=== PATIENT | female | born 1945 | race Caucasian/White ===

== ENCOUNTER 2016-04-23 19:36 | Inpatient (IN) | payer MEDICARE ==
[2016-04-23] MEDS ORDERED: ASPIRIN 81 MG CHEW PO STA (20:07)
[2016-04-23] MEDS ORDERED: NITROGLYCERIN SL TABS 0.4 MG TAB SUBLINGUAL STA (20:07)
[2016-04-23 20:13] LABS: Basophils # (A) 0.2 k/uL (0-0.2); Basophils % (A) 2 %; CH 29.5; CHCM 33.6; Eosinophils # (A) 0.1 k/uL (0-0.7); Eosinophils % (A) 2 %; HDW 2.87; HGB 12.6 gm/dL (11.4-16.0); Luc # (Auto) 0.26; Luc % (Auto) 3; Lymphocytes # (A) 1.2 k/uL (1.0-4.8); Lymphocytes % (A) 16 %; MCH 29.2 pg (25.0-35.0); MCHC 33.2 g/dL (31.0-37.0); Mean Platelet Volume 7.9; Monocytes # (A) 0.7 k/uL (0-1.0); Monocytes % (A) 9 %; Neutrophils # (A) 5.3 k/uL (1.3-7.7); Neutrophils % (A) 68 %; RBC 4.32 m/uL (3.80-5.40); RDW 14.6 % (11.5-15.5); WBC 7.8 k/uL (3.8-10.6); WBC (Perox) 8.47
[2016-04-23 20:21] LABS: INR 1.1 (<1.1); Partial Thromboplastin Time 22.4 sec (22.0-30.0); Prothrombin Time 11.2 sec (9.0-12.0)
[2016-04-23 20:22] LABS: ALT 22 U/L (9-52); AST 28 U/L (14-36); Alkaline Phosphatase 73 U/L (38-126); Amylase 65 U/L (30-110); Anion Gap 12 mmol/L; Blood Urea Nitrogen 23 mg/dL (7-17); Calcium 9.3 mg/dL (8.4-10.2); Carbon Dioxide 23 mmol/L (22-30); Chloride 103 mmol/L (98-107); Glucose 85 mg/dL (74-99); Magnesium 1.8 mg/dL (1.6-2.3); Non-African American GFR(MDRD) 50 (>60 ml/min/1.73 sqM); Potassium 4.8 mmol/L (3.5-5.1); Sodium 138 mmol/L (137-145); Total Bilirubin 0.8 mg/dL (0.2-1.3); Total Protein 7.1 g/dL (6.3-8.2)
--- NOTE | 2016-04-23 20:31 | XR ---
EXAMINATION TYPE: XR chest 1V portable DATE OF EXAM: 04/23/2016 8:24 PM COMPARISON: 02/14/2015 INDICATION: Chest pain TECHNIQUE: Single frontal view of the chest is obtained. FINDINGS: The heart size is enlarged. The pulmonary vasculature is normal. Retrocardiac infiltrate silhouetting the left diaphragm is present. Sternotomy wires are present from previous CABG. IMPRESSION: 1. Retrocardiac infiltrate.
[2016-04-23 20:37] LABS: Creatine Kinase 182 U/L (30-135)
[2016-04-23 20:49] LABS: Creatine Kinase MB 1.7 ng/mL (0.0-2.4); Troponin I <0.012 ng/mL (0.000-0.034)
[2016-04-23] MEDS ORDERED: AZITHROMYCIN 500 MG TAB PO STA (21:41)
[2016-04-23] MEDS ORDERED: SODIUM CHLORIDE 0.9% 1,000 ML IV STA (22:04)
[2016-04-23] MEDS ORDERED: PNEUMONIA PROTOCOL UTILIZED 1 EACH MISC PO PRN (22:38)
[2016-04-23] MEDS ORDERED: NITROGLYCERIN SL TABS 0.4 MG TAB SUBLINGUAL PRN (22:42)
[2016-04-23] MEDS: SODIUM CHLORIDE 0.9% 1,000 ML IV SCH (22:45)
--- NOTE | 2016-04-23 22:45 | ED ---
Chest Pain HPI - General Chief Complaint: Chest Pain Stated Complaint: chest pain Time Seen by Provider: 04/23/16 19:44 Source: patient, family Mode of arrival: ambulatory Limitations: no limitations - History of Present Illness Initial Comments: This patient is 71-year-old woman who presents with the complaint of left-sided chest pain that has been going on since the afternoon. The patient states she was in her usual state of health until about a week ago when she states she came down with what she is referring to as the flu. She states that she had a number of days of cough, fever. She states that then this was followed by "a cold," including cough and congestion. Over the course of the afternoon she has been having pain to the left of her sternum and also in her back. She states she is also been feeling lightheaded like she was going to pass out. She does continue to have the occasional cough. The patient is denying anginal symptoms, no diaphoresis, dyspnea, syncope, nausea or vomiting. MD Complaint: chest pain -: hour(s) Onset: during rest Pain Location: left chest Pain Radiation: back Severity: moderate Quality: aching Consistency: constant Improves With: nothing Worsens With: other (Coughing) Context: recent illness Other Symptoms: cough, other (Lightheadedness) Treatments Prior to Arrival: none - Related Data Home Medications Medication Instructions Recorded Confirmed Aspirin EC [Ecotrin Low Dose] 81 mg PO BID 10/15/14 04/23/16 Atorvastatin [Lipitor] 40 mg PO HS 10/15/14 04/23/16 Cyanocobalamin [Vitamin B-12] 1,000 mcg PO DAILY 10/15/14 04/23/16 Escitalopram [Lexapro] 30 mg PO DAILY 10/15/14 04/23/16 Ferrous Sulfate [Feosol] 325 mg PO DAILY 10/15/14 04/23/16 Furosemide [Lasix] 20 mg PO DAILY 10/15/14 04/23/16 Levothyroxine Sodium [Synthroid] 50 mcg PO DAILY 10/15/14 04/23/16 Metoprolol Tartrate [Lopressor] 12.5 mg PO BID 10/15/14 04/23/16 Nitroglycerin Sl Tabs [Nitrostat] 0.4 mg SUBLINGUAL Q5M PRN 10/15/14 04/23/16 amLODIPine [Norvasc] 5 mg PO DAILY 10/15/14 04/23/16 metFORMIN HCL [Glucophage] 500 mg PO DAILY 10/15/14 04/23/16 Cholecalciferol [Vitamin D3] 5,000 unit PO DAILY 10/16/14 04/23/16 Ipratropium-Albuterol Nebulize 3 ml INHALATION RT-Q6H 10/16/14 04/23/16 [Duoneb 0.5 mg-3 mg/3 ml Soln] Albuterol Inhaler [Ventolin Hfa 1 - 2 puff INHALATION RT-Q6H PRN 04/23/16 Inhaler] Fluticasone/Vilanterol [Breo 1 puff INHALATION RT-DAILY 04/23/16 04/23/16 Ellipta 100-25 Mcg Inhaler] HYDROcodone/APAP 7.5-325MG [[place] 1 tab PO Q6H PRN 04/23/16 04/23/16 7.5-325] Isosorbide Mononitrate ER [Imdur] 90 mg PO DAILY 04/23/16 04/23/16 Losartan [Cozaar] 50 mg PO DAILY 04/23/16 04/23/16 Methocarbamol [Robaxin] 500 - 1,000 mg PO QID 04/23/16 04/23/16 Montelukast [Singulair] 10 mg PO HS 04/23/16 04/23/16 Omeprazole 20 mg PO DAILY 04/23/16 04/23/16 Potassium 99 mg PO DAILY 04/23/16 04/23/16 QUEtiapine FUMARATE [SEROquel] 12.5 mg PO BID@1200,1700 04/23/16 04/23/16 QUEtiapine [SEROquel] 25 mg PO HS 04/23/16 04/23/16 Previous Rx's Medication Instructions Recorded diphenhydrAMINE [Benadryl] 50 mg PO QID PRN #20 capsule 08/31/15 Allergies Allergy/AdvReac Type Severity Reaction Status Date / Time latex Allergy Rash/Hives Verified 04/23/16 20:18 venom-honey bee Allergy Swelling Verified 04/23/16 20:18 [bee venom (honey bee)] zolpidem tartrate Allergy Altered Verified 04/23/16 20:18 [From Ambien] Mental Status Review of Systems ROS Statement: Those systems with pertinent positive or pertinent negative responses have been documented in the HPI. ROS Other: All systems not noted in ROS Statement are negative. Constitutional: Reports: chills, weakness. Denies: fever Respiratory: Reports: cough (Generalized). Denies: dyspnea, wheezes, hemoptysis Cardiovascular: Reports: chest pain. Denies: palpitations, orthopnea, edema, syncope Gastrointestinal: Denies: abdominal pain, nausea, vomiting Genitourinary: Denies: dysuria, hematuria Musculoskeletal: Reports: as per HPI, back pain Skin: Denies: rash Neurological: Denies: headache, weakness, numbness EKG Findings - EKG Comments: EKG Findings:: There is T inversion in V2 versus the comparison EKG. - EKG Results: EKG: interpreted by PETEY, sinus rhythm, normal axis, normal QRS EKG shows: bradycardia (Rate 55 bpm) Past Medical History Past Medical History: Coronary Artery Disease (CAD), COPD, CVA/TIA, Diabetes Mellitus, GERD/Reflux, Hyperlipidemia, Hypertension, Myocardial Infarction ([place]) , Osteoarthritis (OA), Thyroid Disorder Additional Past Medical History / Comment(s): VERTIGO Last Myocardial Infarction Date:: 2004 History of Any Multi-Drug Resistant Organisms: MRSA Date of last positivie culture/infection: 2005 MDRO Source:: Back Past Surgical History: Coronary Bypass/CABG, Heart Catheterization With Stent, Hysterectomy, Joint Replacement, Orthopedic Surgery, Tonsillectomy Additional Past Surgical History / Comment(s): Bruce total knee replacement; total shoulder replacement; rotator cuff repair, bilateral cataract surgery. Date of Last Stent Placement:: 2004 Past Psychological History: Depression Smoking Status: Never smoker Past Alcohol Use History: Rare Past Drug Use History: None Reported - Past Family History Mother Family Medical History: Chest Pain / Angina, Coronary Artery Disease (CAD), CVA/ TIA, Hypertension, Musculoskeletal Disorder (Mother has history of CAD as well as Paget disease.) Father Family Medical History: Coronary Artery Disease (CAD) (Father at age of 66 from coronary artery disease and he had his first myocardial infarction at 37.) Additional Family Medical History / Comment(s): cabg Brother(s) Family Medical History: Coronary Artery Disease (CAD) (One brother with CAD in the obstructive sleep apnea) Sister(s) Family Medical History: Coronary Artery Disease (CAD) (Patient has 2 sisters one of them was diagnosed with CAD status post CABG 5 and a CVA.) Daughter(s) Family Medical History: No Reported History (Patient has one biological daughter , and 2 step daughter and one stepson.) General Exam Limitations: no limitations General appearance: alert, in no apparent distress Head exam: Present: atraumatic, normocephalic, normal inspection Eye exam: Present: normal appearance. Absent: scleral icterus, conjunctival injection ENT exam: Present: mucous membranes dry Respiratory exam: Present: rales (Bilateral bases). Absent: respiratory distress, wheezes, rhonchi, stridor, chest wall tenderness, accessory muscle use , decreased breath sounds Cardiovascular Exam: Present: normal rhythm, bradycardia, normal heart sounds. Absent: systolic murmur, diastolic murmur, rubs, gallop GI/Abdominal exam: Present: soft. Absent: distended, tenderness, guarding, rebound, mass Extremities exam: Present: normal inspection, normal capillary refill. Absent: pedal edema, calf tenderness Back exam: Present: normal inspection. Absent: CVA tenderness (R), CVA tenderness (L) Neurological exam: Present: alert Skin exam: Present: warm, dry, intact, normal color. Absent: rash Course Vital Signs 04/23/16 04/23/16 04/23/16 19:39 20:03 21:48 Temperature 98.1 F Pulse Rate 61 56 L 57 L Respiratory 20 16 16 Rate Blood Pressure 98/51 96/55 101/60 O2 Sat by Pulse 95 99 99 Oximetry Disposition Clinical Impression: Pneumonia, Chest pain Disposition: ADMITTED IP TO THIS HOSP Condition: Fair Referrals: Junaid Truong MD [Primary Care Provider] - 1-2 days
[2016-04-24] MEDS: SODIUM CHLORIDE 0.9% 1,000 ML IV SCH ×3 (00:15→20:04)
[2016-04-24] MEDS: LEVOTHYROXINE 50 MCG TAB PO SCH (05:59)
[2016-04-24 06:28] LABS: Glucose,Whole Blood 95 mg/dL (75-99)
--- NOTE | 2016-04-24 08:57 | XR ---
EXAMINATION TYPE: XR chest 2V DATE OF EXAM: 04/24/2016 7:48 AM COMPARISON: 04/23/2016 INDICATION: Pneumonia TECHNIQUE: Single frontal view of the chest is obtained. FINDINGS: The heart size is enlarged. The pulmonary vasculature is normal. There is left lower lobe infiltrate. This has improved residual remains. Continued follow-up is recom mended. Right shoulder prosthesis is evident. Sternotomy wires are present are CABG. IMPRESSION: 1. Improving left lower lobe infiltrate
[2016-04-24] MEDS: METOPROLOL TARTRATE 12.5 MG TAB PO SCH ×2 (08:59→20:41)
[2016-04-24] MEDS: ISOSORBIDE MONONITRATE ER 60 MG TAB.ER.24H PO SCH (08:59)
[2016-04-24] MEDS: metFORMIN 500 MG TAB PO SCH (08:59)
[2016-04-24] MEDS: ALBUTEROL NEBULIZED 2.5 MG/3 ML INHALATION SCH ×2 (08:59→12:08)
[2016-04-24] MEDS: LOSARTAN 50 MG TAB PO SCH (09:00)
[2016-04-24] MEDS: PANTOPRAZOLE 40 MG TABLET PO SCH (09:00)
[2016-04-24] MEDS: amLODIPine 5 MG TAB PO SCH (09:00)
[2016-04-24] MEDS ORDERED: ASPIRIN 81 MG CHEW PO SCH (09:00)
[2016-04-24] MEDS: ESCITALOPRAM 20 MG TAB PO SCH (09:01)
[2016-04-24] MEDS: FERROUS SULFATE 325 MG TAB PO SCH (09:40)
[2016-04-24 09:55] LABS: Hemoglobin A1C 5.8 % (4.2-6.1)
--- NOTE | 2016-04-24 11:33 | P.CRDCN ---
History of Present Illness Consult date: 04/24/16 Requesting physician: Guilherme Stiles Consult reason: chest pain Chief complaint: Chest pain History of present illness: This is a 71-year-old female who follows regularly with Dr. Saleem in the office. She has a known history of coronary artery disease with prior bypass surgery, subsequent to that patient also had angioplasty and stenting performed. Most recent cardiac catheterization was performed in 2012 maximal medical therapy advised at that time. Patient also has history of hypertension , diabetes, hyperlipidemia, and family history of premature coronary artery disease. According to the patient, she's been dealing with cough, fever, and congestion for approximately one week duration. Yesterday the patient states that she developed a left-sided chest pressure and heaviness while she was at work. She had some mild associated shortness of breath and diaphoresis. EKG shows sinus bradycardia with anterior T-wave inversion. Morning EKG shows a normal sinus rhythm with anterior ST-T wave changes . The patient was noted to have mild anterior ST-T wave changes in the past. Chest x-ray revealed lower lobe infiltrate, repeat chest x-ray performed this morning revealed improvement in left lower lobe infiltrate. Laboratory data, WBC 7.8, hemoglobin 12.6, platelet count 159, d-dimer negative. Potassium 4.8, BUN 23, creatinine 1.0. Magnesium level I.8. Troponins negative 2. Influenza A and B were negative. At the time of my examination this morning patient complains of mild left-sided chest pressure which she rates at 2-3 on a pain scale. Past Medical History Past Medical History: Coronary Artery Disease (CAD), COPD, CVA/TIA, Diabetes Mellitus, GERD/Reflux, Hyperlipidemia, Hypertension, Myocardial Infarction ([place]) , Osteoarthritis (OA), Thyroid Disorder Additional Past Medical History / Comment(s): VERTIGO Last Myocardial Infarction Date:: 2004 History of Any Multi-Drug Resistant Organisms: MRSA Date of last positivie culture/infection: 2005 MDRO Source:: Back Past Surgical History: Coronary Bypass/CABG, Heart Catheterization With Stent, Hysterectomy, Joint Replacement, Orthopedic Surgery, Tonsillectomy Additional Past Surgical History / Comment(s): Bruce total knee replacement; total shoulder replacement; rotator cuff repair, bilateral cataract surgery. Date of Last Stent Placement:: 2004 Past Psychological History: Depression Smoking Status: Never smoker Past Alcohol Use History: Rare Past Drug Use History: None Reported - Past Family History Mother Family Medical History: Chest Pain / Angina, Coronary Artery Disease (CAD), CVA/ TIA, Hypertension, Musculoskeletal Disorder Father Family Medical History: Coronary Artery Disease (CAD) Additional Family Medical History / Comment(s): cabg Brother(s) Family Medical History: Coronary Artery Disease (CAD) Sister(s) Family Medical History: Coronary Artery Disease (CAD) Daughter(s) Family Medical History: No Reported History Medications and Allergies Home Medications Medication Instructions Recorded Confirmed Type Aspirin EC [Ecotrin Low Dose] 81 mg PO BID 10/15/14 04/23/16 History Atorvastatin [Lipitor] 40 mg PO HS 10/15/14 04/23/16 History Cyanocobalamin [Vitamin B-12] 1,000 mcg PO DAILY 10/15/14 04/23/16 History Escitalopram [Lexapro] 30 mg PO DAILY 10/15/14 04/23/16 History Ferrous Sulfate [Feosol] 325 mg PO DAILY 10/15/14 04/23/16 History Furosemide [Lasix] 20 mg PO DAILY 10/15/14 04/23/16 History Levothyroxine Sodium [Synthroid] 50 mcg PO DAILY 10/15/14 04/23/16 History Metoprolol Tartrate [Lopressor] 12.5 mg PO BID 10/15/14 04/23/16 History Nitroglycerin Sl Tabs [Nitrostat] 0.4 mg SUBLINGUAL Q5M PRN 10/15/14 04/23/16 History amLODIPine [Norvasc] 5 mg PO DAILY 10/15/14 04/23/16 History metFORMIN HCL [Glucophage] 500 mg PO DAILY 10/15/14 04/23/16 History Cholecalciferol [Vitamin D3] 5,000 unit PO DAILY 10/16/14 04/23/16 History Ipratropium-Albuterol Nebulize 3 ml INHALATION RT-Q6H 10/16/14 04/23/16 History [Duoneb 0.5 mg-3 mg/3 ml Soln] Albuterol Inhaler [Ventolin Hfa 1 - 2 puff INHALATION RT-Q6H PRN 04/23/16 History Inhaler] Fluticasone/Vilanterol [Breo 1 puff INHALATION RT-DAILY 04/23/16 04/23/16 History Ellipta 100-25 Mcg Inhaler] HYDROcodone/APAP 7.5-325MG [[place] 1 tab PO Q6H PRN 04/23/16 04/23/16 History 7.5-325] Isosorbide Mononitrate ER [Imdur] 90 mg PO DAILY 04/23/16 04/23/16 History Losartan [Cozaar] 50 mg PO DAILY 04/23/16 04/23/16 History Methocarbamol [Robaxin] 500 - 1,000 mg PO QID 04/23/16 04/23/16 History Montelukast [Singulair] 10 mg PO HS 04/23/16 04/23/16 History Omeprazole 20 mg PO DAILY 04/23/16 04/23/16 History Potassium 99 mg PO DAILY 04/23/16 04/23/16 History QUEtiapine FUMARATE [SEROquel] 12.5 mg PO BID@1200,1700 04/23/16 04/23/16 History QUEtiapine [SEROquel] 25 mg PO HS 04/23/16 04/23/16 History Allergies Allergy/AdvReac Type Severity Reaction Status Date / Time latex Allergy Rash/Hives Verified 04/23/16 20:18 venom-honey bee Allergy Swelling Verified 04/23/16 20:18 [bee venom (honey bee)] zolpidem tartrate Allergy Altered Verified 04/23/16 20:18 [From Ambien] Mental Status Physical Exam Vitals: Vital Signs Temp Pulse Pulse Resp BP BP Pulse Ox 04/24/16 09:09 88 04/24/16 09:00 84 04/24/16 08:00 96.3 F L 55 L 16 93/48 97 04/24/16 04:00 96.9 F L 52 L 16 108/54 97 04/24/16 00:00 96.6 F L 71 18 113/57 97 04/23/16 23:04 60 16 102/61 98 Intake and Output 04/23/16 04/24/16 04/24/16 22:59 06:59 14:59 Intake Total 810 180 Balance 810 180 Intake: IV 810 IV Flush 10 Sodium Chloride 0.9% 1, 800 000 ml @ 100 mls/hr IV . Q10H [facility] Rx#:[id number] Oral 180 Other: Voiding Method Toilet # Voids 1 Weight 81.1 kg PHYSICAL EXAMINATION: HEENT: Head is atraumatic, normocephalic. Pupils equal, round. Neck is supple. There is no elevated jugular venous pressure. HEART EXAMINATION: Heart S1 and S2 systolic ejection murmur is heard. CHEST EXAMINATION: No crackles bilaterally. ABDOMEN: Soft, obese, nontender. Bowel sounds are heard. No organomegaly noted. EXTREMITIES: 2+ peripheral pulses with no evidence of peripheral edema and no calf tenderness noted. NEUROLOGIC patient is awake, alert and oriented -3. . Results 04/25/16 05:38 04/25/16 05:38 Cardiac Enzymes 04/24/16 Range/Units 09:14 Troponin I <0.012 (0.000-0.034) ng/mL Current Medications Generic Name Dose Route Start Last Admin Trade Name Freq PRN Reason Stop Dose Admin Hydrocodone Bitart/Acetaminophen 1 each 04/23/16 22:42 [place] 7.5-325 PO Q6H PRN Pain Albuterol Sulfate 2.5 mg 04/24/16 08:00 04/24/16 08:59 Ventolin Nebulized INHALATION 2.5 mg RT-QID NIRAJ Administration Amlodipine Besylate 5 mg 04/24/16 09:00 04/24/16 09:00 Norvasc PO 5 mg DAILY NIRAJ Administration Aspirin 81 mg 04/24/16 09:00 04/24/16 09:00 Aspirin PO 81 mg BID NIRAJ Administration Azithromycin 500 mg 04/24/16 21:00 Zithromax PO Q24H NIRAJ Cyanocobalamin 1,000 mcg 04/24/16 12:00 Vitamin B-12 PO DAILY@1200 NIRAJ Diphenhydramine HCl 50 mg 04/23/16 22:42 Benadryl PO QID PRN Itching Escitalopram Oxalate 30 mg 04/24/16 09:00 04/24/16 09:01 Lexapro PO 30 mg DAILY NIRAJ Administration Ferrous Sulfate 325 mg 04/24/16 09:00 04/24/16 09:40 Feosol PO 325 mg DAILY NIRAJ Administration Sodium Chloride 1,000 mls @ 100 mls/hr 04/23/16 22:45 04/23/16 22:45 Saline 0.9% IV 100 mls/hr .Q10H NIRAJ Administration Ceftriaxone Sodium 1,000 mg/ 50 mls @ 100 mls/hr 04/24/16 09:00 04/24/16 09: 39 Sodium Chloride IVPB 04/27/16 09:01 100 mls/hr Q24HR NIRAJ Administration Isosorbide Mononitrate 90 mg 04/24/16 09:00 04/24/16 08:59 Imdur PO 90 mg DAILY NIRAJ Administration Levothyroxine Sodium 50 mcg 04/24/16 06:30 04/24/16 05:59 Synthroid PO 50 mcg DAILY@0630 NIRAJ Administration Losartan Potassium 50 mg 04/24/16 09:00 04/24/16 09:00 Cozaar PO 50 mg DAILY NIRAJ Administration Metformin HCl 500 mg 04/24/16 09:00 04/24/16 08:59 Glucophage PO 500 mg DAILY NIRAJ Administration Metoprolol Tartrate 12.5 mg 04/24/16 09:00 04/24/16 08:59 Lopressor PO 12.5 mg BID NIRAJ Administration Miscellaneous Information 1 each 04/23/16 22:38 Pneumonia Protocol Utilized PO ONCE PRN Per Protocol Montelukast Sodium 10 mg 04/24/16 21:00 Singulair PO HS NIRAJ Nitroglycerin 0.4 mg 04/23/16 22:42 Nitrostat SUBLINGUAL Q5M PRN Chest Pain Pantoprazole Sodium 40 mg 04/24/16 09:00 04/24/16 09:00 Protonix PO 40 mg DAILY NIRAJ Administration Quetiapine Fumarate 12.5 mg 04/24/16 12:00 Seroquel PO BID@1200,1700 NIRAJ Quetiapine Fumarate 25 mg 04/24/16 21:00 Seroquel PO HS NIRAJ Intake and Output 04/23/16 04/24/16 04/24/16 22:59 06:59 14:59 Intake Total 810 180 Balance 810 180 Intake: IV 810 IV Flush 10 Sodium Chloride 0.9% 1, 800 000 ml @ 100 mls/hr IV . Q10H NIRAJ Rx#:[id number] Oral 180 Other: Voiding Method Toilet # Voids 1 Weight 81.1 kg EKG Interpretations (text) EKG shows normal sinus rhythm with anterior T-wave inversion Assessment and Plan Plan: Assessment and plan #1 in terms of cough, congestion, and shortness of breath, suggestion of a lower lobe pneumonia on chest x-ray. Improving on this morning's x-ray. Currently on antibiotics. #2 left-sided chest pressure and heaviness, suggestive of a possible unstable angina. Troponins negative 3. EKG shows normal sinus rhythm with anterior T- wave inversion. #3 known history of coronary artery disease with prior bypass surgery and PCI #4 hypertension #5 hyperlipidemia #6 diabetes #7 hypothyroidism #8 hx of cva/TIA Plan We will request an echocardiogram with Doppler study be performed. Decrease aspirin 81 mg daily. Continue losartan, metoprolol tartrate, increase Imdur Continue antibiotics for pneumonia. Once the lung status has improved, consider stress testing as an outpatient. Further recommendations to follow. DNP note has been reviewed, I agree with a documented findings and plan of care. Patient was seen and examined.
[2016-04-24] MEDS ORDERED: MECLIZINE 12.5 MG TAB PO PRN (11:49)
--- NOTE | 2016-04-24 11:56 | P.HPIM ---
History of Present Illness H&P Date: 04/24/16 Chief Complaint: Chest pain This 71-year-old female patient presented to [facility] with a chief complaint of chest pain area and patient states that she began to feel heaviness in her chest while at work on her lunch break sitting down around 3: 30 PM on the day that she presented to the emergency department. 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 She states that she took nitroglycerin for this pain that was originally a 7 out of 10 which she describes as a pressure and tightness. She states that after 2 nitroglycerin and went to a 3 out of 10. Subsequently did decrease to a 2-3 out of 10. She went home from work and was lying down. Her asked if she still was not feeling well and as she was not feeling well and still had chest tightness she presented to the emergency department. Her initial cardiac enzymes are negative. I do not see an emergency room EKG on the patient for evaluation but one was done today after evaluating the patient which revealed some T wave inversion which is being evaluated by cardiology. Her repeat cardiac enzymes are negative. Patient states she still is having some 2 out of 10 chest pressure at times. However she was lying sleeping when I entered the room but was easily arousable and is awake alert and appropriate. She is not sure whether the chest tightness is improved when she receives nebulizer treatments. Cannot pinpoint exacerbating or relieving factors. In the emergency room she was diagnosed with a left lower lobe pneumonia and has been admitted to the hospital on antibiotic therapy. The chest x-ray from this morning is read as slightly improved compared to yesterday. Patient states that she has had a recent viral illness with GI symptoms nausea vomiting diarrhea which resolved 7 days ago. She states then 3 days prior to admission she began to develop a sensation of fever but when she took her temperature at home it was okay. She has had some shivering she indicates but not true shaking chills. She also complains of some dysuria which she indicates is at times frequent for her took some [id number]-jenzjce medication for that which seemed to improve those symptoms area and this would've been about 3 days prior to admission. Patient does not initially complain of vertigo but upon examination indicates that the cranial nerve testing is making her vertiginous. She indicates she has a history of benign positional vertigo but it is been quite sometime since she has had symptoms. She states as long as she looks in one direction she is okay and does not seem to have the vertigo but yesterday the bedroom actually felt as if it was spinning. No true spinning sensation of the bed today but she states she is still a little vertiginous or she moves her head a certain way when trying to walk. She is requiring assistance to the bathroom. Review of Systems General: Patient complains of fever, some chills not true rigors by description Recent nausea and vomiting with GI illness which resolved 7 days ago. No further nausea or emesis HEENT: No visual changes. No eye pain. No nasal symptoms. No dysphagia.No odynophagia. No ENT pain. Cardiac: Positive chest pressure. Please see history of present illness for details. No palpitations. Prior history of coronary artery disease. Pulmonary: No dyspnea but does have chest tightness. Patient states she has a cough but it is nonproductive. She states she is usually never able to produce sputum. GI: No abdominal pain. No diarrhea for 7 days. No constipation. No melena. No hematochezia. See general. : Positive dysuria and urgency improved with some [id number] medication..No hematuria. No renal lithiasis history. Musculoskeletal: Patient did have chronic sciatic pain but had the nerve root ablated by description with physiatry with Dr. Arnold. She thus does have some numbness over the left lateral thigh chronically. Orthopedic: Denies fracture history. Integumentary: Denies rash. Denies pruritis. Neurologic: Prior history of stroke which she does not recall what residual deficits she was left with. She did indicate she did have some arm weakness at that time. History of benign positional vertigo treated with Antivert in the past. She states she has been quite some times and she has had symptoms like that but does have them again today she does not mention until week due to cranial nerve testing and the eye movement makes her somewhat nauseous although she is able to perform it. See musculoskeletal regarding leg numbness. Denies tingling. No seizure activity. Prior lacunar infarcts on MRI she indicates when she had a neurologic workup as well. Endocrine: Positive diabetes she indicates that her glucoses been somewhat labile lately being in the 200s at times which is quite unusual for her. Dates she did have some in the 80s as well which is also unusual for her. Heme/Onc: Denies anemia. Denies cancer. Denies adenopathy. Allergic/Immunologic: ALLERGIES include latex, honey bee venom, and Ambien. Past Medical History Past Medical History: Coronary Artery Disease (CAD), COPD, CVA/TIA, Diabetes Mellitus, GERD/Reflux, Hyperlipidemia, Hypertension, Myocardial Infarction ([place]) , Osteoarthritis (OA), Thyroid Disorder (Hypothyroidism) Additional Past Medical History / Comment(s): VERTIGO Last Myocardial Infarction Date:: 2004 History of Any Multi-Drug Resistant Organisms: MRSA Date of last positivie culture/infection: 2005 MDRO Source:: Back Past Surgical History: Coronary Bypass/CABG, Heart Catheterization With Stent, Hysterectomy, Joint Replacement, Orthopedic Surgery, Tonsillectomy Additional Past Surgical History / Comment(s): Bruce total knee replacement; total shoulder replacement; rotator cuff repair, bilateral cataract surgery. Date of Last Stent Placement:: 2004 Past Psychological History: Depression Smoking Status: Never smoker Past Alcohol Use History: Rare Past Drug Use History: None Reported - Past Family History Mother Family Medical History: Chest Pain / Angina, Coronary Artery Disease (CAD), CVA/ TIA, Hypertension, Musculoskeletal Disorder Father Family Medical History: Coronary Artery Disease (CAD) Additional Family Medical History / Comment(s): cabg Brother(s) Family Medical History: Coronary Artery Disease (CAD) Sister(s) Family Medical History: Coronary Artery Disease (CAD) Daughter(s) Family Medical History: No Reported History Medications and Allergies Home Medications Medication Instructions Recorded Confirmed Type Aspirin EC [Ecotrin Low Dose] 81 mg PO BID 10/15/14 04/23/16 History Atorvastatin [Lipitor] 40 mg PO HS 10/15/14 04/23/16 History Cyanocobalamin [Vitamin B-12] 1,000 mcg PO DAILY 10/15/14 04/23/16 History Escitalopram [Lexapro] 30 mg PO DAILY 10/15/14 04/23/16 History Ferrous Sulfate [Feosol] 325 mg PO DAILY 10/15/14 04/23/16 History Furosemide [Lasix] 20 mg PO DAILY 10/15/14 04/23/16 History Levothyroxine Sodium [Synthroid] 50 mcg PO DAILY 10/15/14 04/23/16 History Metoprolol Tartrate [Lopressor] 12.5 mg PO BID 10/15/14 04/23/16 History Nitroglycerin Sl Tabs [Nitrostat] 0.4 mg SUBLINGUAL Q5M PRN 10/15/14 04/23/16 History amLODIPine [Norvasc] 5 mg PO DAILY 10/15/14 04/23/16 History metFORMIN HCL [Glucophage] 500 mg PO DAILY 10/15/14 04/23/16 History Cholecalciferol [Vitamin D3] 5,000 unit PO DAILY 10/16/14 04/23/16 History Ipratropium-Albuterol Nebulize 3 ml INHALATION RT-Q6H 10/16/14 04/23/16 History [Duoneb 0.5 mg-3 mg/3 ml Soln] Albuterol Inhaler [Ventolin Hfa 1 - 2 puff INHALATION RT-Q6H PRN 04/23/16 History Inhaler] Fluticasone/Vilanterol [Breo 1 puff INHALATION RT-DAILY 04/23/16 04/23/16 History Ellipta 100-25 Mcg Inhaler] HYDROcodone/APAP 7.5-325MG [[place] 1 tab PO Q6H PRN 04/23/16 04/23/16 History 7.5-325] Isosorbide Mononitrate ER [Imdur] 90 mg PO DAILY 04/23/16 04/23/16 History Losartan [Cozaar] 50 mg PO DAILY 04/23/16 04/23/16 History Methocarbamol [Robaxin] 500 - 1,000 mg PO QID 04/23/16 04/23/16 History Montelukast [Singulair] 10 mg PO HS 04/23/16 04/23/16 History Omeprazole 20 mg PO DAILY 04/23/16 04/23/16 History Potassium 99 mg PO DAILY 04/23/16 04/23/16 History QUEtiapine FUMARATE [SEROquel] 12.5 mg PO BID@1200,1700 04/23/16 04/23/16 History QUEtiapine [SEROquel] 25 mg PO HS 04/23/16 04/23/16 History Allergies Allergy/AdvReac Type Severity Reaction Status Date / Time latex Allergy Rash/Hives Verified 04/23/16 20:18 venom-honey bee Allergy Swelling Verified 04/23/16 20:18 [bee venom (honey bee)] zolpidem tartrate Allergy Altered Verified 04/23/16 20:18 [From Ambien] Mental Status Physical Exam Osteopathic Statement: *. No significant issues noted on an osteopathic structural exam other than those noted in the History and Physical/Consult. Vitals: Vital Signs Temp Pulse Pulse Resp BP BP Pulse Ox 04/24/16 09:09 88 04/24/16 09:00 84 04/24/16 08:00 96.3 F L 55 L 16 93/48 97 04/24/16 04:00 96.9 F L 52 L 16 108/54 97 04/24/16 00:00 96.6 F L 71 18 113/57 97 04/23/16 23:04 60 16 102/61 98 Intake and Output 04/23/16 04/24/16 04/24/16 22:59 06:59 14:59 Intake Total 810 180 Balance 810 180 Intake: IV 810 IV Flush 10 Sodium Chloride 0.9% 1, 800 000 ml @ 100 mls/hr IV . Q10H [facility] Rx#:[id number] Oral 180 Other: Voiding Method Toilet # Voids 1 Weight 81.1 kg General: Patient sleeping but easily arousable upon upon entry to the room. she is then awake alert and oriented x 3. No acute distress. HEENT: Sclerae are clear. Pupils equal, round and reactive to light bilaterally. No cervical adenopathy. No pharyngeal erythema or exudate. Mucous membranes moist. No thyromegaly. Lymphatic: No anterior cervical adenopathy. Chest: Heart regular in rhythm. Bradycardic. positive S1 and S2. No S3. No S4. Positive systolic murmur over the precordium most prominently at the pulmonic listening post but present at the aortic listening post as well. 3 out of 6. Lungs: Scattered crackles in the bilateral bases and bilateral mid lung stuart. No wheezes . Respirations even and nonlabored. Abdomen/GI: Bowel sounds present in all 4 quadrants. Bowel sounds normoactive. No abdominal tenderness. No mass. No hepatomegaly or splenomegaly. No bruits. Musculoskeletal/ Extremities: No tenderness on muscular exam. No ecchymosis. No peripheral edema. extremities warm Vascular: Radial pulses equal. 2/4. Dorsalis pedis pulses equal 2 out of 4. Skin: No rash. No ecchymosis. Neurologic: Awake, alert and oriented times 3. Patient does have some left neglect of the left upper extremity and doing muscle strength testing. When this is pointed out to her she is able to improve her bilateral muscle strength but the left upper extremity is still slightly weaker than the right. Fire Investigator 5 out of 5 on the right 5 minus out of 5 on the left biceps and triceps 5 out of 5 on the right 5 minus out of 5 on the left quadriceps hamstrings and EHL 5 out of 5 on the right 5 minus out of 5 on the left. Extraocular movements are intact. Hearing and vision intact. sensation to light touch to the face arms upper chest legs abdomen equal bilaterally. Speech is clear. There is no facial droop. All muscles of the face intact bilaterally. There is no tongue deviation. Patient does complain of vertiginous sensation when doing extraocular movements. There is no nystagmus. Psychiatric: History of depression. Patient is not expressing any suicidal ideation today. Results CBC & Chem 7: 04/23/16 20:00 04/23/16 20:00 Comments: EKG reviewed with some lateral T-wave inversion. Sinus bradycardia. Chest x-ray: report reviewed, image reviewed Thrombosis Risk Factor Assmnt - DVT/VTE Prophylaxis DVT/VTE Prophylaxis: Mechanical Prophylaxis ordered - Choose All That Apply Any of the Below Risk Factors Present?: Yes Each Factor Represents 1 point: Obesity (BMI >25), Serious lung disease incl. pneumonia (< 1month) Each Risk Factor Represents 2 Points: Age 61-74 years Thrombosis Risk Factor Assessment Total Risk Factor Score: 4 Thrombosis Risk Factor Assessment Level: High Risk Assessment and Plan Plan: Assessment: 1. LLL pneumonia 2. Vertigo secondary to acute state with history of benign positional vertigo in the past versus central. Left weakness and degree of neglect on strength testing, patient relates old stroke with workup in the past with some arm weakness, she believes on the left. 3. Chest pressure improved with Nitroglycerin ? anginal equivalent, no evidence of infarct on enzymes. Some T wave inversion which has been present prior, being evluated by cardiology. History of coronary artery disease with myocardial infarction in 2004. 4. UTI symptoms this week with history of frequent dysuria in the past - eval for UTI 5. Hypothyroidism 6. Depression history 7. Prior lacunar infarcts by description 8. Hyperlipidemia history 9. Diabetes mellitus , patient indicates glucose labile with recent illness 10..Recent viral GI syndrome by description resolved 7 days before admission. Plan: 1. Continue Rocephin. 2. Reconciliation of home medications. 3. Case discussed with cardiology was evaluating the patient. Repeat troponins are negative. Patient still with some mild chest tightness at a 2 out of 10. She is not sure if this is improved with nebulizer treatments. Therefore whether this is secondary to recurrent pulmonary infection versus cardiac is to be determined. Doubt any acute infarction at this time but cannot rule out some anginal component to pain from yesterday which was relieved with nitroglycerin. 4. Follow-up chest x-ray results are reviewed and are improving. 5. Continue nebulizer treatments. 6. Check urine and urine culture. 7. Await blood cultures. 8. Await sputum cultures - paitent unable to produce sputum at this time. 9. DVT prophylaxis with SCDs until computed tomography scan back. 10. Attempt to locate records regarding prior residual areas of weakness after prior stroke to see if consistent as patient unsure what side residual deficit on prior. 11. As prior history not complete to know with certainty what prior deficits were and vertigo new-onset, will check CT of the brain to ensure no acute stroke. If it is negative, can consider adding pharmacologic to the currently ordered mechanical DVT prophylaxis. Patient desires to be a FULL CODE as reviewed with her.
[2016-04-24 11:57] LABS: Glucose,Whole Blood 110 mg/dL (75-99)
--- NOTE | 2016-04-24 12:27 | CT ---
EXAMINATION TYPE: CT brain wo con DATE OF EXAM: 04/24/2016 12:12 PM COMPARISON: NONE HISTORY: dizziness CT DLP: 987.3 mGycm Automated exposure control for dose reduction was used. FINDINGS: There are generalized changes of sulcal prominence and ventriculomegaly, compatible with atrophic teofilo nge. This is more prominent in the frontal lobes bilaterally. There is diffuse periventricular white matter lucency, compatible with chronic ischemic change. There is no acute focal lesion, mass effect or midline shift identified. I do not see evidence of intracranial blood. There is mucoperiosteal thickening involving the ethmoid sinuses. IMPRESSION: 1. NO ACUTE INTRACRANIAL ABNORMALITY. 2. ATROPHIC CHANGE. WORSE IN THE FRONTAL REGIONS. THIS CAN BE SEEN IN PICK'S DISEASE. PLEASE CORRELAT E CLINICALLY. 3. CHRONIC WHITE MATTER ISCHEMIC CHANGE. 4. CHRONIC MUCOPERIOSTEAL THICKENING INVOLVING THE ETHMOID SINUSES BILATERALLY.
[2016-04-24] MEDS: INSULIN LISPRO (humaLOG) 300 UNIT/3 ML VIAL SQ SCH ×3 (12:40→20:41)
[2016-04-24] MEDS: CYANOCOBALAMIN 500 MCG TAB PO SCH (12:41)
[2016-04-24] MEDS: QUEtiapine 25 MG TAB PO SCH ×3 (12:42→20:41)
[2016-04-24] MEDS: MECLIZINE 12.5 MG TAB PO SCH ×2 (12:47→20:41)
[2016-04-24] MEDS ORDERED: 0.9% NACL WITH KCL 20 MEQ/L 1,000 ML IV SCH (13:30)
[2016-04-24 15:12] LABS: Anion Gap 7 mmol/L; Blood Urea Nitrogen 15 mg/dL (7-17); Carbon Dioxide 25 mmol/L (22-30); Chloride 107 mmol/L (98-107); Non-African American GFR(MDRD) >60 (>60 ml/min/1.73 sqM); Potassium 4.6 mmol/L (3.5-5.1); Sodium 139 mmol/L (137-145)
[2016-04-24] MEDS ORDERED: IPRATROPIUM 0.5 MG/2.5 ML NEBU INHALATION SCH (16:00)
[2016-04-24] MEDS: IPRATROPIUM-ALBUTEROL 3 ML NEB INHALATION SCH ×2 (16:19→19:28)
[2016-04-24 16:36] LABS: Glucose,Whole Blood 101 mg/dL (75-99)
[2016-04-24] MEDS: BUDESONIDE 0.5 MG/2 ML NEBU INHALATION SCH (19:28)
[2016-04-24] MEDS: HYDROcodone/APAP 7.5-325MG 1 EACH TAB PO PRN (20:04)
[2016-04-24 20:20] LABS: Appearance,Urine Clear (Clear); Bilirubin,Urine Negative (Negative); Glucose,Urine (UA) Negative (Negative); Ketones,Urine Negative (Negative); Leukocyte Esterase,Urine Negative (Negative); Nitrite,Urine Negative (Negative); Protein,Urine Negative (Negative); Specific Gravity,Urine 1.002 (1.001-1.035); UA Billing (MACRO vs. MICRO) CHEM; Urobilinogen,Urine <2.0 mg/dL (<2.0)
[2016-04-24] MEDS: ATORVASTATIN 80 MG TAB PO SCH (20:40)
[2016-04-24] MEDS: AZITHROMYCIN 500 MG TAB PO SCH (20:41)
[2016-04-24] MEDS: MONTELUKAST 10 MG TAB PO SCH (20:41)
[2016-04-24] MEDS: HEPARIN SODIUM,PORCINE 5,000 UNIT/ML 1 ML VIAL SQ SCH (20:44)
[2016-04-24 20:48] LABS: Glucose,Whole Blood 95 mg/dL (75-99)
[2016-04-25] MEDS: SODIUM CHLORIDE 0.9% 1,000 ML IV SCH (06:00)
[2016-04-25] MEDS: LEVOTHYROXINE 50 MCG TAB PO SCH (06:00)
[2016-04-25 06:37] LABS: Basophils % (A) 1 %; CH 29.3; CHCM 32.5; Eosinophils # (A) 0.2 k/uL (0-0.7); Eosinophils % (A) 4 %; HCT 35.8 % (34.0-46.0); HDW 2.79; HGB 11.5 gm/dL (11.4-16.0); Luc # (Auto) 0.14; Luc % (Auto) 3; Lymphocytes # (A) 1.2 k/uL (1.0-4.8); Lymphocytes % (A) 28 %; MCHC 32.1 g/dL (31.0-37.0); MCV 90.4 fL (80.0-100.0); Mean Platelet Volume 6.9; Monocytes # (A) 0.5 k/uL (0-1.0); Monocytes % (A) 11 %; Neutrophils # (A) 2.2 k/uL (1.3-7.7); Neutrophils % (A) 53 %; RBC 3.96 m/uL (3.80-5.40); RDW 14.5 % (11.5-15.5); WBC 4.1 k/uL (3.8-10.6); WBC (Perox) 4.23
[2016-04-25] MEDS: INSULIN LISPRO (humaLOG) 300 UNIT/3 ML VIAL SQ SCH ×4 (06:41→21:36)
[2016-04-25 06:47] LABS: Anion Gap 9 mmol/L; Blood Urea Nitrogen 12 mg/dL (7-17); Carbon Dioxide 24 mmol/L (22-30); Chloride 109 mmol/L (98-107); Glucose 83 mg/dL (74-99); Non-African American GFR(MDRD) >60 (>60 ml/min/1.73 sqM); Potassium 4.5 mmol/L (3.5-5.1); Sodium 142 mmol/L (137-145)
[2016-04-25 07:05] LABS: Glucose,Whole Blood 92 mg/dL (75-99)
[2016-04-25] MEDS: IPRATROPIUM-ALBUTEROL 3 ML NEB INHALATION SCH ×4 (08:45→19:59)
[2016-04-25] MEDS: BUDESONIDE 0.5 MG/2 ML NEBU INHALATION SCH ×2 (08:45→19:59)
[2016-04-25] MEDS: PANTOPRAZOLE 40 MG TABLET PO SCH (09:59)
[2016-04-25] MEDS: METOPROLOL TARTRATE 12.5 MG TAB PO SCH ×2 (09:59→21:36)
[2016-04-25] MEDS: HEPARIN SODIUM,PORCINE 5,000 UNIT/ML 1 ML VIAL SQ SCH ×2 (09:59→21:36)
[2016-04-25] MEDS: ISOSORBIDE MONONITRATE ER 60 MG TAB.ER.24H PO SCH (09:59)
[2016-04-25] MEDS: FUROSEMIDE 20 MG TAB PO SCH (10:01)
[2016-04-25] MEDS: MECLIZINE 12.5 MG TAB PO SCH ×2 (10:01→21:36)
[2016-04-25] MEDS: amLODIPine 5 MG TAB PO SCH (10:01)
[2016-04-25] MEDS: metFORMIN 500 MG TAB PO SCH (10:01)
[2016-04-25] MEDS: FERROUS SULFATE 325 MG TAB PO SCH (10:01)
[2016-04-25] MEDS: ASPIRIN 81 MG CHEW PO SCH (10:02)
[2016-04-25] MEDS: ESCITALOPRAM 20 MG TAB PO SCH (10:02)
[2016-04-25] MEDS: LOSARTAN 50 MG TAB PO SCH (10:02)
[2016-04-25] MEDS: POTASSIUM CHLORIDE ER 20 MEQ TAB.ER PO SCH (10:08)
--- NOTE | 2016-04-25 10:46 | ECHOF ---
Referral Reason:chest pain MEASUREMENTS -------- HEIGHT: 162.6 cm WEIGHT: 80.7 kg BP: 136/70 RVIDd: 3.6 cm (< 3.3) IVSd: 1.0 cm (0.6 - 1.1) LVIDd: 4.6 cm (3.9 - 5.3) LVPWd: 1.1 cm (0.6 - 1.1) IVSs: 1.5 cm LVIDs: 3.0 cm LVPWs: 1.6 cm LA Diam: 4.5 cm (2.7 - 3.8) LAESV Index (A-L): 33.70 ml/m Ao Diam: 2.9 cm (2.0 - 3.7) AV Cusp: 2.0 cm (1.5 - 2.6) MV EXCURSION: 12.148 mm (> 18.000) MV EF SLOPE: 86 mm/s (70 - 150) EPSS: 0.8 cm MV E Des: 0.99 m/s MV DecT: 201 ms MV A Des: 1.07 m/s MV E/A Ratio: 0.93 AV maxP.40 mmHg AV maxP.40 mmHg AV meanP.30 mmHg RAP: 5.00 mmHg RVSP: 31.56 mmHg FINDINGS -------- Sinus rhythm. This was a technically good study. The left ventricular size is normal. Left ventricular wall thickness is normal. Overall left ventricular systolic function is normal with, an EF between 60 - 65 %. The right ventricle is mildly enlarged. LA is midly dilated 29-33ml/m2. The right atrium is normal in size. Aortic valve is trileaflet and is mildly thickened. The mitral valve leaflets are mildly thickened. Mild mitral annular calcification present. Mild tricuspid regurgitation present. Right ventricular systolic pressure is normal at < 35 mmHg. Trace/mild (physiologic) pulmonic regurgitation. The aortic root size is normal. Normal inferior vena cava with normal inspiratory collapse consistent with estimated right atrial pressure of 5 mmHg. There is no pericardial effusion. CONCLUSIONS -------- 1. Sinus rhythm. 2. The mitral valve leaflets are mildly thickened. 3. Mild mitral annular calcification present. 4. Mild tricuspid regurgitation present. 5. Right ventricular systolic pressure is normal at < 35 mmHg. 6. Trace/mild (physiologic) pulmonic regurgitation. 7. The aortic root size is normal. 8. Normal inferior vena cava with normal inspiratory collapse consistent with estimated right atrial pressure of 5 mmHg. 9. There is no pericardial effusion. 10. This was a technically good study. 11. The left ventricular size is normal. 12. Left ventricular wall thickness is normal. 13. Overall left ventricular systolic function is normal with, an EF between 60 - 65 %. 14. The right ventricle is mildly enlarged. 15. LA is midly dilated 29-33ml/m2. 16. The right atrium is normal in size. 17. Aortic valve is trileaflet and is mildly thickened. [employer]PER[employer]OR [employer]: Caitlin Okeefe RDCS
[2016-04-25 11:40] LABS: Glucose,Whole Blood 98 mg/dL (75-99)
[2016-04-25] MEDS: methylPREDNISolone SOD SUCCI 40 MG/ML 1 ML VIAL IV SCH ×3 (12:21→23:11)
--- NOTE | 2016-04-25 13:14 | XR ---
EXAMINATION TYPE: XR chest 2V DATE OF EXAM: 04/25/2016 1:05 PM COMPARISON: Chest x-ray from yesterday. HISTORY: Pneumonia progress study TECHNIQUE: Frontal and lateral views of the chest are obtained. FINDINGS: Sternal wires and mediastinal clips are redemonstrated. There is stable cardiomegaly. There is persistent left basilar opacity. There is patchy right basilar atelectasis. No pleural effusion o r pneumothorax is seen bilaterally. Osseous structures are demineralized. Postsurgical change right h umeral head level is redemonstrated. IMPRESSION: Cardiomegaly with left basilar infiltrate and/or atelectasis redemonstrated and stable. N o new suspicious infiltrate is seen.
--- NOTE | 2016-04-25 13:27 | P.PN ---
Subjective This 71-year-old female patient presented to [facility] with a chief complaint of chest pain area and patient states that she began to feel heaviness in her chest while at work on her lunch break sitting down around 3: 30 PM on the day that she presented to the emergency department. 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 She states that she took nitroglycerin for this pain that was originally a 7 out of 10 which she describes as a pressure and tightness. She states that after 2 nitroglycerin and went to a 3 out of 10. Subsequently did decrease to a 2-3 out of 10. She went home from work and was lying down. Her asked if she still was not feeling well and as she was not feeling well and still had chest tightness she presented to the emergency department. Her initial cardiac enzymes are negative. I do not see an emergency room EKG on the patient for evaluation but one was done today after evaluating the patient which revealed some T wave inversion which is being evaluated by cardiology. Her repeat cardiac enzymes are negative. Patient states she still is having some 2 out of 10 chest pressure at times. However she was lying sleeping when I entered the room but was easily arousable and is awake alert and appropriate. She is not sure whether the chest tightness is improved when she receives nebulizer treatments. Cannot pinpoint exacerbating or relieving factors. In the emergency room she was diagnosed with a left lower lobe pneumonia and has been admitted to the hospital on antibiotic therapy. The chest x-ray from this morning is read as slightly improved compared to yesterday. Patient states that she has had a recent viral illness with GI symptoms nausea vomiting diarrhea which resolved 7 days ago. She states then 3 days prior to admission she began to develop a sensation of fever but when she took her temperature at home it was okay. She has had some shivering she indicates but not true shaking chills. She also complains of some dysuria which she indicates is at times frequent for her took some epef-snv-covdwiu medication for that which seemed to improve those symptoms area and this would've been about 3 days prior to admission. Patient does not initially complain of vertigo but upon examination indicates that the cranial nerve testing is making her vertiginous. She indicates she has a history of benign positional vertigo but it is been quite sometime since she has had symptoms. She states as long as she looks in one direction she is okay and does not seem to have the vertigo but yesterday the bedroom actually felt as if it was spinning. No true spinning sensation of the bed today but she states she is still a little vertiginous or she moves her head a certain way when trying to walk. She is requiring assistance to the bathroom. 04/25: Patient has been seen by cardiology. Echocardiogram is pending. Aspirin was decreased 81 mg daily. Patient was continued on losartan, metoprolol. Imdur was increased. She is continued on azithromycin and Rocephin for pneumonia. She states her chest pain is better but she continues to have shortness of breath and feels like it's hard to get a breath. She denies any cough or bringing up phlegm. Consult with Dr. Potts added as well as Solu- Medrol 40 mg IV every 8 hours. IV fluids changed to saline lock. Objective - Vital Signs Vital signs: Vital Signs Temp 97 F L 04/25/16 03:52 Pulse 56 L 04/25/16 03:52 Resp 18 04/25/16 03:52 BP 136/70 04/25/16 03:52 Pulse Ox 98 04/25/16 03:52 Intake & Output 04/24/16 04/25/16 04/25/16 18:59 06:59 18:59 Intake Total 1400 1600 Output Total 2400 Balance 1400 -800 Weight 81.1 kg Intake: IV 1000 1600 Sodium Chloride 0.9% 1, 1000 1600 000 ml @ 100 mls/hr IV . Q10H [facility] Rx#:[id number] Oral 400 Output: Urine 2400 Other: Voiding Method Toilet Bedside Commode - Exam Gen: This is a 71-year-old female. She is resting in bed appears to be in no acute distress. HEENT: Head is atraumatic, normocephalic. Pupils equal, round. Sclerae is anicteric. Mucous membranes moist. NECK: Supple. No JVD. No lymphadenopathy. No thyromegaly. LUNGS: Scattered crackles bilateral bases. HEART: Regular rate and rhythm. Systolic murmur. ABDOMEN: Soft. Bowel sounds are present. No masses. No tenderness. EXTREMITIES: No pedal edema. No calf tenderness. Dorsalis pedis +2 bilaterally. NEUROLOGICAL: Patient is awake, alert and oriented x3. Cranial nerves 2 through 12 are grossly intact. - Labs CBC & Chem 7: 04/25/16 05:38 04/25/16 05:38 Labs: Abnormal Lab Results - Last 24 Hours (Table) 04/24/16 04/24/16 04/25/16 Range/Units 11:55 16:33 05:38 Plt Count (150-450) k/uL Chloride 109 H (98-107) mmol/L POC Glucose (mg/dL) 110 H 101 H (75-99) mg/dL 04/25/16 Range/Units 05:38 Plt Count 138 L (150-450) k/uL Chloride (98-107) mmol/L POC Glucose (mg/dL) (75-99) mg/dL Microbiology - Last 24 Hours (Table) 04/24/16 00:30 Blood Culture - Preliminary Blood No Growth after 24 hours 04/24/16 19:55 Urine Culture - Preliminary Urine,Clean Catch Assessment and Plan Plan: 1. Acute respiratory distress secondary to LLL pneumonia and acute bronchospasm. Continue DuoNeb treatments 4 times daily, Pulmicort 0.5 mg twice daily, Solu-Medrol 40 mg IV every 8 hours, Singulair 10 mg at bedtime. Consult added for Dr. Potts. Repeat chest x-ray ordered. 2. Vertigo secondary to acute state with history of benign positional vertigo in the past versus central. Left weakness and degree of neglect on strength testing, patient relates old stroke with workup in the past with some arm weakness, she believes on the left. 3. Chest pressure improved with Nitroglycerin. Cardiology is on consult. Echocardiogram as above. Repeat troponins negative. Patient is normally on Lipitor, aspirin 81 mg daily, Imdur 90 mg daily, Cozaar, Lopressor. 4. UTI symptoms this week with history of frequent dysuria in the past - urinalysis negative. 5. Hypothyroidism. Continue levothyroxine. 6. Depression, recurrent. Continue Lexapro. 7. Prior lacunar infarcts by description, stable. 8. Hyperlipidemia history. Continue Lipitor. 9. Diabetes mellitus 2. Continue metformin, Humalog scale. 10.Recent viral GI syndrome by description resolved 7 days before admission. 11. Hypertension. Continue Imdur 90 mg daily, Cozaar, Lopressor. 12. DVT prophylaxis with SCDs. 13. CODE STATUS: Full code Discharge plan: Home with home care or subacute rehab at [facility]. PT and place. Impression and plan of care have been directed as dictated by the signing physician. Lindsey Cobb nurse practitioner acting as scribe for signing physician. Time with Patient: Greater than 30
--- NOTE | 2016-04-25 14:41 | P.PN ---
Subjective Principal diagnosis: Pneumonia This is a 71-year-old female who follows regularly with Dr. Saleem in the office. She has a known history of coronary artery disease with prior bypass surgery, subsequent to that patient also had angioplasty and stenting performed. Most recent cardiac catheterization was performed in 2012 maximal medical therapy advised at that time. Patient also has history of hypertension , diabetes, hyperlipidemia, and family history of premature coronary artery disease. According to the patient, she's been dealing with cough, fever, and congestion for approximately one week duration. Patient was also experiencing some chest pain, atypical in nature. Echocardiogram with Doppler study was performed which revealed an ejection fraction of 60-65%. Patient continues to have cough, denies any further chest pain. Once the patient's lung status has improved, as an outpatient we will recommend a stress test. Objective - Vital Signs Vital signs: Vital Signs Temp 97.8 F 04/25/16 12:00 Pulse 72 04/25/16 12:50 Resp 18 04/25/16 12:00 BP 114/66 04/25/16 12:00 Pulse Ox 100 04/25/16 12:00 Intake & Output 04/24/16 04/25/16 04/25/16 18:59 06:59 18:59 Intake Total 1400 1600 120 Output Total 2400 200 Balance 1400 -800 -80 Weight 81.1 kg Intake: IV 1000 1600 Sodium Chloride 0.9% 1, 1000 1600 000 ml @ 100 mls/hr IV . Q10H [facility] Rx#:[id number] Oral 400 120 Output: Urine 2400 200 Other: Voiding Method Toilet Bedside Commode Bedside Commode # Voids 1 - Exam PHYSICAL EXAMINATION: HEENT: Head is atraumatic, normocephalic. Pupils equal, round. Neck is supple. There is no elevated jugular venous pressure. HEART EXAMINATION: Heart S1 and S2 systolic ejection murmur is heard. CHEST EXAMINATION: Lungs reveal scattered coarse rhonchi with fine wheezes throughout. ABDOMEN: Soft, nontender. Bowel sounds are heard. No organomegaly noted. EXTREMITIES: 2+ peripheral pulses with no evidence of peripheral edema and no calf tenderness noted. NEUROLOGIC patient is awake, alert and oriented -3. . - Labs CBC & Chem 7: 04/25/16 05:38 04/25/16 05:38 Labs: Abnormal Lab Results - Last 24 Hours (Table) 0304/25/16 04/25/16 Range/Units 16:33 05:38 05:38 Plt Count 138 L (150-450) k/uL Chloride 109 H (98-107) mmol/L POC Glucose (mg/dL) 101 H (75-99) mg/dL Microbiology - Last 24 Hours (Table) 04/24/16 00:30 Blood Culture - Preliminary Blood No Growth after 24 hours 04/24/16 19:55 Urine Culture - Preliminary Urine,Clean Catch Assessment and Plan Plan: Assessment and plan #1 in terms of cough, congestion, and shortness of breath, suggestion of a lower lobe pneumonia on chest x-ray. Currently on antibiotics. #2 left-sided chest pressure and heaviness, atypical. Troponins negative 3. EKG shows normal sinus rhythm with anterior T-wave inversion. #3 known history of coronary artery disease with prior bypass surgery and PCI #4 hypertension #5 hyperlipidemia #6 diabetes #7 hypothyroidism #8 hx of cva/TIA Plan Cardiac gram with Doppler study revealed normal left ventricular systolic function. Once the patient's lung status improves, as an outpatient, stress testing will be performed. We will make her a follow-up appointment to see Dr. Saleem in the office post discharge. At this point we'll follow her on an as- needed basis only, please don't hesitate to call with any questions. DNP note has been reviewed, I agree with a documented findings and plan of care. Patient was seen and examined.
[2016-04-25] MEDS ORDERED: RX INFO: IV CONTRAST WAS GIVEN 1 EACH MISC MISCELLANE PRN ×2 (15:34→20:45)
[2016-04-25] MEDS: QUEtiapine 25 MG TAB PO SCH ×3 (16:19→21:36)
[2016-04-25] MEDS: CYANOCOBALAMIN 500 MCG TAB PO SCH (16:19)
[2016-04-25 16:58] LABS: Glucose,Whole Blood 129 mg/dL (75-99)
[2016-04-25 21:24] LABS: Glucose,Whole Blood 174 mg/dL (75-99)
[2016-04-25] MEDS: ATORVASTATIN 80 MG TAB PO SCH (21:35)
[2016-04-25] MEDS: HYDROcodone/APAP 7.5-325MG 1 EACH TAB PO PRN (21:35)
[2016-04-25] MEDS: AZITHROMYCIN 500 MG TAB PO SCH (21:35)
[2016-04-25] MEDS: MELATONIN 5 MG TABLET PO SCH (21:36)
[2016-04-25] MEDS: MONTELUKAST 10 MG TAB PO SCH (21:37)
--- NOTE | 2016-04-25 21:40 | CT ---
EXAMINATION TYPE: CT angio chest DATE OF EXAM: 04/25/2016 9:30 PM COMPARISON: NONE HISTORY: Pt states of Sob. LLL pneumonia. CT DLP: 431.5 mGycm Automated exposure control for dose reduction was used. CONTRAST: CTA scan of the thorax is performed with IV Contrast, patient injected with 80 mL of Omnipaque 350, p ulmonary embolism protocol. There are 3-D post processed images.. FINDINGS: There is mild atelectasis in the lingula left upper lobe. Heart is enlarged. There is no evidence of a pulmonary mass. There is no pleural effusion. There is a small hiatal hernia. There is no pericardi al effusion. I see no filling defects in the pulmonary arteries. There is no evidence of aortic aneur ysm or dissection.. Bony thorax appears intact. IMPRESSION: NO EVIDENCE OF PULMONARY EMBOLISM. MILD ATELECTASIS IN THE LINGULA LEFT UPPER LOBE. HEALED GRANULOMAT OUS DISEASE WITH CALCIFIED RIGHT BRONCHIAL LYMPH NODES.
--- NOTE | 2016-04-25 21:44 | CONS ---
DATE OF CONSULTATION: 04/25/2016 HISTORY OF PRESENT ILLNESS: Patient is a 71-year-old female who is known to Dr. Potts from the office. Patient states that on Monday she started to experience chest pain and lightheadedness when she was at work at [employer]. She did take 2 nitroglycerin and called her , who came and picked her up and brought her to the emergency room. Patient also states that about a week earlier she was experiencing flu-like symptoms with cough, fever and congestion. Patient was evaluated in the ER and admitted with chest pain and suspected left lower lobe pneumonia. Past medical history is positive for: 1. Coronary artery disease. 2. Asthma. 3. COPD. 4. Obstructive sleep apnea. Patient is on CPAP. 5. CVA/TIA. 6. Diabetes mellitus controlled. 7. GERD. 8. Hyperlipidemia. 9. Hypertension. 10. MO. 11. Osteoarthritis. 12. Thyroid disorder. 13. Vertigo. Past surgical history is positive for: 1. Coronary artery bypass graft. 2. Cardiac catheterization with stent. 3. Hysterectomy. 4. Multiple joint replacements, including bilateral knees, right knee done twice, and right shoulder replacement. 5. Rotator cuff repair. 6. Bilateral cataract surgery. ALLERGIES include: 1. LATEX. 2. BEES. 3. AMBIEN. Medications patient is on at home include: 1. Glucophage 500 mg daily. 2. Benadryl 50 mg p.o. q.i.d. p.r.n. 3. Norvasc 5 mg p.o. daily. 4. Seroquel 12.5 mg p.o. b.i.d. and 25 mg p.o. at bedtime. 5. Potassium 99 mg p.o. daily. 6. Omeprazole 20 mg p.o. daily. 7. Nitroglycerin tablets 0.4 q.5 minutes p.r.n. chest pain. 8. Singulair 10 mg p.o. at bedtime. 9. Lopressor 12.5 mg p.o. b.i.d. 10. Robaxin 500 to 1000 mg p.o. q.i.d. 11. Cozaar 50 mg p.o. daily. 12. Synthroid 50 mcg p.o. daily. 13. Imdur 90 mg p.o. daily. 14. DuoNeb q.6 hours. 15. [place] 7.5 q.6 hours p.r.n. 16. Lasix 20 mg daily. 17. Breo 1 puff daily. 18. Feosol 325 mg daily. 19. Lexapro 30 mg daily. 20. Vitamin B12 1000 mcg daily. 21. Vitamin D3 5000 units p.o. daily. 22. Lipitor 40 mg p.o. at bedtime. 23. Ecotrin 81 mg p.o. b.i.d. 24. Ventolin HFA 1 to 2 puffs q.6 hours p.r.n. SOCIAL HISTORY: Patient has no history of smoking; however, was exposed to secondhand smoke for several years. 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 Patient drinks alcohol rarely. Denies any illicit drug use. Does have pets at home; 3 dogs; no birds or cats. FAMILY HISTORY: Father at the age of 37 from an [place]. Mother of a cerebral bleed; did have Alzheimer's at the age of 83. REVIEW OF SYSTEMS: GENERAL: Positive for fever, chills and weakness. HEENT: Positive for lightheadedness. No acute visual changes. Patient does have difficulty hearing and is in the process of getting hearing aids. Patient does complain of rhinitis and seasonal allergies. Patient also complains of a scratchy throat and she has started to experience problems swallowing at times. RESPIRATORY: Positive for chronic shortness of breath, which has been worsening. Nonproductive cough. CARDIOVASCULAR: Positive for chest pain. Patient does have a history of a murmur and intermittent palpitations. GI: Negative for any abdominal pain, nausea, vomiting, diarrhea or constipation. : Positive for dysuria, which has resolved. Denies any hematuria. ENDOCRINE: Positive for diabetes mellitus and thyroid disease. MUSCULOSKELETAL: Positive for osteoarthritis. NEUROLOGIC: Positive for history of CVA and TIA. No history of seizures. PSYCHIATRIC: Positive for depression. PHYSICAL EXAMINATION: VITAL SIGNS: Temperature 97.8, heart rate 72, respiratory rate 18, blood pressure 114/66. Oxygen saturation is 100% on room air. HEENT: Head is normocephalic, atraumatic. Pupils equal, round, react to light. Ears and nose: No discharge is noted. MOUTH: Moist mucous membranes. No pharyngeal erythema; small oropharynx with Mallampati III. NECK: Supple. Trachea is midline. LUNGS: Decreased to the left lower lobe posteriorly. Otherwise fairly good air entry. No rales or wheezes. HEART: S1 and S2 are heard with a murmur. Not tachycardic. ABDOMEN: Soft. Bowel sounds are heard. EXTREMITIES: With no edema. NEUROLOGIC: Patient is awake, alert, oriented. LABS: White count 4.1, hemoglobin 11.5, hematocrit 35.8 with 138,000 platelets. Sodium is 142, potassium 4.5, chloride 109. CO2 is 24. Anion gap is 9. BUN 12, creatinine 0.60. Glucose is 83. Calcium is 9.0. Chest x-ray shows cardiomegaly with left basilar infiltrate and/or atelectasis re-demonstrated and stable. No new suspicious infiltrate is seen. IMPRESSION: 1. Suspected left lower lobe pneumonia. 2. Chest pain. Cardiology is on consult. 3. Obstructive sleep apnea. Patient has CPAP and will have it brought in from home. 4. History of asthma. 5. Coronary artery disease. 6. Diabetes mellitus controlled. 7. Hypothyroid disease. PLAN: Agree with current medications, which have been reviewed, with bronchodilators and aerosolized steroids, IV antibiotics, GI and DVT prophylaxis, IV Solu-Medrol, leukotriene inhibitors. Will check a CTA of the chest for further evaluation of that left lower lobe pneumonia or atelectasis. Will add incentive spirometry. Continue pulmonary hygiene. Maintain oxygen saturation equal to or greater than 88%. Will follow patient closely with you, making further changes as necessary. Thank you for the consultation.
[2016-04-26 06:13] LABS: Glucose,Whole Blood 182 mg/dL (75-99)
[2016-04-26] MEDS: INSULIN LISPRO (humaLOG) 300 UNIT/3 ML VIAL SQ SCH ×4 (06:44→21:09)
[2016-04-26] MEDS: LEVOTHYROXINE 50 MCG TAB PO SCH (06:44)
[2016-04-26] MEDS: METOPROLOL TARTRATE 12.5 MG TAB PO SCH ×2 (08:21→20:10)
[2016-04-26] MEDS: MECLIZINE 12.5 MG TAB PO SCH ×2 (08:22→20:09)
[2016-04-26] MEDS: amLODIPine 5 MG TAB PO SCH (08:22)
[2016-04-26] MEDS: ISOSORBIDE MONONITRATE ER 60 MG TAB.ER.24H PO SCH (08:22)
[2016-04-26] MEDS: metFORMIN 500 MG TAB PO SCH (08:22)
[2016-04-26] MEDS: FUROSEMIDE 20 MG TAB PO SCH (08:23)
[2016-04-26] MEDS: ESCITALOPRAM 20 MG TAB PO SCH (08:23)
[2016-04-26] MEDS: methylPREDNISolone SOD SUCCI 40 MG/ML 1 ML VIAL IV SCH ×2 (08:23→16:23)
[2016-04-26] MEDS: ASPIRIN 81 MG CHEW PO SCH (08:23)
[2016-04-26] MEDS: POTASSIUM CHLORIDE ER 20 MEQ TAB.ER PO SCH (08:24)
[2016-04-26] MEDS: FERROUS SULFATE 325 MG TAB PO SCH (08:24)
[2016-04-26] MEDS: HEPARIN SODIUM,PORCINE 5,000 UNIT/ML 1 ML VIAL SQ SCH ×2 (08:24→20:10)
[2016-04-26] MEDS: PANTOPRAZOLE 40 MG TABLET PO SCH (08:25)
[2016-04-26] MEDS: LOSARTAN 50 MG TAB PO SCH (08:25)
[2016-04-26] MEDS: IPRATROPIUM-ALBUTEROL 3 ML NEB INHALATION SCH ×4 (08:32→19:40)
[2016-04-26] MEDS: BUDESONIDE 0.5 MG/2 ML NEBU INHALATION SCH ×3 (08:32→19:40)
[2016-04-26 11:38] LABS: Glucose,Whole Blood 137 mg/dL (75-99)
[2016-04-26] MEDS: QUEtiapine 25 MG TAB PO SCH ×3 (12:57→20:10)
[2016-04-26] MEDS: CYANOCOBALAMIN 500 MCG TAB PO SCH (12:59)
--- NOTE | 2016-04-26 14:14 | P.PN ---
Subjective This 71-year-old female patient presented to [facility] with a chief complaint of chest pain area and patient states that she began to feel heaviness in her chest while at work on her lunch break sitting down around 3: 30 PM on the day that she presented to the emergency department. 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 She states that she took nitroglycerin for this pain that was originally a 7 out of 10 which she describes as a pressure and tightness. She states that after 2 nitroglycerin and went to a 3 out of 10. Subsequently did decrease to a 2-3 out of 10. She went home from work and was lying down. Her asked if she still was not feeling well and as she was not feeling well and still had chest tightness she presented to the emergency department. Her initial cardiac enzymes are negative. I do not see an emergency room EKG on the patient for evaluation but one was done today after evaluating the patient which revealed some T wave inversion which is being evaluated by cardiology. Her repeat cardiac enzymes are negative. Patient states she still is having some 2 out of 10 chest pressure at times. However she was lying sleeping when I entered the room but was easily arousable and is awake alert and appropriate. She is not sure whether the chest tightness is improved when she receives nebulizer treatments. Cannot pinpoint exacerbating or relieving factors. In the emergency room she was diagnosed with a left lower lobe pneumonia and has been admitted to the hospital on antibiotic therapy. The chest x-ray from this morning is read as slightly improved compared to yesterday. Patient states that she has had a recent viral illness with GI symptoms nausea vomiting diarrhea which resolved 7 days ago. She states then 3 days prior to admission she began to develop a sensation of fever but when she took her temperature at home it was okay. She has had some shivering she indicates but not true shaking chills. She also complains of some dysuria which she indicates is at times frequent for her took some iqma-qku-ynccfac medication for that which seemed to improve those symptoms area and this would've been about 3 days prior to admission. Patient does not initially complain of vertigo but upon examination indicates that the cranial nerve testing is making her vertiginous. She indicates she has a history of benign positional vertigo but it is been quite sometime since she has had symptoms. She states as long as she looks in one direction she is okay and does not seem to have the vertigo but yesterday the bedroom actually felt as if it was spinning. No true spinning sensation of the bed today but she states she is still a little vertiginous or she moves her head a certain way when trying to walk. She is requiring assistance to the bathroom. 04/25: Patient has been seen by cardiology. Echocardiogram is pending. Aspirin was decreased 81 mg daily. Patient was continued on losartan, metoprolol. Imdur was increased. She is continued on azithromycin and Rocephin for pneumonia. She states her chest pain is better but she continues to have shortness of breath and feels like it's hard to get a breath. She denies any cough or bringing up phlegm. Consult with Dr. Potts added as well as Solu- Medrol 40 mg IV every 8 hours. IV fluids changed to saline lock. 04/26: Patient has been seen by pulmonary medicine. CT of the chest shows no evidence of pulmonary embolism. Mild atelectasis in the lingula left upper lobe. Healed granulomatous disease with calcified right bronchial lymph nodes. Cardiology has recommended outpatient stress testing and follow up with Dr. Saleem. They are now following on an as-needed basis. Echocardiogram reveals mild tricuspid regurgitation, EF 60-65%. Blood culture showing no growth at 48 hours. Physical therapy has recommended subacute rehab. Patient will be transferred to the [facility] floor today. Anticipate possible discharge by tomorrow. Objective - Vital Signs Vital signs: Vital Signs Temp 97.1 F L 04/26/16 08:00 Pulse 68 04/26/16 08:46 Resp 18 04/26/16 04:00 BP 114/50 04/26/16 08:00 Pulse Ox 91 L 04/26/16 08:00 Intake & Output 04/25/16 04/26/16 04/26/16 18:59 06:59 18:59 Intake Total 240 300 Output Total 2100 1025 Balance -1860 -725 Weight 81.1 kg 79.8 kg Intake: Oral 240 300 Output: Urine 2100 1025 Other: Voiding Method Bedside Commode # Voids 1 1 # Bowel Movements 1 - Exam Gen: This is a 71-year-old female. She is resting in bed appears to be in no acute distress. HEENT: Head is atraumatic, normocephalic. Pupils equal, round. Sclerae is anicteric. Mucous membranes moist. NECK: Supple. No JVD. No lymphadenopathy. No thyromegaly. LUNGS: Scattered crackles bilateral bases. HEART: Regular rate and rhythm. Systolic murmur. ABDOMEN: Soft. Bowel sounds are present. No masses. No tenderness. EXTREMITIES: No pedal edema. No calf tenderness. Dorsalis pedis +2 bilaterally. NEUROLOGICAL: Patient is awake, alert and oriented x3. Cranial nerves 2 through 12 are grossly intact. - Labs CBC & Chem 7: 04/25/16 05:38 04/25/16 05:38 Labs: Abnormal Lab Results - Last 24 Hours (Table) 04/25/16 04/25/16 04/26/16 Range/Units 16:48 21:23 06:11 POC Glucose (mg/dL) 129 H 174 H 182 H (75-99) mg/dL Microbiology - Last 24 Hours (Table) 04/24/16 00:30 Blood Culture - Preliminary Blood No Growth after 48 hours 04/24/16 19:55 Urine Culture - Final Urine,Clean Catch Assessment and Plan Plan: 1. Acute respiratory distress secondary to LLL pneumonia and acute bronchospasm. Continue DuoNeb treatments 4 times daily, Pulmicort 0.5 mg twice daily, Solu-Medrol 40 mg IV every 8 hours to prednisone in the morning, Singulair 10 mg at bedtime. Consult added for Dr. Potts. Repeat chest x-ray ordered. 2. Vertigo secondary to acute state with history of benign positional vertigo in the past versus central. Left weakness and degree of neglect on strength testing, patient relates old stroke with workup in the past with some arm weakness, she believes on the left. 3. Chest pressure improved with Nitroglycerin. Cardiology is following on an as needed basis. Patient to follow-up with Dr. Saleem as an outpatient for stress test. Echocardiogram as above. Repeat troponins negative. Patient is normally on Lipitor, aspirin 81 mg daily, Imdur 90 mg daily, Cozaar, Lopressor. 4. UTI symptoms this week with history of frequent dysuria in the past - urinalysis negative. 5. Hypothyroidism. Continue levothyroxine. 6. Depression, recurrent. Continue Lexapro. 7. Prior lacunar infarcts by description, stable. 8. Hyperlipidemia history. Continue Lipitor. 9. Diabetes mellitus 2. Continue metformin, Humalog scale. 10.Recent viral GI syndrome by description resolved 7 days before admission. 11. Hypertension. Continue Imdur 90 mg daily, Emi Gross. 12. DVT prophylaxis with SCDs. 13. CODE STATUS: Full code Discharge plan: Home with home care or subacute rehab at [facility]. PT following. Impression and plan of care have been directed as dictated by the signing physician. Lindsey Cobb nurse practitioner acting as scribe for signing physician. Time with Patient: Greater than 30
[2016-04-26] MEDS: HYDROcodone/APAP 7.5-325MG 1 EACH TAB PO PRN ×2 (14:28→21:08)
[2016-04-26 17:06] LABS: Glucose,Whole Blood 137 mg/dL (75-99)
[2016-04-26] MEDS: METHOCARBAMOL 500 MG TAB PO PRN ×2 (17:58→23:06)
[2016-04-26] MEDS: MONTELUKAST 10 MG TAB PO SCH (20:09)
[2016-04-26] MEDS: AZITHROMYCIN 500 MG TAB PO SCH (20:09)
[2016-04-26] MEDS: MELATONIN 5 MG TABLET PO SCH (20:10)
[2016-04-26] MEDS: ATORVASTATIN 80 MG TAB PO SCH (20:10)
[2016-04-26 20:39] LABS: Glucose,Whole Blood 177 mg/dL (75-99)
--- NOTE | 2016-04-26 22:34 | PN ---
DATE OF SERVICE: 04/26/2016. She continues to have shortness of breath and cough. On physical examination, her blood pressure is 122/57, respiratory rate 18, pulse rate of 62, O2 sat on room air is 95%. HEENT is unremarkable. Chest reveals wheeze on forced expiration. Cardiovascular system reveals an S1 and S2. ABDOMEN: Soft. There is no edema. IMPRESSION: 1. Left lower zone pneumonia. 2. Obstructive sleep apnea. 3. Asthma with exacerbation. 4. Diabetes mellitus. Continue bronchodilators, aerosolized steroids, IV steroids and antibiotics in the form of Rocephin. Increase her activity level. Depending on how she does, we shall make further changes to her care.
[2016-04-27] MEDS: LEVOTHYROXINE 50 MCG TAB PO SCH (06:27)
[2016-04-27] MEDS: HYDROcodone/APAP 7.5-325MG 1 EACH TAB PO PRN ×2 (06:27→22:01)
[2016-04-27 07:23] LABS: Glucose,Whole Blood 108 mg/dL (75-99)
[2016-04-27] MEDS: BUDESONIDE 0.5 MG/2 ML NEBU INHALATION SCH ×2 (07:32→19:54)
[2016-04-27] MEDS: IPRATROPIUM-ALBUTEROL 3 ML NEB INHALATION SCH ×4 (07:32→19:54)
[2016-04-27 08:53] LABS: CH 29.3; CHCM 32.9; HCT 38.9 % (34.0-46.0); HDW 2.72; HGB 12.4 gm/dL (11.4-16.0); MCH 28.4 pg (25.0-35.0); MCHC 31.8 g/dL (31.0-37.0); MCV 89.2 fL (80.0-100.0); Mean Platelet Volume 6.7; RBC 4.36 m/uL (3.80-5.40); RDW 14.5 % (11.5-15.5); WBC 12.6 k/uL (3.8-10.6)
[2016-04-27] MEDS: ISOSORBIDE MONONITRATE ER 60 MG TAB.ER.24H PO SCH (08:55)
[2016-04-27] MEDS: MECLIZINE 12.5 MG TAB PO SCH ×2 (08:55→20:11)
[2016-04-27] MEDS: predniSONE 20 MG TAB PO SCH (08:55)
[2016-04-27] MEDS: ASPIRIN 81 MG CHEW PO SCH (08:55)
[2016-04-27] MEDS: ESCITALOPRAM 20 MG TAB PO SCH (08:55)
[2016-04-27] MEDS: FERROUS SULFATE 325 MG TAB PO SCH (08:56)
[2016-04-27] MEDS: POTASSIUM CHLORIDE ER 20 MEQ TAB.ER PO SCH (08:56)
[2016-04-27] MEDS: PANTOPRAZOLE 40 MG TABLET PO SCH (08:56)
[2016-04-27] MEDS: LOSARTAN 50 MG TAB PO SCH (08:56)
[2016-04-27] MEDS: amLODIPine 5 MG TAB PO SCH (08:56)
[2016-04-27] MEDS: FUROSEMIDE 20 MG TAB PO SCH (08:56)
[2016-04-27] MEDS: METOPROLOL TARTRATE 12.5 MG TAB PO SCH ×2 (08:56→23:30)
[2016-04-27] MEDS: INSULIN LISPRO (humaLOG) 300 UNIT/3 ML VIAL SQ SCH ×4 (08:57→21:38)
[2016-04-27] MEDS: metFORMIN 500 MG TAB PO SCH (08:57)
[2016-04-27] MEDS: HEPARIN SODIUM,PORCINE 5,000 UNIT/ML 1 ML VIAL SQ SCH ×3 (08:57→23:34)
[2016-04-27] MEDS: diphenhydrAMINE 50 MG CAP PO PRN (08:59)
[2016-04-27 09:03] LABS: Anion Gap 15 mmol/L; Blood Urea Nitrogen 19 mg/dL (7-17); Calcium 9.5 mg/dL (8.4-10.2); Carbon Dioxide 23 mmol/L (22-30); Chloride 101 mmol/L (98-107); Glucose 151 mg/dL (74-99); Non-African American GFR(MDRD) >60 (>60 ml/min/1.73 sqM); Potassium 4.1 mmol/L (3.5-5.1); Sodium 139 mmol/L (137-145)
--- NOTE | 2016-04-27 09:39 | P.DS ---
Providers Date of admission: 04/23/16 22:45 Expected date of discharge: 04/27/16 Attending physician: Guilherme Stiles Consults: 04/25/16 10:59 Consult Physician Routine Consulting Provider: Rosalba Potts Consult Reason/Comments: pn, copd Do you want consulting provider notified?: Yes 04/25/16 13:21 Consult Physician Routine Consulting Provider: Omar Tim Consult Reason/Comments: chest pain, consult already done Do you want consulting provider notified?: Yes Primary care physician: Junaid Rosado Miriam Hospital Course: This 71-year-old female patient presented to [facility] with a chief complaint of chest pain area and patient states that she began to feel heaviness in her chest while at work on her lunch break sitting down around 3: 30 PM on the day that she presented to the emergency department. 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 She states that she took nitroglycerin for this pain that was originally a 7 out of 10 which she describes as a pressure and tightness. She states that after 2 nitroglycerin and went to a 3 out of 10. Subsequently did decrease to a 2-3 out of 10. She went home from work and was lying down. Her asked if she still was not feeling well and as she was not feeling well and still had chest tightness she presented to the emergency department. Her initial cardiac enzymes are negative. I do not see an emergency room EKG on the patient for evaluation but one was done today after evaluating the patient which revealed some T wave inversion which is being evaluated by cardiology. Her repeat cardiac enzymes are negative. Patient states she still is having some 2 out of 10 chest pressure at times. However she was lying sleeping when I entered the room but was easily arousable and is awake alert and appropriate. She is not sure whether the chest tightness is improved when she receives nebulizer treatments. Cannot pinpoint exacerbating or relieving factors. In the emergency room she was diagnosed with a left lower lobe pneumonia and has been admitted to the hospital on antibiotic therapy. The chest x-ray from this morning is read as slightly improved compared to yesterday. Patient states that she has had a recent viral illness with GI symptoms nausea vomiting diarrhea which resolved 7 days ago. She states then 3 days prior to admission she began to develop a sensation of fever but when she took her temperature at home it was okay. She has had some shivering she indicates but not true shaking chills. She also complains of some dysuria which she indicates is at times frequent for her took some [id number] medication for that which seemed to improve those symptoms area and this would've been about 3 days prior to admission. Patient does not initially complain of vertigo but upon examination indicates that the cranial nerve testing is making her vertiginous. She indicates she has a history of benign positional vertigo but it is been quite sometime since she has had symptoms. She states as long as she looks in one direction she is okay and does not seem to have the vertigo but yesterday the bedroom actually felt as if it was spinning. No true spinning sensation of the bed today but she states she is still a little vertiginous or she moves her head a certain way when trying to walk. She is requiring assistance to the bathroom. 04/25: Patient has been seen by cardiology. Echocardiogram is pending. Aspirin was decreased 81 mg daily. Patient was continued on losartan, metoprolol. Imdur was increased. She is continued on azithromycin and Rocephin for pneumonia. She states her chest pain is better but she continues to have shortness of breath and feels like it's hard to get a breath. She denies any cough or bringing up phlegm. Consult with Dr. Potts added as well as Solu- Medrol 40 mg IV every 8 hours. IV fluids changed to saline lock. 04/26: Patient has been seen by pulmonary medicine. CT of the chest shows no evidence of pulmonary embolism. Mild atelectasis in the lingula left upper lobe. Healed granulomatous disease with calcified right bronchial lymph nodes. Cardiology has recommended outpatient stress testing and follow up with Dr. Saleem. They are now following on an as-needed basis. Echocardiogram reveals mild tricuspid regurgitation, EF 60-65%. Blood culture showing no growth at 48 hours. Physical therapy has recommended subacute rehab. Patient will be transferred to the [facility] floor today. Anticipate possible discharge by tomorrow. 04/27: Social work is following for discharge plans to [facility]. She will be discharged today to [facility] in stable condition. Patient provided with off-work slip for 3 weeks. Discharge diagnoses: 1. Acute respiratory distress secondary to LLL pneumonia and acute bronchospasm. 2. Vertigo secondary to acute state with history of benign positional vertigo 3. Chest pressure possible unstable angina 4. UTI ruled out 5. Hypothyroidism 6. Depression, recurrent 7. Prior lacunar infarcts by description, stable. 8. Hyperlipidemia history 9. Diabetes mellitus 2 10.Recent viral GI syndrome by description resolved 7 days before admission. 11. Hypertension Discharge plan: [facility] Impression and plan of care have been directed as dictated by the signing physician. Lindsey Cobb nurse practitioner acting as scribe for signing physician. Patient Condition at Discharge: Good Plan - Discharge Summary New Discharge Prescriptions: Azithromycin [Zithromax] 500 mg PO Q24H #5 tab HYDROcodone/APAP 7.5-325MG [Blaine 7.5-325] 1 tab PO Q6H PRN #100 tab PRN Reason: Pain predniSONE 0 mg PO DIRECTED #40 tab Discharge Medication List Aspirin EC [Ecotrin Low Dose] 81 mg PO BID 10/15/14 [History] Cyanocobalamin [Vitamin B-12] 1,000 mcg PO DAILY 10/15/14 [History] Escitalopram [Lexapro] 30 mg PO DAILY 10/15/14 [History] Ferrous Sulfate [Feosol] 325 mg PO DAILY 10/15/14 [History] Furosemide [Lasix] 20 mg PO DAILY 10/15/14 [History] Levothyroxine Sodium [Synthroid] 50 mcg PO DAILY 10/15/14 [History] Metoprolol Tartrate [Lopressor] 12.5 mg PO BID 10/15/14 [History] Nitroglycerin Sl Tabs [Nitrostat] 0.4 mg SUBLINGUAL Q5M PRN 10/15/14 [History] amLODIPine [Norvasc] 5 mg PO DAILY 10/15/14 [History] metFORMIN HCL [Glucophage] 500 mg PO DAILY 10/15/14 [History] Cholecalciferol [Vitamin D3] 5,000 unit PO DAILY 10/16/14 [History] Ipratropium-Albuterol Nebulize [Duoneb 0.5 mg-3 mg/3 ml Soln] 3 ml INHALATION RT -Q6H 10/16/14 [History] diphenhydrAMINE [Benadryl] 50 mg PO QID PRN #20 capsule 08/31/15 [Rx] Albuterol Inhaler [Ventolin Hfa Inhaler] 1 - 2 puff INHALATION RT-Q6H PRN [History] Fluticasone/Vilanterol [Breo Ellipta 100-25 Mcg Inhaler] 1 puff INHALATION RT- DAILY 04/23/16 [History] Isosorbide Mononitrate ER [Imdur] 90 mg PO DAILY 04/23/16 [History] Losartan [Cozaar] 50 mg PO DAILY 04/23/16 [History] Methocarbamol [Robaxin] 500 - 1,000 mg PO QID 04/23/16 [History] Montelukast [Singulair] 10 mg PO HS 04/23/16 [History] Omeprazole 20 mg PO DAILY 04/23/16 [History] QUEtiapine FUMARATE [SEROquel] 12.5 mg PO BID@1200,1700 04/23/16 [History] QUEtiapine [SEROquel] 25 mg PO HS 04/23/16 [History] Atorvastatin [Lipitor] 80 mg PO HS tab 04/27/16 [Rx] Azithromycin [Zithromax] 500 mg PO Q24H #5 tab 04/27/16 [Rx] HYDROcodone/APAP 7.5-325MG [Blaine 7.5-325] 1 tab PO Q6H PRN #100 tab 04/27/16 [ Rx] Ipratropium-Albuterol Nebulize [Duoneb 0.5 mg-3 mg/3 ml Soln] 3 ml INHALATION RT -QID ampul.neb 04/27/16 [Rx] Meclizine [Antivert] 12.5 mg PO BID tab 04/27/16 [Rx] Melatonin 10 mg PO HS tablet 04/27/16 [Rx] Potassium Chloride ER [K-Dur 20] 10 meq PO DAILY tab.er.prt 04/27/16 [Rx] predniSONE 0 mg PO DIRECTED #40 tab 04/27/16 [Rx] Follow up Appointment(s)/Referral(s): Alison Saleem MD [STAFF PHYSICIAN] - 2 Weeks Junaid Truong MD [Primary Care Provider] - 1 Week Ambulatory/Diagnostic Orders: Basic Metabolic Panel [LAB.AMB] Location: Determined By Patient Complete Blood Count w/diff [LAB.AMB] Location: Determined By Patient Discharge Disposition: TRANSFER TO SNF/F
[2016-04-27] MEDS: METHOCARBAMOL 500 MG TAB PO PRN ×2 (10:53→22:02)
[2016-04-27] MEDS: QUEtiapine 25 MG TAB PO SCH ×3 (10:54→20:11)
[2016-04-27] MEDS: CYANOCOBALAMIN 500 MCG TAB PO SCH (10:54)
[2016-04-27] MEDS ORDERED: guaiFENesin-Coden 100-10MG/5ML 10 ML CUP PO PRN (11:22)
--- NOTE | 2016-04-27 11:23 | P.PN ---
Subjective Principal diagnosis: Community-acquired pneumonia Patient seen and examined. Patient is complaining of continued cough. She states she coughs so hard that she sometimes passes out. She also has been complaining of falling at home. She states she is planning to go to [facility] upon discharge because of these underlying issues. She denies fevers, chills. Objective - Vital Signs Vital signs: Vital Signs Temp 97.3 F L 04/27/16 07:00 Pulse 72 04/27/16 07:46 Resp 20 04/27/16 07:00 BP 131/70 04/27/16 07:00 Pulse Ox 92 L 04/27/16 07:00 Intake & Output 04/26/16 04/27/16 04/27/16 18:59 06:59 18:59 Intake Total 340 10 360 Output Total 400 Balance -60 10 360 Intake: IV 10 IV Flush 10 Intake, IV Titration 100 Amount cefTRIAXone 1,000 mg In 100 Sodium Chloride 0.9% 50 ml @ 100 mls/hr IVPB Q24HR [facility] Rx#:[id number] Oral 240 360 Output: Urine 400 Other: Voiding Method Bedside Commode # Voids 1 1 # Bowel Movements 0 1 - Exam Gen.: Patient is alert and oriented 3, no acute distress Cardiovascular: Regular rate and rhythm, S1/S2 Lungs: Diminished breath sounds bilaterally otherwise clear Abdomen: Soft nontender nondistended positive bowel sounds Extremities: No edema - Labs CBC & Chem 7: 04/27/16 08:19 04/27/16 08:19 Labs: Abnormal Lab Results - Last 24 Hours (Table) 04/26/16 04/26/16 04/26/16 Range/Units 11:30 16:57 20:36 WBC (3.8-10.6) k/uL BUN (7-17) mg/dL Glucose (74-99) mg/dL POC Glucose (mg/dL) 137 H 137 H 177 H (75-99) mg/dL 04/27/16 04/27/16 04/27/16 Range/Units 07:03 08:19 08:19 WBC 12.6 H (3.8-10.6) k/uL BUN 19 H (7-17) mg/dL Glucose 151 H (74-99) mg/dL POC Glucose (mg/dL) 108 H (75-99) mg/dL Microbiology - Last 24 Hours (Table) 04/24/16 00:30 Blood Culture - Preliminary Blood No Growth after 72 hours Assessment and Plan Plan: Left lower lobe community-acquired pneumonia Prior granulomatous disease Calcified right bronchial lymph nodes Bronchospasm Obstructive sleep apnea Acute exacerbation of asthma, severe persistent Diabetes mellitus type 2 Obesity Hypothyroidism Dyslipidemia Depression Hypertension O2 to maintain saturation greater than equal to 88% Bronchodilators and Pulmicort Singulair Continue antibiotics: Azithromycin and Rocephin Steroid taper Incentive spirometry and pulmonary hygiene CPAP nightly Antitussives: add Robitussin AC Increase activity GI and DVT prophylaxis: hep, Protonix Planning for discharge to [facility] [place] to [place] from pulmonary standpoint
[2016-04-27 12:43] LABS: Glucose,Whole Blood 123 mg/dL (75-99)
[2016-04-27 17:15] LABS: Glucose,Whole Blood 137 mg/dL (75-99)
[2016-04-27] MEDS: MONTELUKAST 10 MG TAB PO SCH (20:11)
[2016-04-27] MEDS: MELATONIN 5 MG TABLET PO SCH (20:11)
[2016-04-27] MEDS: ATORVASTATIN 80 MG TAB PO SCH (20:11)
[2016-04-27] MEDS: AZITHROMYCIN 500 MG TAB PO SCH (20:11)
[2016-04-27 21:22] LABS: Glucose,Whole Blood 160 mg/dL (75-99)
[2016-04-28] MEDS: HYDROcodone/APAP 7.5-325MG 1 EACH TAB PO PRN ×2 (04:38→10:52)
[2016-04-28] MEDS: METHOCARBAMOL 500 MG TAB PO PRN (05:21)
[2016-04-28] MEDS: LEVOTHYROXINE 50 MCG TAB PO SCH (05:29)
[2016-04-28] MEDS: diphenhydrAMINE 50 MG CAP PO PRN (05:29)
[2016-04-28 07:22] LABS: Glucose,Whole Blood 85 mg/dL (75-99)
[2016-04-28 07:30] VITALS: BP 128/68; RESP 20; TEMP 97.1
[2016-04-28] MEDS: amLODIPine 5 MG TAB PO SCH (08:31)
[2016-04-28] MEDS: LOSARTAN 50 MG TAB PO SCH (08:31)
[2016-04-28] MEDS: METOPROLOL TARTRATE 12.5 MG TAB PO SCH (08:31)
[2016-04-28] MEDS: MECLIZINE 12.5 MG TAB PO SCH (08:31)
[2016-04-28] MEDS: FUROSEMIDE 20 MG TAB PO SCH (08:31)
[2016-04-28] MEDS: predniSONE 20 MG TAB PO SCH (08:32)
[2016-04-28] MEDS: FERROUS SULFATE 325 MG TAB PO SCH (08:32)
[2016-04-28] MEDS: metFORMIN 500 MG TAB PO SCH (08:32)
[2016-04-28] MEDS: ASPIRIN 81 MG CHEW PO SCH (08:32)
[2016-04-28] MEDS: PANTOPRAZOLE 40 MG TABLET PO SCH (08:32)
[2016-04-28] MEDS: POTASSIUM CHLORIDE ER 20 MEQ TAB.ER PO SCH (08:32)
[2016-04-28] MEDS: ESCITALOPRAM 20 MG TAB PO SCH (08:33)
[2016-04-28] MEDS: HEPARIN SODIUM,PORCINE 5,000 UNIT/ML 1 ML VIAL SQ SCH ×2 (08:33→15:23)
[2016-04-28] MEDS: ISOSORBIDE MONONITRATE ER 60 MG TAB.ER.24H PO SCH (08:33)
[2016-04-28] MEDS: INSULIN LISPRO (humaLOG) 300 UNIT/3 ML VIAL SQ SCH ×2 (08:34→12:15)
[2016-04-28] MEDS: IPRATROPIUM-ALBUTEROL 3 ML NEB INHALATION SCH ×3 (09:28→15:17)
[2016-04-28] MEDS: BUDESONIDE 0.5 MG/2 ML NEBU INHALATION SCH (09:28)
--- NOTE | 2016-04-28 09:52 | P.PN ---
Subjective This 71-year-old female patient presented to [facility] with a chief complaint of chest pain area and patient states that she began to feel heaviness in her chest while at work on her lunch break sitting down around 3: 30 PM on the day that she presented to the emergency department. 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 She states that she took nitroglycerin for this pain that was originally a 7 out of 10 which she describes as a pressure and tightness. She states that after 2 nitroglycerin and went to a 3 out of 10. Subsequently did decrease to a 2-3 out of 10. She went home from work and was lying down. Her asked if she still was not feeling well and as she was not feeling well and still had chest tightness she presented to the emergency department. Her initial cardiac enzymes are negative. I do not see an emergency room EKG on the patient for evaluation but one was done today after evaluating the patient which revealed some T wave inversion which is being evaluated by cardiology. Her repeat cardiac enzymes are negative. Patient states she still is having some 2 out of 10 chest pressure at times. However she was lying sleeping when I entered the room but was easily arousable and is awake alert and appropriate. She is not sure whether the chest tightness is improved when she receives nebulizer treatments. Cannot pinpoint exacerbating or relieving factors. In the emergency room she was diagnosed with a left lower lobe pneumonia and has been admitted to the hospital on antibiotic therapy. The chest x-ray from this morning is read as slightly improved compared to yesterday. Patient states that she has had a recent viral illness with GI symptoms nausea vomiting diarrhea which resolved 7 days ago. She states then 3 days prior to admission she began to develop a sensation of fever but when she took her temperature at home it was okay. She has had some shivering she indicates but not true shaking chills. She also complains of some dysuria which she indicates is at times frequent for her took some [id number] medication for that which seemed to improve those symptoms area and this would've been about 3 days prior to admission. Patient does not initially complain of vertigo but upon examination indicates that the cranial nerve testing is making her vertiginous. She indicates she has a history of benign positional vertigo but it is been quite sometime since she has had symptoms. She states as long as she looks in one direction she is okay and does not seem to have the vertigo but yesterday the bedroom actually felt as if it was spinning. No true spinning sensation of the bed today but she states she is still a little vertiginous or she moves her head a certain way when trying to walk. She is requiring assistance to the bathroom. 04/25: Patient has been seen by cardiology. Echocardiogram is pending. Aspirin was decreased 81 mg daily. Patient was continued on losartan, metoprolol. Imdur was increased. She is continued on azithromycin and Rocephin for pneumonia. She states her chest pain is better but she continues to have shortness of breath and feels like it's hard to get a breath. She denies any cough or bringing up phlegm. Consult with Dr. Potts added as well as Solu- Medrol 40 mg IV every 8 hours. IV fluids changed to saline lock. 04/26: Patient has been seen by pulmonary medicine. CT of the chest shows no evidence of pulmonary embolism. Mild atelectasis in the lingula left upper lobe. Healed granulomatous disease with calcified right bronchial lymph nodes. Cardiology has recommended outpatient stress testing and follow up with Dr. Saleem. They are now following on an as-needed basis. Echocardiogram reveals mild tricuspid regurgitation, EF 60-65%. Blood culture showing no growth at 48 hours. Physical therapy has recommended subacute rehab. Patient will be transferred to the [facility] floor today. Anticipate possible discharge by tomorrow. 04/27: Social work is following for discharge plans to [facility]. Patient's insurance denied rehab authorization. Reviewed to occur. Awaiting to hear back from insurance company. Patient does not feel safe and fear of falling at home. Objective - Vital Signs Vital signs: Vital Signs Temp 97.1 F L 04/28/16 07:00 Pulse 60 04/28/16 09:42 Resp 20 04/28/16 08:00 BP 128/68 04/28/16 07:00 Pulse Ox 92 L 04/28/16 07:00 Intake & Output 04/27/16 04/28/16 04/28/16 18:59 06:59 18:59 Intake Total 600 550 240 Balance 600 550 240 Intake: Intake, IV Titration 550 Amount cefTRIAXone 1,000 mg In 550 Sodium Chloride 0.9% 50 ml @ 100 mls/hr IVPB Q24HR [facility] Rx#:[id number] Oral 600 240 Other: Voiding Method Bedside Commode # Voids 3 1 1 # Bowel Movements 0 - Exam Gen: This is a 71-year-old female. She is resting in bed appears to be in no acute distress. HEENT: Head is atraumatic, normocephalic. Pupils equal, round. Sclerae is anicteric. Mucous membranes moist. NECK: Supple. No JVD. No lymphadenopathy. No thyromegaly. LUNGS: Scattered crackles bilateral bases. HEART: Regular rate and rhythm. Systolic murmur. ABDOMEN: Soft. Bowel sounds are present. No masses. No tenderness. EXTREMITIES: No pedal edema. No calf tenderness. Dorsalis pedis +2 bilaterally. NEUROLOGICAL: Patient is awake, alert and oriented x3. Cranial nerves 2 through 12 are grossly intact. - Labs CBC & Chem 7: 04/27/16 08:19 04/27/16 08:19 Labs: Abnormal Lab Results - Last 24 Hours (Table) 04/27/16 04/27/16 04/27/16 Range/Units 12:35 17:08 21:03 POC Glucose (mg/dL) 123 H 137 H 160 H (75-99) mg/dL Microbiology - Last 24 Hours (Table) 04/24/16 00:30 Blood Culture - Preliminary Blood No Growth after 96 hours Assessment and Plan Plan: 1. Acute respiratory distress secondary to LLL pneumonia and acute bronchospasm. Continue DuoNeb treatments 4 times daily, Pulmicort 0.5 mg twice daily, Solu-Medrol 40 mg IV every 8 hours to prednisone in the morning, Singulair 10 mg at bedtime. Consult added for Dr. Potts. Repeat chest x-ray ordered. 2. Vertigo secondary to acute state with history of benign positional vertigo in the past versus central. Left weakness and degree of neglect on strength testing, patient relates old stroke with workup in the past with some arm weakness, she believes on the left. 3. Chest pressure improved with Nitroglycerin. Cardiology is following on an as needed basis. Patient to follow-up with Dr. Saleem as an outpatient for stress test. Echocardiogram as above. Repeat troponins negative. Patient is normally on Lipitor, aspirin 81 mg daily, Imdur 90 mg daily, Cozaar, Lopressor. 4. UTI symptoms this week with history of frequent dysuria in the past - urinalysis negative. 5. Hypothyroidism. Continue levothyroxine. 6. Depression, recurrent. Continue Lexapro. 7. Prior lacunar infarcts by description, stable. 8. Hyperlipidemia history. Continue Lipitor. 9. Diabetes mellitus 2. Continue metformin, Humalog scale. 10.Recent viral GI syndrome by description resolved 7 days before admission. 11. Hypertension. Continue Imdur 90 mg daily, Emi Gross. 12. DVT prophylaxis with SCDs. 13. CODE STATUS: Full code Discharge plan: Home with home care or subacute rehab at [facility]. PT following. Impression and plan of care have been directed as dictated by the signing physician. Lindsey Cobb nurse practitioner acting as scribe for signing physician. Time with Patient: Greater than 30
[2016-04-28] MEDS: QUEtiapine 25 MG TAB PO SCH (10:52)
[2016-04-28] MEDS: CYANOCOBALAMIN 500 MCG TAB PO SCH (10:52)
--- NOTE | 2016-04-28 12:02 | P.PN ---
Subjective Principal diagnosis: Acute exacerbation of Asthma Patient seen and examined. Patient states her breathing is better however she still having occasional dizzy spells. She was denied her insurance to go to rehabilitation. Other options are being reviewed probably the primary team and case management. Objective - Vital Signs Vital signs: Vital Signs Temp 97.1 F L 04/28/16 07:00 Pulse 60 04/28/16 09:42 Resp 20 04/28/16 08:00 BP 128/68 04/28/16 07:00 Pulse Ox 92 L 04/28/16 07:00 Intake & Output 04/27/16 04/28/16 04/28/16 18:59 06:59 18:59 Intake Total 600 550 240 Balance 600 550 240 Intake: Intake, IV Titration 550 Amount cefTRIAXone 1,000 mg In 550 Sodium Chloride 0.9% 50 ml @ 100 mls/hr IVPB Q24HR [facility] Rx#:[id number] Oral 600 240 Other: Voiding Method Bedside Commode # Voids 3 1 1 # Bowel Movements 0 - Exam Gen.: Patient is alert and oriented 3, no acute distress Cardiovascular: Regular rate and rhythm, S1/S2 Lungs: Diminished breath sounds bilaterally otherwise clear Abdomen: Soft nontender nondistended positive bowel sounds Extremities: No edema - Labs CBC & Chem 7: 04/27/16 08:19 04/27/16 08:19 Labs: Abnormal Lab Results - Last 24 Hours (Table) 04/27/16 04/27/16 04/27/16 Range/Units 12:35 17:08 21:03 POC Glucose (mg/dL) 123 H 137 H 160 H (75-99) mg/dL Microbiology - Last 24 Hours (Table) 04/24/16 00:30 Blood Culture - Preliminary Blood No Growth after 96 hours Assessment and Plan Plan: Left lower lobe community-acquired pneumonia Prior granulomatous disease Calcified right bronchial lymph nodes Bronchospasm Obstructive sleep apnea Acute exacerbation of asthma, severe persistent Diabetes mellitus type 2 Obesity Hypothyroidism Dyslipidemia Depression Hypertension O2 to maintain saturation greater than equal to 88% Bronchodilators and Pulmicort Singulair Continue antibiotics: Azithromycin and Rocephin Steroid taper Incentive spirometry and pulmonary hygiene CPAP nightly Antitussives: add Robitussin AC Increase activity GI and DVT prophylaxis: hep, Protonix Discharge planning [place] to [place] from pulmonary standpoint
[2016-04-28 12:10] LABS: Glucose,Whole Blood 97 mg/dL (75-99)
[2016-04-28 15:27] VITALS: PULSE 70
== END 2016-04-28 16:31 | disposition home health service (06) | DRG 194 ==
LOC: EC 19:36 → 6SEL 22:45 → 4MS4W 04-26 15:50
PROVIDERS: ADMIT Internal Medicine Geriatric Medicine; ATTEND Internal Medicine Geriatric Medicine
DX: J18.9 Pneumonia, unspecified organism (principal); J45.51 Severe persistent asthma with (acute) exacerbation; I10 Essential (primary) hypertension; J98.11 Atelectasis; I07.1 Rheumatic tricuspid insufficiency; K21.9 Gastro-esophageal reflux disease without esophagitis; E03.9 Hypothyroidism, unspecified; E11.9 Type 2 diabetes mellitus without complications; E78.5 Hyperlipidemia, unspecified; F32.9 Major depressive disorder, single episode, unspecified; G47.33 Obstructive sleep apnea (adult) (pediatric); I25.118 Atherosclerotic heart disease of native coronary artery with other forms of angina pectoris; I25.2 Old myocardial infarction; M19.90 Unspecified osteoarthritis, unspecified site; Z79.899 Other long term (current) drug therapy; Z82.49 Family history of ischemic heart disease and other diseases of the circulatory system; Z86.73 Personal history of transient ischemic attack (TIA), and cerebral infarction without residual deficits; Z95.1 Presence of aortocoronary bypass graft; Z95.5 Presence of coronary angioplasty implant and graft; Z91.81 History of falling; Z79.82 Long term (current) use of aspirin; Z79.84 Long term (current) use of oral hypoglycemic drugs; Z91.030 Bee allergy status; Z91.040 Latex allergy status; H81.10 Benign paroxysmal vertigo, unspecified ear
CPT/HCPCS: 36415; 70450; 71010; 71020; 71275; 80048; 80051; 80053; 81003; 82150; 82550; 82553; 82565; 83036; 83605; 83690; 83735; 84484; 84520; 85025; 85027; 85379; 85610; 85730; 87040; 87086; 87502; 93005; 93306; 94640; 94760; 96361; 96374; 99285

== ENCOUNTER 2016-05-11 11:23 | Inpatient (IN) | payer MEDICARE ==
--- NOTE | 2016-05-11 11:48 | ED ---
General Adult HPI - General Stated complaint: Bradycardia Time Seen by Provider: 05/11/16 11:40 - History of Present Illness Initial comments: This is a 71-year-old female presents to the emergency department because she's having near syncopal episodes. Patient was told by her visiting nurse that her heart radiated down to 38 last night and so that she she comes emergency Department. Patient states she is having episodes where she feels like she is given a pass also she sits down and she doesn't quite pass out but she thinks she could if she continued standing. Patient denies any associated pain. Patient denies chest pain or difficulty breathing or shortness of breath. Patient denies headache patient denies numbness weakness. Patient denies abdominal pain patient denies nausea vomiting or diarrhea. Patient denies any significant change in any of her medications. Patient states that the symptoms of near-syncope happen when she is standing only - Related Data Home Medications Medication Instructions Recorded Confirmed Aspirin EC [Ecotrin Low Dose] 81 mg PO BID 10/15/14 05/11/16 Cyanocobalamin [Vitamin B-12] 1,000 mcg PO DAILY 10/15/14 05/11/16 Escitalopram [Lexapro] 30 mg PO DAILY 10/15/14 05/11/16 Ferrous Sulfate [Feosol] 325 mg PO DAILY 10/15/14 05/11/16 Furosemide [Lasix] 20 mg PO DAILY 10/15/14 05/11/16 Levothyroxine Sodium [Synthroid] 50 mcg PO DAILY 10/15/14 05/11/16 Metoprolol Tartrate [Lopressor] 12.5 mg PO BID 10/15/14 05/11/16 Nitroglycerin Sl Tabs [Nitrostat] 0.4 mg SUBLINGUAL Q5M PRN 10/15/14 05/11/16 amLODIPine [Norvasc] 5 mg PO DAILY 10/15/14 05/11/16 metFORMIN HCL [Glucophage] 500 mg PO DAILY 10/15/14 05/11/16 Cholecalciferol [Vitamin D3] 5,000 unit PO DAILY 10/16/14 05/11/16 Albuterol Inhaler [Ventolin Hfa 1 - 2 puff INHALATION RT-Q6H PRN 04/23/16 Inhaler] Fluticasone/Vilanterol [Breo 1 puff INHALATION RT-DAILY 04/23/16 05/11/16 Ellipta 100-25 Mcg Inhaler] Isosorbide Mononitrate ER [Imdur] 90 mg PO DAILY 04/23/16 05/11/16 Losartan [Cozaar] 50 mg PO DAILY 04/23/16 05/11/16 Methocarbamol [Robaxin] 1,000 mg PO QID 04/23/16 05/11/16 Montelukast [Singulair] 10 mg PO HS 04/23/16 05/11/16 Omeprazole 20 mg PO DAILY 04/23/16 05/11/16 QUEtiapine FUMARATE [SEROquel] 12.5 mg PO BID@1200,1700 04/23/16 05/11/16 QUEtiapine [SEROquel] 25 mg PO HS 04/23/16 05/11/16 Budesonide [Pulmicort] 0.5 mg INHALATION RT-BID 05/11/16 05/11/16 predniSONE See Taper PO DAILY 05/11/16 05/11/16 Previous Rx's Medication Instructions Recorded diphenhydrAMINE [Benadryl] 50 mg PO QID PRN #20 capsule 08/31/15 Atorvastatin [Lipitor] 80 mg PO HS tab 04/27/16 HYDROcodone/APAP 7.5-325MG [Beaman 1 tab PO Q6H PRN #100 tab 04/27/16 7.5-325] Ipratropium-Albuterol Nebulize 3 ml INHALATION RT-QID ampul.neb 04/27/16 [Duoneb 0.5 mg-3 mg/3 ml Soln] Melatonin 10 mg PO HS tablet 04/27/16 Potassium Chloride ER [K-Dur 20] 10 meq PO DAILY tab.er.prt 04/27/16 Meclizine [Antivert] 12.5 mg PO Q8HR #90 tablet 04/28/16 Allergies Allergy/AdvReac Type Severity Reaction Status Date / Time latex Allergy Rash/Hives Verified 04/23/16 20:18 venom-honey bee Allergy Swelling Verified 04/23/16 20:18 [bee venom (honey bee)] zolpidem tartrate Allergy Altered Verified 04/23/16 20:18 [From Ambien] Mental Status Review of Systems ROS Statement: Those systems with pertinent positive or pertinent negative responses have been documented in the HPI. ROS Other: All systems not noted in ROS Statement are negative. Past Medical History Past Medical History: Coronary Artery Disease (CAD), COPD, CVA/TIA, Diabetes Mellitus, GERD/Reflux, Hyperlipidemia, Hypertension, Myocardial Infarction ([place]) , Osteoarthritis (OA), Thyroid Disorder Additional Past Medical History / Comment(s): VERTIGO Last Myocardial Infarction Date:: 2004 History of Any Multi-Drug Resistant Organisms: MRSA Date of last positivie culture/infection: 2005 MDRO Source:: Back Past Surgical History: Coronary Bypass/CABG, Heart Catheterization With Stent, Hysterectomy, Joint Replacement, Orthopedic Surgery, Tonsillectomy Additional Past Surgical History / Comment(s): Bruce total knee replacement; total shoulder replacement; rotator cuff repair, bilateral cataract surgery. Date of Last Stent Placement:: 2004 Past Psychological History: Depression Smoking Status: Never smoker Past Alcohol Use History: Rare Past Drug Use History: None Reported - Past Family History Mother Family Medical History: Chest Pain / Angina, Coronary Artery Disease (CAD), CVA/ TIA, Hypertension, Musculoskeletal Disorder Father Family Medical History: Coronary Artery Disease (CAD) Additional Family Medical History / Comment(s): cabg Brother(s) Family Medical History: Coronary Artery Disease (CAD) Sister(s) Family Medical History: Coronary Artery Disease (CAD) Daughter(s) Family Medical History: No Reported History General Exam - General Exam Comments Initial Comments: GENERAL: Patient is well-developed and well-nourished. Patient is nontoxic and well- hydrated and is in no acute distress. ENT: Neck is soft and supple. No significant lymphadenopathy is noted. Oropharynx is clear. Moist mucous membranes. Neck has full range of motion without eliciting any pain. EYES: The sclera were anicteric and conjunctiva were pink and moist. Extraocular movements were intact and pupils were equal round and reactive to light. Eyelids were unremarkable. PULMONARY: Unlabored respirations. Good breath sounds bilaterally. No audible rales rhonchi or wheezing was noted. CARDIOVASCULAR: There is a regular rate and rhythm without any murmurs gallops or rubs. ABDOMEN: Soft and nontender with normal bowel sounds. No palpable organomegaly was noted. There is no palpable pulsatile mass. SKIN: Skin is clear with no lesions or rashes and otherwise unremarkable. NEUROLOGIC: Patient is alert and oriented x3. Cranial nerves II through XII are grossly intact. Motor and sensory are also intact. Normal speech, volume and content. Symmetrical smile. MUSCULOSKELETAL: Normal extremities with adequate strength and full range of motion. No lower extremity swelling or edema. No calf tenderness. LYMPHATICS: No significant lymphadenopathy is noted PSYCHIATRIC: Normal psychiatric evaluation. Normal interpersonal interactions appears functionally intact in deals appropriately with others. No signs of depression. No signs of anxiety. Course Vital Signs 05/11/16 05/11/16 05/11/16 11:36 12:02 12:32 Temperature 98.0 F Pulse Rate 53 L 48 L Respiratory 16 Rate Blood Pressure 101/57 93/55 Blood Pressure 91/55 [Right Arm Sitting] Blood Pressure 81/52 [Right Arm Standing] Blood Pressure 93/52 [Right Arm Supine] O2 Sat by Pulse 99 97 Oximetry Medical Decision Making - Medical Decision Making EKG shows sinus bradycardia 50 bpm SD interval is 156 QRS is 84 Q-T intervals 448 QTC is 408. Patient's EKG shows no ST segment elevation or depression or T wave abnormalities are noted Chest x-ray shows no acute abnormality. Patient's heart rate was steady in the low 50s and occasionally dipped down of the 40s and upper 30s. I spoke with Dr. Rosario and she agreed to admit the patient admitted the patient I wrote admitting orders. I am holding patient blockers - Lab Data Result diagrams: 05/11/16 11:57 05/11/16 11:57 Lab Results 05/11/16 05/11/16 05/11/16 Range/Units 11:57 11:57 11:57 WBC 10.2 (3.8-10.6) k/uL RBC 4.43 (3.80-5.40) m/uL Hgb 13.1 (11.4-16.0) gm/dL Hct 39.6 (34.0-46.0) % MCV 89.3 (80.0-100.0) fL MCH 29.5 (25.0-35.0) pg MCHC 33.1 (31.0-37.0) g/dL RDW 15.4 (11.5-15.5) % Plt Count 172 (150-450) k/uL Neutrophils % 87 % Lymphocytes % 7 % Monocytes % 5 % Eosinophils % 0 % Basophils % 0 % Neutrophils # 8.8 H (1.3-7.7) k/uL Lymphocytes # 0.7 L (1.0-4.8) k/uL Monocytes # 0.5 (0-1.0) k/uL Eosinophils # 0.0 (0-0.7) k/uL Basophils # 0.0 (0-0.2) k/uL PT (9.0-12.0) sec INR (<1.1) APTT (22.0-30.0) sec Sodium 138 (137-145) mmol/L Potassium 4.6 (3.5-5.1) mmol/L Chloride 103 (98-107) mmol/L Carbon Dioxide 26 (22-30) mmol/L Anion Gap 9 mmol/L BUN 23 H (7-17) mg/dL Creatinine 0.76 (0.52-1.04) mg/dL Est GFR (MDRD) Af Amer >60 (>60 ml/min/1.73 sqM) Est GFR (MDRD) Non-Af >60 (>60 ml/min/1.73 sqM) Glucose 92 (74-99) mg/dL Calcium 9.2 (8.4-10.2) mg/dL Magnesium 2.0 (1.6-2.3) mg/dL Total Bilirubin 0.7 (0.2-1.3) mg/dL AST 16 (14-36) U/L ALT 41 (9-52) U/L Alkaline Phosphatase 58 (38-126) U/L Total Creatine Kinase 42 (30-135) U/L CK-MB (CK-2) 0.6 (0.0-2.4) ng/mL CK-MB (CK-2) Rel Index 1.4 Troponin I <0.012 (0.000-0.034) ng/mL Total Protein 6.5 (6.3-8.2) g/dL Albumin 4.0 (3.5-5.0) g/dL 05/11/16 Range/Units 11:57 WBC (3.8-10.6) k/uL RBC (3.80-5.40) m/uL Hgb (11.4-16.0) gm/dL Hct (34.0-46.0) % MCV (80.0-100.0) fL MCH (25.0-35.0) pg MCHC (31.0-37.0) g/dL RDW (11.5-15.5) % Plt Count (150-450) k/uL Neutrophils % % Lymphocytes % % Monocytes % % Eosinophils % % Basophils % % Neutrophils # (1.3-7.7) k/uL Lymphocytes # (1.0-4.8) k/uL Monocytes # (0-1.0) k/uL Eosinophils # (0-0.7) k/uL Basophils # (0-0.2) k/uL PT 10.5 (9.0-12.0) sec INR 1.0 (<1.1) APTT 20.1 L (22.0-30.0) sec Sodium (137-145) mmol/L Potassium (3.5-5.1) mmol/L Chloride (98-107) mmol/L Carbon Dioxide (22-30) mmol/L Anion Gap mmol/L BUN (7-17) mg/dL Creatinine (0.52-1.04) mg/dL Est GFR (MDRD) Af Amer (>60 ml/min/1.73 sqM) Est GFR (MDRD) Non-Af (>60 ml/min/1.73 sqM) Glucose (74-99) mg/dL Calcium (8.4-10.2) mg/dL Magnesium (1.6-2.3) mg/dL Total Bilirubin (0.2-1.3) mg/dL AST (14-36) U/L ALT (9-52) U/L Alkaline Phosphatase (38-126) U/L Total Creatine Kinase (30-135) U/L CK-MB (CK-2) (0.0-2.4) ng/mL CK-MB (CK-2) Rel Index Troponin I (0.000-0.034) ng/mL Total Protein (6.3-8.2) g/dL Albumin (3.5-5.0) g/dL Disposition Clinical Impression: Near syncope, Bradycardia Disposition: ADMITTED IP TO THIS [facility] Time of Disposition: 13:08
[2016-05-11 12:07] LABS: Basophils % (A) 0 %; CH 29.9; CHCM 33.5; Eosinophils % (A) 0 %; HCT 39.6 % (34.0-46.0); HDW 2.59; HGB 13.1 gm/dL (11.4-16.0); Luc # (Auto) 0.11; Luc % (Auto) 1; Lymphocytes # (A) 0.7 k/uL (1.0-4.8); Lymphocytes % (A) 7 %; MCH 29.5 pg (25.0-35.0); MCHC 33.1 g/dL (31.0-37.0); MCV 89.3 fL (80.0-100.0); Mean Platelet Volume 7.3; Monocytes # (A) 0.5 k/uL (0-1.0); Monocytes % (A) 5 %; Neutrophils # (A) 8.8 k/uL (1.3-7.7); Neutrophils % (A) 87 %; RBC 4.43 m/uL (3.80-5.40); RDW 15.4 % (11.5-15.5); WBC 10.2 k/uL (3.8-10.6); WBC (Perox) 10.55
[2016-05-11 12:17] LABS: Prothrombin Time 10.5 sec (9.0-12.0)
[2016-05-11 12:25] LABS: AST 16 U/L (14-36); Alkaline Phosphatase 58 U/L (38-126); Blood Urea Nitrogen 23 mg/dL (7-17); Carbon Dioxide 26 mmol/L (22-30); Glucose 92 mg/dL (74-99); Non-African American GFR(MDRD) >60 (>60 ml/min/1.73 sqM); Total Bilirubin 0.7 mg/dL (0.2-1.3); Total Protein 6.5 g/dL (6.3-8.2)
--- NOTE | 2016-05-11 12:26 | XR ---
EXAMINATION TYPE: XR chest 2V DATE OF EXAM: 05/11/2016 12:18 PM HISTORY: Chest Pain. REFERENCE: Previous study dated 04/25/2016. FINDINGS: There has been a midline sternotomy. There has been a right shoulder hemiarthroplasty. The heart is mildly enlarged. There is some scarring or atelectasis at the left lung base. Lungs are otherwise clear. Pleural spaces are clear. IMPRESSION: 1. CARDIOMEGALY. 2. SCARRING VERSUS ATELECTASIS, LEFT LUNG BASE.
[2016-05-11 12:30] LABS: Creatine Kinase 42 U/L (30-135)
[2016-05-11 12:34] LABS: Partial Thromboplastin Time 20.1 sec (22.0-30.0)
[2016-05-11 12:42] LABS: Creatine Kinase MB 0.6 ng/mL (0.0-2.4); Troponin I <0.012 ng/mL (0.000-0.034)
[2016-05-11 12:44] LABS: ALT 41 U/L (9-52); Anion Gap 9 mmol/L; Calcium 9.2 mg/dL (8.4-10.2); Chloride 103 mmol/L (98-107); Potassium 4.6 mmol/L (3.5-5.1); Sodium 138 mmol/L (137-145)
[2016-05-11] MEDS ORDERED: LORazepam 2 MG/ML SYRINGE IV STA (12:53)
[2016-05-11] MEDS ORDERED: NITROGLYCERIN SL TABS 0.4 MG TAB SUBLINGUAL PRN ×2 (13:09→15:10)
[2016-05-11] MEDS ORDERED: HYDROcodone/APAP 7.5-325MG 1 EACH TAB PO PRN (15:10)
[2016-05-11] MEDS ORDERED: METHOCARBAMOL 500 MG TAB PO PRN (15:48)
--- NOTE | 2016-05-11 15:49 | P.HPIM ---
History of Present Illness H&P Date: 05/11/16 Chief Complaint: Near syncope, mrecurrent, reports of bradycardia This is a pleasant 71-year-old female patient of Dr. Truong and Dr. Saleem. She has underlying history of CAD, hypertension, hyperlipidemia, lumbar disc disease , COPD, diabetes mellitus, previous MA hypothyroidism admitted to emergency room secondary to recurrent syncopal events and recurrent vertigo. Patient was recently admitted in our facility 04/24/2016 secondary to pneumonia and chest pressure. Patient was noted to be bradycardic T-wave inversion which has been present before, was seen by cardiology associates and was recommended to have an outpatient stress test. Echocardiogram was performed 60-65% ejection fraction, Imdur was increased to 60 mg. Troponins during the last admission was negative 3, pH she was seen in emergency room this time and I to the above symptoms, her visiting nurse noted that her heart rate went down to 38 last night, she is also having some lightheadedness and dizziness especially when she sits up and stands up, patient denies any falls known syncope no palpitations. There is no recent change in her medications except the one mentioned from her last admission. Beta anthony is on hold which is metoprolol 12.5 mg twice a day, she also was noted to have multiple medications that could cause lightheadedness dizziness including Robaxin 1000 mg 4 times a day, and Benadryl 50 mg 4 times a day Seroquel. Review of Systems Constitutional: Reports as per HPI, Denies anorexia, Denies chills, Denies chronic headaches, Denies chronic pain, Denies daytime sleepiness, Denies fatigue, Denies fever, Denies lethargy, Denies malaise, Denies night sweats, Denies poor appetite, Denies sweats, Denies weakness, Denies weight gain, Denies weight loss Ears, nose, mouth and throat: Reports as per HPI, Denies ant. neck pain, Denies bleeding gums, Denies dental pain, Denies dysphagia, Denies epistaxis, Denies headache, Denies hoarseness, Denies mouth pain, Denies nasal congestion, Denies nasal discharge, Denies neck fullness/pressure, Denies neck lump, Denies nose pain, Denies odynophagia, Denies post-nasal drip, Denies sinus pain, Denies sinus pressure, Denies swelling in mouth, Denies swelling in throat, Denies sore throat, Denies vertigo, Denies voice changes Cardiovascular: Reports dyspnea on exertion, Reports lightheadedness, Denies as per HPI, Denies chest pain, Denies claudication, Denies decreased exercise tolerance, Denies edema, Denies high blood pressure, Denies irregular heart beat , Denies leg edema, Denies orthopnea, Denies palpitations, Denies paroxysmal nocturnal dyspnea, Denies phlebitis, Denies rapid heart beat, Denies shortness of breath, Denies syncope Respiratory: Reports as per HPI, Denies congestion, Denies cough, Denies cough with sputum, Denies dyspnea, Denies excessive sputum, Denies hemoptysis, Denies home oxygen, Denies pain, Denies pain on inspiration, Denies pleurisy, Denies respiratory infections, Denies sleep apnea, Denies snoring, Denies wheezing Gastrointestinal: Reports as per HPI, Denies abdominal pain, Denies belching, Denies bloating, Denies BRBPR, Denies change in bowel habits, Denies coffee ground emesis, Denies constipation, Denies diarrhea, Denies dyspepsia, Denies early satiety, Denies excessive gas, Denies heartburn, Denies hematemesis, Denies hematochezia, Denies indigestion, Denies jaundice, Denies lactose intolerance, Denies loss of appetite, Denies melena, Denies nausea, Denies vomiting Genitourinary: Reports as per HPI, Denies abnormal vaginal bleeding, Denies decreased libido, Denies difficulty conceiving, Denies difficulty voiding, Denies dysmenorrhea, Denies dyspareunia, Denies dysuria, Denies flank pain, Denies genital sores, Denies hematuria, Denies hot flashes, Denies incomplete emptying, Denies kidney stones, Denies menorrhagia, Denies mixed incontinence, Denies nocturia, Denies pelvic pain, Denies post void dribbling, Denies , Denies prolapse symptoms, Denies stress incontinence, Denies urge incontinence , Denies urgency, Denies urinary frequency, Denies vaginal discharge, Denies vaginal dryness, Denies vaginal itching, Denies vaginal odor Menstruation: Reports as per HPI, Denies amenorrhea, Denies amenorrhea on BC, Denies currently menstrual, Denies cycle < 21 days, Denies cycle > 35 days, Denies cycle variable, Denies menses 1-7 days, Denies menses 8 or > days, Denies menses variable, Denies period heavy, Denies period light, Denies period normal, Denies period spotting, Denies post hysterectomy, Denies postmenopausal , Denies premenarcheal Musculoskeletal: Reports as per HPI, Denies arm numbness/tingling, Denies atrophy, Denies fractures, Denies frequent falls, Denies gait dysfunction, Denies hot joints, Denies leg numbness/tingling, Denies limitation of motion, Denies loss of height, Denies low back pain, Denies morning stiffness, Denies muscle cramps, Denies muscle weakness, Denies myalgias, Denies neck pain, Denies neck stiffness, Denies prior amputations, Denies redness of joints, Denies shooting arm pain, Denies shooting leg pain Integumentary: Reports as per HPI, Denies acne, Denies boils, Denies brittle nails, Denies change in hair/nails, Denies color changes, Denies darkening of skin, Denies depigmentation, Denies dryness, Denies foot/leg ulcers, Denies growths, Denies hirsutism, Denies lesions, Denies onychomycosis, Denies pruritus , Denies rash, Denies sores, Denies striae, Denies unusual bruising, Denies wounds Neurological: Reports as per HPI, Denies aphasia, Denies ataxia, Denies balance difficulties, Denies burning pain, Denies change in mentation, Denies change in smell/taste, Denies change in speech, Denies confusion, Denies convulsions, Denies double vision, Denies gait dysfunction, Denies head injury, Denies headaches, Denies hearing difficulties, Denies lack of coordination, Denies loss of vision, Denies memory loss, Denies migraines, Denies motor disturbance, Denies numbness, Denies paralysis, Denies paresthesias, Denies seizures, Denies sensory deficit, Denies spasticity, Denies syncope, Denies tic, Denies tingling , Denies transient paralysis, Denies tremors, Denies vertigo, Denies weakness, Denies visual changes Psychiatric: Reports as per HPI, Denies anhedonia, Denies anxiety, Denies anxiety attacks, Denies change in appetite, Denies change in libido, Denies change in sleep habits, Denies confusion, Denies depression, Denies difficulty concentrating, Denies disorientation, Denies hallucinations, Denies hopelessness , Denies hypersomnia, Denies insomnia, Denies irritability, Denies memory loss, Denies mood swings, Denies paranoia, Denies sadness/tearfulness, Denies sleep disturbances, Denies suicidal ideation Endocrine: Reports as per HPI, Denies cold intolerance, Denies deepening of the voice, Denies excessive sweating, Denies excessive thirst, Denies fatigue, Denies flushing, Denies heat intolerance, Denies high blood sugars, Denies increase in ring/shoe/hat size, Denies low blood sugars, Denies nocturia, Denies palpitations, Denies polydipsia, Denies polyphagia, Denies polyuria, Denies proptosis, Denies recent glucocorticoid use, Denies thyroid mass, Denies weight change Hematologic/Lymphatic: Reports as per HPI, Denies easy bleeding, Denies easy bruising, Denies lymphadenopathy, Denies lymphedema, Denies thrombophilia Allergic/Immunologic: Reports as per HPI, Denies allergic rhinitis, Denies anaphylaxis, Denies angioedema, Denies gluten intolerance, Denies persistent infections, Denies seasonal allergies, Denies urticaria, Denies wheezing Past Medical History Past Medical History: Asthma, Coronary Artery Disease (CAD), Chest Pain / Angina , Heart Failure, COPD, CVA/TIA, Diabetes Mellitus, GERD/Reflux, Hyperlipidemia, Hypertension, Myocardial Infarction (MA), Osteoarthritis (OA), Pneumonia, Renal Disease, Sleep Apnea/CPAP/BIPAP, Syncope, Thyroid Disorder Additional Past Medical History / Comment(s): Pt recently admitted 04/23/16 with left lower lobe peumonia/bronchospasm/ unstable angina. Other hX: NIDDM type II, CVA, VERTIGO, syncope, bilateral tinnitis, anemia, murmur, hypothyroid , UTIs, nephrolithiasis, CHAVEZ with CPap, migraines, head injury as a teen, back pain. Last Myocardial Infarction Date:: 2004 History of Any Multi-Drug Resistant Organisms: MRSA Date of last positivie culture/infection: 2005 MDRO Source:: Back Past Surgical History: Bladder Surgery, Coronary Bypass/CABG, Heart Catheterization, Heart Catheterization With Stent, Hysterectomy, Joint Replacement, Orthopedic Surgery, Tonsillectomy Additional Past Surgical History / Comment(s): 1997 3 vessel CABG in [facility], 2004 PCI with 2 stents, 2010 and 2012 cardiac caths, jessi total knee replacements with right side done twice; R total shoulder replacement; L rotator cuff repair, bilateral cataract surgery, bladder suspension, R foot bone fusion, colonoscopy/polypectomy, bilateral hands trigger fingers/thumbs released, benign lymph node bx. Past Anesthesia/Blood Transfusion Reactions: No Reported Reaction Additional Past Anesthesia/Blood Transfusion Reaction / Comment(s): Pt received blood in the 1959's without reaction. Date of Last Stent Placement:: 2004 Past Psychological History: Depression Additional Psychological History / Comment(s): Pt lives with her spouse. She has [facility] twice a week. Smoking Status: Never smoker Past Alcohol Use History: Rare Past Drug Use History: None Reported - Past Family History Mother Family Medical History: Chest Pain / Angina, Coronary Artery Disease (CAD), CVA/ TIA, Hypertension, Musculoskeletal Disorder Father Family Medical History: Coronary Artery Disease (CAD) Additional Family Medical History / Comment(s): cabg Brother(s) Family Medical History: Coronary Artery Disease (CAD) Sister(s) Family Medical History: Coronary Artery Disease (CAD) Daughter(s) Family Medical History: No Reported History Medications and Allergies Home Medications Medication Instructions Recorded Confirmed Type Aspirin EC [Ecotrin Low Dose] 81 mg PO BID 10/15/14 05/11/16 History Cyanocobalamin [Vitamin B-12] 1,000 mcg PO DAILY 10/15/14 05/11/16 History Escitalopram [Lexapro] 30 mg PO DAILY 10/15/14 05/11/16 History Ferrous Sulfate [Feosol] 325 mg PO DAILY 10/15/14 05/11/16 History Furosemide [Lasix] 20 mg PO DAILY 10/15/14 05/11/16 History Levothyroxine Sodium [Synthroid] 50 mcg PO DAILY 10/15/14 05/11/16 History Metoprolol Tartrate [Lopressor] 12.5 mg PO BID 10/15/14 05/11/16 History Nitroglycerin Sl Tabs [Nitrostat] 0.4 mg SUBLINGUAL Q5M PRN 10/15/14 05/11/16 History amLODIPine [Norvasc] 5 mg PO DAILY 10/15/14 05/11/16 History metFORMIN HCL [Glucophage] 500 mg PO DAILY 10/15/14 05/11/16 History Cholecalciferol [Vitamin D3] 5,000 unit PO DAILY 10/16/14 05/11/16 History Albuterol Inhaler [Ventolin Hfa 1 - 2 puff INHALATION RT-Q6H PRN 04/23/16 History Inhaler] Fluticasone/Vilanterol [Breo 1 puff INHALATION RT-DAILY 04/23/16 05/11/16 History Ellipta 100-25 Mcg Inhaler] Isosorbide Mononitrate ER [Imdur] 90 mg PO DAILY 04/23/16 05/11/16 History Losartan [Cozaar] 50 mg PO DAILY 04/23/16 05/11/16 History Methocarbamol [Robaxin] 1,000 mg PO QID 04/23/16 05/11/16 History Montelukast [Singulair] 10 mg PO HS 04/23/16 05/11/16 History Omeprazole 20 mg PO DAILY 04/23/16 05/11/16 History QUEtiapine FUMARATE [SEROquel] 12.5 mg PO BID@1200,1700 04/23/16 05/11/16 History QUEtiapine [SEROquel] 25 mg PO HS 04/23/16 05/11/16 History Budesonide [Pulmicort] 0.5 mg INHALATION RT-BID 05/11/16 05/11/16 History predniSONE See Taper PO DAILY 05/11/16 05/11/16 History Allergies Allergy/AdvReac Type Severity Reaction Status Date / Time latex Allergy Rash/Hives Verified 04/23/16 20:18 venom-honey bee Allergy Swelling Verified 04/23/16 20:18 [bee venom (honey bee)] zolpidem tartrate Allergy Altered Verified 04/23/16 20:18 [From Ambien] Mental Status Physical Exam Vitals: Vital Signs Pulse Resp BP Pulse Ox 05/11/16 13:44 48 L 16 107/58 96 - Constitutional General appearance: average body habitus, cooperative, no acute distress - EENT Eyes: no abnormal pupil, anicteric sclerae, no disc margins sharp, no edentulous , EOMI, PERRLA, no fundus normal, no photophobia, dentition normal, no poor dentition, no ptosis, no scleral icterus, normal appearance ENT: no hard of hearing, hearing grossly normal, NA/AT, normal oropharynx, no other, no pharyngeal erythema, no thrush, no tonsillar exudates, no tonsillar swelling - Neck Neck: no lymphadenopathy, normal ROM, no other, no rigidity, no stridor, no thyromegaly Thyroid: bilateral: normal size, negative: enlarged, firm, nodule - Respiratory Respiratory: bilateral: CTA, negative: diminished, dullness, rales, rhonchi, wheezing - Cardiovascular Rhythm: regular Heart sounds: normal: S1, S2 Abnormal Heart Sounds: no systolic murmur, no diastolic murmur, no rub, no S3 Gallop, no S4 Gallop, no click, no other - Gastrointestinal General gastrointestinal: normal bowel sounds, soft - Integumentary Integumentary: normal, normal turgor - Neurologic Neurologic: CNII-XII intact - Musculoskeletal Musculoskeletal: gait normal, strength equal bilaterally - Psychiatric Psychiatric: A&O x's 3, appropriate affect, intact judgment & insight Results CBC & Chem 7: 05/11/16 11:57 05/11/16 11:57 Labs: Laboratory Results WBC 10.2 k/uL (3.8-10.6) 05/11/16 11:57 RBC 4.43 m/uL (3.80-5.40) 05/11/16 11:57 Hgb 13.1 gm/dL (11.4-16.0) 05/11/16 11:57 Hct 39.6 % (34.0-46.0) 05/11/16 11:57 MCV 89.3 fL (80.0-100.0) 05/11/16 11:57 MCH 29.5 pg (25.0-35.0) 05/11/16 11:57 MCHC 33.1 g/dL (31.0-37.0) 05/11/16 11:57 RDW 15.4 % (11.5-15.5) 05/11/16 11:57 Plt Count 172 k/uL (150-450) 05/11/16 11:57 Neutrophils % 87 % 05/11/16 11:57 Lymphocytes % 7 % 05/11/16 11:57 Monocytes % 5 % 05/11/16 11:57 Eosinophils % 0 % 05/11/16 11:57 Basophils % 0 % 05/11/16 11:57 Neutrophils # 8.8 k/uL (1.3-7.7) H 05/11/16 11:57 Lymphocytes # 0.7 k/uL (1.0-4.8) L 05/11/16 11:57 Monocytes # 0.5 k/uL (0-1.0) 05/11/16 11:57 Eosinophils # 0.0 k/uL (0-0.7) 05/11/16 11:57 Basophils # 0.0 k/uL (0-0.2) 05/11/16 11:57 PT 10.5 sec (9.0-12.0) 05/11/16 11:57 INR 1.0 (<1.1) 05/11/16 11:57 APTT 20.1 sec (22.0-30.0) L 05/11/16 11:57 Sodium 138 mmol/L (137-145) 05/11/16 11:57 Potassium 4.6 mmol/L (3.5-5.1) 05/11/16 11:57 Chloride 103 mmol/L (98-107) 05/11/16 11:57 Carbon Dioxide 26 mmol/L (22-30) 05/11/16 11:57 Anion Gap 9 mmol/L 05/11/16 11:57 BUN 23 mg/dL (7-17) H 05/11/16 11:57 Creatinine 0.76 mg/dL (0.52-1.04) 05/11/16 11:57 Est GFR (MDRD) Af Amer >60 (>60 ml/min/1.73 sqM) 05/11/16 11:57 Est GFR (MDRD) Non-Af >60 (>60 ml/min/1.73 sqM) 05/11/16 11:57 Glucose 92 mg/dL (74-99) 05/11/16 11:57 Calcium 9.2 mg/dL (8.4-10.2) 05/11/16 11:57 Magnesium 2.0 mg/dL (1.6-2.3) 05/11/16 11:57 Total Bilirubin 0.7 mg/dL (0.2-1.3) 05/11/16 11:57 AST 16 U/L (14-36) 05/11/16 11:57 ALT 41 U/L (9-52) 05/11/16 11:57 Alkaline Phosphatase 58 U/L (38-126) 05/11/16 11:57 Total Creatine Kinase 42 U/L (30-135) 05/11/16 11:57 CK-MB (CK-2) 0.6 ng/mL (0.0-2.4) 05/11/16 11:57 CK-MB (CK-2) Rel Index 1.4 05/11/16 11:57 Troponin I <0.012 ng/mL (0.000-0.034) 05/11/16 11:57 Total Protein 6.5 g/dL (6.3-8.2) 05/11/16 11:57 Albumin 4.0 g/dL (3.5-5.0) 05/11/16 11:57 TSH 0.428 mIU/L (0.465-4.680) L 05/11/16 11:57 Free T4 0.58 ng/dL (0.78-2.19) L 05/11/16 11:57 Thrombosis Risk Factor Assmnt - DVT/VTE Prophylaxis DVT/VTE Prophylaxis: Mechanical Prophylaxis ordered - Choose All That Apply Each Risk Factor Represents 2 Points: Age 61-74 years Thrombosis Risk Factor Assessment Total Risk Factor Score: 2 Thrombosis Risk Factor Assessment Level: Low Risk Assessment and Plan Plan: Assessment: 1. Near syncope with bradycardia, hold metoprolol, consult cardiology check for orthostatics, limited sedating medications including Benadryl and Robaxin this will be titrated down to include Benadryl 50 mg at bedtime instead of 4 times a day, Robaxin 500 mg 3 times a day instead of 1 g 4 times a day. She recently had completed an echocardiogram was performed in early April 2016 that shows ejection fraction of 55-60% tired function test was requested cortisol level is requested 2. History of coronary artery disease with myocardial infarction in 2004. With recent angina symptoms patient still needs to complete the outpatient stress test that was requested, patient would continue on Imdur 90 mg daily amlodipine 5 mg daily aspirin, losartan 50 mg daily, orthostatics will be obtained 4. COPD without any exacerbation on DuoNeb and Pulmicort, 5. Hypothyroidism on levothyroxine, compliance to its use is recommended as her free T4 is low .58 TSH is suppressed at 0.428 no changes were made 6. Depression history on Seroquel 25 mg at bedtime and 12.5 mg twice a day, 7. Prior lacunar infarcts by description 8. Hyperlipidemia on Lipitor 80 9. Diabetes mellitus , on metformin 500 mg daily, monitor for Accu-Cheks pressure with her symptoms of lightheadedness, last hemoglobin A1c 5.8 2016 10 lumbar disc disease on Robaxin 1000 mg 4 times a day which will be tapered down to 500 mg 3 times a day the,\ 11. Polypharmacy patient has numerous medications that could cause lightheadedness dizziness hypotension. This was discussed with her and we would try to limit exposures to Benadryl 50 mg 4 times a day and Robaxin 1000 mg 4 times a day, these doses are excessive and just does not justify its use 12. High doses of vitamin D noted, vitamin D3 levels were obtained to evaluate for toxicity levels.
[2016-05-11] MEDS ORDERED: ACETAMINOPHEN TAB 325 MG TAB PO STA (16:01)
[2016-05-11] MEDS ORDERED: amLODIPine 5 MG TAB PO STA (16:13)
[2016-05-11] MEDS: IPRATROPIUM-ALBUTEROL 3 ML NEB INHALATION SCH ×2 (16:41→22:12)
[2016-05-11 17:39] LABS: Creatine Kinase 41 U/L (30-135)
[2016-05-11 17:51] LABS: Creatine Kinase MB 0.5 ng/mL (0.0-2.4); Troponin I <0.012 ng/mL (0.000-0.034)
[2016-05-11 17:56] VITALS: BMI 29.7
--- NOTE | 2016-05-11 18:18 | CONS ---
DATE OF CONSULTATION: CHIEF COMPLAINT: Bradycardia. Florence is a 71-year-old lady with a history of coronary artery disease, status post CABG, hypertension, dyslipidemia, COPD, diabetes and hypothyroidism who was recently in the hospital with pneumonia and chest pain; was discharged home, and at home has had episodes of dizziness, and on remote monitoring by the home health care agencies was found to be bradycardic, due to which they advised her to come to the emergency room, which is where I am evaluating the patient. She does not have angina. She did not have any syncope and she does not have focal neurological deficits. While her heart rate is low, she is in sinus rhythm. She was supposed to have an outpatient stress test, which was not done. A recent echocardiogram on her showed an ejection fraction of 60% to 65%. Patient's blood pressures are somewhat on the low side, and her dizziness is probably related to it. Patient is on metoprolol 12.5 b.i.d., which is responsible for the bradycardia. I am stopping it. She is on Cozaar 50 mg daily and Norvasc 5 mg daily. I am going to stop the Norvasc and decrease the dose of Cozaar and we will see how her symptoms evolve. I do not believe we are dealing with high-grade AV block or need for pacemaker. She is not having any angina. She does not need a stress test on this admission. Stress test, however, may be done in the outpatient setting after discharge. If her heart rate improves, blood pressure comes up, and the dizziness improves, she may be able to be discharged home. Past medical history is significant for: 1. Coronary artery disease. 2. Hypertension. 3. Diabetes. 4. Dyslipidemia. 5. Sleep apnea. 6. Bypass surgery. ALLERGIES: CHARTED. Surgical history is also significant for: 1. Hysterectomy. 2. Joint replacement. 3. Tonsillectomy. 4. Bladder surgery. FAMILY HISTORY: Negative for premature coronary artery disease. SOCIAL HISTORY: Negative for current smoking, ETOH abuse or drug abuse. REVIEW OF SYSTEMS: HEENT: Unremarkable. CARDIAC: As described above. RESPIRATORY: Negative. GI: Negative. GENITOURINARY: Negative. ALLERGY/IMMUNOLOGY: Negative. SKIN: Negative. MUSCULOSKELETAL: Significant for arthritis. PSYCHOSOCIAL: Negative. ENDOCRINE: Negative. HEMATOLOGIC: Negative. DERMATOLOGIC: Negative. CONSTITUTIONAL: Negative. ONCOLOGICAL: Negative. Rest of the system review is not relevant. On exam, comfortable at rest. Heart rate is 48 beats per minute. Blood pressure is 110/55. Respiratory rate is 18. Chest exam reveals good air entry bilaterally. Heart exam reveals first and second heart sounds; systolic murmur at the left lower sternal border. Abdomen is soft. Examination of extremities did not reveal any edema. Peripheral pulses are felt. An echocardiogram recently showed normal LV function. EKG shows sinus bradycardia. Rhythm strip shows that she is in sinus rhythm. ASSESSMENT: 1. Sinus bradycardia, probably secondary to beta blockers. 2. Dizziness secondary to hypotension. 3. Coronary artery disease, status post coronary artery bypass grafting. 4. History of hypertension. PLAN: Hold the beta blockers. I reviewed cardiac testing from recent admission. I am going to stop the Norvasc, decrease the dose of Cozaar. Will see how her symptoms evolve and decide on further course of action. Patient had CTA of the lung just 2 weeks ago, and it was negative for pulmonary embolism.
[2016-05-11] MEDS: QUEtiapine 25 MG TAB PO SCH ×2 (18:26→20:18)
[2016-05-11] MEDS: MECLIZINE 12.5 MG TAB PO SCH ×2 (18:27→23:35)
[2016-05-11] MEDS ORDERED: BUDESONIDE 0.5 MG/2 ML NEBU INHALATION SCH (20:00)
[2016-05-11] MEDS: ASPIRIN 81 MG CHEW PO SCH (20:17)
[2016-05-11] MEDS: ATORVASTATIN 80 MG TAB PO SCH (20:18)
[2016-05-11] MEDS: MONTELUKAST 10 MG TAB PO SCH (20:18)
[2016-05-11] MEDS: diphenhydrAMINE 50 MG CAP PO SCH (20:18)
[2016-05-11] MEDS: MELATONIN 5 MG TABLET PO SCH (20:18)
[2016-05-11 21:52] LABS: Glucose,Whole Blood 100 mg/dL (75-99)
[2016-05-11] MEDS: SYMBICORT 80-4.5 MCG INHALER INHALATION SCH (22:12)
[2016-05-12 00:18] LABS: Creatine Kinase 33 U/L (30-135)
[2016-05-12 00:31] LABS: Creatine Kinase MB 0.4 ng/mL (0.0-2.4); Troponin I <0.012 ng/mL (0.000-0.034)
[2016-05-12 06:02] LABS: Glucose,Whole Blood 91 mg/dL (75-99)
[2016-05-12] MEDS: LEVOTHYROXINE 50 MCG TAB PO SCH (06:37)
[2016-05-12] MEDS: PANTOPRAZOLE 40 MG TABLET PO SCH (06:37)
[2016-05-12 06:46] LABS: Cholesterol 152 mg/dL (<200); HDL Cholesterol 62 mg/dL (40-60); Triglycerides 128 mg/dL (<150)
[2016-05-12] MEDS: MECLIZINE 12.5 MG TAB PO SCH ×3 (06:57→22:17)
[2016-05-12] MEDS: amLODIPine 5 MG TAB PO SCH (08:14)
[2016-05-12] MEDS: metFORMIN 500 MG TAB PO SCH (08:14)
[2016-05-12] MEDS: ASPIRIN 81 MG CHEW PO SCH ×2 (08:14→20:29)
[2016-05-12] MEDS: ESCITALOPRAM 10 MG TAB PO SCH (08:14)
[2016-05-12] MEDS: LOSARTAN 25 MG TAB PO SCH (08:16)
[2016-05-12] MEDS: SYMBICORT 80-4.5 MCG INHALER INHALATION SCH ×2 (08:18→19:56)
[2016-05-12] MEDS: IPRATROPIUM-ALBUTEROL 3 ML NEB INHALATION SCH ×4 (08:18→19:56)
[2016-05-12] MEDS ORDERED: ASPIRIN 325 MG TAB PO SCH (09:00)
[2016-05-12] MEDS ORDERED: predniSONE 10 MG TAB PO SCH (09:00)
[2016-05-12] MEDS ORDERED: LOSARTAN 50 MG TAB PO SCH (09:00)
[2016-05-12] MEDS: CYANOCOBALAMIN 500 MCG TAB PO SCH (11:22)
[2016-05-12] MEDS: FERROUS SULFATE 325 MG TAB PO SCH (11:22)
[2016-05-12] MEDS: CHOLECALCIFEROL 1,000 UNIT TAB PO SCH (11:23)
[2016-05-12] MEDS: QUEtiapine 25 MG TAB PO SCH ×3 (11:23→20:28)
[2016-05-12 11:43] LABS: Glucose,Whole Blood 161 mg/dL (75-99)
--- NOTE | 2016-05-12 13:25 | P.PN ---
Subjective This is a pleasant 71-year-old female patient of Dr. Truong and Dr. Saleem. She has underlying history of CAD, hypertension, hyperlipidemia, lumbar disc disease , COPD, diabetes mellitus, previous DC hypothyroidism admitted to emergency room secondary to recurrent syncopal events and recurrent vertigo. Patient was recently admitted in our facility 04/24/2016 secondary to pneumonia and chest pressure. Patient was noted to be bradycardic T-wave inversion which has been present before, was seen by cardiology associates and was recommended to have an outpatient stress test. Echocardiogram was performed 60-65% ejection fraction, Imdur was increased to 60 mg. Troponins during the last admission was negative 3, pH she was seen in emergency room this time and I to the above symptoms, her visiting nurse noted that her heart rate went down to 38 last night, she is also having some lightheadedness and dizziness especially when she sits up and stands up, patient denies any falls known syncope no palpitations. There is no recent change in her medications except the one mentioned from her last admission. Beta anthony is on hold which is metoprolol 12.5 mg twice a day, she also was noted to have multiple medications that could cause lightheadedness dizziness including Robaxin 1000 mg 4 times a day, and Benadryl 50 mg 4 times a day Seroquel. 05/12: Patient has been seen by cardiology. Beta blockers are on hold and Norvasc was stopped. Dose of Cozaar was decreased. Troponins have been negative on 3 draws. Triglycerides 128, cholesterol 152, LDL 64 and HDL 62. Cortisol level 2and patient will be started on oral hydrocortisone. TSH 0.428 and free T4 0.58. heart rate is running in the 50s. anticipate discharge in the next 24-48 hours. Objective - Vital Signs Vital signs: Vital Signs Temp 97.1 F L 05/12/16 08:00 Pulse 60 05/12/16 08:30 Resp 16 05/12/16 08:00 BP 104/55 05/12/16 08:00 Pulse Ox 99 05/12/16 08:00 Intake & Output 05/11/16 05/12/16 05/12/16 18:59 06:59 18:59 Intake Total 1000 980 236 Balance 1000 980 236 Weight 78.471 kg 78.5 kg Intake: IV 20 0.9% NS FLUSH 20 Oral 1000 960 236 Other: # Voids 1 - Exam General appearance: average body habitus, cooperative, no acute distress - EENT Eyes: no abnormal pupil, anicteric sclerae, no disc margins sharp, no edentulous , EOMI, PERRLA, no fundus normal, no photophobia, dentition normal, no poor dentition, no ptosis, no scleral icterus, normal appearance ENT: no hard of hearing, hearing grossly normal, NA/AT, normal oropharynx, no other, no pharyngeal erythema, no thrush, no tonsillar exudates, no tonsillar swelling - Neck Neck: no lymphadenopathy, normal ROM, no other, no rigidity, no stridor, no thyromegaly Thyroid: bilateral: normal size, negative: enlarged, firm, nodule - Respiratory Respiratory: bilateral: CTA, negative: diminished, dullness, rales, rhonchi, wheezing - Cardiovascular Rhythm: regular Heart sounds: normal: S1, S2 Abnormal Heart Sounds: no systolic murmur, no diastolic murmur, no rub, no S3 Gallop, no S4 Gallop, no click, no other - Gastrointestinal General gastrointestinal: normal bowel sounds, soft - Integumentary Integumentary: normal, normal turgor - Neurologic Neurologic: CNII-XII intact - Musculoskeletal Musculoskeletal: gait normal, strength equal bilaterally - Psychiatric Psychiatric: A&O x's 3, appropriate affect, intact judgment & insight - Labs CBC & Chem 7: 05/11/16 11:57 05/11/16 11:57 Labs: Abnormal Lab Results - Last 24 Hours (Table) 05/11/16 05/12/16 Range/Units 21:16 05:59 POC Glucose (mg/dL) 100 H (75-99) mg/dL HDL Cholesterol 62 H (40-60) mg/dL Assessment and Plan Plan: 1. Near syncope with bradycardia, hold metoprolol, consult cardiology check for orthostatics, limited sedating medications including Benadryl and Robaxin this will be titrated down to include Benadryl 50 mg at bedtime instead of 4 times a day, Robaxin 500 mg 3 times a day instead of 1 g 4 times a day. She recently had completed an echocardiogram was performed in early April 2016 that shows ejection fraction of 55-60% tired function test was requested cortisol level as above. Norvasc discontinued. Cozaar dose decreased. Consult with cardiology appreciated. 2. History of coronary artery disease with myocardial infarction in 2004. With recent angina symptoms patient still needs to complete the outpatient stress test that was requested, patient would continue on Imdur 90 mg daily amlodipine 5 mg daily aspirin, losartan 50 mg daily, orthostatics will be obtained 4. COPD without any exacerbation on DuoNeb and Pulmicort, 5. Hypothyroidism on levothyroxine, compliance to its use is recommended as her free T4 is low .58 TSH is suppressed at 0.428 no changes were made 6. Depression history on Seroquel 25 mg at bedtime and 12.5 mg twice a day, 7. Prior lacunar infarcts by description 8. Hyperlipidemia on Lipitor 80 9. Diabetes mellitus type 2, on metformin 500 mg daily, monitor for Accu-Cheks pressure with her symptoms of lightheadedness, last hemoglobin A1c 5.8 2016 10 lumbar disc disease on Robaxin 1000 mg 4 times a day which will be tapered down to 500 mg 3 times a day the,\ 11. Polypharmacy patient has numerous medications that could cause lightheadedness dizziness hypotension. This was discussed with her and we would try to limit exposures to Benadryl 50 mg 4 times a day and Robaxin 1000 mg 4 times a day, these doses are excessive and just does not justify its use 12. High doses of vitamin D noted, vitamin D3 levels were obtained to evaluate for toxicity levels. Discharge plan: Return home Impression and plan of care have been directed as dictated by the signing physician. Lindsey Cobb nurse practitioner acting as scribe for signing physician. Time with Patient: Greater than 30
[2016-05-12 16:43] LABS: Glucose,Whole Blood 123 mg/dL (75-99)
[2016-05-12] MEDS: diphenhydrAMINE 50 MG CAP PO SCH (20:28)
[2016-05-12] MEDS: ATORVASTATIN 80 MG TAB PO SCH (20:28)
[2016-05-12] MEDS: MONTELUKAST 10 MG TAB PO SCH (20:28)
[2016-05-12] MEDS: MELATONIN 5 MG TABLET PO SCH (20:28)
[2016-05-12] MEDS: ALPRAZolam 0.25 MG TAB PO PRN (20:31)
[2016-05-12 20:53] LABS: Glucose,Whole Blood 97 mg/dL (75-99)
[2016-05-12] MEDS ORDERED: HYDROCORTISONE 10 MG TAB PO SCH (21:00)
[2016-05-13 06:02] LABS: Glucose,Whole Blood 100 mg/dL (75-99)
[2016-05-13] MEDS: LEVOTHYROXINE 50 MCG TAB PO SCH (06:40)
[2016-05-13] MEDS: PANTOPRAZOLE 40 MG TABLET PO SCH (06:41)
[2016-05-13] MEDS: amLODIPine 5 MG TAB PO SCH (08:36)
[2016-05-13] MEDS: FERROUS SULFATE 325 MG TAB PO SCH (08:36)
[2016-05-13] MEDS: CHOLECALCIFEROL 1,000 UNIT TAB PO SCH (08:36)
[2016-05-13] MEDS: ASPIRIN 81 MG CHEW PO SCH (08:37)
[2016-05-13] MEDS: ESCITALOPRAM 10 MG TAB PO SCH (08:37)
[2016-05-13] MEDS: metFORMIN 500 MG TAB PO SCH (08:37)
[2016-05-13] MEDS: LOSARTAN 25 MG TAB PO SCH (08:37)
[2016-05-13] MEDS: CYANOCOBALAMIN 500 MCG TAB PO SCH (08:37)
[2016-05-13] MEDS: MECLIZINE 12.5 MG TAB PO SCH (08:38)
[2016-05-13] MEDS: SYMBICORT 80-4.5 MCG INHALER INHALATION SCH (08:53)
[2016-05-13] MEDS: IPRATROPIUM-ALBUTEROL 3 ML NEB INHALATION SCH (08:53)
[2016-05-13 08:57] VITALS: BP 125/67; PULSE 54; RESP 17; TEMP 97.1
[2016-05-13] MEDS ORDERED: HYDROCORTISONE 20 MG TAB PO SCH (09:00)
--- NOTE | 2016-05-13 10:30 | P.PN ---
Subjective Principal diagnosis: Bradycardia This is a 71-year-old female who follows regularly with Dr. Saleem in the office. She has a known history of coronary artery disease with prior bypass surgery, subsequent to that patient also had angioplasty and stenting performed. Most recent cardiac catheterization was performed in 2012 maximal medical therapy advised at that time. Patient also has history of hypertension , diabetes, hyperlipidemia, family history of premature coronary artery disease. was recently in the hospital with pneumonia, was discharged home , had an episode of dizziness, on remote monitoring was found to be bradycardic and for this reason she was instructed to come to the emergency room for further evaluation. Patient was supposed to have an outpatient stress test which was not yet performed. Recent echocardiogram with Doppler study revealed an ejection fraction of 60-65%. Patient was on metoprolol tartrate 12-1/2 mg one tablet by mouth twice a day which was discontinued on arrival here. She was also mildly hypotensive and her Norvasc was discontinued. The pressure this morning 126/60, heart rate in the 60s is overall patient feels much better , denies any further dizziness. Objective - Vital Signs Vital signs: Vital Signs Temp 97.1 F L 05/13/16 08:00 Pulse 54 L 05/13/16 08:00 Resp 17 05/13/16 08:00 BP 125/67 05/13/16 08:00 Pulse Ox 100 05/13/16 08:00 Intake & Output 05/12/16 05/13/16 05/13/16 18:59 06:59 18:59 Intake Total 958 10 236 Output Total 2 Balance 956 10 236 Weight 80.5 kg Intake: IV 10 0.9% NS FLUSH 10 Oral 958 236 Output: Urine/Stool Mix 2 Other: Voiding Method Toilet # Voids 1 1 - Exam PHYSICAL EXAMINATION: HEENT: Head is atraumatic, normocephalic. Pupils equal, round. Neck is supple. There is no elevated jugular venous pressure. HEART EXAMINATION: Heart S1 and S2 systolic ejection murmur is heard. CHEST EXAMINATION: fine crackles bilaterally. ABDOMEN: Soft, obese, nontender. Bowel sounds are heard. No organomegaly noted. EXTREMITIES: 2+ peripheral pulses with no evidence of peripheral edema and no calf tenderness noted. NEUROLOGIC patient is awake, alert and oriented -3. - Labs CBC & Chem 7: 05/11/16 11:57 05/11/16 11:57 Labs: Abnormal Lab Results - Last 24 Hours (Table) 05/12/16 05/12/16 05/13/16 Range/Units 11:41 16:41 06:00 POC Glucose (mg/dL) 161 H 123 H 100 H (75-99) mg/dL Assessment and Plan (1) Dizziness Status: Acute (2) HTN (hypertension) Status: Acute (3) CAD (coronary artery disease) Status: Acute (4) Hx of CABG Status: Acute (5) Hyperlipemia Status: Acute (6) Diabetes Status: Acute (7) Hypothyroid Status: Acute (8) Hx of TIA (transient ischemic attack) and stroke Status: Acute (9) Bradycardia Status: Acute Plan: Cardiology's perspective, patient may be able to be discharged home today. She already has a follow-up appointment with Dr. Saleem in the office in early May. She has been instructed to keep this. We will continue to hold the patient's beta anthony as well as Norvasc. DNP note has been reviewed, I agree with a documented findings and plan of care. Patient was seen and examined.
[2016-05-13] MEDS: ALPRAZolam 0.25 MG TAB PO PRN (10:43)
--- NOTE | 2016-05-13 11:00 | P.DS ---
Providers Date of admission: 05/11/16 13:09 Expected date of discharge: 05/13/16 Attending physician: Shannan Rosario Primary care physician: Junaid Truong [facility] Hospital Course: This is a pleasant 71-year-old female patient of Dr. Truong and Dr. Saleem. She has underlying history of CAD, hypertension, hyperlipidemia, lumbar disc disease , COPD, diabetes mellitus, previous [place] hypothyroidism admitted to emergency room secondary to recurrent syncopal events and recurrent vertigo. Patient was recently admitted in our facility 04/24/2016 secondary to pneumonia and chest pressure. Patient was noted to be bradycardic T-wave inversion which has been present before, was seen by cardiology associates and was recommended to have an outpatient stress test. Echocardiogram was performed 60-65% ejection fraction, Imdur was increased to 60 mg. Troponins during the last admission was negative 3, pH she was seen in emergency room this time and I to the above symptoms, her visiting nurse noted that her heart rate went down to 38 last night, she is also having some lightheadedness and dizziness especially when she sits up and stands up, patient denies any falls known syncope no palpitations. There is no recent change in her medications except the one mentioned from her last admission. Beta anthony is on hold which is metoprolol 12.5 mg twice a day, she also was noted to have multiple medications that could cause lightheadedness dizziness including Robaxin 1000 mg 4 times a day, and Benadryl 50 mg 4 times a day Seroquel. 05/12: Patient has been seen by cardiology. Beta blockers are on hold and Norvasc was stopped. Dose of Cozaar was decreased. Troponins have been negative on 3 draws. Triglycerides 128, cholesterol 152, LDL 64 and HDL 62. Cortisol level 2and patient will be started on oral hydrocortisone. TSH 0.428 and free T4 0.58. heart rate is running in the 50s. anticipate discharge in the next 24-48 hours. 05/13: Heart rate 54-67, blood pressure 125/67. Pulse ox 100% on room air. Patient has been cleared for discharge by cardiology. Discharge diagnoses: 1. Near syncope with bradycardia 2. History of coronary artery disease with myocardial infarction in 2004. 4. COPD without any exacerbation 5. Hypothyroidism 6. Depression recurrent 7. Prior lacunar infarcts by description 8. Hyperlipidemia 9. Diabetes mellitus type 2 10 lumbar disc disease 11. Polypharmacy patient has numerous medications that could cause lightheadedness dizziness hypotension. This was discussed with her and we would try to limit exposures to Benadryl 50 mg 4 times a day and Robaxin 1000 mg 4 times a day 12. High doses of vitamin D noted Discharge plan: Return home Impression and plan of care have been directed as dictated by the signing physician. Lindsey Cobb nurse practitioner acting as scribe for signing physician. cc: Dr. Junaid Truong Patient Condition at Discharge: Good Plan - Discharge Summary New Discharge Prescriptions: Hydrocortisone [Cortef] 10 mg PO HS #30 tab Hydrocortisone [Cortef] 20 mg PO DAILY #30 tab Discharge Medication List Aspirin EC [Ecotrin Low Dose] 81 mg PO BID 10/15/14 [History] Cyanocobalamin [Vitamin B-12] 1,000 mcg PO DAILY 10/15/14 [History] Escitalopram [Lexapro] 30 mg PO DAILY 10/15/14 [History] Ferrous Sulfate [Feosol] 325 mg PO DAILY 10/15/14 [History] Furosemide [Lasix] 20 mg PO DAILY 10/15/14 [History] Levothyroxine Sodium [Synthroid] 50 mcg PO DAILY 10/15/14 [History] Nitroglycerin Sl Tabs [Nitrostat] 0.4 mg SUBLINGUAL Q5M PRN 10/15/14 [History] metFORMIN HCL [Glucophage] 500 mg PO DAILY 10/15/14 [History] Cholecalciferol [Vitamin D3] 5,000 unit PO DAILY 10/16/14 [History] Albuterol Inhaler [Ventolin Hfa Inhaler] 1 - 2 puff INHALATION RT-Q6H PRN [History] Fluticasone/Vilanterol [Breo Ellipta 100-25 Mcg Inhaler] 1 puff INHALATION RT- DAILY 04/23/16 [History] Isosorbide Mononitrate ER [Imdur] 90 mg PO DAILY 04/23/16 [History] Montelukast [Singulair] 10 mg PO HS 04/23/16 [History] Omeprazole 20 mg PO DAILY 04/23/16 [History] QUEtiapine FUMARATE [SEROquel] 12.5 mg PO BID@1200,1700 04/23/16 [History] QUEtiapine [SEROquel] 25 mg PO HS 04/23/16 [History] Atorvastatin [Lipitor] 80 mg PO HS tab 04/27/16 [Rx] HYDROcodone/APAP 7.5-325MG [Jasper 7.5-325] 1 tab PO Q6H PRN #100 tab 04/27/16 [ Rx] Ipratropium-Albuterol Nebulize [Duoneb 0.5 mg-3 mg/3 ml Soln] 3 ml INHALATION RT -QID ampul.neb 04/27/16 [Rx] Melatonin 10 mg PO HS tablet 04/27/16 [Rx] Potassium Chloride ER [K-Dur 20] 10 meq PO DAILY tab.er.prt 04/27/16 [Rx] Meclizine [Antivert] 12.5 mg PO Q8HR #90 tablet 04/28/16 [Rx] Budesonide [Pulmicort] 0.5 mg INHALATION RT-BID 05/11/16 [History] Hydrocortisone [Cortef] 10 mg PO HS #30 tab 05/13/16 [Rx] Hydrocortisone [Cortef] 20 mg PO DAILY #30 tab 05/13/16 [Rx] Losartan [Cozaar] 25 mg PO DAILY #0 05/13/16 [Rx] diphenhydrAMINE [Benadryl] 50 mg PO HS cap 05/13/16 [Rx] Follow up Appointment(s)/Referral(s): [facility] [Provider Group] - 04/25/17 1:15 [address] [facility], [NON-STAFF] - Junaid Truong MD [Primary Care Provider] - 1 Week Discharge Disposition: HOME WITH HOME HEALTH SERVICES
== END 2016-05-13 11:42 | disposition home health service (06) | DRG 309 ==
LOC: EC 11:23 → 6SEL 13:09
PROVIDERS: ADMIT Family Medicine; ATTEND Family Medicine
DX: R00.1 Bradycardia, unspecified (principal); F33.9 Major depressive disorder, recurrent, unspecified; I11.0 Hypertensive heart disease with heart failure; I95.9 Hypotension, unspecified; J44.9 Chronic obstructive pulmonary disease, unspecified; I50.9 Heart failure, unspecified; I25.10 Atherosclerotic heart disease of native coronary artery without angina pectoris; J45.909 Unspecified asthma, uncomplicated; T44.7X5A Adverse effect of beta-adrenoreceptor antagonists, initial encounter; T46.5X5A Adverse effect of other antihypertensive drugs, initial encounter; T46.1X5A Adverse effect of calcium-channel blockers, initial encounter; T45.0X5A Adverse effect of antiallergic and antiemetic drugs, initial encounter; E11.9 Type 2 diabetes mellitus without complications; T42.8X5A Adverse effect of antiparkinsonism drugs and other central muscle-tone depressants, initial encounter; K21.9 Gastro-esophageal reflux disease without esophagitis; M51.36 Other intervertebral disc degeneration, lumbar region; E03.9 Hypothyroidism, unspecified; E78.5 Hyperlipidemia, unspecified; I25.2 Old myocardial infarction; N28.9 Disorder of kidney and ureter, unspecified; M19.90 Unspecified osteoarthritis, unspecified site; G47.33 Obstructive sleep apnea (adult) (pediatric); Z87.828 Personal history of other (healed) physical injury and trauma; Z88.8 Allergy status to other drugs, medicaments and biological substances; Z86.010 Personal history of colon polyps; Z87.01 Personal history of pneumonia (recurrent); Z87.440 Personal history of urinary (tract) infections; Z82.49 Family history of ischemic heart disease and other diseases of the circulatory system; Z95.1 Presence of aortocoronary bypass graft; Z95.5 Presence of coronary angioplasty implant and graft; Z96.653 Presence of artificial knee joint, bilateral; Z96.611 Presence of right artificial shoulder joint; Z79.899 Other long term (current) drug therapy; Z79.84 Long term (current) use of oral hypoglycemic drugs; Z86.73 Personal history of transient ischemic attack (TIA), and cerebral infarction without residual deficits; Z87.442 Personal history of urinary calculi; Z87.448 Personal history of other diseases of urinary system; Z91.030 Bee allergy status; Z91.040 Latex allergy status; Z79.82 Long term (current) use of aspirin; Z79.51 Long term (current) use of inhaled steroids; Z82.3 Family history of stroke; Z90.710 Acquired absence of both cervix and uterus; Z98.42 Cataract extraction status, left eye; Z98.41 Cataract extraction status, right eye; Z86.14 Personal history of Methicillin resistant Staphylococcus aureus infection; Z98.1 Arthrodesis status
CPT/HCPCS: 36415; 71020; 80053; 80061; 82306; 82533; 82550; 82553; 83735; 84439; 84443; 84484; 85025; 85610; 85730; 93005; 94640; 96374; 99285

== ENCOUNTER → 2016-05-18 | Outpatient (CLI) | payer MEDICARE | LOC: RADECHMAIN 12:30 | PROVIDERS: ATTEND Family Medicine | DX: R00.1 Bradycardia, unspecified (principal); R00.0 Tachycardia, unspecified | CPT/HCPCS: 93225; 93226 ==

== ENCOUNTER 2016-05-21 01:43 | Emergency (ER) | payer MEDICARE ==
[2016-05-21 02:25] LABS: Basophils % (A) 1 %; CH 30.1; CHCM 33.8; Eosinophils # (A) 0.2 k/uL (0-0.7); Eosinophils % (A) 3 %; HCT 38.5 % (34.0-46.0); HGB 12.4 gm/dL (11.4-16.0); Luc # (Auto) 0.16; Luc % (Auto) 3; Lymphocytes # (A) 1.3 k/uL (1.0-4.8); Lymphocytes % (A) 22 %; MCH 28.7 pg (25.0-35.0); MCHC 32.1 g/dL (31.0-37.0); MCV 89.3 fL (80.0-100.0); Mean Platelet Volume 7.3; Monocytes # (A) 0.5 k/uL (0-1.0); Monocytes % (A) 8 %; Neutrophils # (A) 3.6 k/uL (1.3-7.7); Neutrophils % (A) 63 %; RBC 4.31 m/uL (3.80-5.40); RDW 15.5 % (11.5-15.5); WBC 5.7 k/uL (3.8-10.6); WBC (Perox) 6.27
[2016-05-21 02:31] LABS: ALT 34 U/L (9-52); AST 17 U/L (14-36); Alkaline Phosphatase 67 U/L (38-126); Anion Gap 9 mmol/L; Blood Urea Nitrogen 29 mg/dL (7-17); Calcium 8.8 mg/dL (8.4-10.2); Carbon Dioxide 26 mmol/L (22-30); Chloride 107 mmol/L (98-107); Glucose 105 mg/dL (74-99); Magnesium 2.1 mg/dL (1.6-2.3); Non-African American GFR(MDRD) >60 (>60 ml/min/1.73 sqM); Potassium 4.1 mmol/L (3.5-5.1); Sodium 142 mmol/L (137-145); Total Bilirubin 0.4 mg/dL (0.2-1.3)
[2016-05-21 02:42] LABS: Creatine Kinase 59 U/L (30-135)
--- NOTE | 2016-05-21 02:50 | XR ---
EXAM: XR Chest, 1 View. CLINICAL HISTORY: Reason: chest pain TECHNIQUE: Frontal view of the chest. COMPARISON: Chest radiograph on 05/11/2016 FINDINGS: Lungs/pleura: Mildly low lung volumes with slightly increased opacity at the left lung base which may represent atelectasis and/or scarring. Slightly increased right basilar atelectasis as well. Difficult to exclude pleural effusion on the left. No pneumothorax. Stable mild elevation of the right hemidiaphragm Heart/mediastinum: Median sternotomy changes with postsurgical changes of CABG. Stable cardiomegaly. Soft tissues: Unremarkable. Bones: Right shoulder hemiarthroplasty. No acute fracture. Upper abdomen: Unremarkable. IMPRESSION: Mildly low volumes with slightly increased atelectasis/scarring versus consolidation at the left base. Slightly increased right basilar atelectasis.
[2016-05-21 02:54] LABS: Creatine Kinase MB 0.4 ng/mL (0.0-2.4); Troponin I <0.012 ng/mL (0.000-0.034)
[2016-05-21 03:04] LABS: Partial Thromboplastin Time 20.4 sec (22.0-30.0)
[2016-05-21 06:06] VITALS: BP 135/63; PULSE 54; RESP 18; TEMP 98
--- NOTE | 2016-05-21 06:33 | ED ---
Chest Pain HPI - General Chief Complaint: Chest Pain Stated Complaint: chest pain Time Seen by Provider: 05/21/16 02:01 Source: EMS Mode of arrival: EMS Limitations: no limitations - History of Present Illness MD Complaint: chest pain Onset/Timin -: hour(s) Onset: during rest Pain Location: substernal Pain Radiation: none Severity: moderate Quality: heaviness Consistency: constant Improves With: nitroglycerin Worsens With: nothing Treatments Prior to Arrival: aspirin, nitroglycerin, oxygen - Related Data Home Medications Medication Instructions Recorded Confirmed Aspirin EC [Ecotrin Low Dose] 81 mg PO BID 10/15/14 05/29/16 Cyanocobalamin [Vitamin B-12] 1,000 mcg PO DAILY 10/15/14 05/29/16 Escitalopram [Lexapro] 30 mg PO DAILY 10/15/14 05/29/16 Ferrous Sulfate [Feosol] 325 mg PO DAILY 10/15/14 05/29/16 Furosemide [Lasix] 20 mg PO DAILY 10/15/14 05/29/16 Levothyroxine Sodium [Synthroid] 50 mcg PO DAILY 10/15/14 05/29/16 Nitroglycerin Sl Tabs [Nitrostat] 0.4 mg SUBLINGUAL Q5M PRN 10/15/14 05/29/16 metFORMIN HCL [Glucophage] 500 mg PO DAILY 10/15/14 05/29/16 Cholecalciferol [Vitamin D3] 5,000 unit PO DAILY 10/16/14 05/29/16 Albuterol Inhaler [Ventolin Hfa 1 - 2 puff INHALATION RT-Q6H PRN 04/23/16 Inhaler] Fluticasone/Vilanterol [Breo 1 puff INHALATION RT-DAILY 04/23/16 05/29/16 Ellipta 100-25 Mcg Inhaler] Isosorbide Mononitrate ER [Imdur] 90 mg PO DAILY 04/23/16 05/29/16 Montelukast [Singulair] 10 mg PO HS 04/23/16 05/29/16 Omeprazole 20 mg PO DAILY 04/23/16 05/29/16 QUEtiapine FUMARATE [SEROquel] 12.5 mg PO BID@1200,1700 04/23/16 05/29/16 QUEtiapine [SEROquel] 25 mg PO HS 04/23/16 05/29/16 Budesonide [Pulmicort] 0.5 mg INHALATION RT-BID 05/11/16 05/29/16 Previous Rx's Medication Instructions Recorded Atorvastatin [Lipitor] 80 mg PO HS tab 04/27/16 HYDROcodone/APAP 7.5-325MG [Byram 1 tab PO Q6H PRN #100 tab 04/27/16 7.5-325] Ipratropium-Albuterol Nebulize 3 ml INHALATION RT-QID ampul.neb 04/27/16 [Duoneb 0.5 mg-3 mg/3 ml Soln] Melatonin 10 mg PO HS tablet 04/27/16 Potassium Chloride ER [K-Dur 20] 10 meq PO DAILY tab.er.prt 04/27/16 Meclizine [Antivert] 12.5 mg PO Q8HR #90 tablet 04/28/16 Hydrocortisone [Cortef] 10 mg PO HS #30 tab 05/13/16 Hydrocortisone [Cortef] 20 mg PO DAILY #30 tab 05/13/16 Losartan [Cozaar] 25 mg PO DAILY #0 05/13/16 diphenhydrAMINE [Benadryl] 50 mg PO HS cap 05/13/16 LORazepam [Ativan] 0.5 mg PO BID PRN #14 tab 05/29/16 Allergies Allergy/AdvReac Type Severity Reaction Status Date / Time latex Allergy Rash/Hives Verified 05/21/16 01:51 venom-honey bee Allergy Swelling Verified 05/21/16 01:51 [bee venom (honey bee)] zolpidem tartrate Allergy Altered Verified 05/21/16 01:51 [From Ambien] Mental Status Review of Systems ROS Statement: Those systems with pertinent positive or pertinent negative responses have been documented in the HPI. ROS Other: All systems not noted in ROS Statement are negative. Constitutional: Denies: fever, chills Respiratory: Denies: cough, dyspnea, wheezes Cardiovascular: Reports: chest pain. Denies: palpitations, orthopnea, syncope Gastrointestinal: Denies: abdominal pain, nausea, vomiting Genitourinary: Denies: dysuria, hematuria Musculoskeletal: Denies: back pain Skin: Denies: rash Neurological: Denies: headache, weakness, numbness EKG Findings - EKG Results: EKG: interpreted by KAJAL ANGELO, sinus rhythm (Rate 60 bpm), normal axis, normal QRS, normal ST/T - UT, Pacemaker, Normal: Normal tracing: normal tracing Past Medical History Past Medical History: Asthma, Coronary Artery Disease (CAD), Chest Pain / Angina , Heart Failure, COPD, CVA/TIA, Diabetes Mellitus, GERD/Reflux, Hyperlipidemia, Hypertension, Myocardial Infarction (UT), Osteoarthritis (OA), Pneumonia, Renal Disease, Sleep Apnea/CPAP/BIPAP, Syncope, Thyroid Disorder Additional Past Medical History / Comment(s): Pt recently admitted 04/23/16 with left lower lobe peumonia/bronchospasm/ unstable angina. Other hX: NIDDM type II, CVA, VERTIGO, syncope, bilateral tinnitis, anemia, murmur, hypothyroid , UTIs, nephrolithiasis, CHAVEZ with CPap, migraines, head injury as a teen, back pain. Last Myocardial Infarction Date:: 2004 History of Any Multi-Drug Resistant Organisms: MRSA Date of last positivie culture/infection: 2005 MDRO Source:: Back Past Surgical History: Bladder Surgery, Coronary Bypass/CABG, Heart Catheterization, Heart Catheterization With Stent, Hysterectomy, Joint Replacement, Orthopedic Surgery, Tonsillectomy Additional Past Surgical History / Comment(s): 1997 3 vessel CABG in [facility], 2004 PCI with 2 stents, 2010 and 2012 cardiac caths, jessi total knee replacements with right side done twice; R total shoulder replacement; L rotator cuff repair, bilateral cataract surgery, bladder suspension, R foot bone fusion, colonoscopy/polypectomy, bilateral hands trigger fingers/thumbs released, benign lymph node bx. Past Anesthesia/Blood Transfusion Reactions: No Reported Reaction Additional Past Anesthesia/Blood Transfusion Reaction / Comment(s): Pt received blood in the s without reaction. Date of Last Stent Placement:: 2004 Past Psychological History: Depression Additional Psychological History / Comment(s): Pt lives with her spouse. She has [facility] twice a week. Smoking Status: Never smoker Past Alcohol Use History: Rare Past Drug Use History: None Reported - Past Family History Mother Family Medical History: Chest Pain / Angina, Coronary Artery Disease (CAD), CVA/ TIA, Hypertension, Musculoskeletal Disorder Father Family Medical History: Coronary Artery Disease (CAD) Additional Family Medical History / Comment(s): cabg Brother(s) Family Medical History: Coronary Artery Disease (CAD) Sister(s) Family Medical History: Coronary Artery Disease (CAD) Daughter(s) Family Medical History: No Reported History General Exam Limitations: no limitations General appearance: alert, in no apparent distress Head exam: Present: atraumatic, normocephalic Eye exam: Present: normal appearance. Absent: scleral icterus, conjunctival injection ENT exam: Present: normal oropharynx Neck exam: Present: normal inspection, full ROM Respiratory exam: Present: normal lung sounds bilaterally. Absent: respiratory distress, wheezes, rales, rhonchi, stridor Cardiovascular Exam: Present: regular rate, normal rhythm, normal heart sounds. Absent: systolic murmur, diastolic murmur, rubs, gallop GI/Abdominal exam: Present: soft. Absent: distended, tenderness, guarding, rebound, rigid, pulsatile mass Extremities exam: Present: normal inspection, normal capillary refill. Absent: pedal edema, calf tenderness Back exam: Present: normal inspection. Absent: CVA tenderness (R), CVA tenderness (L) Skin exam: Present: warm, dry, intact, normal color. Absent: rash Course Vital Signs 05/21/16 05/21/16 05/21/16 01:51 01:59 02:15 Temperature 97.5 F L Pulse Rate 61 63 Pulse Rate [ 60 Toucher Up ] Respiratory 20 18 Rate Blood Pressure 134/77 132/61 O2 Sat by Pulse 97 97 Oximetry 05/21/16 05/21/16 05/21/16 02:59 03:00 05:00 Temperature Pulse Rate 56 L 55 L 64 Pulse Rate [ Toucher Up ] Respiratory 20 18 20 Rate Blood Pressure 133/60 132/64 134/63 O2 Sat by Pulse 98 97 97 Oximetry 05/21/16 06:00 Temperature 98 F Pulse Rate 54 L Pulse Rate [ Toucher Up ] Respiratory 18 Rate Blood Pressure 135/63 O2 Sat by Pulse 97 Oximetry Chest Pain [facility] - MDM This patient is a 71-year-old woman who presents with chest pain consistent with angina. Her pain is relieved with nitroglycerin. After her initial workup was completed I reviewed the results with her and expressed wish to have her admitted for serial cardiac enzymes and monitoring, the patient is feeling better and at this point not wanting to be admitted. She did agree to have second set of cardiac enzymes however and will follow up with the operations asst and discussed appropriate return parameters and appropriate follow-up. Disposition Clinical Impression: Angina pectoris Disposition: HOME SELF-CARE Condition: Good Instructions: Angina (ED) Additional Instructions: As we discussed, follow-up with the operations asst's for scheduling of stress test or heart catheterization. If her symptoms return, return to the emergency department. Referrals: Junaid Truong MD [Primary Care Provider] - 1-2 days
== END 2016-05-21 06:42 | disposition home or self-care (01) ==
LOC: EC 01:43
DX: I25.119 Atherosclerotic heart disease of native coronary artery with unspecified angina pectoris (principal); J45.909 Unspecified asthma, uncomplicated; E11.9 Type 2 diabetes mellitus without complications; I11.0 Hypertensive heart disease with heart failure; I50.9 Heart failure, unspecified; J44.9 Chronic obstructive pulmonary disease, unspecified; K21.9 Gastro-esophageal reflux disease without esophagitis; I25.2 Old myocardial infarction; F32.9 Major depressive disorder, single episode, unspecified; E03.9 Hypothyroidism, unspecified; M19.90 Unspecified osteoarthritis, unspecified site; N28.9 Disorder of kidney and ureter, unspecified; D64.9 Anemia, unspecified; Z86.73 Personal history of transient ischemic attack (TIA), and cerebral infarction without residual deficits; Z86.14 Personal history of Methicillin resistant Staphylococcus aureus infection; Z95.1 Presence of aortocoronary bypass graft; Z95.5 Presence of coronary angioplasty implant and graft; Z82.49 Family history of ischemic heart disease and other diseases of the circulatory system; Z79.51 Long term (current) use of inhaled steroids; Z79.82 Long term (current) use of aspirin; Z79.84 Long term (current) use of oral hypoglycemic drugs; Z79.899 Other long term (current) drug therapy; Z88.8 Allergy status to other drugs, medicaments and biological substances; Z91.030 Bee allergy status; Z91.040 Latex allergy status
CPT/HCPCS: 36415; 71010; 80053; 82550; 82553; 83735; 84484; 85025; 85610; 85730; 93005; 99285

== ENCOUNTER 2016-05-29 01:19 | Emergency (ER) | payer MEDICARE ==
[2016-05-29] MEDS ORDERED: HYDROcodone/APAP 5-325MG 1 EACH TAB PO STA (02:35)
[2016-05-29] MEDS ORDERED: IPRATROPIUM-ALBUTEROL 3 ML NEB INHALATION STA (02:39)
--- NOTE | 2016-05-29 02:45 | XR ---
Exam: XR CXR 2 VIEWS History: Cough. Comparison: CT chest dated 04/25/16. Radiographs of the chest dated 05/11/16. Technique: 2 views. Findings: Scarring/atelectasis in the left lower lobe. Finding seen to a lesser extent in the right lower lobe. No definite focal consolidation or significant effusion. Postoperative changes similar to before. Heart is normal in size. Minimal prominence of interstitial lung markings/vessels. Impression: Question minimal prominence of interstitial lung markings. Could be due to minimal congestion. No consolidation.
[2016-05-29 04:00] LABS: Basophils # (A) 0.1 k/uL (0-0.2); Basophils % (A) 1 %; CH 30.1; CHCM 33.5; Eosinophils # (A) 0.1 k/uL (0-0.7); Eosinophils % (A) 2 %; HCT 36.7 % (34.0-46.0); HDW 2.86; HGB 12.2 gm/dL (11.4-16.0); Luc # (Auto) 0.15; Luc % (Auto) 3; Lymphocytes # (A) 1.4 k/uL (1.0-4.8); Lymphocytes % (A) 23 %; MCH 29.9 pg (25.0-35.0); MCHC 33.3 g/dL (31.0-37.0); Monocytes # (A) 0.4 k/uL (0-1.0); Monocytes % (A) 7 %; Neutrophils # (A) 3.8 k/uL (1.3-7.7); Neutrophils % (A) 64 %; RBC 4.07 m/uL (3.80-5.40); RDW 15.4 % (11.5-15.5); WBC 5.9 k/uL (3.8-10.6); WBC (Perox) 6.22
[2016-05-29 04:09] LABS: Anion Gap 12 mmol/L; Blood Urea Nitrogen 10 mg/dL (7-17); Calcium 9.1 mg/dL (8.4-10.2); Carbon Dioxide 22 mmol/L (22-30); Chloride 106 mmol/L (98-107); Glucose 142 mg/dL (74-99); Non-African American GFR(MDRD) >60 (>60 ml/min/1.73 sqM); Potassium 3.6 mmol/L (3.5-5.1); Sodium 140 mmol/L (137-145)
[2016-05-29] MEDS ORDERED: IBUPROFEN 400 MG TAB PO STA (04:59)
[2016-05-29] MEDS ORDERED: LORazepam 2 MG/ML SYRINGE IV STA (05:10)
[2016-05-29 05:20] VITALS: PULSE 74; RESP 18
--- NOTE | 2016-05-29 05:31 | ED ---
URI HPI - General Chief Complaint: Upper Respiratory Infection Stated Complaint: SOB Time Seen by Provider: 05/29/16 02:17 Source: patient Mode of arrival: ambulatory Limitations: no limitations - History of Present Illness Initial Comments: This patient is a 71-year-old woman who presents to be evaluated for recurrence of nonproductive cough. Patient states that she has been seen a number of times for this over the past 3 weeks to month. Patient had been admitted for suspected pneumonia. She then had started course of steroids but this was stopped given concerns of possible adrenal suppression. She was then given course of antibiotics. Patient states that she is not having fever or chills. She is having a nonproductive cough and feels like there is something she needs to cough up but is unable. Patient is denying dyspnea. She does state that at times she coughs so hard she feels like she may pass out. Patient denies chest pain, leg pain or swelling, change in urination or bowel movements, fever or chills. MD Complaint: cough, nasal congestion -: week(s) Consistency: constant Improves With: nothing - Related Data Home Medications Medication Instructions Recorded Confirmed Aspirin EC [Ecotrin Low Dose] 81 mg PO BID 10/15/14 05/29/16 Cyanocobalamin [Vitamin B-12] 1,000 mcg PO DAILY 10/15/14 05/29/16 Escitalopram [Lexapro] 30 mg PO DAILY 10/15/14 05/29/16 Ferrous Sulfate [Feosol] 325 mg PO DAILY 10/15/14 05/29/16 Furosemide [Lasix] 20 mg PO DAILY 10/15/14 05/29/16 Levothyroxine Sodium [Synthroid] 50 mcg PO DAILY 10/15/14 05/29/16 Nitroglycerin Sl Tabs [Nitrostat] 0.4 mg SUBLINGUAL Q5M PRN 10/15/14 05/29/16 metFORMIN HCL [Glucophage] 500 mg PO DAILY 10/15/14 05/29/16 Cholecalciferol [Vitamin D3] 5,000 unit PO DAILY 10/16/14 05/29/16 Albuterol Inhaler [Ventolin Hfa 1 - 2 puff INHALATION RT-Q6H PRN 04/23/16 Inhaler] Fluticasone/Vilanterol [Breo 1 puff INHALATION RT-DAILY 04/23/16 05/29/16 Ellipta 100-25 Mcg Inhaler] Isosorbide Mononitrate ER [Imdur] 90 mg PO DAILY 04/23/16 05/29/16 Montelukast [Singulair] 10 mg PO HS 04/23/16 05/29/16 Omeprazole 20 mg PO DAILY 04/23/16 05/29/16 QUEtiapine FUMARATE [SEROquel] 12.5 mg PO BID@1200,1700 04/23/16 05/29/16 QUEtiapine [SEROquel] 25 mg PO HS 04/23/16 05/29/16 Budesonide [Pulmicort] 0.5 mg INHALATION RT-BID 05/11/16 05/29/16 Previous Rx's Medication Instructions Recorded Atorvastatin [Lipitor] 80 mg PO HS tab 04/27/16 HYDROcodone/APAP 7.5-325MG [[place] 1 tab PO Q6H PRN #100 tab 04/27/16 7.5-325] Ipratropium-Albuterol Nebulize 3 ml INHALATION RT-QID ampul.neb 04/27/16 [Duoneb 0.5 mg-3 mg/3 ml Soln] Melatonin 10 mg PO HS tablet 04/27/16 Potassium Chloride ER [K-Dur 20] 10 meq PO DAILY tab.er.prt 04/27/16 Meclizine [Antivert] 12.5 mg PO Q8HR #90 tablet 04/28/16 Hydrocortisone [Cortef] 10 mg PO HS #30 tab 05/13/16 Hydrocortisone [Cortef] 20 mg PO DAILY #30 tab 05/13/16 Losartan [Cozaar] 25 mg PO DAILY #0 05/13/16 diphenhydrAMINE [Benadryl] 50 mg PO HS cap 05/13/16 LORazepam [Ativan] 0.5 mg PO BID PRN #14 tab 05/29/16 Allergies Allergy/AdvReac Type Severity Reaction Status Date / Time latex Allergy Rash/Hives Verified 05/21/16 01:51 venom-honey bee Allergy Swelling Verified 05/21/16 01:51 [bee venom (honey bee)] zolpidem tartrate Allergy Altered Verified 05/21/16 01:51 [From Ambien] Mental Status Review of Systems ROS Statement: Those systems with pertinent positive or pertinent negative responses have been documented in the HPI. ROS Other: All systems not noted in ROS Statement are negative. Constitutional: Denies: fever, chills ENT: Reports: congestion Respiratory: Reports: cough. Denies: dyspnea, wheezes, hemoptysis Cardiovascular: Denies: chest pain, palpitations, edema, syncope Gastrointestinal: Denies: abdominal pain, vomiting Genitourinary: Denies: dysuria, hematuria Musculoskeletal: Denies: back pain Skin: Denies: rash Neurological: Denies: headache, weakness, numbness Past Medical History Past Medical History: Asthma, Coronary Artery Disease (CAD), Chest Pain / Angina , Heart Failure, COPD, CVA/TIA, Diabetes Mellitus, GERD/Reflux, Hyperlipidemia, Hypertension, Myocardial Infarction ([place]), Osteoarthritis (OA), Pneumonia, Renal Disease, Sleep Apnea/CPAP/BIPAP, Syncope, Thyroid Disorder Additional Past Medical History / Comment(s): Pt recently admitted 04/23/16 with left lower lobe peumonia/bronchospasm/ unstable angina. Other hX: NIDDM type II, CVA, VERTIGO, syncope, bilateral tinnitis, anemia, murmur, hypothyroid , UTIs, nephrolithiasis, CHAVEZ with CPap, migraines, head injury as a teen, back pain. Last Myocardial Infarction Date:: 2004 History of Any Multi-Drug Resistant Organisms: MRSA Date of last positivie culture/infection: 2005 MDRO Source:: Back Past Surgical History: Bladder Surgery, Coronary Bypass/CABG, Heart Catheterization, Heart Catheterization With Stent, Hysterectomy, Joint Replacement, Orthopedic Surgery, Tonsillectomy Additional Past Surgical History / Comment(s): 1997 3 vessel CABG in [facility], 2004 PCI with 2 stents, 2010 and 2012 cardiac caths, jessi total knee replacements with right side done twice; R total shoulder replacement; L rotator cuff repair, bilateral cataract surgery, bladder suspension, R foot bone fusion, colonoscopy/polypectomy, bilateral hands trigger fingers/thumbs released, benign lymph node bx. Past Anesthesia/Blood Transfusion Reactions: No Reported Reaction Additional Past Anesthesia/Blood Transfusion Reaction / Comment(s): Pt received blood in the 1959's without reaction. Date of Last Stent Placement:: 2004 Past Psychological History: Depression Additional Psychological History / Comment(s): Pt lives with her spouse. She has [facility] twice a week. Smoking Status: Never smoker Past Alcohol Use History: Rare Past Drug Use History: None Reported - Past Family History Mother Family Medical History: Chest Pain / Angina, Coronary Artery Disease (CAD), CVA/ TIA, Hypertension, Musculoskeletal Disorder Father Family Medical History: Coronary Artery Disease (CAD) Additional Family Medical History / Comment(s): cabg Brother(s) Family Medical History: Coronary Artery Disease (CAD) Sister(s) Family Medical History: Coronary Artery Disease (CAD) Daughter(s) Family Medical History: No Reported History General Exam Limitations: no limitations General appearance: alert, in no apparent distress Head exam: Present: atraumatic, normocephalic Eye exam: Present: normal appearance. Absent: scleral icterus, conjunctival injection ENT exam: Present: normal oropharynx Respiratory exam: Present: normal lung sounds bilaterally, wheezes (There is a mild expiratory wheeze), other (The patient does have episodic nonproductive cough). Absent: respiratory distress, rales, rhonchi, stridor, chest wall tenderness, accessory muscle use, decreased breath sounds, prolonged expiratory Cardiovascular Exam: Present: regular rate, normal rhythm, normal heart sounds. Absent: systolic murmur, diastolic murmur GI/Abdominal exam: Present: soft. Absent: tenderness Extremities exam: Present: normal inspection, normal capillary refill. Absent: pedal edema, calf tenderness Back exam: Absent: CVA tenderness (R), CVA tenderness (L) Neurological exam: Present: alert Skin exam: Present: warm, dry, intact, normal color. Absent: rash Course Vital Signs 05/29/16 05/29/16 05/29/16 01:21 01:34 02:57 Temperature 98.4 F Pulse Rate 78 75 Respiratory 22 24 Rate Blood Pressure 119/68 O2 Sat by Pulse 95 Oximetry 05/29/16 05/29/16 05/29/16 03:06 05:20 05:58 Temperature 98.1 F Pulse Rate 76 74 74 Respiratory 18 18 Rate Blood Pressure 109/55 110/55 O2 Sat by Pulse 96 95 Oximetry Medical Decision Making - Medical Decision Making Patient is a 71-year-old woman with a recurrence of nonproductive cough. We discussed possible etiologies, including exacerbation of underlying COPD, viral syndrome, medication effect, as well as as other etiologies. The patient does feel well unless she discusses her who is also patient in the department at this moment. Then she does manifest severe anxiety, crying and hyperventilating. This does seem to exacerbate the cough. The patient was given a small dose of Ativan and did have relief of her symptoms. Discussed steroid treatment for possible COPD exacerbation with patient is declining, given concerns about the adrenal suppression. At this point she is feeling much better and did request discharge. We discussed return parameters and appropriate follow-up. - Lab Data Result diagrams: 05/29/16 03:45 05/29/16 03:45 Lab Results 05/29/16 05/29/16 05/29/16 Range/Units 03:45 03:45 03:45 WBC 5.9 (3.8-10.6) k/uL RBC 4.07 (3.80-5.40) m/uL Hgb 12.2 (11.4-16.0) gm/dL Hct 36.7 (34.0-46.0) % MCV 90.0 (80.0-100.0) fL MCH 29.9 (25.0-35.0) pg MCHC 33.3 (31.0-37.0) g/dL RDW 15.4 (11.5-15.5) % Plt Count 159 (150-450) k/uL Neutrophils % 64 % Lymphocytes % 23 % Monocytes % 7 % Eosinophils % 2 % Basophils % 1 % Neutrophils # 3.8 (1.3-7.7) k/uL Lymphocytes # 1.4 (1.0-4.8) k/uL Monocytes # 0.4 (0-1.0) k/uL Eosinophils # 0.1 (0-0.7) k/uL Basophils # 0.1 (0-0.2) k/uL D-Dimer 0.34 (<0.60) mg/L FEU Sodium (137-145) mmol/L Potassium (3.5-5.1) mmol/L Chloride (98-107) mmol/L Carbon Dioxide (22-30) mmol/L Anion Gap mmol/L BUN (7-17) mg/dL Creatinine (0.52-1.04) mg/dL Est GFR (MDRD) Af Amer (>60 ml/min/1.73 sqM) Est GFR (MDRD) Non-Af (>60 ml/min/1.73 sqM) Glucose (74-99) mg/dL Calcium (8.4-10.2) mg/dL Troponin I (0.000-0.034) ng/mL NT-Pro-B Natriuret Pep 185 pg/mL 05/29/16 05/29/16 Range/Units 03:45 03:45 WBC (3.8-10.6) k/uL RBC (3.80-5.40) m/uL Hgb (11.4-16.0) gm/dL Hct (34.0-46.0) % MCV (80.0-100.0) fL MCH (25.0-35.0) pg MCHC (31.0-37.0) g/dL RDW (11.5-15.5) % Plt Count (150-450) k/uL Neutrophils % % Lymphocytes % % Monocytes % % Eosinophils % % Basophils % % Neutrophils # (1.3-7.7) k/uL Lymphocytes # (1.0-4.8) k/uL Monocytes # (0-1.0) k/uL Eosinophils # (0-0.7) k/uL Basophils # (0-0.2) k/uL D-Dimer (<0.60) mg/L FEU Sodium 140 (137-145) mmol/L Potassium 3.6 (3.5-5.1) mmol/L Chloride 106 (98-107) mmol/L Carbon Dioxide 22 (22-30) mmol/L Anion Gap 12 mmol/L BUN 10 (7-17) mg/dL Creatinine 0.70 (0.52-1.04) mg/dL Est GFR (MDRD) Af Amer >60 (>60 ml/min/1.73 sqM) Est GFR (MDRD) Non-Af >60 (>60 ml/min/1.73 sqM) Glucose 142 H (74-99) mg/dL Calcium 9.1 (8.4-10.2) mg/dL Troponin I <0.012 (0.000-0.034) ng/mL NT-Pro-B Natriuret Pep pg/mL Disposition Clinical Impression: Cough Disposition: HOME SELF-CARE Condition: Fair Instructions: Chronic Cough (ED) Additional Instructions: Please discuss with your physician whether they believe that the angiotensin receptor anthony may be responsible for the cough. Prescriptions: LORazepam [Ativan] 0.5 mg PO BID PRN #14 tab PRN Reason: Anxiety Referrals: Junaid Truong MD [Primary Care Provider] - 1-2 days Robert Barron MD [STAFF PHYSICIAN] - 1-2 days Miranda Alonzo MD [STAFF PHYSICIAN] - 1-2 days
[2016-05-29 05:59] VITALS: BP 110/55; TEMP 98.1
== END 2016-05-29 06:03 | disposition home or self-care (01) ==
LOC: EC 01:19
DX: R05 Cough (principal); F41.9 Anxiety disorder, unspecified; R06.02 Shortness of breath; R09.81 Nasal congestion; J45.909 Unspecified asthma, uncomplicated; I25.10 Atherosclerotic heart disease of native coronary artery without angina pectoris; I50.9 Heart failure, unspecified; J44.9 Chronic obstructive pulmonary disease, unspecified; E11.9 Type 2 diabetes mellitus without complications; E78.5 Hyperlipidemia, unspecified; I10 Essential (primary) hypertension; I25.2 Old myocardial infarction; M19.90 Unspecified osteoarthritis, unspecified site; E03.9 Hypothyroidism, unspecified; Z79.82 Long term (current) use of aspirin; Z79.899 Other long term (current) drug therapy; Z79.51 Long term (current) use of inhaled steroids; Z91.040 Latex allergy status; Z91.030 Bee allergy status; Z88.8 Allergy status to other drugs, medicaments and biological substances; Z87.01 Personal history of pneumonia (recurrent); Z87.440 Personal history of urinary (tract) infections
CPT/HCPCS: 36415; 94640; 93005; 85379; 83880; 80048; 84484; 85025; 71020; 99284; 96374; J2060

== ENCOUNTER 2018-01-25 19:16 | Emergency (ER) | payer MEDICARE ==
[2018-01-25 19:34] VITALS: RESP 18
--- NOTE | 2018-01-25 20:21 | ED ---
General Adult HPI - General Chief complaint: Fall Stated complaint: Fall Source: family Mode of arrival: wheelchair Limitations: no limitations - History of Present Illness Initial comments: Dictation was produced using behaview dictation software. please excuse any grammatical, word or spelling errors. Chief Complaint: 72-year-old female multiple comorbid is presents with facial pain, head pain and right shoulder pain after falling out of bed. History of Present Illness: He is having a dream. She then rolled off her bed. She struck the front of her face. She complains today that she has pain of her right temporal area, face and right scapular area. Patient did not seek medical attention immediately however noticed some bruising around her nose brought her to come to the emergency department today. Patient denies any other symptoms. The ROS documented in this emergency department record has been reviewed and confirmed by me. Those systems with pertinent positive or negative responses have been documented in the HPI. All other systems are other negative and/or noncontributory. - Related Data Home Medications Medication Instructions Recorded Confirmed Aspirin EC [Ecotrin Low Dose] 81 mg PO BID 10/15/14 01/25/18 Cyanocobalamin [Vitamin B-12] 1,000 mcg PO DAILY 10/15/14 01/25/18 Escitalopram [Lexapro] 30 mg PO DAILY 10/15/14 01/25/18 Ferrous Sulfate [Feosol] 325 mg PO DAILY 10/15/14 01/25/18 Furosemide [Lasix] 20 mg PO DAILY 10/15/14 01/25/18 Levothyroxine Sodium [Synthroid] 50 mcg PO DAILY 10/15/14 01/25/18 Nitroglycerin Sl Tabs [Nitrostat] 0.4 mg SUBLINGUAL Q5M PRN 10/15/14 01/25/18 metFORMIN HCL [Glucophage] 500 mg PO DAILY 10/15/14 01/25/18 Isosorbide Mononitrate ER [Imdur] 90 mg PO DAILY 04/23/16 01/25/18 Omeprazole 20 mg PO DAILY 04/23/16 01/25/18 QUEtiapine FUMARATE [SEROquel] 25 mg PO HS 04/23/16 01/25/18 Gabapentin [Neurontin] 300 mg PO TID 01/02/18 01/25/18 Potassium Chloride [K-Tab ER] 10 meq PO DAILY 01/02/18 01/25/18 diphenhydrAMINE [Benadryl] 25 mg PO DAILY PRN 01/02/18 01/25/18 Calcium Carbonate/Vitamin D3 1 cap PO BID 01/25/18 01/25/18 [Calcium 600-Vit D3 500 Softgel] Magnesium 200 mg PO BID 01/25/18 01/25/18 Previous Rx's Medication Instructions Recorded Atorvastatin [Lipitor] 80 mg PO HS tab 04/27/16 Meclizine [Antivert] 25 mg PO TID #20 tab 01/25/18 Allergies Allergy/AdvReac Type Severity Reaction Status Date / Time latex Allergy Rash/Hives Verified 01/25/18 20:20 venom-honey bee Allergy Swelling Verified 01/25/18 20:20 [bee venom (honey bee)] zolpidem tartrate Allergy Altered Verified 01/25/18 20:20 [From Ambien] Mental Status Review of Systems ROS Statement: Those systems with pertinent positive or pertinent negative responses have been documented in the HPI. ROS Other: All systems not noted in ROS Statement are negative. Past Medical History Past Medical History: Asthma, Coronary Artery Disease (CAD), Chest Pain / Angina , Heart Failure, COPD, CVA/TIA, Diabetes Mellitus, GERD/Reflux, Hyperlipidemia, Hypertension, Myocardial Infarction ([place]), Osteoarthritis (OA), Pneumonia, Sleep Apnea/CPAP/BIPAP, Syncope, Thyroid Disorder Additional Past Medical History / Comment(s): Pt recently admitted 04/23/16 with left lower lobe peumonia/bronchospasm/ unstable angina. Other hX: NIDDM type II, CVA, VERTIGO, syncope, bilateral tinnitis, anemia, murmur, hypothyroid , UTIs, nephrolithiasis, CHAVEZ with CPap, migraines, head injury as a teen, back pain. 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 Source:: ESBL URINE MRSA BACK Past Surgical History: Bladder Surgery, Coronary Bypass/CABG, Heart Catheterization, Heart Catheterization With Stent, Hysterectomy, Joint Replacement, Orthopedic Surgery, Tonsillectomy Additional Past Surgical History / Comment(s): 1997 3 vessel CABG in [facility], 2004 PCI with 2 stents, 2010 and 2012 cardiac caths, jessi total knee replacements with right side done twice; R total shoulder replacement; L rotator cuff repair, bilateral cataract surgery, bladder suspension, R foot bone fusion, colonoscopy/polypectomy, bilateral hands trigger fingers/thumbs released, benign lymph node bx L4,L5 S1 spinal surgery 04/2017 Past Anesthesia/Blood Transfusion Reactions: No Reported Reaction Additional Past Anesthesia/Blood Transfusion Reaction / Comment(s): Pt received blood in the s without reaction. Date of Last Stent Placement:: 2004 Past Psychological History: Depression Smoking Status: Never smoker Past Alcohol Use History: Rare Past Drug Use History: None Reported - Past Family History Mother Family Medical History: Chest Pain / Angina, Coronary Artery Disease (CAD), CVA/ TIA, Hypertension, Musculoskeletal Disorder Father Family Medical History: Coronary Artery Disease (CAD) Additional Family Medical History / Comment(s): cabg Brother(s) Family Medical History: Coronary Artery Disease (CAD) Sister(s) Family Medical History: Coronary Artery Disease (CAD) Additional Family Medical History / Comment(s): pulmonary hypertension Daughter(s) Family Medical History: No Reported History General Exam - General Exam Comments Initial Comments: PHYSICAL EXAM: General Impression: Alert and oriented x3, not in acute distress HEENT: The area. Palpation over the right parietal area, ecchymosis around the medial periorbital regions, tenderness palpation over the nasal bridge, extra- ocular movements intact, pupils equal and reactive to light bilaterally, mucous membranes moist. Cardiovascular: Heart regular rate and rhythm, S1&S2 audible, no murmurs, rubs or gallops Chest: Lungs clear to auscultation bilaterally, no rhonchi, no wheeze, no rales Abdomen: Bowel sounds present, abdomen soft, non-tender, non-distended, no organomegaly Musculoskeletal: Pulses present and equal in all extremities, no peripheral edema, tenderness over the right scapula Motor: Power 5/5 bilaterally, no focal deficits noted Neurological: CN II-XII grossly intact, no focal motor or sensory deficits noted Skin: Intact with no visualized rashes Psych: Normal affect and mood Limitations: no limitations Course Vital Signs 01/25/18 19:31 Temperature 98.1 F Pulse Rate 60 Respiratory 18 Rate Blood Pressure 119/71 O2 Sat by Pulse 97 Oximetry Medical Decision Making - Medical Decision Making ED course: 72-year-old female presents with pain after fall. Vital signs upon arrival are within acceptable limits and physical examination is benign. Patient has no other complaints. CT of the face, head section obtained showing no acute processes. Chest x-ray and scapular x-ray shows no acute processes. Patient reevaluated with improvement of symptoms. Patient and with her with accommodation. She request Antivert medication for dizziness. Patient given 1 dose of Antivert and given prescription for Antivert to take. Disposition Clinical Impression: Facial contusion Disposition: HOME SELF-CARE Condition: Good Instructions: Fall Prevention for Older Adults (ED) Prescriptions: Meclizine [Antivert] 25 mg PO TID #20 tab Is patient prescribed a controlled substance at d/c from ED?: No Referrals: Junaid Truong MD [Primary Care Provider] - 1-2 days Time of Disposition: 21:54
--- NOTE | 2018-01-25 21:11 | XR ---
EXAMINATION: XR chest 2V DATE AND TIME: 01/25/2018 8:45 PM CLINICAL INDICATION: PHH; Pain TECHNIQUE: Departmental protocol COMPARISON: 01/02/2018 FINDINGS: Again, the previously seen 4 cm above consolidative opacity on the lateral radiograph poste riorly is redemonstrated. This presumably represents basilar bronchopneumonia. The pleural spaces are negative. The cardiac silhouette is enlarged, unchanged. CABG changes redemonstrated. The skeletal structures and soft tissues are negative for acute findings. IMPRESSION: NO INTERVAL CHANGE. Recommendation: Would advise six-week follow-up PA and lateral chest radiograph to prove resolution of the findings.
--- NOTE | 2018-01-25 21:12 | XR ---
PROCEDURE: XR scapula RT - 2V DATE AND TIME: 01/25/2018 8:45 PM CLINICAL INDICATION: PHH; Pain TECHNIQUE: Department protocol COMPARISON: None FINDINGS: There is no fracture or malalignment. Proximal right humeral prosthesis is intact. The soft tissues are unremarkable. IMPRESSION: NO ACUTE PROCESS.
--- NOTE | 2018-01-25 21:16 | CT ---
EXAMINATION: CT brain wo con DATE AND TIME: 01/25/2018 8:46 PM CLINICAL INDICATION: PHH; Pain TECHNIQUE: Standard departmental protocol. COMPARISON: 01/02/2018 FINDINGS: The calvarium is intact. There is no intracranial hemorrhage. There is no intracranial mass or mass effect. No definite new intra-axial or extra-axial attenuation defect. The paranasal sinuses, middle ear cavities, and mastoid sinus air cells are clear. The orbits are unremarkable. IMPRESSION: NO ACUTE PROCESS.
--- NOTE | 2018-01-25 21:32 | CT ---
EXAMINATION TYPE: CT facial bones wo con DATE OF EXAM: 01/25/2018 COMPARISON: None HISTORY: Pt fell Iqra from bed and landed face first on dresser, hitting top of nose. CT DLP: 1341.6 combined mGycm Automated exposure control for dose reduction was used. TECHNIQUE: CT scan of the sinuses is performed without contrast, axial images are obtained, coronal r eformatted images are also reviewed. FINDINGS: The facial skeleton is negative for fracture or malalignment. Specifically, the nasal bones, anterior nasal spine, and nasal nasal septum are intact. The orbits are intact. Paranasal sinuses and mastoid sinus air cells and middle ear cavities are clear. No incidental findings. IMPRESSION: No acute process.
[2018-01-25] MEDS ORDERED: MECLIZINE 12.5 MG TAB PO STA (21:54)
[2018-01-25 22:05] VITALS: BP 122/77; PULSE 87; TEMP 98
== END 2018-01-25 22:05 | disposition home or self-care (01) ==
LOC: EC 19:16
DX: S00.83XA Contusion of other part of head, initial encounter (principal); M25.511 Pain in right shoulder; I25.119 Atherosclerotic heart disease of native coronary artery with unspecified angina pectoris; I11.0 Hypertensive heart disease with heart failure; I50.9 Heart failure, unspecified; E11.9 Type 2 diabetes mellitus without complications; E78.5 Hyperlipidemia, unspecified; I25.2 Old myocardial infarction; M19.90 Unspecified osteoarthritis, unspecified site; G47.33 Obstructive sleep apnea (adult) (pediatric); Z99.89 Dependence on other enabling machines and devices; J44.9 Chronic obstructive pulmonary disease, unspecified; E03.9 Hypothyroidism, unspecified; Z86.73 Personal history of transient ischemic attack (TIA), and cerebral infarction without residual deficits; F32.9 Major depressive disorder, single episode, unspecified; Z86.14 Personal history of Methicillin resistant Staphylococcus aureus infection; Z79.82 Long term (current) use of aspirin; Z79.84 Long term (current) use of oral hypoglycemic drugs; Z79.899 Other long term (current) drug therapy; Z91.040 Latex allergy status; Z91.030 Bee allergy status; Z88.8 Allergy status to other drugs, medicaments and biological substances; Z95.1 Presence of aortocoronary bypass graft; Z95.5 Presence of coronary angioplasty implant and graft; Z96.653 Presence of artificial knee joint, bilateral; Z96.611 Presence of right artificial shoulder joint; W06.XXXA Fall from bed, initial encounter; Y92.009 Unspecified place in unspecified non-institutional (private) residence as the place of occurrence of the external cause
CPT/HCPCS: 70450; 70486; 71046; 99284

== ENCOUNTER 2018-02-19 22:31 | Emergency (ER) | payer MEDICARE ==
[2018-02-19 22:42] VITALS: PULSE 72
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
[2018-02-20] MEDS ORDERED: fentaNYL (PF) 50 MCG/ML 2 ML AMP IV STA
[2018-02-20] MEDS ORDERED: ACETAMINOPHEN IV (For NPO) 1,000 MG in SALINE 1 100ML.BAG IVPB STA (00:03)
[2018-02-20 01:21] VITALS: BP 130/85; RESP 17; TEMP 98.7
== END 2018-02-20 01:21 | disposition home or self-care (01) ==
LOC: EC 22:31
DX: S00.83XA Contusion of other part of head, initial encounter (principal); S30.1XXA Contusion of abdominal wall, initial encounter; M54.5 Low back pain; M54.2 Cervicalgia; I25.10 Atherosclerotic heart disease of native coronary artery without angina pectoris; I11.0 Hypertensive heart disease with heart failure; I50.9 Heart failure, unspecified; E11.9 Type 2 diabetes mellitus without complications; K21.9 Gastro-esophageal reflux disease without esophagitis; I25.2 Old myocardial infarction; D64.9 Anemia, unspecified; E03.9 Hypothyroidism, unspecified; G47.33 Obstructive sleep apnea (adult) (pediatric); Z99.89 Dependence on other enabling machines and devices; Z86.73 Personal history of transient ischemic attack (TIA), and cerebral infarction without residual deficits; Z86.14 Personal history of Methicillin resistant Staphylococcus aureus infection; Z95.1 Presence of aortocoronary bypass graft; Z95.818 Presence of other cardiac implants and grafts; Z95.5 Presence of coronary angioplasty implant and graft; Z96.653 Presence of artificial knee joint, bilateral; F32.9 Major depressive disorder, single episode, unspecified; Z79.82 Long term (current) use of aspirin; Z79.84 Long term (current) use of oral hypoglycemic drugs; Z79.899 Other long term (current) drug therapy; Z91.040 Latex allergy status; Z91.030 Bee allergy status; Z88.8 Allergy status to other drugs, medicaments and biological substances; Y04.0XXA Assault by unarmed brawl or fight, initial encounter; Y92.009 Unspecified place in unspecified non-institutional (private) residence as the place of occurrence of the external cause
CPT/HCPCS: 99284; 96365; 72125; 70486; 70450; 74176; J0131

== ENCOUNTER 2019-04-12 14:24 | Emergency (ER) | payer MEDICARE ==
[2019-04-12] MEDS ORDERED: IPRATROPIUM-ALBUTEROL 3 ML NEB INHALATION STA (15:04)
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
--- NOTE | 2019-04-12 15:19 | XR ---
EXAMINATION TYPE: XR chest 2V DATE OF EXAM: 04/12/2019 COMPARISON: 02/04/2019 HISTORY: Shortness of breath TECHNIQUE: Frontal and lateral views of the chest are obtained. FINDINGS: Scattered senescent parenchymal changes noted. Hyperinflation compatible with COPD. Increased density left lower lobe may reflect atelectasis or infiltrate. Correlate clinically. Heart size is stable. Mediastinal structures are stable and grossly unremarkable. No evidence for hilar prominence. Degenerative changes dorsal spine. IMPRESSION: 1. Increased density left lower lobe may reflect atelectasis or infiltrate. Correlate clinically.
[2019-04-12 16:15] VITALS: BP 109/65; PULSE 63; RESP 18; TEMP 98.8
== END 2019-04-12 16:15 | disposition home or self-care (01) ==
LOC: EC 14:24
DX: F41.0 Panic disorder [episodic paroxysmal anxiety] (principal); I11.0 Hypertensive heart disease with heart failure; I50.9 Heart failure, unspecified; F32.9 Major depressive disorder, single episode, unspecified; I25.119 Atherosclerotic heart disease of native coronary artery with unspecified angina pectoris; Z79.82 Long term (current) use of aspirin; M19.90 Unspecified osteoarthritis, unspecified site; G47.30 Sleep apnea, unspecified; E11.9 Type 2 diabetes mellitus without complications; J44.9 Chronic obstructive pulmonary disease, unspecified; I25.2 Old myocardial infarction; R06.2 Wheezing; Z88.8 Allergy status to other drugs, medicaments and biological substances; Z91.030 Bee allergy status; Z91.040 Latex allergy status; Z79.84 Long term (current) use of oral hypoglycemic drugs; Z79.51 Long term (current) use of inhaled steroids; Z79.890 Hormone replacement therapy; Z79.899 Other long term (current) drug therapy; Z86.14 Personal history of Methicillin resistant Staphylococcus aureus infection; Z82.49 Family history of ischemic heart disease and other diseases of the circulatory system; Z86.73 Personal history of transient ischemic attack (TIA), and cerebral infarction without residual deficits; Z87.01 Personal history of pneumonia (recurrent); Z96.653 Presence of artificial knee joint, bilateral; Z96.611 Presence of right artificial shoulder joint; Z95.1 Presence of aortocoronary bypass graft; Z99.89 Dependence on other enabling machines and devices
CPT/HCPCS: 71046; 94640; 99284

== ENCOUNTER → 2020-07-01 | Outpatient (CLI) | payer MEDICARE ==
--- NOTE | 2020-07-01 13:54 | XR ---
EXAMINATION TYPE: XR foot complete LT DATE OF EXAM: 07/01/2020 COMPARISON: 10/22/2014 left toes HISTORY: Left foot pain third toe pain TECHNIQUE: 3 view left foot FINDINGS: Large plantar calcaneal heel spur is present. Some degenerative joint changes are in the ta rsal metatarsal junction. There appears to be fracture of an ossification lateral to the cuboid. Antonino elate with location of the patient's pain. No additional areas suspicious for fracture is evident. Th ere are advanced first metatarsophalangeal joint space degenerative change with loss of the joint spa ce. There may be subluxation or dislocation of the middle phalanx on the proximal phalanx of the four th digit. There is a fracture of the distal phalanx third digit. Soft tissue swelling is present. IMPRESSION: 1. Fracture distal phalanx diaphysis third digit. 2. Possible dislocation of the middle phalanx on the proximal phalanx fourth digit. 3. Advanced degenerative joint changes first metatarsophalangeal joint space. 4. Fracture of the cuboid spur could be considered. Correlate for pain at the lateral proximal foot. 5. Plantar calcaneal heel spur.
== END | disposition home or self-care (01) ==
LOC: RADXRMAIN 13:19
PROVIDERS: ATTEND Podiatrist Foot & Ankle Surgery
DX: S92.532A Displaced fracture of distal phalanx of left lesser toe(s), initial encounter for closed fracture (principal); M77.32 Calcaneal spur, left foot; M19.072 Primary osteoarthritis, left ankle and foot

== ENCOUNTER → 2021-08-11 | Outpatient (CLI) | payer MEDICARE ==
[2021-08-11 18:30] LABS: T4, Free (Free Thyroxine) 0.88 ng/dL (0.800-1.800)
== END | disposition home or self-care (01) ==
LOC: LABWHC1 14:39
PROVIDERS: ATTEND Internal Medicine Interventional Cardiology
DX: E03.9 Hypothyroidism, unspecified (principal)
CPT/HCPCS: 36415; 84439; 84443

== ENCOUNTER 2022-07-08 19:05 | Emergency (ER) | payer BC, MEDICARE ==
[2022-07-08 19:12] VITALS: TEMP 98.1
--- NOTE | 2022-07-08 20:15 | ED ---
General Adult HPI - General Source: patient Mode of arrival: wheelchair Limitations: no limitations <Yesica Mehta - Last Filed: 07/08/22 20:15> <Venus Ruiz - Last Filed: 07/09/22 03:31> - General Chief complaint: Chest Pain Stated complaint: Chest Pain/Back Pain/SOB Time Seen by Provider: 07/08/22 20:10 - History of Present Illness Initial comments: 77-year-old female presents to the emergency department with chief complaint of chest pain. Patient states that she has had 3 MIs in the past and has had CABG. She states that the pain is sternal stabbing pain that radiates to her back which is similar to her prior heart attacks. She states that it started yesterday while she was working and under a lot of stress and has been coming and going since then. She states that she took Midorine at that time which typically takes care of her anginal pain but only helped mildly this time. ( Yesica Mehta) - Related Data Home Medications Medication Instructions Recorded Confirmed Aspirin EC [Ecotrin Low Dose] 81 mg PO BID 10/15/14 02/19/18 Cyanocobalamin [Vitamin B-12] 1,000 mcg PO DAILY 10/15/14 02/19/18 Ferrous Sulfate [Feosol] 325 mg PO DAILY 10/15/14 02/19/18 Furosemide [Lasix] 20 mg PO DAILY 10/15/14 02/19/18 Levothyroxine Sodium [Synthroid] 50 mcg PO DAILY 10/15/14 02/19/18 Nitroglycerin Sl Tabs [Nitrostat] 0.4 mg SUBLINGUAL Q5M PRN 10/15/14 02/19/18 metFORMIN HCL [Glucophage] 500 mg PO DAILY 10/15/14 02/19/18 Isosorbide Mononitrate ER [Imdur] 90 mg PO DAILY 04/23/16 02/19/18 Omeprazole 20 mg PO DAILY 04/23/16 02/19/18 QUEtiapine FUMARATE [SEROquel] 25 mg PO HS 04/23/16 02/19/18 Gabapentin [Neurontin] 300 mg PO TID 01/02/18 02/19/18 Potassium Chloride [K-Tab ER] 10 meq PO DAILY 01/02/18 02/19/18 diphenhydrAMINE [Benadryl] 25 mg PO DAILY PRN 01/02/18 02/19/18 Calcium Carbonate/Vitamin D3 1 cap PO BID 01/25/18 02/19/18 [Calcium 600-Vit D3 500 Softgel] Magnesium 200 mg PO BID 01/25/18 02/19/18 Escitalopram [Lexapro] 40 mg PO DAILY 02/19/18 02/19/18 Previous Rx's Medication Instructions Recorded Atorvastatin [Lipitor] 80 mg PO HS tab 04/27/16 Meclizine [Antivert] 25 mg PO TID #20 tab 01/25/18 Ibuprofen 800 mg PO Q6HR PRN #20 tablet 02/20/18 Allergies Allergy/AdvReac Type Severity Reaction Status Date / Time latex Allergy Rash/Hives Verified 07/08/22 19:11 venom-honey bee Allergy Swelling Verified 07/08/22 19:11 [bee venom (honey bee)] zolpidem tartrate Allergy Altered Verified 07/08/22 19:11 [From Ambien] Mental Status Review of Systems ROS Other: All systems not noted in ROS Statement are negative. <Yesica Mehta - Last Filed: 07/08/22 20:15> ROS Other: All systems not noted in ROS Statement are negative. <Venus Ruiz - Last Filed: 07/09/22 03:31> ROS Statement: Those systems with pertinent positive or pertinent negative responses have been documented in the HPI. Past Medical History Past Medical History: Asthma, Coronary Artery Disease (CAD), Chest Pain / Angina, Heart Failure, COPD, CVA/TIA, Diabetes Mellitus, GERD/Reflux, Hyperlipidemia, Hypertension, Myocardial Infarction (AK), Osteoarthritis (OA), Pneumonia, Sleep Apnea/CPAP/BIPAP, Syncope, Thyroid Disorder Additional Past Medical History / Comment(s): Pt recently admitted 04/23/16 with left lower lobe peumonia/bronchospasm/ unstable angina. Other hX: NIDDM type II, CVA, VERTIGO, syncope, bilateral tinnitis, anemia, murmur, hypothyroid, UTIs, nephrolithiasis, CHAVEZ with CPap, migraines, head injury as a teen, back pain. 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 Source:: ESBL URINE MRSA BACK Past Surgical History: Bladder Surgery, Coronary Bypass/CABG, Heart Catheterization, Heart Catheterization With Stent, Hysterectomy, Joint Replacement, Orthopedic Surgery, Tonsillectomy Additional Past Surgical History / Comment(s): 1997 3 vessel CABG in [facility], 2004 PCI with 2 stents, 2010 and 2012 cardiac caths, jessi total knee replacements with right side done twice; R total shoulder replacement; L rotator cuff repair, bilateral cataract surgery, bladder suspension, R foot bone fusion, colonoscopy/polypectomy, bilateral hands trigger fingers/thumbs released, benign lymph node bx L4,L5 S1 spinal surgery 04/2017 Past Anesthesia/Blood Transfusion Reactions: No Reported Reaction Additional Past Anesthesia/Blood Transfusion Reaction / Comment(s): Pt received blood in the s without reaction. Date of Last Stent Placement:: 2004 Past Psychological History: Depression Smoking Status: Never smoker Past Alcohol Use History: Rare Past Drug Use History: None Reported - Past Family History Mother Family Medical History: Chest Pain / Angina, Coronary Artery Disease (CAD), CVA/TIA, Hypertension, Musculoskeletal Disorder Father Family Medical History: Coronary Artery Disease (CAD) Additional Family Medical History / Comment(s): cabg Brother(s) Family Medical History: Coronary Artery Disease (CAD) Sister(s) Family Medical History: Coronary Artery Disease (CAD) Additional Family Medical History / Comment(s): pulmonary hypertension Daughter(s) Family Medical History: No Reported History <Yesica Mehta - Last Filed: 07/08/22 20:15> General Exam Limitations: no limitations <Yesica Mehta - Last Filed: 07/08/22 20:15> <Venus Ruiz - Last Filed: 07/09/22 03:31> - General Exam Comments Initial Comments: Visual Physical Exam Vital signs reviewed General: Well-appearing, nontoxic, no acute distress. Head: Normocephalic, atraumatic Eyes: PERRLA, EOMI ENT: Airway patent Chest: Nonlabored breathing Skin: No visual rash, normal skin tone Neuro: Alert and oriented 3 Musculoskeletal: No gross abnormalities (Yesica Mehta) General: Alert, in no acute distress Head: atraumatic normocephalic. Eyes PERRL, EOMI intact, mucous membranes moist Respiratory: Lungs clear to auscultation bilaterally Cardiovascular: bradycardia Abdominal: Soft without guarding or rebound Extremities: Normal inspection with full range of motion and normal capillary refill Neuroogic: alert and oriented 3, CN II-XII intact, able to ambulate with steady gait Skin: warm dry and intact with normal color (Venus Ruiz) Course <Venus Ruiz - Last Filed: 07/09/22 03:31> Vital Signs 07/08/22 07/08/22 07/09/22 19:08 22:14 00:22 Temperature 98.1 F Pulse Rate 57 L 52 L 48 L Respiratory 20 16 18 Rate Blood Pressure 118/48 137/82 149/89 O2 Sat by Pulse 97 97 96 Oximetry - Reevaluation(s) Reevaluation #1: 07/08/22 20:52 Patient had initial physical and history obtained. (Venus Ruiz) EKG Findings - EKG Comments: EKG Findings:: I interpreted the following: EKG performed at 19:16. Rate is 55 bpm and sinus bradycardia. IA interval 171, QRS duration 96, QT/QTc 438/426 <Venus Ruiz - Last Filed: 07/09/22 03:31> Medical Decision Making - Lab Data Result diagrams: 07/08/22 21:00 07/08/22 23:26 <Venus Ruiz - Last Filed: 07/09/22 03:31> - Medical Decision Making Was pt. sent in by a medical professional or institution (, PA, WELFARE MANAGER, urgent care, hospital, or correction...) When possible be specific @ -[No] Did you speak to anyone other than the patient for history (EMS, parent, family, police, friend...)? What history was obtained from this source @ -[No] Did you review nursing and triage notes (agree or disagree)? Why? @ -[I reviewed and agree with nursing and triage notes] Were old charts reviewed (outside hosp., previous admission, EMS record, old EKG, old radiological studies, urgent care reports/EKG's, correction records)? Report findings @ -[No old charts were reviewed] Differential Diagnosis (chest pain, altered mental status, abdominal pain women, abdominal pain men, vaginal bleeding, weakness, fever, dyspnea, syncope, heada nasim, dizziness, GI bleed, back pain, seizure, CVA, palpatations, mental health, musculoskeletal)? @ -[not applicable] EKG interpreted by me (3pts min.). @ -[As above] X-rays interpreted by me (1pt min.). @ -[None done] CT interpreted by me (1pt min.). @ -[None done] U/S interpreted by me (1pt. min.). @ -[None done] What testing was considered but not performed or refused? (CT, X-rays, U/S, labs)? Why? @ -[None] What meds were considered but not given or refused? Why? @ -[None] Did you discuss the management of the patient with other professionals (professionals i.e. , PA, WELFARE MANAGER, lab, RT, psych nurse, director social welfare, abalone processor, te acher, chief informatics officer, outpatient case manager)? Give summary @ -[No] Was smoking cessation discussed for >3mins.? @ -[No] Was critical care preformed (if so, how long)? @ -[No] Were there social determinants of health that impacted care today? How? (Homelessness, low income, unemployed, alcoholism, drug addiction, transportation, low edu. Level, literacy, decrease access to med. care, skilled nursing, re hab)? @ -[No] Was there de-escalation of care discussed even if they declined (Discuss DNR or withdrawal of care, Hospice)? DNR status @ -[No] What co-morbidities impacted this encounter? (DM, HTN, Smoking, COPD, CAD, Cancer, CVA, ARF, Chemo, Hep., AIDS, mental health diagnosis, sleep apnea, morbid obesity)? @ -[None] Was patient admitted / discharged? Hospital course, mention meds given and route, prescriptions, significant lab abnormalities, going to OR and other pertinent info. @ -Discharged. This is a 77-year-old female who presents the emergency department with chest pain. Patient had a thorough history and physical exam performed while in the ED. Physical exam is essentially unremarkable heart rate regular rate and rhythm, lungs clear to auscultation bilaterally abdomen is soft and nontender. Patient had lab work and imaging performed which were essentially unremarkable including 2 negative troponins. Patient did not experience the chest pain while in the ED.. I discussed the results in detail with the patient who verbalized understanding and all questions were addressed. She was given 1L IV fluids with symptomatic relief on the ED. Return precautions were discussed at length. Strongly recommended to follow up with primary care physician in 1-2 days. Patient discharged in stable condition. Case discussed with Dr. Boyle [facility] who agrees with plan of care Undiagnosed new problem with uncertain prognosis? @ -[No] Drug Therapy requiring intensive monitoring for toxicity (Heparin, Nitro, Insulin, Cardizem)? @ -[No] Were any procedures done? @ -[No] Diagnosis/symptom? @ -Chest Pain Acute, or Chronic, or Acute on Chronic? @ -Acute Uncomplicated (without systemic symptoms) or Complicated (systemic symptoms)? @ -Uncomplicated Side effects of treatment? @ -[No] Exacerbation, Progression, or Severe Exacerbation? @ -[No] Poses a threat to life or bodily function? How? (Chest pain, [place], AK, pneumonia, PE, COPD, DKA, ARF, appy, cholecystitis, CVA, Diverticulitis, Homicidal, Suicidal, threat to staff... and all critical care pts) @ -Low likelihood (Venus Ruiz) - Lab Data Lab Results 07/08/22 07/08/22 07/08/22 Range/Units 21:00 21:00 21:00 WBC 5.7 (3.8-10.6) k/uL RBC 3.76 L (3.80-5.40) m/uL Hgb 11.4 (11.4-16.0) gm/dL Hct 33.5 L (34.0-46.0) % MCV 88.9 (80.0-100.0) fL MCH 30.4 (25.0-35.0) pg MCHC 34.2 (31.0-37.0) g/dL RDW 13.6 (11.5-15.5) % Plt Count 193 (150-450) k/uL MPV 7.1 Neutrophils % 65 % Lymphocytes % 22 % Monocytes % 8 % Eosinophils % 3 % Basophils % 1 % Neutrophils # 3.7 (1.3-7.7) k/uL Lymphocytes # 1.3 (1.0-4.8) k/uL Monocytes # 0.5 (0-1.0) k/uL Eosinophils # 0.2 (0-0.7) k/uL Basophils # 0.0 (0-0.2) k/uL PT 10.5 (9.0-12.0) sec INR 1.0 (<1.2) APTT 22.9 (22.0-30.0) sec Sodium 140 (137-145) mmol/L Potassium 3.2 L (3.5-5.1) mmol/L Chloride 106 (98-107) mmol/L Carbon Dioxide 26 (22-30) mmol/L Anion Gap 8 mmol/L BUN 17 (7-17) mg/dL Creatinine 0.69 (0.52-1.04) mg/dL Est GFR (CKD-EPI)AfAm >90 (>60 ml/min/1.73 sqM) Est GFR (CKD-EPI)NonAf 86 (>60 ml/min/1.73 sqM) Glucose 114 H (74-99) mg/dL Calcium 8.8 (8.4-10.2) mg/dL Magnesium 2.0 (1.6-2.3) mg/dL Total Bilirubin 0.3 (0.2-1.3) mg/dL AST 25 (14-36) U/L ALT 22 (4-34) U/L Alkaline Phosphatase 80 (38-126) U/L Troponin I (0.000-0.034) ng/mL Total Protein 6.4 (6.3-8.2) g/dL Albumin 3.9 (3.5-5.0) g/dL 07/08/22 07/08/22 07/08/22 Range/Units 21:00 23:26 23:26 WBC (3.8-10.6) k/uL RBC (3.80-5.40) m/uL Hgb (11.4-16.0) gm/dL Hct (34.0-46.0) % MCV (80.0-100.0) fL MCH (25.0-35.0) pg MCHC (31.0-37.0) g/dL RDW (11.5-15.5) % Plt Count (150-450) k/uL MPV Neutrophils % % Lymphocytes % % Monocytes % % Eosinophils % % Basophils % % Neutrophils # (1.3-7.7) k/uL Lymphocytes # (1.0-4.8) k/uL Monocytes # (0-1.0) k/uL Eosinophils # (0-0.7) k/uL Basophils # (0-0.2) k/uL PT (9.0-12.0) sec INR (<1.2) APTT (22.0-30.0) sec Sodium (137-145) mmol/L Potassium 3.3 L (3.5-5.1) mmol/L Chloride (98-107) mmol/L Carbon Dioxide (22-30) mmol/L Anion Gap mmol/L BUN (7-17) mg/dL Creatinine (0.52-1.04) mg/dL Est GFR (CKD-EPI)AfAm (>60 ml/min/1.73 sqM) Est GFR (CKD-EPI)NonAf (>60 ml/min/1.73 sqM) Glucose (74-99) mg/dL Calcium (8.4-10.2) mg/dL Magnesium (1.6-2.3) mg/dL Total Bilirubin (0.2-1.3) mg/dL AST (14-36) U/L ALT (4-34) U/L Alkaline Phosphatase (38-126) U/L Troponin I <0.012 <0.012 (0.000-0.034) ng/mL Total Protein (6.3-8.2) g/dL Albumin (3.5-5.0) g/dL Disposition <Yesica Mehta - Last Filed: 07/08/22 20:15> Is patient prescribed a controlled substance at d/c from ED?: No Time of Disposition: 00:11 <Venus Ruiz - Last Filed: 07/09/22 03:31> Clinical Impression: Hx of CABG, Chest pain Disposition: HOME SELF-CARE Condition: Stable Instructions (If sedation given, give patient instructions): Chest Pain (ED) Additional Instructions: These return to the nearest emergency department symptoms worsen or persist Referrals: Junaid Truong MD [Primary Care Provider] - 1-2 days Brayan Santiago MD [STAFF PHYSICIAN] - 1-2 days
[2022-07-08] MEDS ORDERED: SODIUM CHLORIDE 0.9% 1,000 ML IV ONE (20:43)
--- NOTE | 2022-07-08 20:48 | XR ---
EXAMINATION TYPE: XR chest 2V DATE OF EXAM: 07/08/2022 8:36 PM COMPARISON: Chest radiographs from 04/12/2019. TECHNIQUE: XR chest 2V Frontal and lateral views of the chest. CLINICAL INDICATION:Female, 77 years old with history of Chest Pain; FINDINGS: Lungs/Pleura: There is flattening of the diaphragm with increased lucency of the lungs. No evidence o f pneumothorax, pleural effusion or focal consolidation. Pulmonary vascularity: Unremarkable. Heart/mediastinum: Cardiomediastinal silhouette is enlarged and stable. A loop recorder projects over the left thorax over the heart. Musculoskeletal: No acute osseous pathology. Midline sternotomy wires are noted. Right shoulder arthr oplasty changes. IMPRESSION: 1. Cardiomegaly without evidence for acute heart failure. 2. COPD changes.
[2022-07-08 21:19] LABS: Basophils % (A) 1 %; Eosinophils # (A) 0.2 k/uL (0-0.7); Eosinophils % (A) 3 %; HCT 33.5 % (34.0-46.0); HGB 11.4 gm/dL (11.4-16.0); Lymphocytes # (A) 1.3 k/uL (1.0-4.8); Lymphocytes % (A) 22 %; MCH 30.4 pg (25.0-35.0); MCHC 34.2 g/dL (31.0-37.0); MCV 88.9 fL (80.0-100.0); Mean Platelet Volume 7.1; Monocytes # (A) 0.5 k/uL (0-1.0); Monocytes % (A) 8 %; Neutrophils # (A) 3.7 k/uL (1.3-7.7); Neutrophils % (A) 65 %; Platelet Count 193 k/uL (150-450); RBC 3.76 m/uL (3.80-5.40); RDW 13.6 % (11.5-15.5); WBC 5.7 k/uL (3.8-10.6)
[2022-07-08 21:27] LABS: Partial Thromboplastin Time 22.9 sec (22.0-30.0); Prothrombin Time 10.5 sec (9.0-12.0)
[2022-07-08 21:33] LABS: ALT 22 U/L (4-34); AST 25 U/L (14-36); African American GFR (CKD) >90 (>60 ml/min/1.73 sqM); Albumin 3.9 g/dL (3.5-5.0); Alkaline Phosphatase 80 U/L (38-126); Anion Gap 8 mmol/L; Blood Urea Nitrogen 17 mg/dL (7-17); Calcium 8.8 mg/dL (8.4-10.2); Carbon Dioxide 26 mmol/L (22-30); Chloride 106 mmol/L (98-107); Glucose 114 mg/dL (74-99); Non-African American GFR(CKD) 86 (>60 ml/min/1.73 sqM); Potassium 3.2 mmol/L (3.5-5.1); Sodium 140 mmol/L (137-145); Total Bilirubin 0.3 mg/dL (0.2-1.3); Total Protein 6.4 g/dL (6.3-8.2)
[2022-07-08] MEDS ORDERED: POTASSIUM CHLORIDE ER 20 MEQ TAB.ER PO STA (21:59)
[2022-07-09 00:24] VITALS: BP 149/89; PULSE 48; RESP 18
== END 2022-07-09 00:30 | disposition home or self-care (01) ==
LOC: EC 19:05
DX: R07.89 Other chest pain (principal); Z95.1 Presence of aortocoronary bypass graft; I11.0 Hypertensive heart disease with heart failure; I25.2 Old myocardial infarction; I50.9 Heart failure, unspecified; J44.9 Chronic obstructive pulmonary disease, unspecified; K21.9 Gastro-esophageal reflux disease without esophagitis; M19.90 Unspecified osteoarthritis, unspecified site; F32.A Depression, unspecified; G47.33 Obstructive sleep apnea (adult) (pediatric); E78.5 Hyperlipidemia, unspecified; E11.9 Type 2 diabetes mellitus without complications; E03.9 Hypothyroidism, unspecified; Z79.82 Long term (current) use of aspirin; Z79.84 Long term (current) use of oral hypoglycemic drugs; Z79.890 Hormone replacement therapy; Z79.899 Other long term (current) drug therapy; Z88.8 Allergy status to other drugs, medicaments and biological substances; Z91.030 Bee allergy status; Z91.040 Latex allergy status
CPT/HCPCS: 36415; 71046; 80053; 83735; 84132; 84484; 85025; 85610; 85730; 93005; 96360; 99285

== ENCOUNTER 2023-01-02 10:50 | Inpatient (IN) | payer MEDICARE ==
[2023-01-02] MEDS ORDERED: ASPIRIN 81 MG PO STA (11:19)
[2023-01-02] MEDS ORDERED: NITROGLYCERIN OINT 1 INCH/GM PACKET TOPICAL STA (11:19)
--- NOTE | 2023-01-02 11:24 | ED ---
General Adult HPI - General Chief complaint: Chest Pain Stated complaint: tightness and painful chest sob Time Seen by Provider: 01/02/23 11:00 Source: patient, RN notes reviewed, old records reviewed Mode of arrival: ambulatory Limitations: no limitations - History of Present Illness Initial comments: This is a 77-year-old female presents emergency department with past medical history significant for bypass surgery stent placement diabetes hypertension high cholesterol. Patient comes in today with a 2 hour history of chest pain that radiates across the front of her chest and made her short of breath and diaphoretic. Patient denies any radiation other than across her chest. Patient denies any nausea. Patient has abdominal pain. Patient has a headache patient denies numbness weakness. Patient denies any recent fever chills or cough. Patient states this pain is typical of her pain with her cardiac disease - Related Data Home Medications Medication Instructions Recorded Confirmed Aspirin EC [Ecotrin Low Dose] 81 mg PO DAILY 10/15/14 11/14/22 Cyanocobalamin [Vitamin B-12] 1,000 mcg PO DAILY 10/15/14 11/14/22 Furosemide [Lasix] 20 mg PO BID 10/15/14 11/14/22 Levothyroxine Sodium [Synthroid] 50 mcg PO DAILY 10/15/14 11/14/22 Nitroglycerin Sl Tabs [Nitrostat] 0.4 mg SUBLINGUAL Q5M PRN 10/15/14 11/14/22 metFORMIN HCL [Glucophage] 500 mg PO DAILY 10/15/14 11/14/22 Omeprazole 20 mg PO BID 04/23/16 11/14/22 QUEtiapine FUMARATE [SEROquel] 50 mg PO HS 04/23/16 11/14/22 Gabapentin [Neurontin] 300 mg PO TID 01/02/18 11/14/22 Calcium Carbonate/Vitamin D3 2 cap PO DAILY 01/25/18 11/14/22 [Calcium 600-Vit D3 12.5 Mcg (500 Iu)] Apixaban [Eliquis] 5 mg PO BID 11/14/22 11/14/22 Ascorbic Acid [Vitamin C] 1,000 mg PO DAILY 11/14/22 11/14/22 Atorvastatin [Lipitor] 40 mg PO HS 11/14/22 11/14/22 Cholecalciferol [Vitamin D3 (25 25 mcg PO DAILY 11/14/22 11/14/22 Mcg = 1000 Iu)] Citalopram Hydrobromide [CeleXA] 40 mg PO DAILY 11/14/22 11/14/22 Fluticasone Nasal [place] [Flonase 1 spray EA NOSTRIL DAILY PRN 11/14/22 11/14/22 Nasal [place]] Ipratropium-Albuterol Nebulize 3 ml INHALATION RT-QID PRN 11/14/22 11/14/22 [Duoneb 0.5 mg-3 mg/3 ml Soln] Isosorbide Mononitrate [Ismo] 20 mg PO DAILY 11/14/22 11/14/22 Magnesium Oxide [Mag-Ox] 400 mg PO DAILY 11/14/22 11/14/22 Meclizine [Antivert] 12.5 mg PO TID PRN 11/14/22 11/14/22 Melatonin 20 mg PO HS 11/14/22 11/14/22 Potassium Chloride ER [K-Dur 20] 20 meq PO DAILY 11/14/22 11/14/22 QUEtiapine [SEROquel] 25 mg PO DAILY 11/14/22 11/14/22 Sucralfate [Carafate] 1 gm PO BID 11/14/22 11/14/22 Previous Rx's Medication Instructions Recorded Acetaminophen Tab [Tylenol] 325 mg PO Q6H #30 tab 11/15/22 Midodrine [ProAmatine] 5 mg PO BID #30 tablet 11/15/22 Allergies Allergy/AdvReac Type Severity Reaction Status Date / Time latex Allergy Rash/Hives Verified 01/02/23 10:56 venom-honey bee Allergy Swelling Verified 01/02/23 10:56 [bee venom (honey bee)] zolpidem tartrate Allergy Altered Verified 01/02/23 10:56 [From Ambien] Mental Status Review of Systems ROS Statement: Those systems with pertinent positive or pertinent negative responses have been documented in the HPI. ROS Other: All systems not noted in ROS Statement are negative. Past Medical History Past Medical History: Asthma, Coronary Artery Disease (CAD), Chest Pain / Angina, Heart Failure, COPD, CVA/TIA, Diabetes Mellitus, GERD/Reflux, Hyperlipidemia, Hypertension, Myocardial Infarction (AK), Osteoarthritis (OA), Pneumonia, Sleep Apnea/CPAP/BIPAP, Syncope, Thyroid Disorder Additional Past Medical History / Comment(s): Pt recently admitted 04/23/16 with left lower lobe peumonia/bronchospasm/ unstable angina. Other hX: NIDDM type II, CVA, VERTIGO, syncope, bilateral tinnitis, anemia, murmur, hypothyroid, UTIs, nephrolithiasis, CHAVEZ with CPap, migraines, head injury as a teen, back pain. 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 Source:: ESBL URINE MRSA BACK Past Surgical History: Bladder Surgery, Coronary Bypass/CABG, Heart Catheteri zation, Heart Catheterization With Stent, Hysterectomy, Joint Replacement, Orthopedic Surgery, Tonsillectomy Additional Past Surgical History / Comment(s): 1997 3 vessel CABG in [facility], 2004 PCI with 2 stents, 2010 and 2012 cardiac caths, jessi total knee replacements with right side done twice; R total shoulder replacement; L rotator cuff repair, bilateral cataract surgery, bladder suspension, R foot bone fusion, colonoscopy/polypectomy, bilateral hands trigger fingers/thumbs released, benign lymph node bx L4,L5 S1 spinal surgery 04/2017 Past Anesthesia/Blood Transfusion Reactions: No Reported Reaction Additional Past Anesthesia/Blood Transfusion Reaction / Comment(s): Pt received blood in the s without reaction. Date of Last Stent Placement:: 2004 Past Psychological History: Depression Smoking Status: Never smoker Past Alcohol Use History: Rare Past Drug Use History: None Reported - Past Family History Mother Family Medical History: Chest Pain / Angina, Coronary Artery Disease (CAD), CVA/TIA, Hypertension, Musculoskeletal Disorder Father Family Medical History: Coronary Artery Disease (CAD) Additional Family Medical History / Comment(s): cabg Brother(s) Family Medical History: Coronary Artery Disease (CAD) Sister(s) Family Medical History: Coronary Artery Disease (CAD) Additional Family Medical History / Comment(s): pulmonary hypertension Daughter(s) Family Medical History: No Reported History General Exam - General Exam Comments Initial Comments: GENERAL: Patient is well-developed and well-nourished. Patient is nontoxic and well- hydrated and is in mild distress. ENT: Neck is soft and supple. No significant lymphadenopathy is noted. Oropharynx is clear. Moist mucous membranes. Neck has full range of motion without eliciting any pain. EYES: The sclera were anicteric and conjunctiva were pink and moist. Extraocular movements were intact and pupils were equal round and reactive to light. Eyelids were unremarkable. PULMONARY: Unlabored respirations. Good breath sounds bilaterally. No audible rales rhonchi or wheezing was noted. CARDIOVASCULAR: There is a regular rate and rhythm without any murmurs gallops or rubs. ABDOMEN: Soft and nontender with normal bowel sounds. SKIN: Skin is clear with no lesions or rashes and otherwise unremarkable. NEUROLOGIC: Patient is alert and oriented x3. Cranial nerves II through XII are grossly i ntact. Motor and sensory are also intact. Normal speech, volume and content. Symmetrical smile. MUSCULOSKELETAL: Normal extremities with adequate strength and full range of motion. LYMPHATICS: No significant lymphadenopathy is noted PSYCHIATRIC: Normal psychiatric evaluation. Limitations: no limitations Course Vital Signs 01/02/23 01/02/23 01/02/23 10:53 11:07 11:30 Temperature 97.9 F Pulse Rate 60 56 L Pulse Rate [ 50 L Repair Miller ] Respiratory 20 18 Rate Blood Pressure 136/70 140/73 O2 Sat by Pulse 99 100 Oximetry 01/02/23 01/02/23 01/02/23 12:00 12:10 12:20 Temperature Pulse Rate 50 L 50 L 48 L Pulse Rate [ Repair Miller ] Respiratory 18 17 15 Rate Blood Pressure 140/73 O2 Sat by Pulse 95 95 95 Oximetry 01/02/23 13:06 Temperature Pulse Rate 53 L Pulse Rate [ Repair Miller ] Respiratory 18 Rate Blood Pressure 126/75 O2 Sat by Pulse 95 Oximetry Medical Decision Making - Medical Decision Making EKG is interpreted by myself. EKG shows a sinus bradycardia 51 bpm ME interval 270 QRS is 88 QT interval is 451 QTC is 426. Patient's EKG shows no ST segment elevation or depression. Was pt. sent in by a medical professional or institution (, PA, AIR LIAISON AND SPECIAL STAFF, urgent care, hospital, or penitentiary...) When possible be specific @ -No Did you speak to anyone other than the patient for history (EMS, parent, family, police, friend...)? What history was obtained from this source @ -No Did you review nursing and triage notes (agree or disagree)? Why? @ -I reviewed and agree with nursing and triage notes Were old charts reviewed (outside hosp., previous admission, EMS record, old EKG, old radiological studies, urgent care reports/EKG's, penitentiary records)? Report findings @ -Reviewed prior charts and prior lab work Differential Diagnosis (chest pain, altered mental status, abdominal pain women, abdominal pain men, vaginal bleeding, weakness, fever, dyspnea, syncope, headache, dizziness, GI bleed, back pain, seizure, CVA, palpatations, mental health, musculoskeletal)? @ -Differential Chest Pain: Stable Angina, Unstable Angina, STEMI, NSTEMI Aortic Dissection, Pneumothorax, Musculoskeletal, Esophageal Spasm GERD, Cholecystitis, Pancreatitis, Zoster, this is not meant to be an all-inclusive list. EKG interpreted by me (3pts min.). @ -As above X-rays interpreted by me (1pt min.). @ -Chest x-ray shows no acute abnormality CT interpreted by me (1pt min.). @ -None done U/S interpreted by me (1pt. min.). @ -None done What testing was considered but not performed or refused? (CT, X-rays, U/S, labs)? Why? @ -None What meds were considered but not given or refused? Why? @ -None Did you discuss the management of the patient with other professionals (professionals i.e. , PA, AIR LIAISON AND SPECIAL STAFF, lab, RT, psych nurse, social welfare administrator, middle stitcher, teacher, first officer and flight instructor, director case management)? Give summary @ -I spoke with Dr. morales he agreed to admit the patient I admitted the patient Was smoking cessation discussed for >3mins.? @ -No Was critical care preformed (if so, how long)? @ -No Were there social determinants of health that impacted care today? How? (Homelessness, low income, unemployed, alcoholism, drug addiction, transportation, low edu. Level, literacy, decrease access to med. care, custodial, rehab)? @ -No Was there de-escalation of care discussed even if they declined (Discuss DNR or withdrawal of care, Hospice)? DNR status @ -No What co-morbidities impacted this encounter? (DM, HTN, Smoking, COPD, CAD, Cancer, CVA, ARF, Chemo, Hep., AIDS, mental health diagnosis, sleep apnea, morbid obesity)? @ -None Was patient admitted / discharged? Hospital course, mention meds given and route, prescriptions, significant lab abnormalities, going to OR and other pertinent info. @ -Patient received aspirin and Nitropaste. Patient had no abnormalities on EKG and lab work was normal. Spoke with Dr. morales he agreed to admit the patient admitted the patient wrote admitting orders I consulted cardiology Undiagnosed new problem with uncertain prognosis? @ -No Drug Therapy requiring intensive monitoring for toxicity (Heparin, Nitro, Insulin, Cardizem)? @ -No Were any procedures done? @ -No Diagnosis/symptom? @ -Chest pain Acute, or Chronic, or Acute on Chronic? @ -Acute Uncomplicated (without systemic symptoms) or Complicated (systemic symptoms)? @ -Complicated Side effects of treatment? @ -No Exacerbation, Progression, or Severe Exacerbation? @ -No Poses a threat to life or bodily function? How? (Chest pain, [place], AK, pneumonia, PE, COPD, DKA, ARF, appy, cholecystitis, CVA, Diverticulitis, Homicidal, Suicidal, threat to staff... and all critical care pts) @ -Yes this could lead to an AK and end organ dysfunction or - Lab Data Result diagrams: 01/02/23 11:25 01/02/23 11:25 Lab Results 01/02/23 01/02/23 01/02/23 Range/Units 11:25 11:25 11:25 WBC 5.3 (3.8-10.6) k/uL RBC 3.78 L (3.80-5.40) m/uL Hgb 11.6 (11.4-16.0) gm/dL Hct 33.9 L (34.0-46.0) % MCV 89.9 (80.0-100.0) fL MCH 30.7 (25.0-35.0) pg MCHC 34.2 (31.0-37.0) g/dL RDW 13.5 (11.5-15.5) % Plt Count 194 (150-450) k/uL MPV 7.4 Neutrophils % 63 % Lymphocytes % 26 % Monocytes % 7 % Eosinophils % 1 % Basophils % 0 % Neutrophils # 3.3 (1.3-7.7) k/uL Lymphocytes # 1.4 (1.0-4.8) k/uL Monocytes # 0.4 (0-1.0) k/uL Eosinophils # 0.1 (0-0.7) k/uL Basophils # 0.0 (0-0.2) k/uL PT 11.3 (10.0-12.5) sec INR 1.0 (<1.2) APTT 25.8 (22.0-30.0) sec Sodium 138 (137-145) mmol/L Potassium 3.7 (3.5-5.1) mmol/L Chloride 106 (98-107) mmol/L Carbon Dioxide 19 L (22-30) mmol/L Anion Gap 13 mmol/L BUN 11 (7-17) mg/dL Creatinine 0.54 (0.52-1.04) mg/dL Est GFR (CKD-EPI)AfAm >90 (>60 ml/min/1.73 sqM) Est GFR (CKD-EPI)NonAf >90 (>60 ml/min/1.73 sqM) Glucose 99 (74-99) mg/dL Calcium 9.0 (8.4-10.2) mg/dL Magnesium 1.4 L (1.6-2.3) mg/dL Total Bilirubin 0.6 (0.2-1.3) mg/dL AST 28 (14-36) U/L ALT 19 (4-34) U/L Alkaline Phosphatase 69 (38-126) U/L Troponin I (0.000-0.034) ng/mL Total Protein 6.7 (6.3-8.2) g/dL Albumin 4.2 (3.5-5.0) g/dL 01/02/23 Range/Units 11:25 WBC (3.8-10.6) k/uL RBC (3.80-5.40) m/uL Hgb (11.4-16.0) gm/dL Hct (34.0-46.0) % MCV (80.0-100.0) fL MCH (25.0-35.0) pg MCHC (31.0-37.0) g/dL RDW (11.5-15.5) % Plt Count (150-450) k/uL MPV Neutrophils % % Lymphocytes % % Monocytes % % Eosinophils % % Basophils % % Neutrophils # (1.3-7.7) k/uL Lymphocytes # (1.0-4.8) k/uL Monocytes # (0-1.0) k/uL Eosinophils # (0-0.7) k/uL Basophils # (0-0.2) k/uL PT (10.0-12.5) sec INR (<1.2) APTT (22.0-30.0) sec Sodium (137-145) mmol/L Potassium (3.5-5.1) mmol/L Chloride (98-107) mmol/L Carbon Dioxide (22-30) mmol/L Anion Gap mmol/L BUN (7-17) mg/dL Creatinine (0.52-1.04) mg/dL Est GFR (CKD-EPI)AfAm (>60 ml/min/1.73 sqM) Est GFR (CKD-EPI)NonAf (>60 ml/min/1.73 sqM) Glucose (74-99) mg/dL Calcium (8.4-10.2) mg/dL Magnesium (1.6-2.3) mg/dL Total Bilirubin (0.2-1.3) mg/dL AST (14-36) U/L ALT (4-34) U/L Alkaline Phosphatase (38-126) U/L Troponin I <0.012 (0.000-0.034) ng/mL Total Protein (6.3-8.2) g/dL Albumin (3.5-5.0) g/dL Disposition Clinical Impression: Chest pain Disposition: ADMITTED IP TO THIS [facility] Referrals: Junaid Truong [Primary Care Provider] - 1-2 days Time of Disposition: 12:37
[2023-01-02 11:33] LABS: Basophils % (A) 0 %; Eosinophils # (A) 0.1 k/uL (0-0.7); Eosinophils % (A) 1 %; HCT 33.9 % (34.0-46.0); HGB 11.6 gm/dL (11.4-16.0); Lymphocytes # (A) 1.4 k/uL (1.0-4.8); Lymphocytes % (A) 26 %; MCH 30.7 pg (25.0-35.0); MCHC 34.2 g/dL (31.0-37.0); MCV 89.9 fL (80.0-100.0); Mean Platelet Volume 7.4; Monocytes # (A) 0.4 k/uL (0-1.0); Monocytes % (A) 7 %; Neutrophils # (A) 3.3 k/uL (1.3-7.7); Neutrophils % (A) 63 %; Platelet Count 194 k/uL (150-450); RBC 3.78 m/uL (3.80-5.40); RDW 13.5 % (11.5-15.5); WBC 5.3 k/uL (3.8-10.6)
[2023-01-02 11:40] LABS: Partial Thromboplastin Time 25.8 sec (22.0-30.0); Prothrombin Time 11.3 sec (10.0-12.5)
[2023-01-02 11:41] LABS: ALT 19 U/L (4-34); AST 28 U/L (14-36); African American GFR (CKD) >90 (>60 ml/min/1.73 sqM); Albumin 4.2 g/dL (3.5-5.0); Alkaline Phosphatase 69 U/L (38-126); Anion Gap 13 mmol/L; Blood Urea Nitrogen 11 mg/dL (7-17); Carbon Dioxide 19 mmol/L (22-30); Chloride 106 mmol/L (98-107); Glucose 99 mg/dL (74-99); Magnesium 1.4 mg/dL (1.6-2.3); Non-African American GFR(CKD) >90 (>60 ml/min/1.73 sqM); Potassium 3.7 mmol/L (3.5-5.1); Sodium 138 mmol/L (137-145); Total Bilirubin 0.6 mg/dL (0.2-1.3); Total Protein 6.7 g/dL (6.3-8.2)
--- NOTE | 2023-01-02 12:11 | XR ---
EXAMINATION TYPE: XR chest 2V DATE OF EXAM: 01/02/2023 12:07 PM COMPARISON: Chest radiographs from 11/14/2022 TECHNIQUE: XR chest 2V Frontal and lateral views of the chest. CLINICAL INDICATION:Female, 77 years old with history of Chest Pain; FINDINGS: Lungs/Pleura: There is no evidence of pleural effusion, focal consolidation, or pneumothorax. Pulmonary vascularity: Unremarkable. Heart/mediastinum: Cardiomediastinal silhouette is enlarged and stable. Post CABG changes. Musculoskeletal: No acute osseous pathology. Midline sternotomy wires are noted and stable. Right sasha ulder prosthesis. Advanced left shoulder arthropathy. Other: Loop recorder within the anterior left chest wall. IMPRESSION: Chronic changes without evidence for acute process.
[2023-01-02] MEDS ORDERED: ACETAMINOPHEN TAB 500 MG TAB PO STA (13:03)
[2023-01-02] MEDS ORDERED: NITROGLYCERIN SL TABS 0.4 MG TAB SUBLINGUAL PRN ×2 (13:35→14:39)
[2023-01-02 16:37] LABS: Glucose,Whole Blood 97 mg/dL (70-110)
[2023-01-02] MEDS: FUROSEMIDE 20 MG TAB PO SCH (17:48)
[2023-01-02] MEDS: NITROGLYCERIN OINT 1 INCH/GM PACKET TOPICAL SCH ×2 (17:49→23:02)
[2023-01-02] MEDS ORDERED: FLUTICASONE 50MCG/SPRAY NASAL 16GM EA NOSTRIL PRN (18:02)
[2023-01-02] MEDS ORDERED: IPRATROPIUM-ALBUTEROL 3 ML NEB INHALATION PRN (18:02)
[2023-01-02] MEDS ORDERED: MELATONIN 5 MG TABLET PO PRN ×2 (18:02→18:08)
--- NOTE | 2023-01-02 18:07 | P.HPIM ---
History of Present Illness This is a pleasant 77 years old female with past medical history of Asthma, Coronary Artery Disease, Heart Failure, COPD, CVA/TIA, Diabetes Mellitus, GERD/Reflux, Hyperlipidemia, Hypertension, Osteoarthritis, Sleep Apnea/CPAP/BIPAP, Syncope, hypothyroidism Patient presents because of chest pain started this morning in the middle and central was threaded into the left arm in the morning but not anymore. The pain radiated about 8/10 on admission and currently 7/10 felt like sharp, diminutive precipitating factor was movement. Associated with little shortness of breath but not overt dyspnea. Patient is afraid to cough because it will hurt her and her pain is associated with very severe significant tenderness even to simple touch She denies dyspnea currently, no coughing, no change in urine or bowel habits. No fever. Patient is not a smoker, no illicit drugs, she drinks alcohol occasionally. 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 Patient hemodynamically stable Labs are unremarkable including CBC, BMP, liver enzymes and troponin EKG shows sinus bradycardia at 51 Chest x-ray showed chronic changes without acute process. Review of Systems Review of systems CONSTITUTIONAL: No fever, no malaise, no fatigue. HEENT: No recent visual problems or hearing problems. Denied any sore throat. CARDIOVASCULAR: No orthopnea, PND, no palpitations, no syncope. PULMONARY: No shortness of breath, no cough, no hemoptysis. GASTROINTESTINAL: No diarrhea, no nausea, no vomiting, no abdominal pain. Norm oactive bowel sounds. NEUROLOGICAL: No headaches, no weakness, no numbness. HEMATOLOGICAL: Denies any bleeding or petechiae. GENITOURINARY: Denies any burning micturition, frequency, or urgency. MUSCULOSKELETAL/RHEUMATOLOGICAL: Denies any joint pain, swelling, or any muscle pain. ENDOCRINE: Denies any polyuria or polydipsia. Past Medical History Past Medical History: Asthma, Coronary Artery Disease (CAD), Chest Pain / Angina, Heart Failure, COPD, CVA/TIA, Diabetes Mellitus, GERD/Reflux, Hyperlipidemia, Hypertension, Myocardial Infarction ([place]), Osteoarthritis (OA), Pneumonia, Sleep Apnea/CPAP/BIPAP, Syncope, Thyroid Disorder Additional Past Medical History / Comment(s): Pt recently admitted 04/23/16 with left lower lobe peumonia/bronchospasm/ unstable angina. Other hX: NIDDM type II, CVA, VERTIGO, syncope, bilateral tinnitis, anemia, murmur, hypothyroid, UTIs, nephrolithiasis, CHAVEZ with CPap, migraines, head injury as a teen, back pain. 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 Source:: ESBL URINE MRSA BACK Past Surgical History: Bladder Surgery, Coronary Bypass/CABG, Heart Catheterization, Heart Catheterization With Stent, Hysterectomy, Joint Re placement, Orthopedic Surgery, Tonsillectomy Additional Past Surgical History / Comment(s): 1997 3 vessel CABG in [facility], 2004 PCI with 2 stents, 2010 and 2012 cardiac caths, jessi total knee replacements with right side done twice; R total shoulder replacement; L rotator cuff repair, bilateral cataract surgery, bladder suspension, R foot bone fusion, colonoscopy/polypectomy, bilateral hands trigger fingers/thumbs released, benign lymph node bx L4,L5 S1 spinal surgery 04/2017 Past Anesthesia/Blood Transfusion Reactions: No Reported Reaction Additional Past Anesthesia/Blood Transfusion Reaction / Comment(s): Pt received blood in the 1959's without reaction. Date of Last Stent Placement:: 2004 Past Psychological History: Depression Smoking Status: Never smoker Past Alcohol Use History: Rare Past Drug Use History: None Reported - Past Family History Mother Family Medical History: Chest Pain / Angina, Coronary Artery Disease (CAD), CVA/TIA, Hypertension, Musculoskeletal Disorder Father Family Medical History: Coronary Artery Disease (CAD) Additional Family Medical History / Comment(s): cabg Brother(s) Family Medical History: Coronary Artery Disease (CAD) Sister(s) Family Medical History: Coronary Artery Disease (CAD) Additional Family Medical History / Comment(s): pulmonary hypertension Daughter(s) Family Medical History: No Reported History Medications and Allergies Home Medications Medication Instructions Recorded Confirmed Type Aspirin EC [Ecotrin Low Dose] 81 mg PO DAILY 10/15/14 01/02/23 History Cyanocobalamin [Vitamin B-12] 1,000 mcg PO DAILY 10/15/14 01/02/23 History Furosemide [Lasix] 20 mg PO BID 10/15/14 01/02/23 History Levothyroxine Sodium [Synthroid] 50 mcg PO DAILY 10/15/14 01/02/23 History Nitroglycerin Sl Tabs [Nitrostat] 0.4 mg SUBLINGUAL Q5M PRN 10/15/14 01/02/23 History metFORMIN HCL [Glucophage] 500 mg PO DAILY 10/15/14 01/02/23 History Omeprazole 20 mg PO BID 04/23/16 01/02/23 History QUEtiapine FUMARATE [SEROquel] 50 mg PO HS 04/23/16 01/02/23 History Gabapentin [Neurontin] 300 mg PO TID 01/02/18 01/02/23 History Calcium Carbonate/Vitamin D3 2 cap PO DAILY 01/25/18 01/02/23 History [Calcium 600-Vit D3 12.5 Mcg (500 Iu)] Apixaban [Eliquis] 5 mg PO BID 11/14/22 01/02/23 History Ascorbic Acid [Vitamin C] 1,000 mg PO DAILY 11/14/22 01/02/23 History Atorvastatin [Lipitor] 40 mg PO HS 11/14/22 01/02/23 History Cholecalciferol [Vitamin D3 (25 25 mcg PO DAILY 11/14/22 01/02/23 History Mcg = 1000 Iu)] Citalopram Hydrobromide [CeleXA] 40 mg PO DAILY 11/14/22 01/02/23 History Fluticasone Nasal [place] [Flonase 1 spray EA NOSTRIL DAILY PRN 11/14/22 01/02/23 History Nasal [place]] Ipratropium-Albuterol Nebulize 3 ml INHALATION RT-QID PRN 11/14/22 01/02/23 History [Duoneb 0.5 mg-3 mg/3 ml Soln] Magnesium Oxide [Mag-Ox] 400 mg PO DAILY 11/14/22 01/02/23 History Meclizine [Antivert] 12.5 mg PO TID PRN 11/14/22 01/02/23 History Melatonin 20 mg PO HS 11/14/22 01/02/23 History Potassium Chloride ER [K-Dur 20] 20 meq PO DAILY 11/14/22 01/02/23 History QUEtiapine [SEROquel] 25 mg PO DAILY 11/14/22 01/02/23 History Sucralfate [Carafate] 1 gm PO BID 11/14/22 01/02/23 History Acetaminophen Tab [Tylenol] 325 mg PO Q6H #30 tab 11/15/22 01/02/23 Rx Midodrine [ProAmatine] 5 mg PO TID 01/02/23 01/02/23 History Allergies Allergy/AdvReac Type Severity Reaction Status Date / Time latex Allergy Rash/Hives Verified 01/02/23 14:26 venom-honey bee Allergy Swelling Verified 01/02/23 14:26 [bee venom (honey bee)] zolpidem tartrate AdvReac Altered Verified 01/02/23 14:26 [From Ambien] Mental Status Physical Exam Vitals: Vital Signs Temp Pulse Pulse Resp BP Pulse Ox 01/02/23 13:06 53 L 18 126/75 95 01/02/23 12:20 48 L 15 95 01/02/23 12:10 50 L 17 95 01/02/23 12:00 50 L 18 140/73 95 01/02/23 11:30 56 L 18 140/73 100 01/02/23 11:07 50 L 01/02/23 10:53 97.9 F 60 20 136/70 99 Intake and Output 01/01/23 01/02/23 01/02/23 22:59 06:59 14:59 Other: Weight 64.864 kg GENERAL: The patient is alert and oriented x3, not in any acute distress. Well developed, well nourished. HEENT: Pupils are round and equally reacting to light. EOMI. No scleral icterus. No conjunctival pallor. Normocephalic, atraumatic. No pharyngeal erythema. No thyromegaly. -CARDIOVASCULAR: S1 and S2 present. No murmurs, rubs, or gallops. Significant central chest pain and tenderness with no rash or deformity (at the area of the chest pain) PULMONARY: Chest is clear to auscultation, no wheezing , no crackles. ABDOMEN: Soft, nontender, nondistended, normoactive bowel sounds. No palpable organomegaly. MUSCULOSKELETAL: No joint swelling or deformity. EXTREMITIES: No cyanosis, clubbing, or pedal edema. NEUROLOGICAL: Gross neurological examination did not reveal any focal deficits. SKIN: No rashes. no petechiae. Results CBC & Chem 7: 01/02/23 11:25 01/02/23 11:25 Labs: Abnormal Lab Results - Last 24 Hours (Table) 01/02/23 01/02/23 Range/Units 11:25 11:25 RBC 3.78 L (3.80-5.40) m/uL Hct 33.9 L (34.0-46.0) % Carbon Dioxide 19 L (22-30) mmol/L Magnesium 1.4 L (1.6-2.3) mg/dL Assessment and Plan Assessment: Chest pain, rule out cardiac causes, most likely musculoskeletal pain Sinus bradycardia History of syncope status post loop recorder 1 year that follow up with auto transmission technician as an outpatient Hyperlipidemia Chronic anemia Hypothyroidism Chronic heart failure History of coronary artery disease History of CVA/TIA on COPD, no acute exacerbation Sleep apnea Plan: Continue with aspirin home dose 81 mg Continue with Eliquis Cardiology consult Pain management Labs and medication were reviewed.. Continue same treatment. Continue with symptomatic treatment. Resume home medication. Monitor labs and vitals. DVT and GI prophylaxis. Further recommendations as per clinical course of the p atient DVT prophylaxis: Eliquis I prophylaxis: Pepcid
[2023-01-02] MEDS: ACETAMINOPHEN TAB 325 MG TAB PO SCH ×2 (18:25→23:01)
[2023-01-02 20:19] LABS: Glucose,Whole Blood 113 mg/dL (70-110)
[2023-01-02] MEDS: MIDODRINE 5 MG TAB PO SCH (20:23)
[2023-01-02] MEDS: APIXABAN 5 MG TAB PO SCH (20:26)
[2023-01-02] MEDS: QUEtiapine 50 MG TAB PO SCH (20:26)
[2023-01-02] MEDS: GABAPENTIN 300 MG CAP PO SCH (20:26)
[2023-01-02] MEDS: SUCRALFATE 1 GM TAB PO SCH (20:26)
[2023-01-02] MEDS: ATORVASTATIN 40 MG TAB PO SCH (20:26)
[2023-01-03] MEDS: LEVOTHYROXINE 50 MCG TAB PO SCH (05:18)
[2023-01-03] MEDS: ACETAMINOPHEN TAB 325 MG TAB PO SCH ×3 (05:19→18:29)
[2023-01-03] MEDS: NITROGLYCERIN OINT 1 INCH/GM PACKET TOPICAL SCH ×3 (05:19→18:29)
[2023-01-03] MEDS: MIDODRINE 5 MG TAB PO SCH ×3 (05:19→18:29)
[2023-01-03 06:13] LABS: Glucose,Whole Blood 93 mg/dL (70-110)
[2023-01-03] MEDS ORDERED: AMINOPHYLLINE 500 MG/20 ML VIAL IV PRN (07:48)
[2023-01-03] MEDS ORDERED: REGADENOSON 0.4 MG/5 ML SYRINGE IV PRN (07:48)
[2023-01-03] MEDS ORDERED: CAFFEINE CITRATE 60 MG/3 ML VIAL IV PRN (07:48)
[2023-01-03] MEDS ORDERED: ASPIRIN 325 MG TAB PO SCH (09:00)
--- NOTE | 2023-01-03 10:04 | P.CRDCN ---
History of Present Illness Consult date: 01/03/23 Consult reason: chest pain History of present illness: History of present illness: This is a 77-year-old female patient of Dr. Jae Santiago with past medical history of hypertension, paroxysmal atrial fibrillation, coronary artery disease with previous bypass in 1997 with MORENO to LAD and radial artery graft to the obtuse marginal, hyperlipidemia. We have been asked to evaluate the patient for chest pain. Patient had a recent hospitalization at the end of October which time she was seen for atypical chest pain was advised to follow-up with Dr. Jae Santiago in the office in one to 2 weeks. Patient was seen in the office on 11/24 and was to be scheduled for Lexiscan stress test. Patient presented to [facility] yesterday due to chest pain worsening. It is on the right side of the sternal border nonradiating. She states she also had dizziness and palpitations. No abdominal symptoms no nausea vomiting diarrhea. EKG sinus bradycardia no acute ST-T wave changes. Chest x-ray: No acute findings Troponin negative 3. WBC 5.3, hemoglobin 11.6. Electrolytes unremarkable. CO2 is 19, creatinine 0.54. Blood sugar 113. Liver function tests are normal. Magnesium 1.4. Home cardiac medications: Eliquis 5 mg twice daily, aspirin 81 mg daily, Lipitor 40 mg at bedtime, Lasix 20 mg twice daily, levothyroxine 50 g daily, Nitrostat as needed, potassium chloride 20 mEq daily. Cardiac catheterization 2012 EF was 55%, patent MORENO to LAD, patent radial to OM1. Echocardiogram 05/2021 revealed EF of 20%, no pulmonary hypertension. Review Of Systems: At the time of my evaluation: Constitutional: No fever, no chills. No weakness, fatigue or lethargy. EENT: No headache. No dizziness. Lungs: No shortness of breath, cough, no sputum production. No wheezing. Cardiovascular: + chest pain, no lower extremity edema. No palpitations. No paroxysmal nocturnal dyspnea. No orthopnea. No lightheadedness or dizziness. No syncopal episodes. Abdominal: No abdominal pain. No nausea, vomiting. No diarrhea. No constipation. No bloody or tarry stools. Genitourinary: No dysuria.. No urinary retention. Musculoskeletal: No myalgias. No muscle weakness, no frequent falls. No back pain. No neck pain. Integumentary: No wounds. No rash. No unusual bruising. Neurologic: No aphasia. No facial droop. No change in mentation. No head injury. No headache. Physical examination: Gen: This is a 77-year-old female. She is resting bed appears comfortable and in no acute distress. VS: reviewed 116/75, heart rate 84, afebrile, pulse ox 93% on room air HEENT: Head is atraumatic, normocephalic. Pupils equal, round. Sclerae is anicteric. NECK: Supple. No JVD. . LUNGS: Clear to auscultation. No wheezes or rhonchi. No intercostal retractions. HEART: Regular rate and rhythm. No murmur. ABDOMEN: Soft No tenderness. EXTREMITIES: No pedal edema. No calf tenderness. NEUROLOGICAL: Patient is awake, alert and oriented x3. Assessment: Atypical chest pain, acute coronary syndrome ruled out History of coronary artery disease with previous bypass Paroxysmal atrial fibrillation Hyperlipidemia Plan: Resume patient's home cardiac medications Lexiscan stress test today If this is unremarkable, patient will be discharged home. Thank you kindly for this consultation. Nurse practitioner note has been reviewed, I agree with documented findings and plan of care. Patient was seen and examined. Past Medical History Past Medical History: Asthma, Coronary Artery Disease (CAD), Chest Pain / Angina, Heart Failure, COPD, CVA/TIA, Diabetes Mellitus, GERD/Reflux, Hyperlipidemia, Hypertension, Myocardial Infarction ([place]), Osteoarthritis (OA), Pneumonia, Sleep Apnea/CPAP/BIPAP, Syncope, Thyroid Disorder Additional Past Medical History / Comment(s): Pt recently admitted 04/23/16 with left lower lobe peumonia/bronchospasm/ unstable angina. Other hX: NIDDM type II, CVA, VERTIGO, syncope, bilateral tinnitis, anemia, murmur, hypothyroid, UTIs, nephrolithiasis, CHAVEZ with CPap, migraines, head injury as a teen, back pain. 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 Source:: ESBL URINE MRSA BACK Past Surgical History: Bladder Surgery, Coronary Bypass/CABG, Heart Catheterization, Heart Catheterization With Stent, Hysterectomy, Joint Replacement, Orthopedic Surgery, Tonsillectomy Additional Past Surgical History / Comment(s): 1997 3 vessel CABG in [facility], 2004 PCI with 2 stents, 2010 and 2012 cardiac caths, jessi total knee replacements with right side done twice; R total shoulder replacement; L rotator cuff repair, bilateral cataract surgery, bladder suspension, R foot bone fusion, colonoscopy/polypectomy, bilateral hands trigger fingers/thumbs released, benign lymph node bx L4,L5 S1 spinal surgery 04/2017 Past Anesthesia/Blood Transfusion Reactions: No Reported Reaction Additional Past Anesthesia/Blood Transfusion Reaction / Comment(s): Pt received blood in the s without reaction. Date of Last Stent Placement:: 2004 Past Psychological History: Depression Smoking Status: Never smoker Past Alcohol Use History: Rare Past Drug Use History: None Reported - Past Family History Mother Family Medical History: Chest Pain / Angina, Coronary Artery Disease (CAD), CVA/TIA, Hypertension, Musculoskeletal Disorder Father Family Medical History: Coronary Artery Disease (CAD) Additional Family Medical History / Comment(s): cabg Brother(s) Family Medical History: Coronary Artery Disease (CAD) Sister(s) Family Medical History: Coronary Artery Disease (CAD) Additional Family Medical History / Comment(s): pulmonary hypertension Daughter(s) Family Medical History: No Reported History Medications and Allergies Home Medications Medication Instructions Recorded Confirmed Type Aspirin EC [Ecotrin Low Dose] 81 mg PO DAILY 10/15/14 01/02/23 History Cyanocobalamin [Vitamin B-12] 1,000 mcg PO DAILY 10/15/14 01/02/23 History Furosemide [Lasix] 20 mg PO BID 10/15/14 01/02/23 History Levothyroxine Sodium [Synthroid] 50 mcg PO DAILY 10/15/14 01/02/23 History Nitroglycerin Sl Tabs [Nitrostat] 0.4 mg SUBLINGUAL Q5M PRN 10/15/14 01/02/23 History metFORMIN HCL [Glucophage] 500 mg PO DAILY 10/15/14 01/02/23 History Omeprazole 20 mg PO BID 04/23/16 01/02/23 History QUEtiapine FUMARATE [SEROquel] 50 mg PO HS 04/23/16 01/02/23 History Gabapentin [Neurontin] 300 mg PO TID 01/02/18 01/02/23 History Calcium Carbonate/Vitamin D3 2 cap PO DAILY 01/25/18 01/02/23 History [Calcium 600-Vit D3 12.5 Mcg (500 Iu)] Apixaban [Eliquis] 5 mg PO BID 11/14/22 01/02/23 History Ascorbic Acid [Vitamin C] 1,000 mg PO DAILY 11/14/22 01/02/23 History Atorvastatin [Lipitor] 40 mg PO HS 11/14/22 01/02/23 History Cholecalciferol [Vitamin D3 (25 25 mcg PO DAILY 11/14/22 01/02/23 History Mcg = 1000 Iu)] Citalopram Hydrobromide [CeleXA] 40 mg PO DAILY 11/14/22 01/02/23 History Fluticasone Nasal [place] [Flonase 1 spray EA NOSTRIL DAILY PRN 11/14/22 01/02/23 History Nasal [place]] Ipratropium-Albuterol Nebulize 3 ml INHALATION RT-QID PRN 11/14/22 01/02/23 History [Duoneb 0.5 mg-3 mg/3 ml Soln] Magnesium Oxide [Mag-Ox] 400 mg PO DAILY 11/14/22 01/02/23 History Meclizine [Antivert] 12.5 mg PO TID PRN 11/14/22 01/02/23 History Melatonin 20 mg PO HS 11/14/22 01/02/23 History Potassium Chloride ER [K-Dur 20] 20 meq PO DAILY 11/14/22 01/02/23 History QUEtiapine [SEROquel] 25 mg PO DAILY 11/14/22 01/02/23 History Sucralfate [Carafate] 1 gm PO BID 11/14/22 01/02/23 History Acetaminophen Tab [Tylenol] 325 mg PO Q6H #30 tab 11/15/22 01/02/23 Rx Midodrine [ProAmatine] 5 mg PO TID 01/02/23 01/02/23 History Allergies Allergy/AdvReac Type Severity Reaction Status Date / Time latex Allergy Rash/Hives Verified 01/02/23 14:26 venom-honey bee Allergy Swelling Verified 01/02/23 14:26 [bee venom (honey bee)] zolpidem tartrate AdvReac Altered Verified 01/02/23 14:26 [From Ambien] Mental Status Physical Exam Vitals: Vital Signs Temp Pulse Pulse Pulse Resp BP BP 01/03/23 02:00 97.5 F L 56 L 16 130/60 01/02/23 20:07 74 01/02/23 20:00 98.2 F 62 18 154/69 01/02/23 19:53 75 01/02/23 16:20 97.5 F L 51 L 16 148/78 01/02/23 15:00 98.3 F 52 L 19 138/55 01/02/23 13:55 52 L 18 161/77 01/02/23 13:06 53 L 18 126/75 01/02/23 12:20 48 L 15 01/02/23 12:10 50 L 17 01/02/23 12:00 50 L 18 140/73 01/02/23 11:30 56 L 18 140/73 01/02/23 11:07 50 L 01/02/23 10:53 97.9 F 60 20 136/70 Pulse Ox 01/03/23 02:00 93 L 01/02/23 20:07 01/02/23 20:00 96 01/02/23 19:53 01/02/23 16:20 97 01/02/23 15:00 95 01/02/23 13:55 97 01/02/23 13:06 95 01/02/23 12:20 95 01/02/23 12:10 95 01/02/23 12:00 95 01/02/23 11:30 100 01/02/23 11:07 01/02/23 10:53 99 Intake and Output 01/02/23 01/03/23 01/03/23 22:59 06:59 14:59 Intake Total 118 Balance 118 Intake: Oral 118 Other: Voiding Method Toilet # Voids 1 1 Results 01/02/23 11:25 01/02/23 11:25 Cardiac Enzymes 01/02/23 01/02/23 01/02/23 Range/Units 11:25 11:25 14:48 AST 28 (14-36) U/L Troponin I <0.012 <0.012 (0.000-0.034) ng/mL 01/02/23 Range/Units 17:31 AST (14-36) U/L Troponin I <0.012 (0.000-0.034) ng/mL Coagulation 01/02/23 Range/Units 11:25 PT 11.3 (10.0-12.5) sec APTT 25.8 (22.0-30.0) sec CBC 01/02/23 Range/Units 11:25 WBC 5.3 (3.8-10.6) k/uL RBC 3.78 L (3.80-5.40) m/uL Hgb 11.6 (11.4-16.0) gm/dL Hct 33.9 L (34.0-46.0) % Plt Count 194 (150-450) k/uL Comprehensive Metabolic Panel 01/02/23 Range/Units 11:25 Sodium 138 (137-145) mmol/L Potassium 3.7 (3.5-5.1) mmol/L Chloride 106 (98-107) mmol/L Carbon Dioxide 19 L (22-30) mmol/L BUN 11 (7-17) mg/dL Creatinine 0.54 (0.52-1.04) mg/dL Glucose 99 (74-99) mg/dL Calcium 9.0 (8.4-10.2) mg/dL AST 28 (14-36) U/L ALT 19 (4-34) U/L Alkaline Phosphatase 69 (38-126) U/L Total Protein 6.7 (6.3-8.2) g/dL Albumin 4.2 (3.5-5.0) g/dL Current Medications Generic Name Dose Route Start Last Admin Trade Name Freq PRN Reason Stop Dose Admin Acetaminophen 325 mg 01/02/23 18:15 01/03/23 05:19 Acetaminophen Tab 325 Mg Tab PO Not Given Q6HR [facility] Hydrocodone Bitart/Acetaminophen 1 each 01/02/23 18:07 Hydrocodone/Apap 5-325mg 1 Each Tab PO Q6HR PRN Pain Albuterol/Ipratropium 3 ml 01/02/23 18:02 01/02/23 19:53 Ipratropium-Albuterol 3 Ml Neb INHALATION 3 ml RT-QID PRN Administration Shortness Of Breath Apixaban 5 mg 01/02/23 21:00 01/02/23 20:26 Apixaban 5 Mg Tab PO 5 mg BID [facility] Administration Protocol Aspirin 81 mg 01/03/23 09:00 Aspirin 81 Mg PO DAILY [facility] Atorvastatin Calcium 40 mg 01/02/23 21:00 01/02/23 20:26 Atorvastatin 40 Mg Tab PO 40 mg HS [facility] Administration Calcium Carbonate 2 each 01/03/23 09:00 Calcium Carb-Vit D 500 Mg-5 Mcg Tab PO DAILY [facility] Cholecalciferol 25 mcg 01/03/23 09:00 Cholecalciferol 25 Mcg (1000 Iu) Tablet PO DAILY [facility] Citalopram Hydrobromide 40 mg 01/03/23 09:00 Citalopram Hydrobromide 20 Mg Tab PO DAILY [facility] Fluticasone Propionate 1 spray 01/02/23 18:02 Fluticasone 50mcg/[place] Nasal 16gm EA NOSTRIL DAILY PRN Allergy Symptoms Furosemide 20 mg 01/02/23 16:00 01/02/23 17:48 Furosemide 20 Mg Tab PO 20 mg BID@0900,1600 [facility] Administration Gabapentin 300 mg 01/02/23 22:00 01/02/23 20:26 Gabapentin 300 Mg Cap PO 300 mg TID [facility] Administration Levothyroxine Sodium 50 mcg 01/03/23 06:30 01/03/23 05:18 Levothyroxine 50 Mcg Tab PO 50 mcg 0630 [facility] Administration Melatonin 10 mg 01/02/23 18:08 Melatonin 5 Mg Tablet PO HS PRN Insomnia Metformin HCl 500 mg 01/03/23 09:00 Metformin 500 Mg Tab PO DAILY [facility] Midodrine 5 mg 01/02/23 18:30 01/03/23 05:19 Midodrine 5 Mg Tab PO Not Given AC-TID [facility] Nitroglycerin 1 inch 01/02/23 18:00 01/03/23 05:19 Nitroglycerin Oint 1 Inch/Gm Packet TOPICAL Not Given Q6HR [facility] Nitroglycerin 0.4 mg 01/02/23 14:39 Nitroglycerin Sl Tabs 0.4 Mg Tab SUBLINGUAL Q5M PRN Chest Pain Potassium Chloride 20 meq 01/03/23 09:00 Potassium Chloride Er 20 Meq Tab.Er PO DAILY [facility] Quetiapine Fumarate 25 mg 01/03/23 09:00 Quetiapine 25 Mg Tab PO DAILY [facility] Quetiapine Fumarate 50 mg 01/02/23 21:00 01/02/23 20:26 Quetiapine 50 Mg Tab PO 50 mg HS [facility] Administration Sucralfate 1 gm 01/02/23 21:00 01/02/23 20:26 Sucralfate 1 Gm Tab PO 1 gm BID NIRAJ Administration Intake and Output 01/02/23 01/03/23 01/03/23 22:59 06:59 14:59 Intake Total 118 Balance 118 Intake: Oral 118 Other: Voiding Method Toilet # Voids 1 1 01/02/23 11:25 01/02/23 11:25
[2023-01-03 11:05] LABS: Chol/HDL Ratio 2.42 Ratio; LDL Cholesterol,Calculated 55.4 mg/dL (0.0-131.0); VLDL Calculation 14.44 mg/dL (5.00-40.00)
--- NOTE | 2023-01-03 11:58 | CA ---
Lexiscan Nuclear Stress Test Report Name: Florence Mason Exam Date: 01/03/2023 10:34 Exam Location: [place] Stress Ht (in): 64 Wt (lb): 142 BSA: 1.69 Ordering Phys: Lindsey Cobb Referring Phys: SHEET,, Technologist: PATRICE BERRY Age: 77 Gender: F : 1945 Procedure CPT: Indications: Reflex order-Stress test ICD-10 Codes: Patient History: CP, AYDIN, PALP, HTN, DM, CVA, FAMILY HX, ID, CATH, 3 PTCA, CABG (3 VESSELS), COPD, ASTHMA Medications: SEE CHART Meds past 24 hrs: Pretest Chest Pain: STRESS TEST Lexiscan Protocol Exercise Duration (min:sec): 02:[address] Depressions (mm): Angina Score: Gómez Score: Resting HR (bpm): 53 Peak HR (bpm): 119 Resting BP (mmHg): 140 / 86 Peak BP (mmHg): 150 / 85 MPHR: 145 Target HR: 123 % MPHR: 82 METS: 1.0 Total Dose: Peak Dose: Atropine: Double Product: 91879 BP Response: Stress Termination: END OF DOSAGE Stress Symptoms: CHEST PAIN AND PRESSURE, WENT AWAY BY END OF TEST Stress Summary: ECG ANALYSIS Resting ECG: Stress ECG: CONCLUSIONS Baseline EKG revealed a normal sinus rhythm with minor nonspecific ST abnormality incomplete right bundle branch block type picture. Nonspecific ST abnormality noted in precordial leads. With Lexiscan and mentation the heart rate changed from 53-103 bpm and blood pressure changed from 140/86-149/74. Patient complained of nondescript chest pressure. EKG remained inconclusive. By EKG criteria this is an inconclusive Lexiscan stress test because of resting EKG changes. The nuclear scan results which are more pertinent will be reported by the radiologist Dr. Kylee Alonzo MD (Electronically Signed) Final Date: 03 January 2023 11:57
[2023-01-03] MEDS: FUROSEMIDE 20 MG TAB PO SCH ×2 (12:04→16:14)
[2023-01-03] MEDS: CITALOPRAM HYDROBROMIDE 20 MG TAB PO SCH (12:04)
[2023-01-03] MEDS: ASPIRIN 81 MG PO SCH (12:04)
[2023-01-03] MEDS: CHOLECALCIFEROL 25 MCG (1000 IU) TABLET PO SCH (12:04)
[2023-01-03] MEDS: CALCIUM CARB-VIT D 500 MG-5 MCG TAB PO SCH (12:04)
[2023-01-03] MEDS: metFORMIN 500 MG TAB PO SCH (12:05)
[2023-01-03] MEDS: APIXABAN 5 MG TAB PO SCH (12:05)
[2023-01-03] MEDS: GABAPENTIN 300 MG CAP PO SCH ×3 (12:05→19:47)
[2023-01-03] MEDS: POTASSIUM CHLORIDE ER 20 MEQ TAB.ER PO SCH (12:06)
[2023-01-03] MEDS: QUEtiapine 25 MG TAB PO SCH (12:06)
[2023-01-03] MEDS: SUCRALFATE 1 GM TAB PO SCH ×2 (12:07→19:47)
[2023-01-03 12:19] LABS: Glucose,Whole Blood 103 mg/dL (70-110)
--- NOTE | 2023-01-03 13:01 | NM ---
EXAMINATION TYPE: NM stress lexiscan cardiolite DATE OF EXAM: 01/03/2023 COMPARISON: NONE CLINICAL INDICATION: Female, 77 years old with history of cp; TECHNIQUE: After the intravenous administration of 9.8 mCi Tc 99m Sestamibi - Cardiolite resting SPE CT images acquired 100 minutes post injection. The patient received 0.4mg Lexiscan, 24.4 mCi Tc 99m Sestamibi - Stress images obtained [address] injection FINDINGS: Review of stress and rest SPECT images demonstrates areas of reversible ischemia involving the peter lateral wall as well as the inferior wall. Fixed defect involving the cardiac apex extending into the lateral wall. Gated analysis shows normal wall motion with an estimated left ventricular ejection fr action of 56 %. IMPRESSION: Areas of reversible ischemia as noted.
[2023-01-03] MEDS ORDERED: ALPRAZolam 0.5 MG TAB PO PRN ×2 (15:20→15:22)
[2023-01-03] MEDS ORDERED: NITROGLYCERIN SL TABS 0.4 MG TAB SUBLINGUAL PRN ×2 (15:20→15:22)
[2023-01-03] MEDS ORDERED: ALPRAZolam 0.25 MG TAB PO PRN (15:22)
--- NOTE | 2023-01-03 15:43 | P.PN ---
Subjective This is a pleasant 77 years old female with past medical history of Asthma, Coronary Artery Disease, Heart Failure, COPD, CVA/TIA, Diabetes Mellitus, GERD/Reflux, Hyperlipidemia, Hypertension, Osteoarthritis, Sleep Apnea/CPAP/BIPAP, Syncope, hypothyroidism Patient presents because of chest pain started this morning in the middle and central was threaded into the left arm in the morning but not anymore. The pain radiated about 8/10 on admission and currently 7/10 felt like sharp, diminutive precipitating factor was movement. Associated with little shortness of breath but not overt dyspnea. Patient is afraid to cough because it will hurt her and her pain is associated with very severe significant tenderness even to simple touch She denies dyspnea currently, no coughing, no change in urine or bowel habits. No fever. Patient is not a smoker, no illicit drugs, she drinks alcohol occasionally. Patient also on the case with lpc team she has history of recurrent syncope and she carries a loop recorder 1 year now, she denies any recent syncope however she got dizzy sometimes. Patient hemodynamically stable Labs are unremarkable including CBC, BMP, liver enzymes and troponin EKG shows sinus bradycardia at 51 Chest x-ray showed chronic changes without acute process. 01/03/2023 Patient still has chest pain in the central left side but is milder than yesterday No other new complaints Patient had abnormal stress test today with area of reversible ischemia. The plan for her to go to cardiac cath on this after holding her Eliquis for tomorrow while placing her on heparin drip. Discussed with staff Review of systems CONSTITUTIONAL: No fever, no malaise, no fatigue. HEENT: No recent visual problems or hearing problems. Denied any sore throat. CARDIOVASCULAR: No orthopnea, PND, no palpitations, no syncope. PULMONARY: No shortness of breath, no cough, no hemoptysis. GASTROINTESTINAL: No diarrhea, no nausea, no vomiting, no abdominal pain. Normoactive bowel sounds. NEUROLOGICAL: No headaches, no weakness, no numbness. Active Medications Generic Name Dose Route Start Last Admin Trade Name Freq PRN Reason Stop Dose Admin Acetaminophen 325 mg 01/02/23 18:15 01/03/23 12:07 Acetaminophen Tab 325 Mg Tab PO Not Given Q6HR [facility] Hydrocodone Bitart/Acetaminophen 1 each 01/02/23 18:07 Hydrocodone/Apap 5-325mg 1 Each Tab PO Q6HR PRN Pain Albuterol/Ipratropium 3 ml 01/02/23 18:02 01/02/23 19:53 Ipratropium-Albuterol 3 Ml Neb INHALATION 3 ml RT-QID PRN Administration Shortness Of Breath Alprazolam 0.25 mg 01/03/23 15:20 Alprazolam 0.25 Mg Tab PO Q6HR PRN Mild Anxiety Alprazolam 0.5 mg 01/03/23 15:20 Alprazolam 0.5 Mg Tab PO Q6HR PRN Moderate Anxiety Aspirin 81 mg 01/03/23 09:00 01/03/23 12:04 Aspirin 81 Mg PO 81 mg DAILY NIRAJ Administration Aspirin 325 mg 01/04/23 05:00 Aspirin 325 Mg Tab PO 01/04/23 05:01 ONCE ONE Atorvastatin Calcium 40 mg 01/02/23 21:00 01/02/23 20:26 Atorvastatin 40 Mg Tab PO 40 mg HS NIRAJ Administration Atorvastatin Calcium 80 mg 01/04/23 05:00 Atorvastatin 80 Mg Tab PO 01/04/23 05:01 ONCE ONE Calcium Carbonate 2 each 01/03/23 09:00 01/03/23 12:04 Calcium Carb-Vit D 500 Mg-5 Mcg Tab PO 2 each DAILY NIRAJ Administration Cholecalciferol 25 mcg 01/03/23 09:00 01/03/23 12:04 Cholecalciferol 25 Mcg (1000 Iu) Tablet PO 25 mcg DAILY [facility]AJ Administration Citalopram Hydrobromide 40 mg 01/03/23 09:00 01/03/23 12:04 Citalopram Hydrobromide 20 Mg Tab PO 40 mg DAILY [facility] Administration Fluticasone Propionate 1 spray 01/02/23 18:02 Fluticasone 50mcg/[place] Nasal 16gm EA NOSTRIL DAILY PRN Allergy Symptoms Furosemide 20 mg 01/02/23 16:00 01/03/23 12:04 Furosemide 20 Mg Tab PO 20 mg BID@0900,1600 NIRAJ Administration Gabapentin 300 mg 01/02/23 22:00 01/03/23 12:05 Gabapentin 300 Mg Cap PO 300 mg TID NIRAJ Administration Heparin Sodium (Porcine) 10, 1,001 mls @ 999 mls/hr 01/04/23 07:00 000 unit/ Sodium Chloride IRRIGATION 01/04/23 23:00 ONCE PRN INTRA-OP Heparin Sodium (Porcine) 2,500 250.5 mls @ 250 mls/hr 01/04/23 07:00 unit/ Sodium Chloride IRRIGATION 01/04/23 23:00 ONCE PRN INTRA-OP Sodium Chloride 1,000 ml/ IV 1,000 mls @ 64.864 mls/hr 01/03/23 15:30 Solution IV .[id number] NIRAJ 1 ML/KG/HR Levothyroxine Sodium 50 mcg 01/03/23 06:30 01/03/23 05:18 Levothyroxine 50 Mcg Tab PO 50 mcg 0630 NIRAJ Administration Melatonin 10 mg 01/02/23 18:08 Melatonin 5 Mg Tablet PO HS PRN Insomnia Metformin HCl 500 mg 01/03/23 09:00 01/03/23 12:05 Metformin 500 Mg Tab PO 500 mg DAILY [facility] Administration Midodrine 5 mg 01/02/23 18:30 01/03/23 12:05 Midodrine 5 Mg Tab PO 5 mg AC-TID NIRAJ Administration Nitroglycerin 1 inch 01/02/23 18:00 01/03/23 12:07 Nitroglycerin Oint 1 Inch/Gm Packet TOPICAL Not Given Q6HR [facility] Nitroglycerin 0.4 mg 01/02/23 14:39 Nitroglycerin Sl Tabs 0.4 Mg Tab SUBLINGUAL Q5M PRN Chest Pain Nitroglycerin 0.4 mg 01/03/23 15:20 Nitroglycerin Sl Tabs 0.4 Mg Tab SUBLINGUAL Q5M PRN Chest Pain Potassium Chloride 20 meq 01/03/23 09:00 01/03/23 12:06 Potassium Chloride Er 20 Meq Tab.Er PO 20 meq DAILY NIRAJ Administration Quetiapine Fumarate 25 mg 01/03/23 09:00 01/03/23 12:06 Quetiapine 25 Mg Tab PO 25 mg DAILY NIRAJ Administration Quetiapine Fumarate 50 mg 01/02/23 21:00 01/02/23 20:26 Quetiapine 50 Mg Tab PO 50 mg HS NIRAJ Administration Sucralfate 1 gm 01/02/23 21:00 01/03/23 12:07 Sucralfate 1 Gm Tab PO 1 gm BID NIRAJ Administration Objective - Vital Signs Vital signs: Vital Signs Temp 98 F 01/03/23 14:16 Pulse 56 L 01/03/23 14:16 Resp 19 01/03/23 14:16 BP 143/63 01/03/23 14:16 Pulse Ox 97 01/03/23 14:16 FiO2 Intake & Output 01/02/23 01/03/23 01/03/23 18:59 06:59 18:59 Intake Total 118 118 Balance 118 118 Weight 64.864 kg Intake: Oral 118 118 Other: Voiding Method Toilet # Voids 1 3 - Exam GENERAL: The patient is alert and oriented x3, not in any acute distress. Well developed, well nourished. HEENT: Pupils are round and equally reacting to light. EOMI. No scleral icterus. No conjunctival pallor. Normocephalic, atraumatic. No pharyngeal erythema. No thyromegaly. CARDIOVASCULAR: S1 and S2 present. No murmurs, rubs, or gallops. PULMONARY: Chest is clear to auscultation, no wheezing , no crackles. ABDOMEN: Soft, nontender, nondistended, normoactive bowel sounds. No palpable organomegaly. MUSCULOSKELETAL: No joint swelling or deformity. EXTREMITIES: No cyanosis, clubbing, or pedal edema. NEUROLOGICAL: Gross neurological examination did not reveal any focal deficits. SKIN: No rashes. no petechiae. - Labs CBC & Chem 7: 01/02/23 11:25 01/02/23 11:25 Labs: Abnormal Lab Results - Last 24 Hours (Table) 01/02/23 Range/Units 20:18 POC Glucose (mg/dL) 113 H (70-110) mg/dL Assessment and Plan Assessment: Chest pain, rule out cardiac causes, with stress test showing areas of reversible ischemia Sinus bradycardia, asymptomatic History of syncope status post loop recorder 1 year that follow up with lpc as an outpatient Hyperlipidemia Chronic anemia Hypothyroidism Chronic heart failure History of coronary artery disease History of CVA/TIA on COPD, no acute exacerbation Sleep apnea Plan: Continue with aspirin home dose 81 mg hold Eliquis, start heparin drip Cardiac cath on Cardiology consult Pain management Labs and medication were reviewed.. Continue same treatment. Continue with symptomatic treatment. Resume home medication. Monitor labs and vitals. DVT and GI prophylaxis. Further recommendations as per clinical course of the patient DVT prophylaxis heparin I prophylaxis: Pepcid
[2023-01-03] MEDS: SODIUM CHLORIDE 0.9% 1,000 ML in EMPTY BAG 1 BAG IV SCH (16:03)
[2023-01-03 17:49] LABS: Glucose,Whole Blood 91 mg/dL (70-110)
[2023-01-03] MEDS: QUEtiapine 50 MG TAB PO SCH (19:47)
[2023-01-03] MEDS: ATORVASTATIN 40 MG TAB PO SCH (19:47)
[2023-01-03] MEDS: HYDROcodone/APAP 5-325MG 1 EACH TAB PO PRN (19:47)
[2023-01-03 21:31] LABS: Glucose,Whole Blood 108 mg/dL (70-110)
[2023-01-04] MEDS: ACETAMINOPHEN TAB 325 MG TAB PO SCH ×4 (00:24→18:24)
[2023-01-04] MEDS: NITROGLYCERIN OINT 1 INCH/GM PACKET TOPICAL SCH ×4 (00:24→18:24)
[2023-01-04] MEDS ORDERED: ASPIRIN 325 MG TAB PO ONE (05:00)
[2023-01-04] MEDS ORDERED: ATORVASTATIN 80 MG TAB PO ONE (05:00)
[2023-01-04] MEDS: LEVOTHYROXINE 50 MCG TAB PO SCH (05:33)
[2023-01-04] MEDS: MIDODRINE 5 MG TAB PO SCH ×3 (05:35→17:43)
[2023-01-04 06:18] LABS: Glucose,Whole Blood 124 mg/dL (70-110)
[2023-01-04] MEDS ORDERED: HEPARIN SODIUM,PORCINE (1 ML) 2,500 UNIT in SODIUM CHLORIDE 0.9% 250 ML IRRIGATION PRN ×4 (07:00)
[2023-01-04] MEDS ORDERED: HEPARIN SODIUM,PORCINE 10,000 UNIT in SODIUM CHLORIDE 0.9% 1,000 ML IRRIGATION PRN ×4 (07:00)
--- NOTE | 2023-01-04 08:19 | P.PN ---
Subjective Progress Note Date: 01/04/23 History of present illness: This is a 77-year-old female patient of Dr. Jae Santiago with past medical history of hypertension, paroxysmal atrial fibrillation, coronary artery disease with previous bypass in 1997 with MORENO to LAD and radial artery graft to the obtuse marginal, hyperlipidemia. We have been asked to evaluate the patient for chest pain. Patient had a recent hospitalization at the end of October which time she was seen for atypical chest pain was advised to follow-up with Dr. Jae Santiago in the office in one to 2 weeks. Patient was seen in the office on 11/24 and was to be scheduled for Lexiscan stress test. Patient presented to [facility] yesterday due to chest pain worsening. It is on the right side of the sternal border nonradiating. She states she also had dizziness and palpitations. No abdominal symptoms no nausea vomiting diarrhea. EKG sinus bradycardia no acute ST-T wave changes. Chest x-ray: No acute findings Troponin negative 3. WBC 5.3, hemoglobin 11.6. Electrolytes unremarkable. CO2 is 19, creatinine 0.54. Blood sugar 113. Liver function tests are normal. Magnesium 1.4. Home cardiac medications: Eliquis 5 mg twice daily, aspirin 81 mg daily, Lipitor 40 mg at bedtime, Lasix 20 mg twice daily, levothyroxine 50 g daily, Nitrostat as needed, potassium chloride 20 mEq daily. Cardiac catheterization 2012 EF was 55%, patent MORENO to LAD, patent radial to OM1. Echocardiogram 05/2021 revealed EF of 20%, no pulmonary hypertension. 01/04 Yesterday, patient underwent Lexiscan stress test that did show areas of reversible ischemia. Results have been reviewed with the patient and if she is agreeable to proceed with cardiac catheterization. Heart rate has been in the 50s, blood pressure 118/61, pulse ox 97% on room air. Patient's eliquis was placed on hold and she is scheduled for cardiac catheterization on with Dr. SUSANNA Alonzo. Physical examination: Gen: This is a 77-year-old female. She is resting bed appears comfortable and in no acute distress. VS: reviewed 116/75, heart rate 84, afebrile, pulse ox 93% on room air HEENT: Head is atraumatic, normocephalic. Pupils equal, round. Sclerae is anicteric. LUNGS: Clear to auscultation. No wheezes or rhonchi. No intercostal retractions. HEART: Regular rate and rhythm. No murmur. EXTREMITIES: No pedal edema. No calf tenderness. NEUROLOGICAL: Patient is awake, alert and oriented x3. Assessment: Atypical chest pain, acute coronary syndrome ruled out History of coronary artery disease with previous bypass Paroxysmal atrial fibrillation Hyperlipidemia Plan: Resume patient's home cardiac medications Hold eliquis Patient is scheduled for cardiac catheterization on with Dr. SUSANNA Alonzo. Obtain 2-D echocardiogram today. Nurse practitioner note has been reviewed, I agree with documented findings and plan of care. Patient was seen and examined. Objective - Vital Signs Vital signs: Vital Signs Temp 97.7 F 01/04/23 06:55 Pulse 50 L 01/04/23 06:55 Resp 15 01/04/23 06:55 BP 118/61 01/04/23 06:55 Pulse Ox 97 01/04/23 06:55 FiO2 Intake & Output 01/03/23 01/04/23 01/04/23 18:59 06:59 18:59 Intake Total 618 Balance 618 Intake: Oral 618 Other: Voiding Method Toilet # Voids 3 1 - Labs CBC & Chem 7: 01/02/23 11:25 01/02/23 11:25 Labs: Abnormal Lab Results - Last 24 Hours (Table) 01/04/23 Range/Units 06:17 POC Glucose (mg/dL) 124 H (70-110) mg/dL
[2023-01-04 08:25] LABS: Basophils # (A) 0.05 X 10*3/uL (0.00-0.10); Basophils % (A) 0.9 %; Eosinophils # (A) 0.18 X 10*3/uL (0.04-0.35); Eosinophils % (A) 3.3 %; HGB 11.7 g/dL (12.0-15.0); Lymphocytes # (A) 1.65 X 10*3/uL (0.90-5.00); Lymphocytes % (A) 30.6 %; MCH 30.9 pg (27.0-32.0); MCHC 33.4 g/dL (32.0-37.0); MCV 92.3 FL (80.0-97.0); Mean Platelet Volume 9.1 FL (9.5-12.2); Monocytes # (A) 0.73 X 10*3/uL (0.20-1.00); Monocytes % (A) 13.5 %; NRBC Per 100 WBC 0 X 10*3/uL (0.00-0.01); Neutrophils # (A) 2.76 X 10*3/uL (1.80-7.70); Neutrophils % (A) 51.3 %; Platelet Count 208 X 10*3/uL (140-440); RBC 3.79 X 10*6/uL (4.10-5.20); RDW 13.1 % (11.5-14.5); WBC 5.39 X 10*3/uL (4.50-10.00)
[2023-01-04] MEDS: ASPIRIN 81 MG PO SCH (08:29)
[2023-01-04] MEDS: CALCIUM CARB-VIT D 500 MG-5 MCG TAB PO SCH (08:29)
[2023-01-04] MEDS: CHOLECALCIFEROL 25 MCG (1000 IU) TABLET PO SCH (08:30)
[2023-01-04] MEDS: CITALOPRAM HYDROBROMIDE 20 MG TAB PO SCH (08:30)
[2023-01-04] MEDS: POTASSIUM CHLORIDE ER 20 MEQ TAB.ER PO SCH (08:31)
[2023-01-04] MEDS: GABAPENTIN 300 MG CAP PO SCH ×3 (08:31→21:11)
[2023-01-04] MEDS: FUROSEMIDE 20 MG TAB PO SCH ×2 (08:31→17:43)
[2023-01-04] MEDS: metFORMIN 500 MG TAB PO SCH (08:31)
[2023-01-04] MEDS: QUEtiapine 25 MG TAB PO SCH (08:32)
[2023-01-04 08:58] LABS: Blood Urea Nitrogen 19.2 mg/dL (9.0-27.0); Calcium 9.2 mg/dL (8.7-10.3); Carbon Dioxide 27.6 mmol/L (21.6-31.8); Chloride 105 mmol/L (96-109); Glucose 111 mg/dL (70-110); Potassium 4.3 mmol/L (3.5-5.5); Sodium 143 mmol/L (135-145)
[2023-01-04] MEDS: ALPRAZolam 0.25 MG TAB PO PRN ×2 (10:10→12:11)
[2023-01-04] MEDS: SUCRALFATE 1 GM TAB PO SCH ×2 (10:14→21:11)
--- NOTE | 2023-01-04 10:48 | CA ---
Transthoracic Echo Report Name: Florence Mason Age: 77 Gender: F : 1945 Exam Date: 01/04/2023 08:55 Exam Location: [facility] Ht (in): 63 Wt (lb): 143 Ordering Physician: Lindsey Cobb Attending/Referring Phys: [id number], Reza Glass Blower Kelin Villeda RDCS Procedure CPT: Indications: LVF Cardiac Hx: Technical Quality: Fair Contrast 1: Total Dose (mL): Contrast 2: Total Dose (mL): MEASUREMENTS (Male / Female) Normal Values 2D ECHO LV Diastolic Diameter PLAX 4.3 cm 4.2 - 5.9 / 3.9 - 5.3 cm LV Systolic Diameter PLAX 3.0 cm IVS Diastolic Thickness 1.4 cm 0.6 - 1.0 / 0.6 - 0.9 cm LVPW Diastolic Thickness 1.4 cm 0.6 - 1.0 / 0.6 - 0.9 cm LV Relative Wall Thickness 0.6 RV Internal Dim ED PLAX 3.6 cm LVOT Diameter 1.9 cm LA Volume 47.3 cm??? 18 - 58 / 22 - 52 cm??? LA Volume Index 27.7 cm???/m??? 16 - 28 cm???/m??? M-MODE Aortic Root Diameter MM 3.0 cm LA Systolic Diameter MM 4.6 cm LA Ao Ratio MM 1.5 AV Cusp Separation MM 2.0 cm DOPPLER AV Peak Velocity 196.0 cm/s AV Peak Gradient 15.4 mmHg AV Mean Velocity 125.3 cm/s AV Mean Gradient 7.4 mmHg AV Velocity Time Integral 42.6 cm LVOT Peak Velocity 89.0 cm/s LVOT Peak Gradient 3.2 mmHg LVOT Velocity Time Integral 20.1 cm LVOT Stroke Volume 59.7 cm??? LVOT Stroke Volume Index 35.6 ml/m??? LVOT Cardiac Index 3628.2 cm???/min???m??? AV Area Cont Eq vti 1.4 cm??? AV Area Cont Eq pk 1.3 cm??? MV Area PHT 2.1 cm??? Mitral E Point Velocity 66.8 cm/s Mitral A Point Velocity 97.7 cm/s Mitral E to A Ratio 0.7 MV Deceleration Time 360.7 ms MV E' Velocity 4.2 cm/s Mitral E to MV E' Ratio 16.0 TR Peak Velocity 192.7 cm/s TR Peak Gradient 14.9 mmHg Right Ventricular Systolic Press 19.7 mmHg FINDINGS Left Ventricle Moderately increased left ventricular wall thickness. Left ventricular cavity size normal. Hypokinetic Anterior apical wall motion. Left ventricular ejection fraction is estimated at 50 %. Atypical septal motion Right Ventricle Normal right ventricular size and function. Right ventricular systolic pressure within normal limits. Right Atrium Normal right atrial size. Left Atrium Normal left atrial size. Mitral Valve Structurally normal mitral valve. Mild mitral annular calcification. Trace mitral regurgitation. Aortic Valve Trileaflet aortic valve. No aortic valve stenosis or regurgitation. Tricuspid Valve Structurally normal tricuspid valve. Mild tricuspid regurgitation. Pulmonic Valve Trace pulmonic regurgitation. Pericardium No pericardial effusion. Aorta Normal size aortic root and proximal ascending aorta. CONCLUSIONS Normal LV size concentric LVH of a mild to moderate degree with the distal anteroapical hypokinesia atypical septal motion. Mild mitral and tricuspid regurgitation. No pericardial effusion no pulmonary hypertension Previewed by: Dr. Kylee Alonzo MD (Electronically Signed) Final Date: 04 January 2023 10:47
[2023-01-04] MEDS: SODIUM CHLORIDE 0.9% 1,000 ML in EMPTY BAG 1 BAG IV SCH ×2 (11:27→21:11)
[2023-01-04 12:24] LABS: Glucose,Whole Blood 98 mg/dL (70-110)
[2023-01-04 17:10] LABS: Glucose,Whole Blood 96 mg/dL (70-110)
[2023-01-04] MEDS: ATORVASTATIN 40 MG TAB PO SCH (21:10)
[2023-01-04] MEDS: QUEtiapine 50 MG TAB PO SCH (21:11)
[2023-01-04 21:22] LABS: Glucose,Whole Blood 105 mg/dL (70-110)
[2023-01-05] MEDS: ACETAMINOPHEN TAB 325 MG TAB PO SCH ×4 (00:30→19:50)
[2023-01-05] MEDS: NITROGLYCERIN OINT 1 INCH/GM PACKET TOPICAL SCH ×5 (00:30→23:14)
[2023-01-05] MEDS: ASPIRIN 81 MG PO SCH ×2 (05:45→05:46)
[2023-01-05] MEDS: LEVOTHYROXINE 50 MCG TAB PO SCH (05:46)
[2023-01-05] MEDS: MIDODRINE 5 MG TAB PO SCH ×3 (05:46→18:31)
[2023-01-05] MEDS ORDERED: ASPIRIN 325 MG TAB PO ONE (06:00)
[2023-01-05] MEDS ORDERED: ATORVASTATIN 80 MG TAB PO ONE (06:00)
--- NOTE | 2023-01-05 06:27 | P.PN ---
Subjective This is a pleasant 77 years old female with past medical history of Asthma, Coronary Artery Disease, Heart Failure, COPD, CVA/TIA, Diabetes Mellitus, GERD/Reflux, Hyperlipidemia, Hypertension, Osteoarthritis, Sleep Apnea/CPAP/BIPAP, Syncope, hypothyroidism Patient presents because of chest pain started this morning in the middle and central was threaded into the left arm in the morning but not anymore. The pain radiated about 8/10 on admission and currently 7/10 felt like sharp, diminutive precipitating factor was movement. Associated with little shortness of breath but not overt dyspnea. Patient is afraid to cough because it will hurt her and her pain is associated with very severe significant tenderness even to simple touch She denies dyspnea currently, no coughing, no change in urine or bowel habits. No fever. Patient is not a smoker, no illicit drugs, she drinks alcohol occasionally. 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 Patient hemodynamically stable Labs are unremarkable including CBC, BMP, liver enzymes and troponin EKG shows sinus bradycardia at 51 Chest x-ray showed chronic changes without acute process. 01/03/2023 Patient still has chest pain in the central left side but is milder than yesterday No other new complaints Patient had abnormal stress test today with area of reversible ischemia. The plan for her to go to cardiac cath on this after holding her Eliquis for tomorrow while placing her on heparin drip. Discussed with staff 01/04/2023 Patient presents with chest pain Cartilage on the case. Eliquis on hold in plan for cardiac cath on 01/05 Exam showed ejection fraction of 50% with anterior apical hypokinesia Patient is an acceptable risk to proceed with cardiac cath with benefits more the risks Review of systems CONSTITUTIONAL: No fever, no malaise, no fatigue. HEENT: No recent visual problems or hearing problems. Denied any sore throat. CARDIOVASCULAR: No orthopnea, PND, no palpitations, no syncope. PULMONARY: No shortness of breath, no cough, no hemoptysis. GASTROINTESTINAL: No diarrhea, no nausea, no vomiting, no abdominal pain. Normoactive bowel sounds. Active Medications Generic Name Dose Route Start Last Admin Trade Name Freq PRN Reason Stop Dose Admin Acetaminophen 325 mg 01/02/23 18:15 01/05/23 05:44 Acetaminophen Tab 325 Mg Tab PO 325 mg Q6HR NIRAJ Administration Hydrocodone Bitart/Acetaminophen 1 each 01/02/23 18:07 01/03/23 19:47 Hydrocodone/Apap 5-325mg 1 Each Tab PO 1 each Q6HR PRN Administration Pain Albuterol/Ipratropium 3 ml 01/02/23 18:02 01/02/23 19:53 Ipratropium-Albuterol 3 Ml Neb INHALATION 3 ml RT-QID PRN Administration Shortness Of Breath Alprazolam 0.25 mg 01/03/23 15:20 01/04/23 12:11 Alprazolam 0.25 Mg Tab PO 0.25 mg Q6HR PRN Administration Mild Anxiety Alprazolam 0.5 mg 01/03/23 15:20 Alprazolam 0.5 Mg Tab PO Q6HR PRN Moderate Anxiety Aspirin 81 mg 01/03/23 09:00 01/05/23 05:46 Aspirin 81 Mg PO Not Given DAILY NIRAJ Atorvastatin Calcium 40 mg 01/02/23 21:00 01/04/23 21:10 Atorvastatin 40 Mg Tab PO 40 mg HS NIRAJ Administration Calcium Carbonate 2 each 01/03/23 09:00 01/04/23 08:29 Calcium Carb-Vit D 500 Mg-5 Mcg Tab PO 2 each DAILY NIRAJ Administration Cholecalciferol 25 mcg 01/03/23 09:00 01/04/23 08:30 Cholecalciferol 25 Mcg (1000 Iu) Tablet PO 25 mcg DAILY NIRAJ Administration Citalopram Hydrobromide 40 mg 01/03/23 09:00 01/04/23 08:30 Citalopram Hydrobromide 20 Mg Tab PO 40 mg DAILY NIRAJ Administration Fluticasone Propionate 1 spray 01/02/23 18:02 Fluticasone 50mcg/[place] Nasal 16gm EA NOSTRIL DAILY PRN Allergy Symptoms Furosemide 20 mg 01/02/23 16:00 01/04/23 17:43 Furosemide 20 Mg Tab PO 20 mg BID@0900,1600 NIRAJ Administration Gabapentin 300 mg 01/02/23 22:00 01/04/23 21:11 Gabapentin 300 Mg Cap PO 300 mg TID NIRAJ Administration Sodium Chloride 1,000 ml/ IV 1,000 mls @ 64.864 mls/hr 01/03/23 15:30 01/04/23 21:11 Solution IV 64.864 mls/hr .[id number] NIRAJ Administration 1 ML/KG/HR Levothyroxine Sodium 50 mcg 01/03/23 06:30 01/05/23 05:46 Levothyroxine 50 Mcg Tab PO 50 mcg 0630 NIRAJ Administration Melatonin 10 mg 01/02/23 18:08 Melatonin 5 Mg Tablet PO HS PRN Insomnia Metformin HCl 500 mg 01/03/23 09:00 01/04/23 08:31 Metformin 500 Mg Tab PO 500 mg DAILY NIRAJ Administration Midodrine 5 mg 01/02/23 18:30 01/05/23 05:46 Midodrine 5 Mg Tab PO 5 mg AC-TID NIRAJ Administration Nitroglycerin 1 inch 01/02/23 18:00 01/05/23 05:46 Nitroglycerin Oint 1 Inch/Gm Packet TOPICAL Not Given Q6HR NIRAJ Nitroglycerin 0.4 mg 01/02/23 14:39 Nitroglycerin Sl Tabs 0.4 Mg Tab SUBLINGUAL Q5M PRN Chest Pain Nitroglycerin 0.4 mg 01/03/23 15:20 Nitroglycerin Sl Tabs 0.4 Mg Tab SUBLINGUAL Q5M PRN Chest Pain Potassium Chloride 20 meq 01/03/23 09:00 01/04/23 08:31 Potassium Chloride Er 20 Meq Tab.Er PO 20 meq DAILY NIRAJ Administration Quetiapine Fumarate 25 mg 01/03/23 09:00 01/04/23 08:32 Quetiapine 25 Mg Tab PO 25 mg DAILY NIRAJ Administration Quetiapine Fumarate 50 mg 01/02/23 21:00 01/04/23 21:11 Quetiapine 50 Mg Tab PO 50 mg HS NIRAJ Administration Sucralfate 1 gm 01/02/23 21:00 01/04/23 21:11 Sucralfate 1 Gm Tab PO 1 gm BID NIRAJ Administration Objective - Vital Signs Vital signs: Vital Signs Temp 97.7 F 01/04/23 06:55 Pulse 50 L 01/04/23 06:55 Resp 15 01/04/23 06:55 BP 118/61 01/04/23 06:55 Pulse Ox 97 01/04/23 06:55 FiO2 Intake & Output 01/03/23 01/04/23 01/04/23 18:59 06:59 18:59 Intake Total 618 236 Balance 618 236 Intake: Oral 618 236 Other: Voiding Method Toilet # Voids 3 1 - Exam GENERAL: The patient is alert and oriented x3, not in any acute distress. Well developed, well nourished. HEENT: Pupils are round and equally reacting to light. EOMI. No scleral icterus. No conjunctival pallor. Normocephalic, atraumatic. No pharyngeal erythema. No thyromegaly. CARDIOVASCULAR: S1 and S2 present. No murmurs, rubs, or gallops. PULMONARY: Chest is clear to auscultation, no wheezing , no crackles. ABDOMEN: Soft, nontender, nondistended, normoactive bowel sounds. No palpable organomegaly. MUSCULOSKELETAL: No joint swelling or deformity. EXTREMITIES: No cyanosis, clubbing, or pedal edema. NEUROLOGICAL: Gross neurological examination did not reveal any focal deficits. SKIN: No rashes. no petechiae. - Labs CBC & Chem 7: 01/04/23 05:32 01/04/23 05:32 Labs: Abnormal Lab Results - Last 24 Hours (Table) 01/04/23 01/04/23 01/04/23 Range/Units 05:32 05:32 06:17 RBC 3.79 L (4.10-5.20) X 10*6/uL Hgb 11.7 L (12.0-15.0) g/dL Hct 35.0 L (37.2-46.3) % MPV 9.1 L (9.5-12.2) FL BUN/Creatinine Ratio 24.00 H (12.00-20.00) Ratio Glucose 111 H (70-110) mg/dL POC Glucose (mg/dL) 124 H (70-110) mg/dL Assessment and Plan Assessment: Chest pain, rule out cardiac causes, with stress test showing areas of reversible ischemia Sinus bradycardia, asymptomatic History of syncope status post loop recorder 1 year that follow up with criminal defense lawyer as an outpatient Hyperlipidemia Chronic anemia Hypothyroidism Chronic heart failure History of coronary artery disease History of CVA/TIA on COPD, no acute exacerbation Sleep apnea Plan: Continue with aspirin home dose 81 mg hold Eliquis, patient on moderate risk during the procedure of cardiac cath Cardiac cath on 01/05 Cardiology consult Pain management Labs and medication were reviewed.. Continue same treatment. Continue with symptomatic treatment. Resume home medication. Monitor labs and vitals. DVT and GI prophylaxis. Further recommendations as per clinical course of the patient DVT prophylaxis heparin I prophylaxis: Pepcid
[2023-01-05] MEDS ORDERED: IV FLUID CONTINUATION 1,000 ML IV ONE (09:19)
[2023-01-05] MEDS: MIDAZOLAM 2 MG/2 ML VIAL IVP ONE ×2 (09:36→09:43)
[2023-01-05] MEDS ORDERED: LIDOCAINE 1% INJ 10MG/ML (20 ML MDV) SQ ONE (09:42)
[2023-01-05] MEDS ORDERED: IOPAMIDOL-370 100ML BTL INJ ONE ×2 (10:09→10:20)
--- NOTE | 2023-01-05 11:16 | CC ---
CARDIAC CATHETERIZATION REPORT PROCEDURES PERFORMED: Left heart catheterization and coronary angiography and selective injection of bypass grafts. PERFORMED BY: Dr. Diya Alonzo. ANESTHESIA: Moderate conscious sedation time was 39 minutes. The patient was administered Versed. Oxygen saturation, hemodynamics, and EKG were monitored closely. CLINICAL INFORMATION: Florence Mason is a 77-year-old lady with a history of CAD, who had a two-vessel bypass in 1997, in [place] with MORENO to LAD and a free radial artery graft to the obtuse marginal branch of circumflex. RCA was not grafted. It was unclear if there was a third graft or not. However, I performed a cardiac cath in 2012. At that time, both these grafts are open and she had no disease in the RCA. She came to the hospital with episode of chest pain, had a positive stress test with evidence of reversibility in the anteroapical area, and advised cardiac cath based on these findings. The risks, benefits, options, and rationale were explained. DESCRIPTION OF PROCEDURE: Under local anesthesia and strict aseptic precautions, a 6-[place] introducer was placed in the right femoral artery. I used a standard left [place] catheter to perform selective coronary angiography of the left system. A [place] catheter was used to perform selective coronary angiography of the MORENO graft. A standard right diagnostic catheter was used to perform selective coronary angiography of the right coronary artery, and I used an AR2 catheter to perform selective coronary angiography of the arterial radial artery graft to the obtuse marginal. The pigtail was used to check LV pressures. LV- gram was not performed. The sheath was taken out, and Angio-Seal device was used to secure hemostasis, and she was sent to the room in a stable condition. The findings, results, and recommendations were discussed with the patient as well as her . CARDIAC CATHETERIZATION FINDINGS: The left ventricular end-diastolic pressure was 10 mmHg without any gradient across the aortic valve. CORONARY ANGIOGRAPHY FINDINGS: Right coronary artery is dominant vessel. No significant disease. Distally bifurcates into large PDA and PLV, and the distal branches of the RCA seem to supply the distal LAD. No significant disease other than minor irregularities in the very dominant RCA. Left main coronary artery short, patent vessel. No significant disease. Apparently, there was disease in left main, therefore, surgery was performed, but I do not see anything no more than 50% to 20% narrowing and bifurcates into LAD and circumflex. Left anterior descending coronary artery. Good caliber vessel extends along the anterior wall. It gives off septal and diagonal branches. The distal 1/4 of the LAD is diffusely diseased, compared to the previous study, the disease is more in the distal LAD in the anteroapical area. It gives off three small diagonal branch, small septal branches. No significant disease other than 30% to 35% narrowing. Distal LAD is diffusely diseased and this may be the area of ischemia on the nuclear scan. It is a small caliber LAD in the distal 1/4. The LAD seems to have a lot of complicated flow. It goes back and fills the left internal mammary artery graft almost to the clavicle area. Left posterior circumflex coronary artery. This is a dominant vessel, totally occluded in the proximal portion without antegrade flow. Left internal mammary artery graft to LAD: This graft is widely patent with good flow, but the flow does not seem to extend much into the LAD because of competition and you can see that there is a modest flow in the LAD, but the MORENO graft itself is patent, but small because of disuse and most of the circulation is coming from the antegrade [place] LAD. Free radial artery graft to the obtuse marginal branch of circumflex. This graft is widely patent at the origin. No more than 30% narrowing at the origin, and the body of the graft is free of significant disease. Opacified obtuse marginal/PDA branch of circumflex also has minor irregularities. No significant disease, but there is mild diffuse disease. LV-gram was not performed. FINAL IMPRESSION: This patient has a right-dominant system. Normal filling pressures. No gradient. Right coronary is free of significant disease. Distal branches provides collaterals to the distal LAD. Left main has less than 20% narrowing. LAD has diffuse disease and distal 1/4 is diffusely diseased, but no focal stenosis. Circumflex is totally occluded. The MORENO to LAD is patent, but because of competitive flow, the MORENO is not very functional. Most of the flow is coming antegrade from [place] LAD. The free radial artery graft to the PDA branch/obtuse marginal branch of circumflex is widely patent with good flow, but there is mild diffuse disease. RECOMMENDATIONS: This patient has some progression of disease in the distal branches of the LAD and also some diffuse disease in the obtuse marginal branch of circumflex. However, continued medical therapy with risk factor modification advised. I will add Imdur 30 mg daily to her regimen. She can be discharged later on today and see Dr. Santiago in the office in 1 week. Findings were discussed with the patient and her KELIN / CHARLOTTE: [id number] / JANET
[2023-01-05] MEDS: metFORMIN 500 MG TAB PO SCH (11:56)
[2023-01-05 12:12] LABS: Glucose,Whole Blood 134 mg/dL (70-110)
[2023-01-05] MEDS: CALCIUM CARB-VIT D 500 MG-5 MCG TAB PO SCH (14:19)
[2023-01-05] MEDS: POTASSIUM CHLORIDE ER 20 MEQ TAB.ER PO SCH (14:20)
[2023-01-05] MEDS: CHOLECALCIFEROL 25 MCG (1000 IU) TABLET PO SCH (14:20)
[2023-01-05] MEDS: SUCRALFATE 1 GM TAB PO SCH ×2 (14:20→20:03)
[2023-01-05] MEDS: FUROSEMIDE 20 MG TAB PO SCH ×2 (14:20→16:50)
[2023-01-05] MEDS: SODIUM CHLORIDE 0.9% 1,000 ML in EMPTY BAG 1 BAG IV SCH (14:21)
[2023-01-05] MEDS: GABAPENTIN 300 MG CAP PO SCH ×3 (14:30→20:04)
[2023-01-05] MEDS: SODIUM CHLORIDE 0.9% 1,000 ML IV SCH ×2 (14:32→23:13)
[2023-01-05] MEDS: QUEtiapine 25 MG TAB PO SCH (14:36)
[2023-01-05] MEDS ORDERED: HYDROmorphone 0.5 MG/0.5 ML SYRINGE IVP STA (16:11)
[2023-01-05] MEDS: CITALOPRAM HYDROBROMIDE 20 MG TAB PO SCH (16:41)
[2023-01-05 17:30] LABS: Glucose,Whole Blood 107 mg/dL (70-110)
[2023-01-05 19:56] LABS: Glucose,Whole Blood 98 mg/dL (70-110)
[2023-01-05] MEDS: ATORVASTATIN 40 MG TAB PO SCH (20:03)
[2023-01-05] MEDS: QUEtiapine 50 MG TAB PO SCH (20:04)
[2023-01-05] MEDS: HYDROcodone/APAP 5-325MG 1 EACH TAB PO PRN (20:22)
--- NOTE | 2023-01-05 22:33 | P.PN ---
Subjective This is a pleasant 77 years old female with past medical history of Asthma, Coronary Artery Disease, Heart Failure, COPD, CVA/TIA, Diabetes Mellitus, GERD/Reflux, Hyperlipidemia, Hypertension, Osteoarthritis, Sleep Apnea/CPAP/BIPAP, Syncope, hypothyroidism Patient presents because of chest pain started this morning in the middle and central was threaded into the left arm in the morning but not anymore. The pain radiated about 8/10 on admission and currently 7/10 felt like sharp, diminutive precipitating factor was movement. Associated with little shortness of breath but not overt dyspnea. Patient is afraid to cough because it will hurt her and her pain is associated with very severe significant tenderness even to simple touch She denies dyspnea currently, no coughing, no change in urine or bowel habits. No fever. Patient is not a smoker, no illicit drugs, she drinks alcohol occasionally. 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 Patient hemodynamically stable Labs are unremarkable including CBC, BMP, liver enzymes and troponin EKG shows sinus bradycardia at 51 Chest x-ray showed chronic changes without acute process. 01/03/2023 Patient still has chest pain in the central left side but is milder than yesterday No other new complaints Patient had abnormal stress test today with area of reversible ischemia. The plan for her to go to cardiac cath on this after holding her Eliquis for tomorrow while placing her on heparin drip. Discussed with staff 01/04/2023 Patient presents with chest pain Cartilage on the case. Eliquis on hold in plan for cardiac cath on 01/05 Exam showed ejection fraction of 50% with anterior apical hypokinesia Patient is an acceptable risk to proceed with cardiac cath with benefits more the risks 01/06/2020 Patient cardiac cath came back showing patent major arteries, most likely patient chest pain is musculoskeletal in nature associated with tenderness. Rf Test Technician recommended to continue same medication and added Imdur 30 mg. Patient was supposed to be discharged today however she developed more pain in the right groin and cardiac cath was done earlier during the day therefore per recommendation of cartilage team patient will be monitored for 24 hours now Possible discharge in 24-48 hours if she remains stable and improving Plan discussed with patient and at bedside and they are agreeable Objective - Vital Signs Vital signs: Vital Signs Temp 98.4 F 01/05/23 18:07 Pulse 60 01/05/23 18:07 Resp 12 01/05/23 18:07 BP 132/68 01/05/23 18:07 Pulse Ox 97 01/05/23 18:07 FiO2 Intake & Output 01/05/23 01/05/23 01/06/23 06:59 18:59 06:59 Intake Total 458 Balance 458 Intake: IV 100 Oral 358 Other: Voiding Method Toilet Toilet # Voids 1 3 - Exam GENERAL: The patient is alert and oriented x3, not in any acute distress. Well developed, well nourished. HEENT: Pupils are round and equally reacting to light. EOMI. No scleral icterus. No conjunctival pallor. Normocephalic, atraumatic. No pharyngeal erythema. No thyromegaly. CARDIOVASCULAR: S1 and S2 present. No murmurs, rubs, or gallops. PULMONARY: Chest is clear to auscultation, no wheezing , no crackles. ABDOMEN: Soft, nontender, nondistended, normoactive bowel sounds. No palpable organomegaly. MUSCULOSKELETAL: No joint swelling or deformity. EXTREMITIES: No cyanosis, clubbing, or pedal edema. NEUROLOGICAL: Gross neurological examination did not reveal any focal deficits. SKIN: No rashes. no petechiae. - Labs CBC & Chem 7: 01/04/23 05:32 01/04/23 05:32 Labs: Abnormal Lab Results - Last 24 Hours (Table) 01/05/23 Range/Units 12:07 POC Glucose (mg/dL) 134 H (70-110) mg/dL Assessment and Plan Assessment: Chest pain, rule out cardiac causes, with stress test showing areas of reve rsible ischemia Sinus bradycardia, asymptomatic History of syncope status post loop recorder 1 year that follow up with computer systems integrator as an outpatient Hyperlipidemia Chronic anemia Hypothyroidism Chronic heart failure History of coronary artery disease History of CVA/TIA on COPD, no acute exacerbation Sleep apnea Plan: Continue with aspirin home dose 81 mg hold Eliquis, patient on moderate risk during the procedure of cardiac cath Cardiac cath on 01/05 Cardiology consult Pain management Labs and medication were reviewed.. Continue same treatment. Continue with symptomatic treatment. Resume home medication. Monitor labs and vitals. DVT and GI prophylaxis. Further recommendations as per clinical course of the patient DVT prophylaxis heparin I prophylaxis: Pepcid
[2023-01-06] MEDS: ACETAMINOPHEN TAB 325 MG TAB PO SCH ×2 (02:01→06:33)
[2023-01-06 06:15] LABS: Glucose,Whole Blood 105 mg/dL (70-110)
[2023-01-06] MEDS: LEVOTHYROXINE 50 MCG TAB PO SCH (06:34)
[2023-01-06] MEDS: MIDODRINE 5 MG TAB PO SCH (06:34)
[2023-01-06] MEDS: SODIUM CHLORIDE 0.9% 1,000 ML in EMPTY BAG 1 BAG IV SCH (06:34)
[2023-01-06 08:17] VITALS: BP 102/56; PULSE 52; RESP 18; TEMP 97.9
[2023-01-06] MEDS ORDERED: ISOSORBIDE MONONITRATE ER 30 MG TAB.ER.24H PO SCH (09:00)
[2023-01-06] MEDS: QUEtiapine 25 MG TAB PO SCH (09:04)
[2023-01-06] MEDS: metFORMIN 500 MG TAB PO SCH (09:04)
[2023-01-06] MEDS: SUCRALFATE 1 GM TAB PO SCH (09:04)
[2023-01-06] MEDS: CITALOPRAM HYDROBROMIDE 20 MG TAB PO SCH (09:04)
[2023-01-06] MEDS: POTASSIUM CHLORIDE ER 20 MEQ TAB.ER PO SCH (09:04)
[2023-01-06] MEDS: CALCIUM CARB-VIT D 500 MG-5 MCG TAB PO SCH (09:05)
[2023-01-06] MEDS: GABAPENTIN 300 MG CAP PO SCH (09:05)
[2023-01-06] MEDS: FUROSEMIDE 20 MG TAB PO SCH (09:05)
[2023-01-06] MEDS: CHOLECALCIFEROL 25 MCG (1000 IU) TABLET PO SCH (09:05)
[2023-01-06] MEDS: SODIUM CHLORIDE 0.9% 1,000 ML IV SCH (09:09)
--- NOTE | 2023-01-06 09:50 | P.PN ---
Subjective Progress Note Date: 01/06/23 History of present illness: This is a 77-year-old female patient of Dr. Jae Santiago with past medical history of hypertension, paroxysmal atrial fibrillation, coronary artery disease with previous bypass in 1997 with MORENO to LAD and radial artery graft to the obtuse marginal, hyperlipidemia. We have been asked to evaluate the patient for chest pain. Patient had a recent hospitalization at the end of October which time she was seen for atypical chest pain was advised to follow-up with Dr. Jae Santiago in the office in one to 2 weeks. Patient was seen in the office on 11/24 and was to be scheduled for Lexiscan stress test. Patient presented to [facility] yesterday due to chest pain worsening. It is on the right side of the sternal border nonradiating. She states she also had dizziness and palpitations. No abdominal symptoms no nausea vomiting diarrhea. EKG sinus bradycardia no acute ST-T wave changes. Chest x-ray: No acute findings Troponin negative 3. WBC 5.3, hemoglobin 11.6. Electrolytes unremarkable. CO2 is 19, creatinine 0.54. Blood sugar 113. Liver function tests are normal. Magnesium 1.4. Home cardiac medications: Eliquis 5 mg twice daily, aspirin 81 mg daily, Lipitor 40 mg at bedtime, Lasix 20 mg twice daily, levothyroxine 50 g daily, Nitrostat as needed, potassium chloride 20 mEq daily. Cardiac catheterization 2012 EF was 55%, patent MORENO to LAD, patent radial to OM1. Echocardiogram 05/2021 revealed EF of 20%, no pulmonary hypertension. 01/04 Yesterday, patient underwent Lexiscan stress test that did show areas of reversible ischemia. Results have been reviewed with the patient and if she is agreeable to proceed with cardiac catheterization. Heart rate has been in the 50s, blood pressure 118/61, pulse ox 97% on room air. Patient's eliquis was placed on hold and she is scheduled for cardiac catheterization on with Dr. SUSANNA Alonzo. 01/06 Yesterday, patient underwent left heart catheterization with Dr. SUSANNA Alonzo which revealed some progression of disease in the distal branches of the LAD and also some diffuse disease in the obtuse marginal branch of circumflex. Plan to continue medical therapy and risk factor modification. Imdur was added and patient was cleared for discharge. Patient did not go home as she was complaining of groin pain. She denies any issue today and is anxious to go home. Groin is soft. Heart rate is running in the 50s and 60s, blood pressure 102/56, pulse ox 96% on room air, afebrile. Echocardiogram reveals normal LV size, concentric left ventricular hypertrophy of mild to moderate degree with distal anterior apical hypokinesia atypical septal motion. Mild mitral and tricuspid regurgitation. No pericardial effusion. No primary hypertension. Physical examination: Gen: This is a 77-year-old female. She is resting bed appears comfortable and in no acute distress. VS: reviewed HEENT: Head is atraumatic, normocephalic. Pupils equal, round. Sclerae is anicteric. LUNGS: Clear to auscultation. No wheezes or rhonchi. No intercostal retractions. HEART: Regular rate and rhythm. No murmur. EXTREMITIES: No pedal edema. No calf tenderness. NEUROLOGICAL: Patient is awake, alert and oriented x3. Assessment: Atypical chest pain, acute coronary syndrome ruled out History of coronary artery disease with previous bypass Paroxysmal atrial fibrillation Hyperlipidemia Plan: Continue patient's home cardiac medications Resume eliquis Imdur 30 mg daily added and patient to continue at discharge Patient follow-up with Dr. Jae Santiago in one week. Nurse practitioner note has been reviewed, I agree with documented findings and plan of care. Patient was seen and examined. Objective - Vital Signs Vital signs: Vital Signs Temp 97.9 F 01/06/23 08:00 Pulse 52 L 01/06/23 08:00 Resp 18 01/06/23 08:00 BP 102/56 01/06/23 08:00 Pulse Ox 96 01/06/23 08:00 FiO2 Intake & Output 01/05/23 01/06/23 01/06/23 18:59 06:59 18:59 Intake Total 458 Balance 458 Intake: IV 100 Oral 358 Other: Voiding Method Toilet Toilet # Voids 3 1 - Labs CBC & Chem 7: 01/04/23 05:32 01/04/23 05:32 Labs: Abnormal Lab Results - Last 24 Hours (Table) 01/05/23 Range/Units 12:07 POC Glucose (mg/dL) 134 H (70-110) mg/dL
--- NOTE | 2023-01-07 06:17 | P.DS ---
Providers Date of admission: 01/02/23 13:10 Attending physician: Kvng Rojas MD Consults: 01/02/23 13:35 Consult Physician Urgent Consulting Provider: [facility] Consult Reason/Comments: Chest pain Do you want consulting provider notified?: Yes Primary care physician: Junaid Truong Hospital Course: Diagnoses: Chest pain, with stress test showing areas of reversible ischemia. Cardiac cath showed distal coronary artery disease no need for stents to continue with medical treatment Sinus bradycardia, asymptomatic History of syncope status post loop recorder 1 year that follow up with vault custodian as an outpatient Hyperlipidemia Chronic anemia Hypothyroidism Chronic heart failure History of coronary artery disease History of CVA/TIA on COPD, no acute exacerbation Sleep apnea Hospital course: This is a pleasant 77 years old female with past medical history of Asthma, Coronary Artery Disease, Heart Failure, COPD, CVA/TIA, Diabetes Mellitus, GERD/Reflux, Hyperlipidemia, Hypertension, Osteoarthritis, Sleep Apnea/CPAP/BIPAP, Syncope, hypothyroidism Patient presents because of chest pain x1 day, patient evaluated by vault custodian, she had a stress test showing reversible ischemia, echocardiogram showing: ejection fraction of 50% with anterior apical hypokinesia. Cardiac cath revealed progression of disease in the distal branches of the LAD and also some diffuse disease in the obtuse marginal branch of circumflex. Plan to continue medical therapy and risk factor modification. Imdur was added and patient was cleared for discharge On the day of discharge patient denies chest pain or any other new symptoms. No dyspnea. No fever. Right groin puncture site was checked, there is no gross hematoma or open wound, skin looks intact. No other abnormality noted. Patient was cleared for discharge by cardiology team Problems and management plan were discussed with the patient and he verbalized understanding and acceptance Patient was found stable and can be discharged home in guarded prognosis however he needs follow-up as an outpatient. Patient was instructed to follow up with PCP Dr. Conteh within one week and patient agrees Patient was instructed to follow up with her vault custodian Dr. Santiago in 1-2 weeks and she agrees Physical exam Gen: patient is a AAOx3, no distress CVS: S1-S2, RRR, no murmur Lungs: B/L CTA, no wheezing Abdomen: soft, no distention, no tenderness, positive bowel sounds Extremity: no leg edema or induration Time spent more than 35 minutes Plan - Discharge Summary New Discharge Prescriptions: New Isosorbide Mononitrate ER [Imdur] 30 mg PO DAILY #30 tab Continue Nitroglycerin Sl Tabs [Nitrostat] 0.4 mg SUBLINGUAL Q5M PRN PRN Reason: Chest Pain Levothyroxine Sodium [Synthroid] 50 mcg PO DAILY Cyanocobalamin [Vitamin B-12] 1,000 mcg PO DAILY Furosemide [Lasix] 20 mg PO BID Aspirin EC [Ecotrin Low Dose] 81 mg PO DAILY QUEtiapine FUMARATE [SEROquel] 50 mg PO HS Omeprazole 20 mg PO BID Gabapentin [Neurontin] 300 mg PO TID Calcium Carbonate/Vitamin D3 [Calcium 600-Vit D3 12.5 Mcg (500 Iu)] 2 cap PO DAILY Sucralfate [Carafate] 1 gm PO BID Potassium Chloride ER [K-Dur 20] 20 meq PO DAILY Melatonin 20 mg PO HS Ipratropium-Albuterol Nebulize [Duoneb 0.5 mg-3 mg/3 ml Soln] 3 ml INHALATION RT-QID PRN PRN Reason: Shortness Of Breath Cholecalciferol [Vitamin D3 (25 Mcg = 1000 Iu)] 25 mcg PO DAILY Ascorbic Acid [Vitamin C] 1,000 mg PO DAILY Acetaminophen Tab [Tylenol] 325 mg PO Q6H #30 tab Atorvastatin [Lipitor] 40 mg PO HS QUEtiapine [SEROquel] 25 mg PO DAILY Citalopram Hydrobromide [CeleXA] 40 mg PO DAILY Apixaban [Eliquis] 5 mg PO BID Fluticasone Nasal [place] [Flonase Nasal [place]] 1 spray EA NOSTRIL DAILY PRN PRN Reason: Allergy Symptoms Magnesium Oxide [Mag-Ox] 400 mg PO DAILY Meclizine [Antivert] 12.5 mg PO TID PRN PRN Reason: Vertigo Midodrine [ProAmatine] 5 mg PO TID Discontinued metFORMIN HCL [Glucophage] 500 mg PO DAILY Discharge Medication List Aspirin EC [Ecotrin Low Dose] 81 mg PO DAILY 10/15/14 [History] Cyanocobalamin [Vitamin B-12] 1,000 mcg PO DAILY 10/15/14 [History] Furosemide [Lasix] 20 mg PO BID 10/15/14 [History] Levothyroxine Sodium [Synthroid] 50 mcg PO DAILY 10/15/14 [History] Nitroglycerin Sl Tabs [Nitrostat] 0.4 mg SUBLINGUAL Q5M PRN 10/15/14 [History] Omeprazole 20 mg PO BID 04/23/16 [History] QUEtiapine FUMARATE [SEROquel] 50 mg PO HS 04/23/16 [History] Gabapentin [Neurontin] 300 mg PO TID 01/02/18 [History] Calcium Carbonate/Vitamin D3 [Calcium 600-Vit D3 12.5 Mcg (500 Iu)] 2 cap PO DAILY 01/25/18 [History] Apixaban [Eliquis] 5 mg PO BID 11/14/22 [History] Ascorbic Acid [Vitamin C] 1,000 mg PO DAILY 11/14/22 [History] Atorvastatin [Lipitor] 40 mg PO HS 11/14/22 [History] Cholecalciferol [Vitamin D3 (25 Mcg = 1000 Iu)] 25 mcg PO DAILY 11/14/22 [History] Citalopram Hydrobromide [CeleXA] 40 mg PO DAILY 11/14/22 [History] Fluticasone Nasal [place] [Flonase Nasal [place]] 1 spray EA NOSTRIL DAILY PRN 11/14/22 [History] Ipratropium-Albuterol Nebulize [Duoneb 0.5 mg-3 mg/3 ml Soln] 3 ml INHALATION RT-QID PRN 11/14/22 [History] Magnesium Oxide [Mag-Ox] 400 mg PO DAILY 11/14/22 [History] Meclizine [Antivert] 12.5 mg PO TID PRN 11/14/22 [History] Melatonin 20 mg PO HS 11/14/22 [History] Potassium Chloride ER [K-Dur 20] 20 meq PO DAILY 11/14/22 [History] QUEtiapine [SEROquel] 25 mg PO DAILY 11/14/22 [History] Sucralfate [Carafate] 1 gm PO BID 11/14/22 [History] Acetaminophen Tab [Tylenol] 325 mg PO Q6H #30 tab 11/15/22 [Rx] Midodrine [ProAmatine] 5 mg PO TID 01/02/23 [History] Isosorbide Mononitrate ER [Imdur] 30 mg PO DAILY #30 tab 01/05/23 [Rx] Follow up Appointment(s)/Referral(s): Junaid Truong [Primary Care Provider] - 1-2 days Brayan Santiago MD [STAFF PHYSICIAN] - 01/17/23 2:00 pm Patient Instructions/Handouts: *Surgery [facility] - After Heart Catheterization - Clipper Machine Operator Instructions, Angio-Seal (DC) Activity/Diet/Wound Care/Special Instructions: Heart healthy diet Activity is restricted till you see your doctor we recommend to hold your metformin till you check your blood test with your doctor in one week Discharge Disposition: HOME SELF-CARE
== END 2023-01-06 13:05 | disposition home or self-care (01) | DRG 287 ==
LOC: EC 10:50 → 6NMEDSUR 13:10
PROVIDERS: ADMIT Internal Medicine; ATTEND Internal Medicine
PROC: 4A023N7 Measurement of Cardiac Sampling and Pressure, Left Heart, Percutaneous Approach (ICD-10-PCS; principal; 2023-01-02)
PROC: B2111ZZ Fluoroscopy of Multiple Coronary Arteries using Low Osmolar Contrast (ICD-10-PCS; principal; 2023-01-02)
DX: I25.110 Atherosclerotic heart disease of native coronary artery with unstable angina pectoris (principal); I11.0 Hypertensive heart disease with heart failure; I25.82 Chronic total occlusion of coronary artery; I50.9 Heart failure, unspecified; E11.9 Type 2 diabetes mellitus without complications; D64.9 Anemia, unspecified; E78.00 Pure hypercholesterolemia, unspecified; E03.9 Hypothyroidism, unspecified; I48.0 Paroxysmal atrial fibrillation; J44.89 Other specified chronic obstructive pulmonary disease; I25.2 Old myocardial infarction; K21.9 Gastro-esophageal reflux disease without esophagitis; F32.A Depression, unspecified; G47.33 Obstructive sleep apnea (adult) (pediatric); M19.90 Unspecified osteoarthritis, unspecified site; M54.9 Dorsalgia, unspecified; Z79.01 Long term (current) use of anticoagulants; Z79.82 Long term (current) use of aspirin; Z79.84 Long term (current) use of oral hypoglycemic drugs; Z79.890 Hormone replacement therapy; Z79.899 Other long term (current) drug therapy; Z86.73 Personal history of transient ischemic attack (TIA), and cerebral infarction without residual deficits; Z87.442 Personal history of urinary calculi; Z87.820 Personal history of traumatic brain injury; Z95.1 Presence of aortocoronary bypass graft; Z96.653 Presence of artificial knee joint, bilateral; Z96.611 Presence of right artificial shoulder joint; Z86.14 Personal history of Methicillin resistant Staphylococcus aureus infection; Z86.19 Personal history of other infectious and parasitic diseases; Z82.49 Family history of ischemic heart disease and other diseases of the circulatory system; Z91.040 Latex allergy status; Z88.8 Allergy status to other drugs, medicaments and biological substances
CPT/HCPCS: 36415; 71046; 78452; 80048; 80053; 80061; 83735; 84484; 85025; 85610; 85730; 93005; 93017; 93306; 93459; 94640; 94664; 99285

== ENCOUNTER 2023-01-09 10:29 | Emergency (ER) | payer MEDICARE ==
--- NOTE | 2023-01-09 10:58 | ED ---
General Adult HPI - General Chief complaint: Recheck/Abnormal Lab/Rx Stated complaint: Pain in right leg Time Seen by Provider: 01/09/23 10:44 Source: patient, family, RN notes reviewed Mode of arrival: ambulatory Limitations: no limitations - History of Present Illness Initial comments: Patient is a pleasant 77-year-old female presenting to the emergency department with concern for right leg pain. Onset of symptoms was following her heart catheterization. Patient states discomfort has actually increased some. Discomfort is greatly increased with movement, especially flexion at the hip. Patient has noticed some bruising. No history of similar symptoms previously. Patient reports heart catheterization looked well otherwise. No calf pain. No leg weakness. - Related Data Home Medications Medication Instructions Recorded Confirmed Aspirin EC [Ecotrin Low Dose] 81 mg PO DAILY 10/15/14 01/09/23 Cyanocobalamin [Vitamin B-12] 1,000 mcg PO DAILY 10/15/14 01/09/23 Furosemide [Lasix] 20 mg PO BID 10/15/14 01/09/23 Levothyroxine Sodium [Synthroid] 50 mcg PO DAILY 10/15/14 01/09/23 Nitroglycerin Sl Tabs [Nitrostat] 0.4 mg SUBLINGUAL Q5M PRN 10/15/14 01/09/23 Omeprazole 20 mg PO BID 04/23/16 01/09/23 QUEtiapine FUMARATE [SEROquel] 50 mg PO HS 04/23/16 01/09/23 Gabapentin [Neurontin] 300 mg PO TID 01/02/18 01/09/23 Calcium Carbonate/Vitamin D3 2 cap PO DAILY 01/25/18 01/09/23 [Calcium 600-Vit D3 12.5 Mcg (500 Iu)] Apixaban [Eliquis] 5 mg PO BID 11/14/22 01/09/23 Ascorbic Acid [Vitamin C] 1,000 mg PO DAILY 11/14/22 01/09/23 Atorvastatin [Lipitor] 40 mg PO HS 11/14/22 01/09/23 Cholecalciferol [Vitamin D3 (25 25 mcg PO DAILY 11/14/22 01/09/23 Mcg = 1000 Iu)] Citalopram Hydrobromide [CeleXA] 40 mg PO DAILY 11/14/22 01/09/23 Fluticasone Nasal [place] [Flonase 1 spray EA NOSTRIL DAILY PRN 11/14/22 01/09/23 Nasal [place]] Ipratropium-Albuterol Nebulize 3 ml INHALATION RT-QID PRN 11/14/22 01/09/23 [Duoneb 0.5 mg-3 mg/3 ml Soln] Magnesium Oxide [Mag-Ox] 400 mg PO DAILY 11/14/22 01/09/23 Meclizine [Antivert] 12.5 mg PO TID PRN 11/14/22 01/09/23 Melatonin 20 mg PO HS 11/14/22 01/09/23 Potassium Chloride ER [K-Dur 20] 20 meq PO DAILY 11/14/22 01/09/23 QUEtiapine [SEROquel] 25 mg PO DAILY 11/14/22 01/09/23 Sucralfate [Carafate] 1 gm PO BID 11/14/22 01/09/23 Midodrine [ProAmatine] 5 mg PO TID 01/02/23 01/09/23 metFORMIN HCL [Glucophage] 500 mg PO DAILY 01/09/23 01/09/23 Previous Rx's Medication Instructions Recorded Acetaminophen Tab [Tylenol] 325 mg PO Q6H #30 tab 11/15/22 Isosorbide Mononitrate ER [Imdur] 30 mg PO DAILY #30 tab 01/05/23 Allergies Allergy/AdvReac Type Severity Reaction Status Date / Time latex Allergy Rash/Hives Verified 01/09/23 12:10 venom-honey bee Allergy Swelling Verified 01/09/23 12:10 [bee venom (honey bee)] zolpidem tartrate AdvReac Altered Verified 01/09/23 12:10 [From Ambien] Mental Status Review of Systems ROS Statement: Those systems with pertinent positive or pertinent negative responses have been documented in the HPI. ROS Other: All systems not noted in ROS Statement are negative. Constitutional: Denies: fever Eyes: Denies: eye pain ENT: Denies: ear pain Respiratory: Denies: cough Cardiovascular: Denies: chest pain Endocrine: Denies: fatigue Gastrointestinal: Denies: abdominal pain Musculoskeletal: Reports: as per HPI Past Medical History Past Medical History: Asthma, Coronary Artery Disease (CAD), Chest Pain / Angina, Heart Failure, COPD, CVA/TIA, Diabetes Mellitus, GERD/Reflux, Hyperlipidemia, Hypertension, Myocardial Infarction ([place]), Osteoarthritis ([place]), Pneumonia, Sleep Apnea/CPAP/BIPAP, Syncope, Thyroid Disorder Additional Past Medical History / Comment(s): Pt recently admitted 04/23/16 with left lower lobe peumonia/bronchospasm/ unstable angina. Other hX: NIDDM type II, CVA, VERTIGO, syncope, bilateral tinnitis, anemia, murmur, hypothyroid, UTIs, nephrolithiasis, CHAVEZ with CPap, migraines, head injury as a teen, back pain. 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 Source:: ESBL URINE MRSA BACK Past Surgical History: Bladder Surgery, Coronary Bypass/CABG, Heart Catheterization, Heart Catheterization With Stent, Hysterectomy, Joint Replacement, Orthopedic Surgery, Tonsillectomy Additional Past Surgical History / Comment(s): 1997 3 vessel CABG in [facility], 2004 PCI with 2 stents, 2010 and 2012 cardiac caths, jessi total knee replacements with right side done twice; R total shoulder replacement; L rotator cuff repair, bilateral cataract surgery, bladder suspension, R foot bone fusion, colonoscopy/polypectomy, bilateral hands trigger fingers/thumbs released, benign lymph node bx L4,L5 S1 spinal surgery 04/2017 Past Anesthesia/Blood Transfusion Reactions: No Reported Reaction Additional Past Anesthesia/Blood Transfusion Reaction / Comment(s): Pt received blood in the s without reaction. Date of Last Stent Placement:: 2004 Past Psychological History: Depression Smoking Status: Never smoker Past Alcohol Use History: Rare Past Drug Use History: None Reported - Past Family History Mother Family Medical History: Chest Pain / Angina, Coronary Artery Disease (CAD), CVA/TIA, Hypertension, Musculoskeletal Disorder Father Family Medical History: Coronary Artery Disease (CAD) Additional Family Medical History / Comment(s): cabg Brother(s) Family Medical History: Coronary Artery Disease (CAD) Sister(s) Family Medical History: Coronary Artery Disease (CAD) Additional Family Medical History / Comment(s): pulmonary hypertension Daughter(s) Family Medical History: No Reported History General Exam Limitations: no limitations General appearance: alert, in no apparent distress Head exam: Present: normocephalic Eye exam: Present: normal appearance Neck exam: Present: normal inspection Respiratory exam: Present: normal lung sounds bilaterally Cardiovascular Exam: Present: regular rate, normal rhythm Expanded Peripheral pulses: 2+: Femoral (R) GI/Abdominal exam: Present: soft. Absent: distended, tenderness Extremities exam: Present: other (Right anterior upper thigh with moderate tenderness. There is ecchymosis. No significant swelling.) Neurological exam: Present: alert. Absent: motor sensory deficit Psychiatric exam: Present: normal affect, normal mood Skin exam: Present: other (Ecchymosis right upper thigh anterior) Course Vital Signs 01/09/23 10:35 Temperature 97.6 F Pulse Rate 56 L Respiratory 18 Rate Blood Pressure 146/74 O2 Sat by Pulse 99 Oximetry Medical Decision Making - Medical Decision Making Was pt. sent in by a medical professional or institution (, PA, INTERNATIONAL STUDENT COUNSELOR, urgent care, hospital, or senior care...) When possible be specific @ -No Did you speak to anyone other than the patient for history (EMS, parent, family, police, friend...)? What history was obtained from this source @ -Family is present and helps provide history including recent heart catheteri zation. Did you review nursing and triage notes (agree or disagree)? Why? @ -I reviewed and agree with nursing and triage notes Were old charts reviewed (outside hosp., previous admission, EMS record, old EKG, old radiological studies, urgent care reports/EKG's, senior care records)? Report findings @ -No old charts were reviewed Differential Diagnosis (chest pain, altered mental status, abdominal pain women, abdominal pain men, vaginal bleeding, weakness, fever, dyspnea, syncope, headache, dizziness, GI bleed, back pain, seizure, CVA, palpatations, mental health, musculoskeletal)? @ -Differential Musculoskeletal Muscular strain, contusion, ligament sprain, fracture, arthritis, septic arthritis, bursitis, cellulitis, muscle spasm, nerve compression, DVT, arterial occlusion, herpes zoster, electrolyte abnormality, tumor.... This is not meant to be in all inclusive list EKG interpreted by me (3pts min.). @ -As above X-rays interpreted by me (1pt min.). @ -None done CT interpreted by me (1pt min.). @ -None done U/S interpreted by me (1pt. min.). @ -Report reviewed What testing was considered but not performed or refused? (CT, X-rays, U/S, labs)? Why? @ -None What meds were considered but not given or refused? Why? @ -None Did you discuss the management of the patient with other professionals (professionals i.e. , PA, INTERNATIONAL STUDENT COUNSELOR, lab, RT, psych nurse, social services assistant, chemical process engineer, teacher, fire officer, case monitor)? Give summary @ -No Was smoking cessation discussed for >3mins.? @ -No Was critical care preformed (if so, how long)? @ -No Were there social determinants of health that impacted care today? How? (Homelessness, low income, unemployed, alcoholism, drug addiction, transportation, low edu. Level, literacy, decrease access to med. care, residential, rehab)? @ -No Was there de-escalation of care discussed even if they declined (Discuss DNR or withdrawal of care, Hospice)? DNR status @ -No What co-morbidities impacted this encounter? (DM, HTN, Smoking, COPD, CAD, Cancer, CVA, ARF, Chemo, Hep., AIDS, mental health diagnosis, sleep apnea, morbid obesity)? @ -None Was patient admitted / discharged? Hospital course, mention meds given and route, prescriptions, significant lab abnormalities, going to OR and other pertinent info. @ -Patient reevaluated. Patient is updated on results and need for follow-up. Patient is receptive to pain medication at this time as well as starter pack. Undiagnosed new problem with uncertain prognosis? @ -No Drug Therapy requiring intensive monitoring for toxicity (Heparin, Nitro, Insulin, Cardizem)? @ -No Were any procedures done? @ -No Diagnosis/symptom? @ -Hematoma Acute, or Chronic, or Acute on Chronic? @ -Acute Uncomplicated (without systemic symptoms) or Complicated (systemic symptoms)? @ -default Side effects of treatment? @ -No Exacerbation, Progression, or Severe Exacerbation? @ -No Poses a threat to life or bodily function? How? (Chest pain, [place], [place], pneumonia, PE, COPD, DKA, ARF, appy, cholecystitis, CVA, Diverticulitis, Homicidal, Suicidal, threat to staff... and all critical care pts) @ -No Disposition Clinical Impression: Hematoma Disposition: HOME SELF-CARE Condition: Stable Instructions (If sedation given, give patient instructions): Hematoma (ED) Additional Instructions: Please do follow-up with your primary care physician and non destructive testing scientist in the next day or 2 for recheck. Warm compresses. Return for increased pain, swelling, leg problems, worsening or change in symptoms or other concerns Is patient prescribed a controlled substance at d/c from ED?: No Referrals: Junaid Truong [Primary Care Provider] - 1-2 days Time of Disposition: 12:33
[2023-01-09 11:38] VITALS: PULSE 56; TEMP 97.6
--- NOTE | 2023-01-09 11:51 | US ---
EXAMINATION TYPE: US lower ext pseudo artery RT DATE OF EXAM: 01/09/2023 COMPARISON: 02/19/2018 CLINICAL INDICATION: Female, 77 years old with history of pain; Right groin approach heart cath 1 wee k ago EXAM PERFORMED: Grayscale and color Doppler duplex imaging performed of the groin, post cardiac halle ter to assess for pseudoaneurysm. SIDE PERFORMED: Right Color and Waveform Doppler performed to assess for the presence of pseudoaneurysm; Is there ultrasound evidence of a pseudoaneurysm: No Is there evidence of AV shunting: No Is there a fluid collection present: Yes Area of concern scanned. There is a 3.5x1.2x2.6cm avascular, complex hypoechoic area measured medial and inferior to the greater saphenous vein IMPRESSION: Avascular lesion in the right groin which is favored represent blood products in the setting of recen t intervention. Consider short-term follow up to ensure resolution and 1-2 months.
[2023-01-09] MEDS ORDERED: MORPHINE SULFATE 4 MG/ML SYRINGE IM STA (12:30)
[2023-01-09] MEDS ORDERED: ACET/COD 300 MG/30 MG STARTER PACK 6 TAB BTL PO STA (12:30)
--- NOTE | 2023-01-09 12:34 | ED ---
Disposition Clinical Impression: Hematoma Disposition: HOME SELF-CARE Condition: Stable Instructions (If sedation given, give patient instructions): Hematoma (ED) Additional Instructions: Please do follow-up with your primary care physician and railway track worker in the next day or 2 for recheck. Warm compresses. Return for increased pain, swelling, leg problems, worsening or change in symptoms or other concerns. Have your doctor's review ultrasound report and repeat ultrasound in the future. Is patient prescribed a controlled substance at d/c from ED?: No Referrals: Junaid Truong [Primary Care Provider] - 1-2 days Time of Disposition: 12:34
[2023-01-09 13:02] VITALS: BP 135/75; RESP 189
== END 2023-01-09 12:50 | disposition home or self-care (01) ==
LOC: EC 10:29
DX: S70.11XA Contusion of right thigh, initial encounter (principal); E11.36 Type 2 diabetes mellitus with diabetic cataract; I11.0 Hypertensive heart disease with heart failure; I50.9 Heart failure, unspecified; I25.10 Atherosclerotic heart disease of native coronary artery without angina pectoris; I25.2 Old myocardial infarction; E78.5 Hyperlipidemia, unspecified; E03.9 Hypothyroidism, unspecified; F32.A Depression, unspecified; J44.89 Other specified chronic obstructive pulmonary disease; K21.9 Gastro-esophageal reflux disease without esophagitis; M19.90 Unspecified osteoarthritis, unspecified site; Z95.1 Presence of aortocoronary bypass graft; Z95.5 Presence of coronary angioplasty implant and graft; Z79.82 Long term (current) use of aspirin; Z79.890 Hormone replacement therapy; Z79.01 Long term (current) use of anticoagulants; Z79.84 Long term (current) use of oral hypoglycemic drugs; Z91.040 Latex allergy status; Z91.030 Bee allergy status; Z88.8 Allergy status to other drugs, medicaments and biological substances; Z86.73 Personal history of transient ischemic attack (TIA), and cerebral infarction without residual deficits; X58.XXXA Exposure to other specified factors, initial encounter
CPT/HCPCS: 93975; 93926; 99284; 96372; J2270

== ENCOUNTER 2023-01-18 11:32 | Emergency (ER) | payer MEDICARE ==
[2023-01-18] MEDS ORDERED: ONDANSETRON 4 MG/2 ML VIAL IVP STA (12:01)
[2023-01-18] MEDS ORDERED: DIPHENOX-ATROP 2.5-0.025 MG 1 EACH TAB PO STA (12:01)
[2023-01-18] MEDS ORDERED: SODIUM CHLORIDE 0.9% 1,000 ML IV STA (12:01)
[2023-01-18 12:07] VITALS: BP 132/77; PULSE 68; RESP 18; TEMP 98
--- NOTE | 2023-01-18 12:38 | ED ---
General Adult HPI - General Chief complaint: Nausea/Vomiting/Diarrhea Stated complaint: NVD Time Seen by Provider: 01/18/23 11:50 Source: patient, RN notes reviewed Mode of arrival: ambulatory Limitations: no limitations - History of Present Illness Initial comments: 77-year-old female presents emergency department to complaint of nausea vomiting diarrhea. Patient states she's had some intermittent symptoms last couple weeks. Patient states currently smokes diarrhea. She denies any recent antibiotics. She states is somewhat deformed. Denies any melanotic stools no hematochezia denies fevers chills no significant localized abdominal discomfort. No dysuria no hematuria patient had recent hospitalization for cardiac cath. - Related Data Home Medications Medication Instructions Recorded Confirmed Aspirin EC [Ecotrin Low Dose] 81 mg PO DAILY 10/15/14 01/09/23 Cyanocobalamin [Vitamin B-12] 1,000 mcg PO DAILY 10/15/14 01/09/23 Furosemide [Lasix] 20 mg PO BID 10/15/14 01/09/23 Levothyroxine Sodium [Synthroid] 50 mcg PO DAILY 10/15/14 01/09/23 Nitroglycerin Sl Tabs [Nitrostat] 0.4 mg SUBLINGUAL Q5M PRN 10/15/14 01/09/23 Omeprazole 20 mg PO BID 04/23/16 01/09/23 QUEtiapine FUMARATE [SEROquel] 50 mg PO HS 04/23/16 01/09/23 Gabapentin [Neurontin] 300 mg PO TID 01/02/18 01/09/23 Calcium Carbonate/Vitamin D3 2 cap PO DAILY 01/25/18 01/09/23 [Calcium 600-Vit D3 12.5 Mcg (500 Iu)] Apixaban [Eliquis] 5 mg PO BID 11/14/22 01/09/23 Ascorbic Acid [Vitamin C] 1,000 mg PO DAILY 11/14/22 01/09/23 Atorvastatin [Lipitor] 40 mg PO HS 11/14/22 01/09/23 Cholecalciferol [Vitamin D3 (25 25 mcg PO DAILY 11/14/22 01/09/23 Mcg = 1000 Iu)] Citalopram Hydrobromide [CeleXA] 40 mg PO DAILY 11/14/22 01/09/23 Fluticasone Nasal [place] [Flonase 1 spray EA NOSTRIL DAILY PRN 11/14/22 01/09/23 Nasal [place]] Ipratropium-Albuterol Nebulize 3 ml INHALATION RT-QID PRN 11/14/22 01/09/23 [Duoneb 0.5 mg-3 mg/3 ml Soln] Magnesium Oxide [Mag-Ox] 400 mg PO DAILY 11/14/22 01/09/23 Meclizine [Antivert] 12.5 mg PO TID PRN 11/14/22 01/09/23 Melatonin 20 mg PO HS 11/14/22 01/09/23 Potassium Chloride ER [K-Dur 20] 20 meq PO DAILY 11/14/22 01/09/23 QUEtiapine [SEROquel] 25 mg PO DAILY 11/14/22 01/09/23 Sucralfate [Carafate] 1 gm PO BID 11/14/22 01/09/23 Midodrine [ProAmatine] 5 mg PO TID 01/02/23 01/09/23 metFORMIN HCL [Glucophage] 500 mg PO DAILY 01/09/23 01/09/23 Previous Rx's Medication Instructions Recorded Acetaminophen Tab [Tylenol] 325 mg PO Q6H #30 tab 11/15/22 Isosorbide Mononitrate ER [Imdur] 30 mg PO DAILY #30 tab 01/05/23 Allergies Allergy/AdvReac Type Severity Reaction Status Date / Time latex Allergy Rash/Hives Verified 01/18/23 11:39 venom-honey bee Allergy Swelling Verified 01/18/23 11:39 [bee venom (honey bee)] zolpidem tartrate AdvReac Altered Verified 01/18/23 11:39 [From Ambien] Mental Status Review of Systems ROS Statement: Those systems with pertinent positive or pertinent negative responses have been documented in the HPI. ROS Other: All systems not noted in ROS Statement are negative. Past Medical History Past Medical History: Asthma, Coronary Artery Disease (CAD), Chest Pain / Angina, Heart Failure, COPD, CVA/TIA, Diabetes Mellitus, GERD/Reflux, Hyperlipidemia, Hypertension, Myocardial Infarction (GA), Osteoarthritis (OA), Pneumonia, Sleep Apnea/CPAP/BIPAP, Syncope, Thyroid Disorder Additional Past Medical History / Comment(s): Pt recently admitted 04/23/16 with left lower lobe peumonia/bronchospasm/ unstable angina. Other hX: NIDDM type II, CVA, VERTIGO, syncope, bilateral tinnitis, anemia, murmur, hypothyroid, UTIs, nephrolithiasis, CHAVEZ with CPap, migraines, head injury as a teen, back pain. 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 Source:: ESBL URINE MRSA BACK Past Surgical History: Bladder Surgery, Coronary Bypass/CABG, Heart Catheterization, Heart Catheterization With Stent, Hysterectomy, Joint Replacement, Orthopedic Surgery, Tonsillectomy Additional Past Surgical History / Comment(s): 1997 3 vessel CABG in [facility], 2004 PCI with 2 stents, 2010 and 2012 cardiac caths, jessi total knee replacements with right side done twice; R total shoulder replacement; L rotator cuff repair, bilateral cataract surgery, bladder suspension, R foot bone fusion, colonoscopy/polypectomy, bilateral hands trigger fingers/thumbs released, benign lymph node bx L4,L5 S1 spinal surgery 04/2017 Past Anesthesia/Blood Transfusion Reactions: No Reported Reaction Additional Past Anesthesia/Blood Transfusion Reaction / Comment(s): Pt received blood in the s without reaction. Date of Last Stent Placement:: 2004 Past Psychological History: Depression Smoking Status: Never smoker Past Alcohol Use History: Rare Past Drug Use History: None Reported - Past Family History Mother Family Medical History: Chest Pain / Angina, Coronary Artery Disease (CAD), CVA/TIA, Hypertension, Musculoskeletal Disorder Father Family Medical History: Coronary Artery Disease (CAD) Additional Family Medical History / Comment(s): cabg Brother(s) Family Medical History: Coronary Artery Disease (CAD) Sister(s) Family Medical History: Coronary Artery Disease (CAD) Additional Family Medical History / Comment(s): pulmonary hypertension Daughter(s) Family Medical History: No Reported History General Exam Limitations: no limitations General appearance: alert, in no apparent distress Head exam: Present: atraumatic, normocephalic, normal inspection Eye exam: Present: normal appearance, PERRL, EOMI. Absent: scleral icterus, conjunctival injection, periorbital swelling ENT exam: Present: normal exam, normal oropharynx, mucous membranes moist Neck exam: Present: normal inspection, full ROM. Absent: tenderness, meningismus, lymphadenopathy Respiratory exam: Present: normal lung sounds bilaterally. Absent: respiratory distress, wheezes, rales, rhonchi, stridor Cardiovascular Exam: Present: regular rate, normal rhythm, normal heart sounds. Absent: systolic murmur, diastolic murmur, rubs, gallop, clicks GI/Abdominal exam: Present: soft, normal bowel sounds. Absent: distended, tenderness, guarding, rebound, rigid Course Vital Signs 01/18/23 11:34 Temperature 98 F Pulse Rate 68 Respiratory 18 Rate Blood Pressure 132/77 O2 Sat by Pulse 95 Oximetry Medical Decision Making - Medical Decision Making Was pt. sent in by a medical professional or institution (, PA, PREPARATION SUPERVISOR FREEZING, urgent care, hospital, or usp...) When possible be specific @ -No Did you speak to anyone other than the patient for history (EMS, parent, family, police, friend...)? What history was obtained from this source @ -No Did you review nursing and triage notes (agree or disagree)? Why? @ -I reviewed and agree with nursing and triage notes Were old charts reviewed (outside hosp., previous admission, EMS record, old EKG, old radiological studies, urgent care reports/EKG's, usp records)? Report findings @ -Earlier prior laboratory studies, admission Differential Diagnosis (chest pain, altered mental status, abdominal pain women, abdominal pain men, vaginal bleeding, weakness, fever, dyspnea, syncope, headache, dizziness, GI bleed, back pain, seizure, CVA, palpatations, mental health, musculoskeletal)? @ -nDifferential Abdominal Pain Women: Appendicitis, Cholecystitis, diverticulosis, ischemic bowel, pancreatitis, hepatitis, UTI, gastroenteritis, AAA, incarcerated hernia, bowel obstruction, constipation, inflammatory bowel, hepatitis, peptic ulcer disease, splenic infarction, perforated viscus, vulvitis, ovarian torsion, PID, kidney stone, placenta abruption, this is not meant to be an all-inclusive listble EKG interpreted by me (3pts min.). @ -None X-rays interpreted by me (1pt min.). @ -None done CT interpreted by me (1pt min.). @ -None done U/S interpreted by me (1pt. min.). @ -None done What testing was considered but not performed or refused? (CT, X-rays, U/S, labs)? Why? @ -None What meds were considered but not given or refused? Why? @ -None Did you discuss the management of the patient with other professionals (professionals i.e. , PA, PREPARATION SUPERVISOR FREEZING, lab, RT, psych nurse, director of social work, seismic survey assistant, teacher, transportation officer, rehabilitation caseworker)? Give summary @ -No Was smoking cessation discussed for >3mins.? @ -No Was critical care preformed (if so, how long)? @ -No Were there social determinants of health that impacted care today? How? (Homelessness, low income, unemployed, alcoholism, drug addiction, tr ansportation, low edu. Level, literacy, decrease access to med. care, detention, rehab)? @ -No Was there de-escalation of care discussed even if they declined (Discuss DNR or withdrawal of care, Hospice)? DNR status @ -No What co-morbidities impacted this encounter? (DM, HTN, Smoking, COPD, CAD, Cancer, CVA, ARF, Chemo, Hep., AIDS, mental health diagnosis, sleep apnea, morbid obesity)? @ -None Was patient admitted / discharged? Hospital course, mention meds given and route, prescriptions, significant lab abnormalities, going to OR and other pertinent info. @ -Discharge patient felt greatly improved after IV fluids, magnesium replacement, Lomotil. Patient had no recurrent diarrhea. Patient feels comfortable discharge. Patient is advised follow-up with PCP. Patient was factors for C. diff. Patient had formed stool. Patient will return for worsening changes symptoms. Undiagnosed new problem with uncertain prognosis? @ -No Drug Therapy requiring intensive monitoring for toxicity (Heparin, Nitro, I nsulin, Cardizem)? @ -No Were any procedures done? @ -No Diagnosis/symptom? @ -Diarrhea, hypomagnesemia Acute, or Chronic, or Acute on Chronic? @ -Acute Uncomplicated (without systemic symptoms) or Complicated (systemic symptoms)? @ -Uncomplicated Side effects of treatment? @ -No Exacerbation, Progression, or Severe Exacerbation? @ -No Poses a threat to life or bodily function? How? (Chest pain, USA, GA, pneumonia, PE, COPD, DKA, ARF, appy, cholecystitis, CVA, Diverticulitis, Homicidal, Suicidal, threat to staff... and all critical care pts) @ -No - Lab Data Result diagrams: 01/18/23 12:01/18/23 12:01 Lab Results 01/18/23 01/18/23 01/18/23 Range/Units 12: 12: 12:01 WBC 6.3 (3.8-10.6) k/uL RBC 3.87 (3.80-5.40) m/uL Hgb 12.1 (11.4-16.0) gm/dL Hct 34.9 (34.0-46.0) % MCV 90.1 (80.0-100.0) fL MCH 31.2 (25.0-35.0) pg MCHC 34.6 (31.0-37.0) g/dL RDW 13.1 (11.5-15.5) % Plt Count 234 (150-450) k/uL MPV 7.0 Neutrophils % 74 % Lymphocytes % 17 % Monocytes % 7 % Eosinophils % 1 % Basophils % 1 % Neutrophils # 4.7 (1.3-7.7) k/uL Lymphocytes # 1.1 (1.0-4.8) k/uL Monocytes # 0.4 (0-1.0) k/uL Eosinophils # 0.0 (0-0.7) k/uL Basophils # 0.0 (0-0.2) k/uL Sodium 138 (137-145) mmol/L Potassium 3.6 (3.5-5.1) mmol/L Chloride 103 (98-107) mmol/L Carbon Dioxide 21 L (22-30) mmol/L Anion Gap 14 mmol/L BUN 16 (7-17) mg/dL Creatinine 0.67 (0.52-1.04) mg/dL Est GFR (CKD-EPI)AfAm >90 (>60 ml/min/1.73 sqM) Est GFR (CKD-EPI)NonAf 86 (>60 ml/min/1.73 sqM) Glucose 101 H (74-99) mg/dL Calcium 9.4 (8.4-10.2) mg/dL Magnesium 1.4 L (1.6-2.3) mg/dL Total Bilirubin 0.6 (0.2-1.3) mg/dL AST 26 (14-36) U/L ALT 20 (4-34) U/L Alkaline Phosphatase 61 (38-126) U/L Total Protein 7.3 (6.3-8.2) g/dL Albumin 4.5 (3.5-5.0) g/dL Lipase 169 (23-300) U/L Urine Color Colorless Urine Appearance Clear (Clear) Urine pH 5.5 (5.0-8.0) Ur Specific [place] 1.011 (1.001-1.035) Urine Protein Negative (Negative) Urine Glucose (UA) Negative (Negative) Urine Ketones Negative (Negative) Urine Blood Negative (Negative) Urine Nitrite Negative (Negative) Urine Bilirubin Negative (Negative) Urine Urobilinogen <2.0 (<2.0) mg/dL Ur Leukocyte Esterase Negative (Negative) Disposition Clinical Impression: Diarrhea, Hypomagnesemia Disposition: HOME SELF-CARE Condition: Stable Instructions (If sedation given, give patient instructions): Acute Diarrhea (ED) Additional Instructions: Please return to the Emergency Department if symptoms worsen or any other concerns. Is patient prescribed a controlled substance at d/c from ED?: No Referrals: Junaid Truong [Primary Care Provider] - 1-2 days Time of Disposition: 15:44
[2023-01-18 12:40] LABS: Basophils % (A) 1 %; Eosinophils % (A) 1 %; HCT 34.9 % (34.0-46.0); HGB 12.1 gm/dL (11.4-16.0); Lymphocytes # (A) 1.1 k/uL (1.0-4.8); Lymphocytes % (A) 17 %; MCH 31.2 pg (25.0-35.0); MCHC 34.6 g/dL (31.0-37.0); MCV 90.1 fL (80.0-100.0); Monocytes # (A) 0.4 k/uL (0-1.0); Monocytes % (A) 7 %; Neutrophils # (A) 4.7 k/uL (1.3-7.7); Neutrophils % (A) 74 %; Platelet Count 234 k/uL (150-450); RBC 3.87 m/uL (3.80-5.40); RDW 13.1 % (11.5-15.5); WBC 6.3 k/uL (3.8-10.6)
[2023-01-18 12:52] LABS: ALT 20 U/L (4-34); AST 26 U/L (14-36); African American GFR (CKD) >90 (>60 ml/min/1.73 sqM); Albumin 4.5 g/dL (3.5-5.0); Alkaline Phosphatase 61 U/L (38-126); Anion Gap 14 mmol/L; Blood Urea Nitrogen 16 mg/dL (7-17); Calcium 9.4 mg/dL (8.4-10.2); Carbon Dioxide 21 mmol/L (22-30); Chloride 103 mmol/L (98-107); Glucose 101 mg/dL (74-99); Lipase 169 U/L (23-300); Magnesium 1.4 mg/dL (1.6-2.3); Non-African American GFR(CKD) 86 (>60 ml/min/1.73 sqM); Potassium 3.6 mmol/L (3.5-5.1); Sodium 138 mmol/L (137-145); Total Bilirubin 0.6 mg/dL (0.2-1.3); Total Protein 7.3 g/dL (6.3-8.2)
[2023-01-18] MEDS ORDERED: KETOROLAC 15 MG/ML 1 ML VIAL IVP STA (13:25)
[2023-01-18] MEDS ORDERED: MAGNESIUM SULFATE-D5W PMX 1 GM in DEXTROSE/WATER 1 100ML.BAG IVPB ONE (13:25)
[2023-01-18] MEDS ORDERED: SODIUM CHLORIDE 0.9% 500 ML 500 ML IV ONE (14:23)
[2023-01-18] MEDS ORDERED: DIPHENOX-ATROP STARTER PACK 8 TAB BTL PO STA (15:44)
[2023-01-18 15:53] LABS: Appearance,Urine Clear (Clear); Bilirubin,Urine Negative (Negative); Blood,Urine Negative (Negative); Color,Urine Colorless; Glucose,Urine (UA) Negative (Negative); Ketones,Urine Negative (Negative); Leukocyte Esterase,Urine Negative (Negative); Nitrite,Urine Negative (Negative); PH, Urine 5.5 (5.0-8.0); Protein,Urine Negative (Negative); Specific Gravity,Urine 1.011 (1.001-1.035); Urobilinogen,Urine <2.0 mg/dL (<2.0)
== END 2023-01-18 16:15 | disposition home or self-care (01) ==
LOC: EC 11:32
DX: E83.42 Hypomagnesemia (principal); R19.7 Diarrhea, unspecified; E03.9 Hypothyroidism, unspecified; E11.9 Type 2 diabetes mellitus without complications; I11.0 Hypertensive heart disease with heart failure; I50.9 Heart failure, unspecified; I25.10 Atherosclerotic heart disease of native coronary artery without angina pectoris; I25.2 Old myocardial infarction; K21.9 Gastro-esophageal reflux disease without esophagitis; G47.30 Sleep apnea, unspecified; J45.909 Unspecified asthma, uncomplicated; E07.9 Disorder of thyroid, unspecified; Z95.5 Presence of coronary angioplasty implant and graft; F32.A Depression, unspecified; Z79.84 Long term (current) use of oral hypoglycemic drugs; Z79.890 Hormone replacement therapy; Z79.01 Long term (current) use of anticoagulants; Z95.1 Presence of aortocoronary bypass graft; Z79.899 Other long term (current) drug therapy; Z91.030 Bee allergy status; Z91.040 Latex allergy status; Z88.8 Allergy status to other drugs, medicaments and biological substances
CPT/HCPCS: 36415; 80053; 83690; 83735; 85025; 81003; 99284; 96365; 96375 ×2; 96361; J2405; J3475; J1885

== ENCOUNTER 2023-04-05 20:52 | Emergency (ER) | payer MEDICARE ==
--- NOTE | 2023-04-05 21:04 | ED ---
General Adult HPI - General Stated complaint: left hand injury Time Seen by Provider: 04/05/23 21:03 Source: patient Mode of arrival: ambulatory Limitations: no limitations - History of Present Illness Initial comments: 78-year-old female presenting with chief complaint of laceration to the left index finger. Patient accidentally cut her finger with a knife while cutting an apple. Her tetanus is up-to-date. Laceration is at the distal end of the pointer finger, 2 cm. Full range of motion. She is having difficulty controlling the bleeding, she is on Eliquis. - Related Data Home Medications Medication Instructions Recorded Confirmed Aspirin EC [Ecotrin Low Dose] 81 mg PO DAILY 10/15/14 01/09/23 Cyanocobalamin [Vitamin B-12] 1,000 mcg PO DAILY 10/15/14 01/09/23 Furosemide [Lasix] 20 mg PO BID 10/15/14 01/09/23 Levothyroxine Sodium [Synthroid] 50 mcg PO DAILY 10/15/14 01/09/23 Nitroglycerin Sl Tabs [Nitrostat] 0.4 mg SUBLINGUAL Q5M PRN 10/15/14 01/09/23 Omeprazole 20 mg PO BID 04/23/16 01/09/23 QUEtiapine FUMARATE [SEROquel] 50 mg PO HS 04/23/16 01/09/23 Gabapentin [Neurontin] 300 mg PO TID 01/02/18 01/09/23 Calcium Carbonate/Vitamin D3 2 cap PO DAILY 01/25/18 01/09/23 [Calcium 600-Vit D3 12.5 Mcg (500 Iu)] Apixaban [Eliquis] 5 mg PO BID 11/14/22 01/09/23 Ascorbic Acid [Vitamin C] 1,000 mg PO DAILY 11/14/22 01/09/23 Atorvastatin [Lipitor] 40 mg PO HS 11/14/22 01/09/23 Cholecalciferol [Vitamin D3 (25 25 mcg PO DAILY 11/14/22 01/09/23 Mcg = 1000 Iu)] Citalopram Hydrobromide [CeleXA] 40 mg PO DAILY 11/14/22 01/09/23 Fluticasone Nasal [place] [Flonase 1 spray EA NOSTRIL DAILY PRN 11/14/22 01/09/23 Nasal [place]] Ipratropium-Albuterol Nebulize 3 ml INHALATION RT-QID PRN 11/14/22 01/09/23 [Duoneb 0.5 mg-3 mg/3 ml Soln] Magnesium Oxide [Mag-Ox] 400 mg PO DAILY 11/14/22 01/09/23 Meclizine [Antivert] 12.5 mg PO TID PRN 11/14/22 01/09/23 Melatonin 20 mg PO HS 11/14/22 01/09/23 Potassium Chloride ER [K-Dur 20] 20 meq PO DAILY 11/14/22 01/09/23 QUEtiapine [SEROquel] 25 mg PO DAILY 11/14/22 01/09/23 Sucralfate [Carafate] 1 gm PO BID 11/14/22 01/09/23 Midodrine [ProAmatine] 5 mg PO TID 01/02/23 01/09/23 metFORMIN HCL [Glucophage] 500 mg PO DAILY 01/09/23 01/09/23 Previous Rx's Medication Instructions Recorded Acetaminophen Tab [Tylenol] 325 mg PO Q6H #30 tab 11/15/22 Isosorbide Mononitrate ER [Imdur] 30 mg PO DAILY #30 tab 01/05/23 Allergies Allergy/AdvReac Type Severity Reaction Status Date / Time latex Allergy Rash/Hives Verified 01/18/23 11:39 venom-honey bee Allergy Swelling Verified 01/18/23 11:39 [bee venom (honey bee)] zolpidem tartrate AdvReac Altered Verified 01/18/23 11:39 [From Ambien] Mental Status Review of Systems ROS Statement: Those systems with pertinent positive or pertinent negative responses have been documented in the HPI. ROS Other: All systems not noted in ROS Statement are negative. Past Medical History Past Medical History: Asthma, Coronary Artery Disease (CAD), Chest Pain / Angina, Heart Failure, COPD, CVA/TIA, Diabetes Mellitus, GERD/Reflux, Hyperlipidemia, Hypertension, Myocardial Infarction (VT), Osteoarthritis (OA), Pneumonia, Sleep Apnea/CPAP/BIPAP, Syncope, Thyroid Disorder Additional Past Medical History / Comment(s): Pt recently admitted 04/23/16 with left lower lobe peumonia/bronchospasm/ unstable angina. Other hX: NIDDM type II, CVA, VERTIGO, syncope, bilateral tinnitis, anemia, murmur, hypothyroid, UTIs, nephrolithiasis, CHAVEZ with CPap, migraines, head injury as a teen, back pain. 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 Source:: ESBL URINE MRSA BACK Past Surgical History: Bladder Surgery, Coronary Bypass/CABG, Heart Catheterization, Heart Catheterization With Stent, Hysterectomy, Joint Replacement, Orthopedic Surgery, Tonsillectomy Additional Past Surgical History / Comment(s): 1997 3 vessel CABG in [facility], 2004 PCI with 2 stents, 2010 and 2012 cardiac caths, jessi total knee replacements with right side done twice; R total shoulder replacement; L rotator cuff repair, bilateral cataract surgery, bladder suspension, R foot bone fusion, colonoscopy/polypectomy, bilateral hands trigger fingers/thumbs released, benign lymph node bx L4,L5 S1 spinal surgery 04/2017 Past Anesthesia/Blood Transfusion Reactions: No Reported Reaction Additional Past Anesthesia/Blood Transfusion Reaction / Comment(s): Pt received blood in the without reaction. Date of Last Stent Placement:: 2004 Past Psychological History: Depression Smoking Status: Never smoker Past Alcohol Use History: Rare Past Drug Use History: None Reported - Past Family History Mother Family Medical History: Chest Pain / Angina, Coronary Artery Disease (CAD), CVA/TIA, Hypertension, Musculoskeletal Disorder Father Family Medical History: Coronary Artery Disease (CAD) Additional Family Medical History / Comment(s): cabg Brother(s) Family Medical History: Coronary Artery Disease (CAD) Sister(s) Family Medical History: Coronary Artery Disease (CAD) Additional Family Medical History / Comment(s): pulmonary hypertension Daughter(s) Family Medical History: No Reported History General Exam - General Exam Comments Initial Comments: Visual Physical Exam Vital signs reviewed General: Well-appearing, nontoxic, no acute distress. Head: Normocephalic, atraumatic Eyes: PERRLA, EOMI ENT: Airway patent Chest: Nonlabored breathing Skin: No visual rash, normal skin tone Neuro: Alert and oriented 3 Musculoskeletal: No gross abnormalities Limitations: no limitations General appearance: alert, in no apparent distress Head exam: Present: atraumatic, normocephalic Eye exam: Present: normal appearance Neck exam: Present: normal inspection Respiratory exam: Absent: respiratory distress Cardiovascular Exam: Present: regular rate Neurological exam: Present: alert, oriented X3 Psychiatric exam: Present: normal affect, normal mood Expanded Type of lesion: Present: laceration (Left index finger) Course Vital Signs 04/05/23 21:00 Temperature 97.6 F Pulse Rate 63 Respiratory 18 Rate Blood Pressure 153/48 O2 Sat by Pulse 96 Oximetry Procedures - Laceration Laceration #1 Consent Obtained: verbal consent Indication: laceration Site: hand (L index finger) Depth: simple, single layer Anesthetic Used: lidocaine 1%, without epi Pre-repair: wound explored, irrigated extensively Type of Sutures: nylon Size of Sutures: 4-0 Number of Sutures: 3 Technique: simple, interrupted Patient Tolerated Procedure: well Medical Decision Making - Medical Decision Making Was pt. sent in by a medical professional or institution (, TALISHA, ORTHOPEDICS TEACHER, urgent care, hospital, or usp...) When possible be specific @ -No Did you speak to anyone other than the patient for history (EMS, parent, family, police, friend...)? What history was obtained from this source @ -No Did you review nursing and triage notes (agree or disagree)? Why? @ -I reviewed and agree with nursing and triage notes Were old charts reviewed (outside hosp., previous admission, EMS record, old EKG, old radiological studies, urgent care reports/EKG's, usp records)? Report findings @ -No old charts were reviewed Differential Diagnosis (chest pain, altered mental status, abdominal pain women, abdominal pain men, vaginal bleeding, weakness, fever, dyspnea, syncope, headache, dizziness, GI bleed, back pain, seizure, CVA, palpatations, mental health, musculoskeletal)? @ -Not applicable EKG interpreted by me (3pts min.). @ -As above X-rays interpreted by me (1pt min.). @ -None done CT interpreted by me (1pt min.). @ -None done U/S interpreted by me (1pt. min.). @ -None done What testing was considered but not performed or refused? (CT, X-rays, U/S, labs)? Why? @ -None What meds were considered but not given or refused? Why? @ -None Did you discuss the management of the patient with other professionals (professionals i.e. Dr., PA, ORTHOPEDICS TEACHER, lab, RT, psych nurse, clinical social work aide, visual and stock associate, teacher, chief compliance officer, rn case mgr)? Give summary @ -No Was smoking cessation discussed for >3mins.? @ -No Was critical care preformed (if so, how long)? @ -No Were there social determinants of health that impacted care today? How? (Homelessness, low income, unemployed, alcoholism, drug addiction, transportation, low edu. Level, literacy, decrease access to med. care, intermediate, rehab)? @ -No Was there de-escalation of care discussed even if they declined (Discuss DNR or withdrawal of care, Hospice)? DNR status @ -No What co-morbidities impacted this encounter? (DM, HTN, Smoking, COPD, CAD, Cancer, CVA, ARF, Chemo, Hep., AIDS, mental health diagnosis, sleep apnea, morbid obesity)? @ -None Was patient admitted / discharged? Hospital course, mention meds given and route, prescriptions, significant lab abnormalities, going to OR and other pertinent info. @ -78-year-old female presenting with chief complaint of laceration to left index finger. Patient is on Eliquis. She cut the finger while cutting an apple at home tonight. Tetanus is up-to-date. Laceration is irrigated and repaired. Patient was having continued bleeding at the site. L ET solution, pressure dressing, and tourniquet were used to help control bleeding. After multiple attempts the bleeding was finally well-controlled. She was educated on wound care and signs of infection. Discharged home. Follow-up with PCP. Report back to ER with any new or worsening symptoms. Discussed return parameters and answered all questions. Patient conveyed verbal understanding and agreed to the plan. I discussed this case in detail with my attending Dr. Dickens Undiagnosed new problem with uncertain prognosis? @ -No Drug Therapy requiring intensive monitoring for toxicity (Heparin, Nitro, Insulin, Cardizem)? @ -No Were any procedures done? @ -Laceration repair Diagnosis/symptom? @ -Finger laceration Acute, or Chronic, or Acute on Chronic? @ -Acute Uncomplicated (without systemic symptoms) or Complicated (systemic symptoms)? @ -Uncomplicated Side effects of treatment? @ -No Exacerbation, Progression, or Severe Exacerbation? @ -No Poses a threat to life or bodily function? How? (Chest pain, USA, [place], pneumonia, PE, COPD, DKA, ARF, appy, cholecystitis, CVA, Diverticulitis, Homicidal, Suicidal, threat to staff... and all critical care pts) @ -No Disposition Clinical Impression: Laceration Disposition: HOME SELF-CARE Condition: Good Instructions (If sedation given, give patient instructions): Care For Your Stitches (ED), Finger Laceration (ED) Additional Instructions: Follow-up with PCP. Report back to ER with any new or worsening symptoms. Keep the wound clean dry and covered. Wash daily with soap and water. Sutures may be removed in 10 to 14 days. Monitor for signs of infection, including but not limited to redness, swelling, warmth, tenderness, discharge Is patient prescribed a controlled substance at d/c from ED?: No Referrals: Junaid Truong [Primary Care Provider] - 1-2 days Time of Disposition: 22:16
[2023-04-05 21:24] VITALS: BP 153/48; PULSE 63; RESP 18; TEMP 97.6
[2023-04-05] MEDS: LIDOCAINE/EPINEPHR/TETRACAINE 5 ML BOTTLE TOPICAL ONE (22:36)
[2023-04-05] MEDS: GELATIN SPONGE,ABSORB (SMALL) 1 EACH SPONGE TOPICAL STA (23:26)
[2023-04-06] MEDS: TRANEXAMIC ACID 1,000 MG/10 ML VIAL IRRIGATION ONE (00:10)
[2023-04-06] MEDS: IBUPROFEN 600 MG STARTER PACK 4 TAB BTL PO STA (00:14)
== END 2023-04-06 00:14 | disposition home or self-care (01) ==
LOC: EC 20:52
DX: S61.211A Laceration without foreign body of left index finger without damage to nail, initial encounter (principal); I11.0 Hypertensive heart disease with heart failure; E03.9 Hypothyroidism, unspecified; E11.9 Type 2 diabetes mellitus without complications; E78.5 Hyperlipidemia, unspecified; F32.A Depression, unspecified; G47.33 Obstructive sleep apnea (adult) (pediatric); I25.10 Atherosclerotic heart disease of native coronary artery without angina pectoris; I25.2 Old myocardial infarction; I50.9 Heart failure, unspecified; K21.9 Gastro-esophageal reflux disease without esophagitis; M19.90 Unspecified osteoarthritis, unspecified site; Z79.01 Long term (current) use of anticoagulants; Z79.84 Long term (current) use of oral hypoglycemic drugs; Z79.890 Hormone replacement therapy; Z79.899 Other long term (current) drug therapy; Z91.030 Bee allergy status; Z91.040 Latex allergy status; Z88.8 Allergy status to other drugs, medicaments and biological substances; Z95.5 Presence of coronary angioplasty implant and graft; Z95.1 Presence of aortocoronary bypass graft; W26.0XXA Contact with knife, initial encounter
CPT/HCPCS: 12001; 99283

== ENCOUNTER → 2023-06-07 | Outpatient (CLI) | payer MEDICARE ==
--- NOTE | 2023-06-08 09:17 | MR ---
EXAMINATION TYPE: MR lumbar spine wo con DATE OF EXAM: 06/07/2023 4:24 PM CLINICAL INDICATION:Female, 78 years old with history of M54.51 VERTEBROGENIC LOW BACK PAIN; PHH, Low back pain into left buttocks/thigh x4 months, Hx back surgery long ago COMPARISON: 02/19/2018 CT TECHNIQUE: Multi planar, multi sequence imaging was performed utilizing: T1-weighted, T2-weighted, a nd turbo inversion recovery imaging of the lumbar spine. IV Contrast: cc . (None if empty) FINDINGS: Alignment: The lumbar vertebral bodies have preserved heights with grade 1 anterolisthesis of L4 on L 5. Cord: The conus medullaris and the distal spinal cord appear unremarkable with regards to their signa l intensity and morphology. Bones/Discs: Multilevel degeneration changes with disc space narrowing, osteophytes and facet joint a rthropathy. Fixation hardware at L4, L5 and S1. Hardware appears intact. Is mild susceptibility artif act limiting evaluation. T12-L1: Disc bulge and facet joint arthropathy result in mild spinal canal and moderate to severe rig ht and moderate left bilateral neural foraminal stenosis. L1-L2: No evidence of significant spinal canal stenosis. Facet joint arthropathy moderate to severe r ight and moderate left neural foraminal stenosis. L2-L3: Disc bulge and facet joint arthropathy result in mild spinal canal and moderate bilateral neur al foraminal stenosis. L3-L4: Disc bulge and facet joint arthropathy result in mild to moderate spinal canal and moderate bi lateral neural foraminal stenosis. L4-L5: Disc bulge and facet joint arthropathy result in mild spinal canal and mild bilateral neural f oraminal stenosis. L5-S1: The disc is rounded posterior morphology without significant spinal canal stenosis. Facet join t arthropathy with mild bilateral neural foraminal stenosis. No significant spinal canal or neural foraminal stenosis in the remainder of the visualized levels. Other findings: Simple appearing high T2 left renal cyst. IMPRESSION: 1. No definitive evidence of disc herniation or significant spinal canal stenosis. 2. Postsurgical changes with persistent moderate disc degeneration with associated osteoarthritic ch anges. Neural foraminal stenosis worse at T12-L1 and L1-L2 with right moderate to severe stenosis.
== END | disposition home or self-care (01) ==
LOC: RADMRIMAIN 15:12
PROVIDERS: ATTEND Physical Medicine & Rehabilitation
DX: M51.35 Other intervertebral disc degeneration, thoracolumbar region (principal); M99.72 Connective tissue and disc stenosis of intervertebral foramina of thoracic region; M47.815 Spondylosis without myelopathy or radiculopathy, thoracolumbar region; Z98.1 Arthrodesis status
CPT/HCPCS: 72148

== ENCOUNTER 2023-06-18 09:15 | Inpatient (IN) | payer MEDICARE ==
--- NOTE | 2023-06-18 09:41 | ED ---
General Adult HPI - General Chief complaint: Chest Pain Stated complaint: chest pain Time Seen by Provider: 06/18/23 09:29 Source: patient, family, RN notes reviewed Mode of arrival: ambulatory Limitations: no limitations - History of Present Illness Initial comments: Patient is a 78-year-old female presenting to the emergency department with concerns with chest discomfort. Onset of symptoms was about an hour and a half ago. Discomfort was somewhat severe and improved with nitroglycerin at home however starting to return. Discomfort feels like pressure. No radiation. Patient does have some associated dyspnea, nausea and sweating. Symptoms are similar to previous cardiac problems. Patient does have history of previous stents and CABG. - Related Data Home Medications Medication Instructions Recorded Confirmed Aspirin EC [Ecotrin Low Dose] 81 mg PO DAILY 10/15/14 01/09/23 Cyanocobalamin [Vitamin B-12] 1,000 mcg PO DAILY 10/15/14 01/09/23 Furosemide [Lasix] 20 mg PO BID 10/15/14 01/09/23 Levothyroxine Sodium [Synthroid] 50 mcg PO DAILY 10/15/14 01/09/23 Nitroglycerin Sl Tabs [Nitrostat] 0.4 mg SUBLINGUAL Q5M PRN 10/15/14 01/09/23 Omeprazole 20 mg PO BID 04/23/16 01/09/23 QUEtiapine FUMARATE [SEROquel] 50 mg PO HS 04/23/16 01/09/23 Gabapentin [Neurontin] 300 mg PO TID 01/02/18 01/09/23 Calcium Carbonate/Vitamin D3 2 cap PO DAILY 01/25/18 01/09/23 [Calcium 600-Vit D3 12.5 Mcg (500 Iu)] Apixaban [Eliquis] 5 mg PO BID 11/14/22 01/09/23 Ascorbic Acid [Vitamin C] 1,000 mg PO DAILY 11/14/22 01/09/23 Atorvastatin [Lipitor] 40 mg PO HS 11/14/22 01/09/23 Cholecalciferol [Vitamin D3 (25 25 mcg PO DAILY 11/14/22 01/09/23 Mcg = 1000 Iu)] Citalopram Hydrobromide [CeleXA] 40 mg PO DAILY 11/14/22 01/09/23 Fluticasone Nasal [place] [Flonase 1 spray EA NOSTRIL DAILY PRN 11/14/22 01/09/23 Nasal Kite] Ipratropium-Albuterol Nebulize 3 ml INHALATION RT-QID PRN 11/14/22 01/09/23 [Duoneb 0.5 mg-3 mg/3 ml Soln] Magnesium Oxide [Mag-Ox] 400 mg PO DAILY 11/14/22 01/09/23 Meclizine [Antivert] 12.5 mg PO TID PRN 11/14/22 01/09/23 Melatonin 20 mg PO HS 11/14/22 01/09/23 Potassium Chloride ER [K-Dur 20] 20 meq PO DAILY 11/14/22 01/09/23 QUEtiapine [SEROquel] 25 mg PO DAILY 11/14/22 01/09/23 Sucralfate [Carafate] 1 gm PO BID 11/14/22 01/09/23 Midodrine [ProAmatine] 5 mg PO TID 01/02/23 01/09/23 metFORMIN HCL [Glucophage] 500 mg PO DAILY 01/09/23 01/09/23 Previous Rx's Medication Instructions Recorded Acetaminophen Tab [Tylenol] 325 mg PO Q6H #30 tab 11/15/22 Isosorbide Mononitrate ER [Imdur] 30 mg PO DAILY #30 tab 01/05/23 Allergies Allergy/AdvReac Type Severity Reaction Status Date / Time latex Allergy Rash/Hives Verified 06/18/23 09:27 venom-honey bee Allergy Swelling Verified 06/18/23 09:27 [bee venom (honey bee)] zolpidem tartrate AdvReac Altered Verified 06/18/23 09:27 [From Ambien] Mental Status Review of Systems ROS Statement: Those systems with pertinent positive or pertinent negative responses have been documented in the HPI. ROS Other: All systems not noted in ROS Statement are negative. Constitutional: Denies: fever Eyes: Denies: eye pain ENT: Denies: ear pain Respiratory: Reports: as per HPI. Denies: cough Cardiovascular: Reports: as per HPI, chest pain Musculoskeletal: Denies: back pain Past Medical History Past Medical History: Asthma, Coronary Artery Disease (CAD), Chest Pain / Angina, Heart Failure, COPD, CVA/TIA, Diabetes Mellitus, GERD/Reflux, Hy perlipidemia, Hypertension, Myocardial Infarction ([place]), Osteoarthritis (OA), Pneumonia, Sleep Apnea/CPAP/BIPAP, Syncope, Thyroid Disorder Additional Past Medical History / Comment(s): Pt recently admitted 04/23/16 with left lower lobe peumonia/bronchospasm/ unstable angina. Other hX: NIDDM type II, CVA, VERTIGO, syncope, bilateral tinnitis, anemia, murmur, hypothyroid, U TIs, nephrolithiasis, CHAVEZ with CPap, migraines, head injury as a teen, back pain. 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 Source:: ESBL URINE MRSA BACK Past Surgical History: Bladder Surgery, Coronary Bypass/CABG, Heart Catheterization, Heart Catheterization With Stent, Hysterectomy, Joint Replacement, Orthopedic Surgery, Tonsillectomy Additional Past Surgical History / Comment(s): 1997 3 vessel CABG in [facility], 2004 PCI with 2 stents, 2010 and 2012 cardiac caths, jessi total knee replacements with right side done twice; R total shoulder replacement; L rotator cuff repair, bilateral cataract surgery, bladder suspension, R foot bone fusion, colonoscopy/polypectomy, bilateral hands trigger fingers/thumbs released, benign lymph node bx L4,L5 S1 spinal surgery 04/2017 Past Anesthesia/Blood Transfusion Reactions: No Reported Reaction Additional Past Anesthesia/Blood Transfusion Reaction / Comment(s): Pt received blood in the 1959's without reaction. Date of Last Stent Placement:: 2004 Past Psychological History: Depression Smoking Status: Never smoker Past Alcohol Use History: Rare Past Drug Use History: None Reported - Past Family History Mother Family Medical History: Chest Pain / Angina, Coronary Artery Disease (CAD), CVA/TIA, Hypertension, Musculoskeletal Disorder Father Family Medical History: Coronary Artery Disease (CAD) Additional Family Medical History / Comment(s): cabg Brother(s) Family Medical History: Coronary Artery Disease (CAD) Sister(s) Family Medical History: Coronary Artery Disease (CAD) Additional Family Medical History / Comment(s): pulmonary hypertension Daughter(s) Family Medical History: No Reported History General Exam Limitations: no limitations General appearance: alert Head exam: Present: normocephalic Eye exam: Present: normal appearance Neck exam: Present: normal inspection Respiratory exam: Present: normal lung sounds bilaterally. Absent: chest wall tenderness Cardiovascular Exam: Present: regular rate, normal rhythm Expanded Peripheral pulses: 2+: Radial (R), Radial (L), Dorsalis Pedis (R), Dorsalis Pedis (L) GI/Abdominal exam: Present: soft. Absent: tenderness, pulsatile mass Extremities exam: Present: normal inspection. Absent: pedal edema, calf tenderness Neurological exam: Present: alert Psychiatric exam: Present: normal affect, normal mood Skin exam: Present: normal color Course Vital Signs 06/18/23 06/18/23 09:25 10:22 Temperature 98 F Respiratory 18 Rate Blood Pressure 116/82 O2 Sat by Pulse 98 Oximetry Fraction of 100 Inspired Oxygen (FIO2) EKG Findings - EKG Results: EKG: interpreted by AGD (Left axis. LVH with repolarization change.), sinus rhythm Medical Decision Making - Medical Decision Making Was pt. sent in by a medical professional or institution (, PA, PROFESSOR OF LANGUAGES, urgent care, hospital, or custodial...) When possible be specific @ -No Did you speak to anyone other than the patient for history (EMS, parent, family, police, friend...)? What history was obtained from this source @ -No Did you review nursing and triage notes (agree or disagree)? Why? @ -I reviewed and agree with nursing and triage notes Were old charts reviewed (outside hosp., previous admission, EMS record, old EKG, old radiological studies, urgent care reports/EKG's, custodial records)? Report findings @ -No old charts were reviewed Differential Diagnosis (chest pain, altered mental status, abdominal pain women, abdominal pain men, vaginal bleeding, weakness, fever, dyspnea, syncope, headache, dizziness, GI bleed, back pain, seizure, CVA, palpatations, mental health, musculoskeletal)? @ -Differential Chest Pain: Stable Angina, Unstable Angina, STEMI, NSTEMI Aortic Dissection, Pneumothorax, Musculoskeletal, Esophageal Spasm GERD, Cholecystitis, Pancreatitis, Zoster, this is not meant to be an all-inclusive list. EKG interpreted by me (3pts min.). @ -As above X-rays interpreted by me (1pt min.). @ -Chest x-ray shows no acute process CT interpreted by me (1pt min.). @ -None done U/S interpreted by me (1pt. min.). @ -None done What testing was considered but not performed or refused? (CT, X-rays, U/S, labs)? Why? @ -None What meds were considered but not given or refused? Why? @ -None Did you discuss the management of the patient with other professionals (pr ofessionals i.e. , PA, PROFESSOR OF LANGUAGES, lab, RT, psych nurse, social media marketing analyst, coding compliance auditor, teacher, aoc plans intelligence officer, family preservation caseworker)? Give summary @ -Case was discussed with Dr. Ramirez who will admit covering for Dr. Truong Was smoking cessation discussed for >3mins.? @ -No Was critical care preformed (if so, how long)? @ -No Were there social determinants of health that impacted care today? How? (Homelessness, low income, unemployed, alcoholism, drug addiction, transportation, low edu. Level, literacy, decrease access to med. care, usp, rehab)? @ -No Was there de-escalation of care discussed even if they declined (Discuss DNR or withdrawal of care, Hospice)? DNR status @ -No What co-morbidities impacted this encounter? (DM, HTN, Smoking, COPD, CAD, Cancer, CVA, ARF, Chemo, Hep., AIDS, mental health diagnosis, sleep apnea, morbid obesity)? @ -History of CAD with previous stenting and bypass Was patient admitted / discharged? Hospital course, mention meds given and route, prescriptions, significant lab abnormalities, going to OR and other pertinent info. @ -Patient reevaluated and resting comfortably in bed. Somewhat improved. Patient is updated on results and plan. Patient will be admitted. Admission orders written. Cardiology will be placed on consult Undiagnosed new problem with uncertain prognosis? @ -No Drug Therapy requiring intensive monitoring for toxicity (Heparin, Nitro, Insul in, Cardizem)? @ -No Were any procedures done? @ -No Diagnosis/symptom? @ -Chest pain Acute, or Chronic, or Acute on Chronic? @ -Acute Uncomplicated (without systemic symptoms) or Complicated (systemic symptoms)? @ -Default Side effects of treatment? @ -No Exacerbation, Progression, or Severe Exacerbation? @ -No Poses a threat to life or bodily function? How? (Chest pain, [place], [place], pneumonia, PE, COPD, DKA, ARF, appy, cholecystitis, CVA, Diverticulitis, Homicidal, Suicidal, threat to staff... and all critical care pts) @ -To cardiac function - Lab Data Result diagrams: 06/18/23 09:43 06/18/23 09:43 Lab Results 06/18/23 06/18/23 06/18/23 Range/Units 09:43 09:43 09:43 WBC 5.2 (3.8-10.6) k/uL RBC 3.80 (3.80-5.40) m/uL Hgb 11.5 (11.4-16.0) gm/dL Hct 33.9 L (34.0-46.0) % MCV 89.2 (80.0-100.0) fL MCH 30.1 (25.0-35.0) pg MCHC 33.8 (31.0-37.0) g/dL RDW 14.6 (11.5-15.5) % Plt Count 182 (150-450) k/uL MPV 7.3 Neutrophils % 65 % Lymphocytes % 22 % Monocytes % 8 % Eosinophils % 2 % Basophils % 1 % Neutrophils # 3.4 (1.3-7.7) k/uL Lymphocytes # 1.2 (1.0-4.8) k/uL Monocytes # 0.4 (0-1.0) k/uL Eosinophils # 0.1 (0-0.7) k/uL Basophils # 0.0 (0-0.2) k/uL PT 10.5 (10.0-12.5) sec INR 1.0 (<1.2) APTT 23.4 (22.0-30.0) sec D-Dimer 0.40 (<0.60) mg/L FEU Sodium 140 (137-145) mmol/L Potassium 3.4 L (3.5-5.1) mmol/L Chloride 104 (98-107) mmol/L Carbon Dioxide 30 (22-30) mmol/L Anion Gap 6 mmol/L BUN 14 (7-17) mg/dL Creatinine 0.52 (0.52-1.04) mg/dL Est GFR (CKD-EPI)AfAm >90 (>60 ml/min/1.73 sqM) Est GFR (CKD-EPI)NonAf >90 (>60 ml/min/1.73 sqM) Glucose 107 H (74-99) mg/dL Calcium 8.8 (8.4-10.2) mg/dL Magnesium 1.8 (1.6-2.3) mg/dL Total Bilirubin 0.3 (0.2-1.3) mg/dL AST 23 (14-36) U/L ALT 16 (4-34) U/L Alkaline Phosphatase 67 (38-126) U/L Troponin I (0.000-0.034) ng/mL Total Protein 6.5 (6.3-8.2) g/dL Albumin 3.9 (3.5-5.0) g/dL 06/18/23 Range/Units 09:43 WBC (3.8-10.6) k/uL RBC (3.80-5.40) m/uL Hgb (11.4-16.0) gm/dL Hct (34.0-46.0) % MCV (80.0-100.0) fL MCH (25.0-35.0) pg MCHC (31.0-37.0) g/dL RDW (11.5-15.5) % Plt Count (150-450) k/uL MPV Neutrophils % % Lymphocytes % % Monocytes % % Eosinophils % % Basophils % % Neutrophils # (1.3-7.7) k/uL Lymphocytes # (1.0-4.8) k/uL Monocytes # (0-1.0) k/uL Eosinophils # (0-0.7) k/uL Basophils # (0-0.2) k/uL PT (10.0-12.5) sec INR (<1.2) APTT (22.0-30.0) sec D-Dimer (<0.60) mg/L FEU Sodium (137-145) mmol/L Potassium (3.5-5.1) mmol/L Chloride (98-107) mmol/L Carbon Dioxide (22-30) mmol/L Anion Gap mmol/L BUN (7-17) mg/dL Creatinine (0.52-1.04) mg/dL Est GFR (CKD-EPI)AfAm (>60 ml/min/1.73 sqM) Est GFR (CKD-EPI)NonAf (>60 ml/min/1.73 sqM) Glucose (74-99) mg/dL Calcium (8.4-10.2) mg/dL Magnesium (1.6-2.3) mg/dL Total Bilirubin (0.2-1.3) mg/dL AST (14-36) U/L ALT (4-34) U/L Alkaline Phosphatase (38-126) U/L Troponin I <0.012 (0.000-0.034) ng/mL Total Protein (6.3-8.2) g/dL Albumin (3.5-5.0) g/dL Disposition Clinical Impression: Chest pain Disposition: ADMITTED IP TO THIS HOSP Is patient prescribed a controlled substance at d/c from ED?: No Referrals: Junaid Truong [Primary Care Provider] - 1-2 days Time of Disposition: 11:05
[2023-06-18 10:04] LABS: Basophils % (A) 1 %; Eosinophils # (A) 0.1 k/uL (0-0.7); Eosinophils % (A) 2 %; HCT 33.9 % (34.0-46.0); HGB 11.5 gm/dL (11.4-16.0); Lymphocytes # (A) 1.2 k/uL (1.0-4.8); Lymphocytes % (A) 22 %; MCH 30.1 pg (25.0-35.0); MCHC 33.8 g/dL (31.0-37.0); MCV 89.2 fL (80.0-100.0); Mean Platelet Volume 7.3; Monocytes # (A) 0.4 k/uL (0-1.0); Monocytes % (A) 8 %; Neutrophils # (A) 3.4 k/uL (1.3-7.7); Neutrophils % (A) 65 %; Platelet Count 182 k/uL (150-450); RDW 14.6 % (11.5-15.5); WBC 5.2 k/uL (3.8-10.6)
[2023-06-18 10:16] LABS: Partial Thromboplastin Time 23.4 sec (22.0-30.0); Prothrombin Time 10.5 sec (10.0-12.5)
[2023-06-18 10:20] LABS: ALT 16 U/L (4-34); AST 23 U/L (14-36); African American GFR (CKD) >90 (>60 ml/min/1.73 sqM); Albumin 3.9 g/dL (3.5-5.0); Alkaline Phosphatase 67 U/L (38-126); Anion Gap 6 mmol/L; Blood Urea Nitrogen 14 mg/dL (7-17); Calcium 8.8 mg/dL (8.4-10.2); Carbon Dioxide 30 mmol/L (22-30); Chloride 104 mmol/L (98-107); Glucose 107 mg/dL (74-99); Magnesium 1.8 mg/dL (1.6-2.3); Non-African American GFR(CKD) >90 (>60 ml/min/1.73 sqM); Potassium 3.4 mmol/L (3.5-5.1); Sodium 140 mmol/L (137-145); Total Bilirubin 0.3 mg/dL (0.2-1.3); Total Protein 6.5 g/dL (6.3-8.2)
[2023-06-18] MEDS ORDERED: LORazepam 2 MG/ML INJ IV PRN ×2 (10:21)
[2023-06-18] MEDS: ASPIRIN 81 MG PO STA (10:23)
[2023-06-18] MEDS: NITROGLYCERIN OINT 1 INCH/GM PACKET TOPICAL STA (10:24)
[2023-06-18] MEDS: NITROGLYCERIN SL TABS 0.4 MG TAB SUBLINGUAL STA ×3 (10:25→10:36)
--- NOTE | 2023-06-18 10:47 | XR ---
EXAMINATION TYPE: XR chest 2V DATE OF EXAM: 06/18/2023 10:32 AM CLINICAL INDICATION:Female, 78 years old with history of Chest Pain; [facility] COMPARISON: Chest radiographs from 01/02/2023 TECHNIQUE: XR chest 2V Frontal and lateral views of the chest. FINDINGS: Lungs/Pleura: There is no evidence of pleural effusion, focal consolidation, or pneumothorax. Pulmonary vascularity: Unremarkable. Heart/mediastinum: Cardiomediastinal silhouette is prominent in size. Musculoskeletal: No acute osseous pathology. Midline sternotomy wires are noted. Right shoulder arthr oplasty changes appear intact. IMPRESSION: No acute cardiopulmonary disease/process.
[2023-06-18] MEDS ORDERED: NITROGLYCERIN SL TABS 0.4 MG TAB SUBLINGUAL PRN (11:07)
[2023-06-18] MEDS: MORPHINE SULFATE 4 MG/ML SYRINGE IVP STA (11:21)
[2023-06-18] MEDS: ROCURONIUM 10 MG/ML (5 ML VIAL) IV STA (11:24)
[2023-06-18] MEDS ORDERED: FLUTICASONE 50MCG/SPRAY NASAL 16GM EA NOSTRIL PRN (11:37)
[2023-06-18] MEDS ORDERED: ALBUTEROL NEBULIZED 2.5 MG/3 ML INHALATION PRN (11:37)
[2023-06-18] MEDS ORDERED: NALOXONE 0.4 MG/ML 1 ML VIAL IV PRN (11:40)
[2023-06-18] MEDS ORDERED: DEXTROSE 50% SYRINGE 50 ML IVP PRN ×2 (11:43)
[2023-06-18] MEDS: POTASSIUM CHLORIDE ER 20 MEQ TAB.ER PO SCH (13:00)
[2023-06-18] MEDS: LEVOTHYROXINE 50 MCG TAB PO SCH (13:00)
[2023-06-18] MEDS: PANTOPRAZOLE 40 MG TABLET PO SCH (13:01)
[2023-06-18] MEDS: FUROSEMIDE 20 MG TAB PO SCH (13:01)
[2023-06-18] MEDS: MIDODRINE 5 MG TAB PO SCH (13:01)
[2023-06-18] MEDS: ISOSORBIDE MONONITRATE ER 30 MG TAB.ER.24H PO SCH (13:02)
[2023-06-18] MEDS: NITROGLYCERIN OINT 1 INCH/GM PACKET TOPICAL SCH (13:02)
[2023-06-18] MEDS: QUEtiapine 50 MG TAB PO SCH (13:02)
[2023-06-18] MEDS: SODIUM CHLORIDE 0.9% 1,000 ML IV SCH (13:03)
[2023-06-18] MEDS: QUEtiapine 25 MG TAB PO SCH (13:09)
--- NOTE | 2023-06-18 14:32 | P.HPIM ---
History of Present Illness H&P Date: 06/18/23 Chief Complaint: Chest pain * 78-year-old patient with past medical history significant for coronary artery disease history of CABG, hyperlipidemia, chronic congestive heart failure, hypothyroid, history of CVA, TIA, COPD, history of sleep apnea, diabetes mellitus type 2 gastroesophageal reflux disease history of syncope, hypothyroid presented to the emergency department with complaints of chest pain that started few hours prior to presentation. Patient complained of mid sternal chest discomfort. * Workup initiated in ER included CBC showed WBC of 5.2 hemoglobin 9.5 platelet count of 182, INR of 1 D-dimer 0.4 * Serum chemistry showed sodium 140 potassium 3.4 BUN 14 creatinine 0.52 glucose 104 magnesium of 1.8 * Initial troponin obtained within normal limits REVIEW OF SYSTEMS: Chest pain on admission CONSTITUTIONAL: No fever, no malaise, no fatigue. HEENT: No recent visual problems or hearing problems. Denied any sore throat. CARDIOVASCULAR: Chest pain on admission PULMONARY: No shortness of breath, no cough, no hemoptysis. GASTROINTESTINAL: No diarrhea, no nausea, no vomiting, no abdominal pain. NEUROLOGICAL: No headaches, no weakness, no numbness. HEMATOLOGICAL: Denies any bleeding or petechiae. GENITOURINARY: Denies any burning micturition, frequency, or urgency. MUSCULOSKELETAL/RHEUMATOLOGICAL: Denies any joint pain, swelling, or any muscle pain. ENDOCRINE: Denies any polyuria or polydipsia. PHYSICAL EXAMINATION: GENERAL: The patient is alert and oriented x3, not in any acute distress. Well developed, well nourished. HEENT: Pupils are round and equally reacting to light. EOMI. CARDIOVASCULAR: S1 and S2 present. No murmurs, rubs, or gallops. PULMONARY: Chest is clear to auscultation, no wheezing or crackles. ABDOMEN: Soft, nontender, nondistended, normoactive bowel sounds. No palpable organomegaly. MUSCULOSKELETAL: No joint swelling or deformity. EXTREMITIES: No cyanosis, clubbing, or pedal edema. NEUROLOGICAL: Gross neurological examination did not reveal any focal deficits. SKIN: No rashes. Assessment and plan * Coronary artery disease with chest pain on admission recurrent angina * Diabetes mellitus type 2 * Hypertension * Hyperlipidemia * Chronic congestive heart failure diastolic dysfunction * In regards to coronary artery with chest pain, serial troponins ordered, cardiology consulted, continue medical management, patient already ant icoagulated with Eliquis * In regards to diabetes mellitus Accu-Cheks ACHS continue patient on correc tional insulin metformin on hold * In regards to congestive heart failure, continue patient on Lasix and potassium supplementation continue midodrine for blood pressure support * Home medications reviewed and reconciled * CODE STATUS is full code Past Medical History Past Medical History: Asthma, Coronary Artery Disease (CAD), Chest Pain / Angina, Heart Failure, COPD, CVA/TIA, Diabetes Mellitus, GERD/Reflux, Hyperlipidemia, Hypertension, Myocardial Infarction ([place]), Osteoarthritis ([place]), Pneumonia, Sleep Apnea/CPAP/BIPAP, Syncope, Thyroid Disorder Additional Past Medical History / Comment(s): Pt recently admitted 04/23/16 with left lower lobe peumonia/bronchospasm/ unstable angina. Other hX: NIDDM type II, CVA, VERTIGO, syncope, bilateral tinnitis, anemia, murmur, hypothyroid, UTIs, nephrolithiasis, CHAVEZ with CPap, migraines, head injury as a teen, back pain. 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 Source:: ESBL URINE MRSA BACK Past Surgical History: Bladder Surgery, Coronary Bypass/CABG, Heart Catheterization, Heart Catheterization With Stent, Hysterectomy, Joint Replacement, Orthopedic Surgery, Tonsillectomy Additional Past Surgical History / Comment(s): 1997 3 vessel CABG in [facility], 2004 PCI with 2 stents, 2010 and 2012 cardiac caths, jessi total knee replacements with right side done twice; R total shoulder replacement; L rotator cuff repair, bilateral cataract surgery, bladder suspension, R foot bone fusion, colonoscopy/polypectomy, bilateral hands trigger fingers/thumbs released, benign lymph node bx L4,L5 S1 spinal surgery 04/2017 Past Anesthesia/Blood Transfusion Reactions: No Reported Reaction Additional Past Anesthesia/Blood Transfusion Reaction / Comment(s): Pt received blood in the s without reaction. Date of Last Stent Placement:: 2004 Past Psychological History: Depression Smoking Status: Never smoker Past Alcohol Use History: Rare Past Drug Use History: None Reported - Past Family History Mother Family Medical History: Chest Pain / Angina, Coronary Artery Disease (CAD), CVA/TIA, Hypertension, Musculoskeletal Disorder Father Family Medical History: Coronary Artery Disease (CAD) Additional Family Medical History / Comment(s): cabg Brother(s) Family Medical History: Coronary Artery Disease (CAD) Sister(s) Family Medical History: Coronary Artery Disease (CAD) Additional Family Medical History / Comment(s): pulmonary hypertension Daughter(s) Family Medical History: No Reported History Medications and Allergies Home Medications Medication Instructions Recorded Confirmed Type Aspirin EC [Ecotrin Low Dose] 81 mg PO DAILY 10/15/14 06/18/23 History Cyanocobalamin [Vitamin B-12] 1,000 mcg PO DAILY 10/15/14 06/18/23 History Furosemide [Lasix] 20 mg PO BID 10/15/14 06/18/23 History Levothyroxine Sodium [Synthroid] 50 mcg PO DAILY 10/15/14 06/18/23 History Nitroglycerin Sl Tabs [Nitrostat] 0.4 mg SUBLINGUAL Q5M PRN 10/15/14 06/18/23 History Omeprazole 20 mg PO BID 04/23/16 06/18/23 History QUEtiapine FUMARATE [SEROquel] 50 mg PO HS 04/23/16 06/18/23 History Calcium Carbonate/Vitamin D3 2 cap PO DAILY 01/25/18 06/18/23 History [Calcium 600-Vit D3 12.5 Mcg (500 Iu)] Apixaban [Eliquis] 5 mg PO BID 11/14/22 06/18/23 History Ascorbic Acid [Vitamin C] 1,000 mg PO DAILY 11/14/22 06/18/23 History Atorvastatin [Lipitor] 40 mg PO HS 11/14/22 06/18/23 History Citalopram Hydrobromide [CeleXA] 40 mg PO DAILY 11/14/22 06/18/23 History Fluticasone Nasal [place] [Flonase 1 spray EA NOSTRIL DAILY PRN 11/14/22 06/18/23 History Nasal [place]] Meclizine [Antivert] 12.5 mg PO TID PRN 11/14/22 06/18/23 History Potassium Chloride ER [K-Dur 20] 20 meq PO DAILY 11/14/22 06/18/23 History QUEtiapine [SEROquel] 25 mg PO DAILY 11/14/22 06/18/23 History Sucralfate [Carafate] 1 gm PO BID 11/14/22 06/18/23 History Midodrine [ProAmatine] 5 mg PO TID 01/02/23 06/18/23 History Isosorbide Mononitrate ER [Imdur] 30 mg PO DAILY #30 tab 01/05/23 06/18/23 Rx metFORMIN HCL [Glucophage] 500 mg PO DAILY 01/09/23 06/18/23 History Acetaminophen-Codeine 300-30mg 1 - 2 tab PO Q6H PRN 06/18/23 06/18/23 History [Tylenol w/codeine #3] Albuterol Inhaler [Ventolin Hfa 2 puff INHALATION RT-Q4H PRN 06/18/23 06/18/23 History Inhaler] Aspirin/Sod Bicarb/Citric Acid 2 tab PO DAILY PRN 06/18/23 06/18/23 History [Yuridia-[place] Original Tab Eff] Ibuprofen [Motrin Ib] 600 mg PO Q8H PRN 06/18/23 06/18/23 History Multivitamins, Thera [Multivitamin 1 tab PO DAILY 06/18/23 06/18/23 History (formulary)] Allergies Allergy/AdvReac Type Severity Reaction Status Date / Time latex Allergy Rash/Hives Verified 06/18/23 11:31 venom-honey bee Allergy Swelling Verified 06/18/23 11:31 [bee venom (honey bee)] zolpidem tartrate AdvReac Altered Verified 06/18/23 11:31 [From Ambien] Mental Status Physical Exam Vitals: Vital Signs Temp Pulse Resp BP Pulse Ox FiO2 06/18/23 11:09 52 L 16 131/61 99 06/18/23 10:22 100 06/18/23 09:25 98 F 18 116/82 98 Intake and Output 06/17/23 06/18/23 06/18/23 22:59 06:59 14:59 Other: Weight 63.503 kg Results CBC & Chem 7: 06/18/23 09:43 06/18/23 09:43 Labs: Abnormal Lab Results - Last 24 Hours (Table) 06/18/23 06/18/23 Range/Units 09:43 09:43 Hct 33.9 L (34.0-46.0) % Potassium 3.4 L (3.5-5.1) mmol/L Glucose 107 H (74-99) mg/dL
[2023-06-18] MEDS: INSULIN ASPART (NovoLOG) 100 UNIT/ML VIAL SQ SCH (16:03)
[2023-06-18 16:04] LABS: Glucose,Whole Blood 144 mg/dL (70-110)
[2023-06-18 17:16] LABS: Glucose,Whole Blood 90 mg/dL (70-110)
[2023-06-18] MEDS: FUROSEMIDE 20 MG TAB PO STA (17:55)
[2023-06-18] MEDS: MAG HYDROX/AL HYDROX/SIMETH 30 ML CUP PO SCH (18:52)
[2023-06-18 20:11] LABS: Glucose,Whole Blood 104 mg/dL (70-110)
[2023-06-18] MEDS ORDERED: CHLORHEXIDINE GLUCONATE 15 ML CUP MUCOUS MEM SCH (21:00)
[2023-06-18] MEDS: ATORVASTATIN 40 MG TAB PO SCH (21:08)
[2023-06-18] MEDS: SUCRALFATE 1 GM TAB PO SCH (21:08)
[2023-06-18] MEDS: FUROSEMIDE 20 MG TAB PO ONE (21:09)
[2023-06-18] MEDS: APIXABAN 5 MG TAB PO SCH (21:09)
[2023-06-18] MEDS: Acetaminophen-Codeine 300-30mg TAB PO PRN (21:09)
[2023-06-18] MEDS: IBUPROFEN 600 MG TAB PO PRN (23:06)
--- NOTE | 2023-06-18 23:20 | CONS ---
CONSULTATION CHIEF COMPLAINT: Chest pain. HISTORY OF PRESENT ILLNESS: Florence is a 78-year-old lady with history of coronary artery disease, status post prior bypass surgery; atrial fibrillation; hypothyroidism; COPD; and tyn-bqtcuqy-tqmbpahpv diabetes; who presented to hospital complaining of chest pain. She describes it as a precordial chest tightness without definite radiation to neck, arm, or back. At the time of my evaluation in the emergency room, she appears comfortable at rest. EKG shows sinus rhythm with nonspecific ST-T wave changes in the precordial leads. She has had a troponin that is negative. Hemoglobin is normal at 11.5. The patient underwent cardiac catheterization in December of 2022, when she came to the hospital with chest pain, had an abnormal stress test in the anteroapical area, for which she underwent cardiac catheterization. Her cardiac catheterization revealed [place] 2-vessel coronary artery disease with dominant right coronary artery without any stenosis, patent MORENO to LAD with nonfunctioning MORENO, [place] LAD is free of diffusely diseased, radial artery graft to PDA, and OM branch was widely patent. She was advised medical therapy. At the time of my evaluation, the patient is pain free and hemodynamically stable. PAST MEDICAL HISTORY: Significant for CAD, status post CABG; hypertension; diabetes; dyslipidemia; atrial fibrillation; and hypotension. CURRENT MEDICATIONS: Include; 1. Aspirin. 2. Eliquis 5 b.i.d. 3. Midodrine. 4. Seroquel. 5. Lipitor. 6. Nitroglycerin. 7. Nebulizers. 8. Glucophage. ALLERGIES: To latex, honey bee venom, and Ambien. FAMILY HISTORY: Negative for premature coronary artery disease. SOCIAL HISTORY: Negative for current smoking, ETOH abuse, or drug abuse. REVIEW OF SYSTEMS: review of systems has been performed. Pertinents are as documented. PHYSICAL EXAMINATION: GENERAL: Comfortable at rest. VITAL SIGNS: Stable. NECK: There is no jugular venous distention. CHEST: Reveals good air entry bilaterally. HEART: Reveals first and second heart sounds. No gallop. Has a systolic murmur at the apex. ABDOMEN: Soft. EXTREMITIES: Did not reveal any edema. Peripheral pulses are felt. ASSESSMENT: 1. Precordial chest pain, rule out myocardial infarction. 2. Coronary artery disease, status post coronary artery bypass graft. 3. History of atrial fibrillation. PLAN: We will obtain another set of troponin. Obtain a 2D echo in the morning. Given the recent cardiac catheterization in December, I do not think she needs any further invasive procedures or stress testing at this time. We will treat her with optimal medical therapy. Hopefully, home tomorrow if she is doing well. KELIN / CHARLOTTE: [id number] /
[2023-06-19] MEDS: CALCIUM CARBONATE 500 MG CHEWABLE PO PRN (04:49)
[2023-06-19 05:39] LABS: Glucose,Whole Blood 92 mg/dL (70-110)
[2023-06-19] MEDS: CYANOCOBALAMIN 500 MCG TAB PO SCH (08:41)
[2023-06-19] MEDS: ASPIRIN 81 MG PO SCH (08:41)
[2023-06-19] MEDS: CITALOPRAM HYDROBROMIDE 20 MG TAB PO SCH (08:41)
[2023-06-19] MEDS ORDERED: ASPIRIN 325 MG TAB PO SCH (09:00)
[2023-06-19 10:35] LABS: Basophils # (A) 0.05 X 10*3/uL (0.00-0.10); Eosinophils # (A) 0.16 X 10*3/uL (0.04-0.35); Eosinophils % (A) 3.3 %; HCT 31.9 % (37.2-46.3); HGB 10.3 g/dL (12.0-15.0); Lymphocytes # (A) 1.63 X 10*3/uL (0.90-5.00); Lymphocytes % (A) 33.3 %; MCHC 32.3 g/dL (32.0-37.0); Mean Platelet Volume 9.9 FL (9.5-12.2); Monocytes # (A) 0.64 X 10*3/uL (0.20-1.00); Monocytes % (A) 13.1 %; NRBC Per 100 WBC 0 X 10*3/uL (0.00-0.01); Neutrophils % (A) 49.1 %; Platelet Count 161 X 10*3/uL (140-440); RBC 3.43 X 10*6/uL (4.10-5.20); RDW 13.4 % (11.5-14.5); WBC 4.89 X 10*3/uL (4.50-10.00)
[2023-06-19 10:36] LABS: BUN/Creat Ratio 14.38 Ratio (12.00-20.00); Blood Urea Nitrogen 11.5 mg/dL (9.0-27.0); Calcium 8.6 mg/dL (8.7-10.3); Carbon Dioxide 26.4 mmol/L (21.6-31.8); Chloride 102 mmol/L (96-109); Chol/HDL Ratio 2.26 Ratio; Glucose 92 mg/dL (70-110); LDL Cholesterol,Calculated 48.8 mg/dL (0.0-131.0); Potassium 3.5 mmol/L (3.5-5.5); Sodium 141 mmol/L (135-145)
[2023-06-19] MEDS: SIMETHICONE 80 MG CHEWABLE PO SCH (11:13)
[2023-06-19 11:23] LABS: Glucose,Whole Blood 116 mg/dL (70-110)
[2023-06-19] MEDS ORDERED: REGADENOSON 0.4 MG/5 ML SYRINGE IV PRN (13:14)
[2023-06-19] MEDS ORDERED: CAFFEINE CITRATE 60 MG/3 ML VIAL IV PRN (13:14)
[2023-06-19] MEDS ORDERED: AMINOPHYLLINE 500 MG/20 ML VIAL IV PRN (13:14)
--- NOTE | 2023-06-19 14:48 | P.PN ---
Subjective Progress Note Date: 06/19/23 History of present illness: This is a 78-year-old female with past medical history of coronary artery dise ase status post prior bypass surgery, atrial fibrillation, hypothyroidism, COPD, diabetes mellitus type 2. Patient presented to the hospital with chest pain in the precordial area with tightness without definite radiation of the pain. EKG revealed sinus rhythm with nonspecific ST-T wave changes in the precordial leads. Patient had a cardiac catheterization done in December 2022 following an abnormal stress test in the anterior apical area. Cardiac catheterization revealed [place] two-vessel coronary artery disease with dominant right coronary artery without any stenosis, patent MORENO to LAD with nonfunctioning MORENO, [place] LAD f free of diffuse disease, radial artery graft to PDA and OM branch widely patent. Patient was advised medical therapy at that time. Repeat troponins revealed negative x 3. Echocardiogram is pending. Patient states that she is still having chest pain that she describes as tightness and sometimes radiating. Physical examination: Gen: This is a 78-year-old female in no acute distress VS: reviewed, blood pressure 136/62, heart rate in the 40s during the night, pulse ox 99% on 2 L. HEENT: Head is atraumatic, normocephalic. Pupils equal, round. Sclerae is anicteric. LUNGS: Clear to auscultation. No wheezes or rhonchi. No intercostal retractions. HEART: Regular rate and rhythm. Systolic murmur at the apex. EXTREMITIES: No pedal edema. No calf tenderness. NEUROLOGICAL: Patient is awake, alert and oriented x3. Assessment: Precordial chest pain, acute coronary syndrome ruled out with negative troponins History of coronary artery disease with prior CABG Paroxysmal atrial fibrillation Hyperlipidemia Plan: Continue patient's home cardiac medications Obtain 2-D echocardiogram and Doppler study to assess cardiac structure and function Schedule patient for Lexiscan stress test tomorrow. N.p.o. after midnight Nurse practitioner note has been reviewed, I agree with documented findings and plan of care. Patient was seen and examined. Objective - Vital Signs Vital signs: Vital Signs Temp 97.6 F 06/19/23 07:00 Pulse 49 L 06/19/23 07:00 Resp 16 06/19/23 07:00 BP 136/62 06/19/23 07:00 Pulse Ox 99 06/19/23 07:00 FiO2 100 06/18/23 10:22 Intake & Output 06/18/23 06/19/23 06/19/23 18:59 06:59 18:59 Weight 63.503 kg Other: # Voids 3 3 - Labs CBC & Chem 7: 06/19/23 06:59 06/19/23 06:59 Labs: Abnormal Lab Results - Last 24 Hours (Table) 06/18/23 06/18/23 06/18/23 Range/Units 09:43 09:43 16:02 Hct 33.9 L (34.0-46.0) % Potassium 3.4 L (3.5-5.1) mmol/L Glucose 107 H (74-99) mg/dL POC Glucose (mg/dL) 144 H (70-110) mg/dL
[2023-06-19 17:12] LABS: Glucose,Whole Blood 113 mg/dL (70-110)
--- NOTE | 2023-06-19 19:59 | CA ---
Transthoracic Echo Report Name: Florence Mason Age: 78 Gender: F : 1945 Exam Date: 06/19/2023 14:37 Exam Location: [facility] Ht (in): 63 Wt (lb): 140 Ordering Physician: Radha Perdue MD Attending/Referring Phys: Scaffold Worker Kelin Villeda RDCS Procedure CPT: Indications: CP Cardiac Hx: Technical Quality: Technically difficult study Contrast 1: Definity Total Dose (mL): 2 Contrast 2: Total Dose (mL): MEASUREMENTS (Male / Female) Normal Values 2D ECHO LV Diastolic Diameter PLAX 4.2 cm 4.2 - 5.9 / 3.9 - 5.3 cm LV Systolic Diameter PLAX 2.2 cm IVS Diastolic Thickness 0.9 cm 0.6 - 1.0 / 0.6 - 0.9 cm LVPW Diastolic Thickness 1.1 cm 0.6 - 1.0 / 0.6 - 0.9 cm LV Relative Wall Thickness 0.5 RV Internal Dim ED PLAX 3.8 cm LA Volume 88.8 cm??? 18 - 58 / 22 - 52 cm??? LA Volume Index 52.5 cm???/m??? 16 - 28 cm???/m??? M-MODE Aortic Root Diameter MM 3.1 cm LA Systolic Diameter MM 4.7 cm LA Ao Ratio MM 1.5 AV Cusp Separation MM 2.2 cm DOPPLER AV Peak Velocity 221.4 cm/s AV Peak Gradient 19.6 mmHg AV Mean Velocity 113.3 cm/s AV Mean Gradient 7.0 mmHg AV Velocity Time Integral 43.1 cm LVOT Peak Velocity 153.1 cm/s LVOT Peak Gradient 9.4 mmHg LVOT Velocity Time Integral 38.2 cm MV Area PHT 2.4 cm??? Mitral E Point Velocity 95.0 cm/s Mitral A Point Velocity 108.0 cm/s Mitral E to A Ratio 0.9 MV Deceleration Time 310.9 ms MV E' Velocity 5.9 cm/s Mitral E to MV E' Ratio 16.1 TR Peak Velocity 208.5 cm/s TR Peak Gradient 17.4 mmHg Right Ventricular Systolic Press 22.4 mmHg PV Peak Velocity 189.1 cm/s PV Peak Gradient 14.3 mmHg PV Mean Velocity 114.9 cm/s PV Mean Gradient 6.3 mmHg PV Velocity Time Integral 40.2 cm FINDINGS Left Ventricle Mildly increased left ventricular wall thickness. Left ventricular cavity size normal. Abnormal (paradoxical) septal motion consistent with postoperative state. Left ventricular ejection fraction is estimated at 50-55 %. Grade 1 diastolic dysfunction. Right Ventricle Right ventricular dilatation. Mild pulmonary hypertension. Right Atrium Normal right atrial size. Left Atrium Severely increased left atrial volume. Mildly increased left atrial area. Mitral Valve Structurally normal mitral valve. Mitral valve thickened. Mitral annular calcification. Mild mitral regurgitation. Aortic Valve Mild aortic stenosis with a peak gradient of 20 mmHg and a mean gradient of 7 mmHg. No aortic regurgitation. Tricuspid Valve Structurally normal tricuspid valve. Kcut-qx-[id number] tricuspid regurgitation. Pulmonic Valve Structurally normal pulmonic valve. Mild pulmonic regurgitation. Pericardium No pericardial effusion. Aorta Normal size aortic root and proximal ascending aorta. CONCLUSIONS Technically difficult study for interpretation Mild aortic stenosis Mild pulmonary hypertension. Dilated right ventricle No evidence of pericardial effusion Previewed by: Dr. Wilfrid Cheema MD (Electronically Signed) Final Date: 19 June 2023 19:58
[2023-06-19 20:08] LABS: Glucose,Whole Blood 118 mg/dL (70-110)
[2023-06-20] MEDS: ACETAMINOPHEN TAB 325 MG TAB PO PRN (04:24)
[2023-06-20 06:10] LABS: Glucose,Whole Blood 113 mg/dL (70-110)
[2023-06-20 06:29] LABS: Glucose,Whole Blood 106 mg/dL (70-110)
[2023-06-20] MEDS ORDERED: REGADENOSON 0.4 MG/5 ML SYRINGE IV PRN (07:00)
[2023-06-20] MEDS ORDERED: AMINOPHYLLINE 500 MG/20 ML VIAL IV PRN (07:00)
[2023-06-20] MEDS ORDERED: CAFFEINE CITRATE 60 MG/3 ML VIAL IV PRN (07:00)
[2023-06-20] MEDS ORDERED: REGADENOSON 0.4 MG/5 ML SYRINGE IV ONE (08:00)
--- NOTE | 2023-06-20 11:41 | CA ---
Lexiscan Nuclear Stress Test Report Name: Florence Mason Exam Date: 06/20/2023 10:46 Exam Location: [facility] Ht (in): Wt (lb): BSA: Ordering Phys: Lindsey Cobb Referring Phys: MAUREEN, Technologist: EDUARDO,, Age: 78 Gender: F : 1945 Procedure CPT: Indications: Reflex order-Stress test ICD-10 Codes: Patient History: Chest pain, shortness of breath and palpitations Medications: Meds past 24 hrs: Pretest Chest Pain: STRESS TEST Lexiscan Protocol Exercise Duration (min:sec): 01:[address] Depressions (mm): Angina Score: Gómez Score: Resting HR (bpm): 52 Peak HR (bpm): 104 Resting BP (mmHg): 140 / 78 Peak BP (mmHg): 139 / 61 MPHR: 144 Target HR: 122 % MPHR: 72 METS: 1.0 Total Dose: Peak Dose: Atropine: Double Product: 00485 BP Response: Stress Termination: INFUSION COMPLETE Stress Symptoms: DIZZINESS Stress Summary: ECG ANALYSIS Resting ECG: Stress ECG: CONCLUSIONS Nondiagnostic stress test Dr. Wilfrid Cheema MD (Electronically Signed) Final Date: 20 June 2023 11:40
[2023-06-20 11:44] LABS: Glucose,Whole Blood 118 mg/dL (70-110)
--- NOTE | 2023-06-20 12:36 | NM ---
EXAMINATION TYPE: NM stress lexiscan cardiolite DATE OF EXAM: 06/20/2023 COMPARISON: NONE HISTORY: Chest pain TECHNIQUE: After the intravenous administration of 10.08 mCi Tc 99m Sestamibi - Cardiolite resting S PECT images acquired 45 minutes post injection. At peak stress 23.6 mCi Tc 99m Sestamibi - Stress images obtained 35 minutes post injection The patient was stressed with 0.4mg Lexiscan. FINDINGS: There is diminished radiotracer accumulation along the lateral wall. This has extension towards the i nferior wall and to a lesser degree extension towards the anterior wall. The defect extends from the cardiac apex nearly the cardiac base. Polar maps appear to underestimate the size of the defect and r eversibility. Wall motion is normal Ejection fraction is calculated to be 50 % which is borderline. Normal greater than 50%.. IMPRESSION: 1. Large Stress-induced ischemic change along the lateral wall with extension towards the anterior an d inferior steve. Correlate with EKG changes. A Red level critical message alert has been initiated for Brayan Santiago MD via the [employer] Critical Results System on 06/20/2023 12:34 PM. This message alert has been sent to Brayan Santiago MD via the preferences provided by the clinician for the receipt of Radiology Critical Findings. [facility] ID [id number].
--- NOTE | 2023-06-20 13:10 | P.PN ---
Subjective Progress Note Date: 06/20/23 * 78-year-old patient with past medical history significant for coronary artery disease history of CABG, hyperlipidemia, chronic congestive heart failure, hypothyroid, history of CVA, TIA, COPD, history of sleep apnea, diabetes mellitus type 2 gastroesophageal reflux disease history of syncope, hypothyroi d presented to the emergency department with complaints of chest pain that started few hours prior to presentation. Patient complained of midsternal chest discomfort. * Workup initiated in ER included CBC showed WBC of 5.2 hemoglobin 9.5 platelet count of 182, INR of 1 D-dimer 0.4 * Serum chemistry showed sodium 140 potassium 3.4 BUN 14 creatinine 0.52 glucose 104 magnesium of 1.8 * Initial troponin obtained within normal limits * 06/19/23: Patient seen and evaluated at bedside, serial troponins were obtained that were negative. Patient was seen by cardiology, echocardiogram was obtained, etiology for chest pain was deemed noncardiac in origin. Patient was started on Protonix, also started on simethicone. Echocardiogram was completed which did show some wall motion abnormality * 06/20/23: Patient was seen and evaluated at bedside, patient underwent stress, which showed large stress-induced ischemic change along the lateral wall with extension to the anterior in the inferior wall. Cardiology following PHYSICAL EXAMINATION: GENERAL: The patient is alert and oriented x3, not in any acute distress. Well developed, well nourished. HEENT: Pupils are round and equally reacting to light. EOMI. CARDIOVASCULAR: S1 and S2 present. No murmurs, rubs, or gallops. PULMONARY: Chest is clear to auscultation, no wheezing or crackles. ABDOMEN: Soft, nontender, nondistended, normoactive bowel sounds. No palpable organomegaly. MUSCULOSKELETAL: No joint swelling or deformity. EXTREMITIES: No cyanosis, clubbing, or pedal edema. NEUROLOGICAL: Gross neurological examination did not reveal any focal deficits. SKIN: No rashes. Assessment and plan * Coronary artery disease with chest pain with abnormal stress test * Diabetes mellitus type 2 * Hypertension * Hyperlipidemia * Chronic congestive heart failure diastolic dysfunction * In regards to coronary artery with chest pain, serial troponins obtained within normal limits, continue medical management echocardiogram completed , abnormal stress test * Etiology for GERD epigastric pain likely gastrointestinal, ibuprofen discontinued, started on Protonix, continue simethicone * In regards to diabetes mellitus Accu-Cheks ACHS continue home regimen * In regards to congestive heart failure, continue patient on Lasix and potassium supplementation continue midodrine for blood pressure support Objective - Vital Signs Vital signs: Vital Signs Temp 97.5 F L 06/20/23 07:00 Pulse 51 L 06/20/23 12:51 Resp 16 06/20/23 07:00 BP 149/74 06/20/23 12:51 Pulse Ox 98 06/20/23 07:00 FiO2 100 06/18/23 10:22 Intake & Output 06/19/23 06/20/23 06/20/23 18:59 06:59 18:59 Intake Total 354 Balance 354 Intake: Oral 354 Other: # Voids 3 3 - Labs CBC & Chem 7: 06/19/23 06:59 06/19/23 06:59 Labs: Abnormal Lab Results - Last 24 Hours (Table) 06/19/23 06/19/23 06/20/23 Range/Units 17:10 20:07 06:09 POC Glucose (mg/dL) 113 H 118 H 113 H (70-110) mg/dL 06/20/23 Range/Units 11:43 POC Glucose (mg/dL) 118 H (70-110) mg/dL
--- NOTE | 2023-06-20 13:11 | P.PN ---
Subjective Progress Note Date: 06/19/23 * * 78-year-old patient with past medical history significant for coronary artery disease history of CABG, hyperlipidemia, chronic congestive heart failure, hypothyroid, history of CVA, TIA, COPD, history of sleep apnea, diabetes mellitus type 2 gastroesophageal reflux disease history of syncope, hypothyr oid presented to the emergency department with complaints of chest pain that started few hours prior to presentation. Patient complained of midsternal chest discomfort. * Workup initiated in ER included CBC showed WBC of 5.2 hemoglobin 9.5 platelet count of 182, INR of 1 D-dimer 0.4 * Serum chemistry showed sodium 140 potassium 3.4 BUN 14 creatinine 0.52 glucose 104 magnesium of 1.8 * Initial troponin obtained within normal limits * 06/19/23: Patient seen and evaluated at bedside, serial troponins were obtained that were negative. Patient was seen by cardiology, echocardiogram was obtained, etiology for chest pain was deemed noncardiac in origin. Patient was started on Protonix, also started on simethicone. Discharge was canceled after echocardiogram showed abnormality PHYSICAL EXAMINATION: GENERAL: The patient is alert and oriented x3, not in any acute distress. Well developed, well nourished. HEENT: Pupils are round and equally reacting to light. EOMI. CARDIOVASCULAR: S1 and S2 present. No murmurs, rubs, or gallops. PULMONARY: Chest is clear to auscultation, no wheezing or crackles. ABDOMEN: Soft, nontender, nondistended, normoactive bowel sounds. No palpable organomegaly. MUSCULOSKELETAL: No joint swelling or deformity. EXTREMITIES: No cyanosis, clubbing, or pedal edema. NEUROLOGICAL: Gross neurological examination did not reveal any focal deficits. SKIN: No rashes. Assessment and plan * Coronary artery disease with chest pain on admission rule out ACS * Diabetes mellitus type 2 * Hypertension * Hyperlipidemia * Chronic congestive heart failure diastolic dysfunction * In regards to coronary artery with chest pain, serial troponins obtained within normal limits, continue medical management echocardiogram completed, stress test ordered * Etiology for GERD epigastric pain likely gastrointestinal, ibuprofen discontinued, started on Protonix, continue simethicone * In regards to diabetes mellitus Accu-Cheks ACHS continue home regimen * In regards to congestive heart failure, continue patient on Lasix and potassium supplementation continue midodrine for blood pressure support Objective - Vital Signs Vital signs: Vital Signs Temp 97.5 F L 06/20/23 07:00 Pulse 51 L 06/20/23 12:51 Resp 16 06/20/23 07:00 BP 149/74 06/20/23 12:51 Pulse Ox 98 06/20/23 07:00 FiO2 100 06/18/23 10:22 Intake & Output 06/19/23 06/20/23 06/20/23 18:59 06:59 18:59 Intake Total 354 Balance 354 Intake: Oral 354 Other: # Voids 3 3 - Labs CBC & Chem 7: 06/19/23 06:59 06/19/23 06:59 Labs: Abnormal Lab Results - Last 24 Hours (Table) 06/19/23 06/19/23 06/20/23 Range/Units 17:10 20:07 06:09 POC Glucose (mg/dL) 113 H 118 H 113 H (70-110) mg/dL 06/20/23 Range/Units 11:43 POC Glucose (mg/dL) 118 H (70-110) mg/dL
--- NOTE | 2023-06-20 13:43 | P.PN ---
Subjective Progress Note Date: 06/20/23 History of present illness: This is a 78-year-old female with past medical history of coronary artery dise ase status post prior bypass surgery, atrial fibrillation, hypothyroidism, COPD, diabetes mellitus type 2. Patient presented to the hospital with chest pain in the precordial area with tightness without definite radiation of the pain. EKG revealed sinus rhythm with nonspecific ST-T wave changes in the precordial leads. Patient had a cardiac catheterization done in December 2022 following an abnormal stress test in the anterior apical area. Cardiac catheterization revealed [place] two-vessel coronary artery disease with dominant right coronary artery without any stenosis, patent MORENO to LAD with nonfunctioning MORENO, [place] LAD f free of diffuse disease, radial artery graft to PDA and OM branch widely patent. Patient was advised medical therapy at that time. Repeat troponins revealed negative x 3. Echocardiogram is pending. Patient states that she is still having chest pain that she describes as tightness and sometimes radiating. 06/19 Patient states that she had chest pain that woke her up this morning but it is now gone. No shortness of breath. Blood pressure 149/74, heart rate in the 50s. Patient underwent Lexiscan stress test which revealed large stress-induced ischemic change along the lateral wall with extension towards the anterior and inferior steve. Echocardiogram reveals EF of 50 to 55%, mild aortic stenosis, mild pulmonary hypertension. Dilated right ventricle. No evidence of pericardial effusion. Technically difficult study for interpretation. Physical examination: Gen: This is a 78-year-old female in no acute distress VS: reviewed HEENT: Head is atraumatic, normocephalic. Pupils equal, round. Sclerae is anicteric. LUNGS: Clear to auscultation. No wheezes or rhonchi. No intercostal retractions. HEART: Regular rate and rhythm. Systolic murmur at the apex. EXTREMITIES: No pedal edema. No calf tenderness. NEUROLOGICAL: Patient is awake, alert and oriented x3. Assessment: Precordial chest pain, acute coronary syndrome ruled out with negative troponins History of coronary artery disease with prior CABG Paroxysmal atrial fibrillation Hyperlipidemia Plan: Continue patient's home cardiac medications Tomorrow morning, Lexiscan stress test will be evaluated along with cardiac catheterization that was recently done in December. Patient will be made n.p.o. and hold Eliquis in case patient needs cardiac catheterization tomorrow. Nurse practitioner note has been reviewed, I agree with documented findings and plan of care. Patient was seen and examined. Objective - Vital Signs Vital signs: Vital Signs Temp 97.5 F L 06/20/23 07:00 Pulse 52 L 06/20/23 07:00 Resp 16 06/20/23 07:00 BP 166/71 06/20/23 07:00 Pulse Ox 98 06/20/23 07:00 FiO2 100 06/18/23 10:22 Intake & Output 06/19/23 06/20/23 06/20/23 18:59 06:59 18:59 Intake Total 354 Balance 354 Intake: Oral 354 Other: # Voids 3 3 - Labs CBC & Chem 7: 06/19/23 06:59 06/19/23 06:59 Labs: Abnormal Lab Results - Last 24 Hours (Table) 06/19/23 06/19/23 06/19/23 Range/Units 06:59 06:59 11:21 RBC 3.43 L (4.10-5.20) X 10*6/uL Hgb 10.3 L (12.0-15.0) g/dL Hct 31.9 L (37.2-46.3) % Anion Gap 12.60 H (4.00-12.00) mmol/L POC Glucose (mg/dL) 116 H (70-110) mg/dL Calcium 8.6 L (8.7-10.3) mg/dL 06/19/23 06/19/23 06/20/23 Range/Units 17:10 20:07 06:09 RBC (4.10-5.20) X 10*6/uL Hgb (12.0-15.0) g/dL Hct (37.2-46.3) % Anion Gap (4.00-12.00) mmol/L POC Glucose (mg/dL) 113 H 118 H 113 H (70-110) mg/dL Calcium (8.7-10.3) mg/dL
[2023-06-20 16:32] LABS: Glucose,Whole Blood 114 mg/dL (70-110)
--- NOTE | 2023-06-20 17:10 | CT ---
EXAMINATION TYPE: CT brain wo con DATE OF EXAM: 06/20/2023 COMPARISON: 02/19/2018 INDICATION: New onset confusion. DLP: 1147 mGycm, Automated exposure control for dose reduction was used. CONTRAST: None CT of the brain is performed utilizing 3 mm thick sections through the posterior fossa and 3 mm thick sections through the remaining calvarium. Study is performed within 24 hours of arrival to the hosp [facility]. No abnormal hyperdensity is present to suggest an acute intracranial hemorrhage. No mass lesion is evident. No acute infarcts are evident. There is mild chronic appearing periventricular white matter ischemic type changes present. This appears an interval change from comparison. Ventricles and sulci are mildly prominent for the patient age. Paranasal sinuses and mastoid air cells within the [id number] are clear. IMPRESSION: 1. Mild chronic appearing periventricular white matter ischemic changes.
[2023-06-20 17:17] LABS: Glucose,Whole Blood 103 mg/dL (70-110)
[2023-06-20 17:42] LABS: VBG PH 7.49 (7.31-7.41)
[2023-06-20 20:34] LABS: Glucose,Whole Blood 113 mg/dL (70-110)
[2023-06-21 06:16] LABS: Glucose,Whole Blood 110 mg/dL (70-110)
[2023-06-21] MEDS: SODIUM CHLORIDE 0.9% 1,000 ML IV SCH (08:56)
[2023-06-21 10:33] LABS: Basophils # (A) 0.04 X 10*3/uL (0.00-0.10); Basophils % (A) 0.6 %; Eosinophils # (A) 0.15 X 10*3/uL (0.04-0.35); Eosinophils % (A) 2.1 %; HCT 38.7 % (37.2-46.3); HGB 12.6 g/dL (12.0-15.0); Lymphocytes # (A) 1.33 X 10*3/uL (0.90-5.00); Lymphocytes % (A) 18.8 %; MCH 29.9 pg (27.0-32.0); MCHC 32.6 g/dL (32.0-37.0); MCV 91.7 FL (80.0-97.0); Mean Platelet Volume 9.3 FL (9.5-12.2); Monocytes # (A) 0.78 X 10*3/uL (0.20-1.00); NRBC Per 100 WBC 0 X 10*3/uL (0.00-0.01); Neutrophils # (A) 4.74 X 10*3/uL (1.80-7.70); Neutrophils % (A) 67.1 %; Platelet Count 192 X 10*3/uL (140-440); RBC 4.22 X 10*6/uL (4.10-5.20); RDW 13.5 % (11.5-14.5); WBC 7.07 X 10*3/uL (4.50-10.00)
[2023-06-21] MEDS: ISOSORBIDE MONONITRATE ER 30 MG TAB.ER.24H PO STA (10:49)
--- NOTE | 2023-06-21 11:41 | P.PN ---
Subjective Progress Note Date: 06/21/23 History of present illness: This is a 78-year-old female with past medical history of coronary artery dise ase status post prior bypass surgery, atrial fibrillation, hypothyroidism, COPD, diabetes mellitus type 2. Patient presented to the hospital with chest pain in the precordial area with tightness without definite radiation of the pain. EKG revealed sinus rhythm with nonspecific ST-T wave changes in the precordial leads. Patient had a cardiac catheterization done in December 2022 following an abnormal stress test in the anterior apical area. Cardiac catheterization revealed [place] two-vessel coronary artery disease with dominant right coronary artery without any stenosis, patent MORENO to LAD with nonfunctioning MORENO, [place] LAD f free of diffuse disease, radial artery graft to PDA and OM branch widely patent. Patient was advised medical therapy at that time. Repeat troponins revealed negative x 3. Echocardiogram is pending. Patient states that she is still having chest pain that she describes as tightness and sometimes radiating. 06/19 Patient states that she had chest pain that woke her up this morning but it is now gone. No shortness of breath. Blood pressure 149/74, heart rate in the 50s. Patient underwent Lexiscan stress test which revealed large stress-induced ischemic change along the lateral wall with extension towards the anterior and inferior steve. Echocardiogram reveals EF of 50 to 55%, mild aortic stenosis, mild pulmonary hypertension. Dilated right ventricle. No evidence of pericardial effusion. Technically difficult study for interpretation. 06/20 Films from previous cardiac cath reviewed by Dr. Cheema. The ischemic area identified on Lexiscan stress test is in the same region of previously known occluded circumflex. No recommendations for heart catheterization at this time. Patient is in agreement. Will plan to make medication adjustments to improve her symptoms. Blood pressure 133/74, heart rate 52, pulse ox 96% on room air. CBC unremarkable. Physical examination: Gen: This is a 78-year-old female in no acute distress VS: reviewed HEENT: Head is atraumatic, normocephalic. Pupils equal, round. Sclerae is anicteric. LUNGS: Clear to auscultation. No wheezes or rhonchi. No intercostal retractions. HEART: Regular rate and rhythm. Systolic murmur at the apex. EXTREMITIES: No pedal edema. No calf tenderness. NEUROLOGICAL: Patient is awake, alert and oriented x3. Assessment: Precordial chest pain, acute coronary syndrome ruled out with negative troponins History of coronary artery disease with prior CABG Paroxysmal atrial fibrillation Hyperlipidemia Plan: Continue patient's home cardiac medications Increase Imdur to 60 mg daily and add Ranexa 500 mg twice daily Resume Eliquis 5 mg twice daily Monitor patient overnight, if patient is chest pain-free tomorrow, plan for discharge home and patient will follow-up with Dr. Jae Santiago in the office in 2 weeks Nurse practitioner note has been reviewed, I agree with documented findings and plan of care. Patient was seen and examined. Objective - Vital Signs Vital signs: Vital Signs Temp 97.6 F 06/21/23 08:00 Pulse 52 L 06/21/23 08:00 Resp 16 06/21/23 08:00 BP 133/74 06/21/23 08:00 Pulse Ox 96 06/21/23 08:00 FiO2 100 06/18/23 10:22 Intake & Output 06/20/23 06/21/23 06/21/23 18:59 06:59 18:59 Other: Voiding Method Toilet # Voids 1 1 - Labs CBC & Chem 7: 06/21/23 07:40 06/19/23 06:59 Labs: Abnormal Lab Results - Last 24 Hours (Table) 06/20/23 06/20/23 06/20/23 Range/Units 11:43 16:31 17:17 VBG pH 7.49 H (7.31-7.41) VBG HCO3 29 H (24-28) mmol/L POC Glucose (mg/dL) 118 H 114 H (70-110) mg/dL 06/20/23 Range/Units 20:32 VBG pH (7.31-7.41) VBG HCO3 (24-28) mmol/L POC Glucose (mg/dL) 113 H (70-110) mg/dL
[2023-06-21 12:14] LABS: ALT 16 U/L (8-44); AST 19 U/L (13-35); Albumin 4.4 g/dL (3.8-4.9); Alkaline Phosphatase 83 U/L (41-126); BUN/Creat Ratio 13.25 Ratio (12.00-20.00); Bilirubin, Conjugated <0.20 mg/dL (0.20-0.40); Bilirubin,Unconjugated >0.10 mg/dL (0.20-1.00); Blood Urea Nitrogen 10.6 mg/dL (9.0-27.0); Calcium 9.4 mg/dL (8.7-10.3); Carbon Dioxide 28.2 mmol/L (21.6-31.8); Chloride 103 mmol/L (96-109); Globulin 2.1 g/dL (1.6-3.3); Glucose 97 mg/dL (70-110); Potassium 4.3 mmol/L (3.5-5.5); Sodium 142 mmol/L (135-145); Total Bilirubin 0.3 mg/dL (0.3-1.2); Total Protein 6.5 g/dL (6.2-8.2)
[2023-06-21 12:14] LABS: Glucose,Whole Blood 109 mg/dL (70-110)
[2023-06-21] MEDS: RANOLAZINE 500 MG TAB.ER.12H PO SCH (13:17)
[2023-06-21] MEDS: APIXABAN 5 MG TAB PO SCH (13:18)
[2023-06-21 17:38] LABS: Glucose,Whole Blood 102 mg/dL (70-110)
[2023-06-21 20:39] LABS: Glucose,Whole Blood 130 mg/dL (70-110)
--- NOTE | 2023-06-21 21:43 | P.PN ---
Subjective 78-year-old patient with past medical history significant for coronary artery disease history of CABG, hyperlipidemia, chronic congestive heart failure, hypothyroid, history of CVA, TIA, COPD, history of sleep apnea, diabetes mellitus type 2 gastroesophageal reflux disease history of syncope, hypothyroid presented to the emergency department with complaints of chest pain that started few hours prior to presentation. Patient complained of midsternal chest discomfort. Workup initiated in ER included CBC showed WBC of 5.2 hemoglobin 9.5 platelet count of 182, INR of 1 D-dimer 0.4 Serum chemistry showed sodium 140 potassium 3.4 BUN 14 creatinine 0.52 glucose 104 magnesium of 1.8 Initial troponin obtained within normal limits 06/19/23: Patient seen and evaluated at bedside, serial troponins were obtained that were negative. Patient was seen by cardiology, echocardiogram was obtained, etiology for chest pain was deemed noncardiac in origin. Patient was started on Protonix, also started on simethicone. Discharge was canceled after echocardiogram showed abnormality I am resuming the care of the pt today 06/21/2023 Patient had abnormal stress test, however core checker Dr. 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 They resumed her Eliquis 5 mg daily We will be monitoring her overnight and possible discharge in 24 to 48 hours Objective - Vital Signs Vital signs: Vital Signs Temp 97.6 F 06/21/23 08:00 Pulse 52 L 06/21/23 08:20 Resp 16 06/21/23 08:20 BP 133/74 06/21/23 08:00 Pulse Ox 96 06/21/23 08:00 FiO2 100 06/18/23 10:22 Intake & Output 06/20/23 06/21/23 06/21/23 18:59 06:59 18:59 Other: Voiding Method Toilet Toilet # Voids 1 1 - Exam GENERAL: The patient is alert and oriented x3, not in any acute distress. Well developed, well nourished. HEENT: Pupils are round and equally reacting to light. EOMI. No scleral icterus. No conjunctival pallor. Normocephalic, atraumatic. No pharyngeal erythema. No thyromegaly. CARDIOVASCULAR: S1 and S2 present. No murmurs, rubs, or gallops. PULMONARY: Chest is clear to auscultation, no wheezing , no crackles. ABDOMEN: Soft, nontender, nondistended, normoactive bowel sounds. No palpable organomegaly. MUSCULOSKELETAL: No joint swelling or deformity. EXTREMITIES: No cyanosis, clubbing, or pedal edema. NEUROLOGICAL: Gross neurological examination did not reveal any focal deficits. SKIN: No rashes. no petechiae. - Labs CBC & Chem 7: 06/21/23 07:40 06/21/23 07:40 Labs: Abnormal Lab Results - Last 24 Hours (Table) 06/20/23 06/20/23 06/20/23 Range/Units 16:31 17:17 20:32 MPV (9.5-12.2) FL VBG pH 7.49 H (7.31-7.41) VBG HCO3 29 H (24-28) mmol/L POC Glucose (mg/dL) 114 H 113 H (70-110) mg/dL Unconjugated Bilirubin (0.20-1.00) mg/dL 06/21/23 06/21/23 Range/Units 07:40 07:40 MPV 9.3 L (9.5-12.2) FL VBG pH (7.31-7.41) VBG HCO3 (24-28) mmol/L POC Glucose (mg/dL) (70-110) mg/dL Unconjugated Bilirubin >0.10 L (0.20-1.00) mg/dL Assessment and Plan Assessment: Coronary artery disease with chest pain on admission , most likely secondary to his fixed angina with abnormal stress test showing reversible ischemia, consistent with his previous coronary artery disease Diabetes mellitus type 2 Hypertension Hyperlipidemia Chronic congestive heart failure diastolic dysfunction Plan: Continue with aspirin Resume Eliquis Added Imdur 60 mg and Ranexa by core checker Monitor overnight Possible discharge tomorrow if patient remains chest pain-free Cardiology recommendation appreciated DVT prophylaxis on Eliquis GI prophylaxis on Protonix and Carafate
[2023-06-22 06:29] LABS: Glucose,Whole Blood 91 mg/dL (70-110)
[2023-06-22] MEDS: ISOSORBIDE MONONITRATE ER 60 MG TAB.ER.24H PO SCH (08:37)
[2023-06-22 08:38] VITALS: RESP 16
[2023-06-22 12:33] LABS: Glucose,Whole Blood 124 mg/dL (70-110)
--- NOTE | 2023-06-22 13:30 | P.PN ---
Subjective Progress Note Date: 06/22/23 History of present illness: This is a 78-year-old female with past medical history of coronary artery dise ase status post prior bypass surgery, atrial fibrillation, hypothyroidism, COPD, diabetes mellitus type 2. Patient presented to the hospital with chest pain in the precordial area with tightness without definite radiation of the pain. EKG revealed sinus rhythm with nonspecific ST-T wave changes in the precordial leads. Patient had a cardiac catheterization done in December 2022 following an abnormal stress test in the anterior apical area. Cardiac catheterization revealed [place] two-vessel coronary artery disease with dominant right coronary artery without any stenosis, patent MORENO to LAD with nonfunctioning MORENO, [place] LAD f free of diffuse disease, radial artery graft to PDA and OM branch widely patent. Patient was advised medical therapy at that time. Repeat troponins revealed negative x 3. Echocardiogram is pending. Patient states that she is still having chest pain that she describes as tightness and sometimes radiating. 06/19 Patient states that she had chest pain that woke her up this morning but it is now gone. No shortness of breath. Blood pressure 149/74, heart rate in the 50s. Patient underwent Lexiscan stress test which revealed large stress-induced ischemic change along the lateral wall with extension towards the anterior and inferior steve. Echocardiogram reveals EF of 50 to 55%, mild aortic stenosis, mild pulmonary hypertension. Dilated right ventricle. No evidence of pericardial effusion. Technically difficult study for interpretation. 06/20 Films from previous cardiac cath reviewed by Dr. Cheema. The ischemic area identified on Lexiscan stress test is in the same region of previously known occluded circumflex. No recommendations for heart catheterization at this time. Patient is in agreement. Will plan to make medication adjustments to improve her symptoms. Blood pressure 133/74, heart rate 52, pulse ox 96% on room air. CBC unremarkable. 06/21 Patient states that she is feeling well today and better from yesterday. No episodes of chest pain. Yesterday, Imdur was increased to 60 mg daily and Ranexa 500 mg twice daily was added. Blood pressure 120/64, heart rate 55, pulse ox 98% on room air. Physical examination: Gen: This is a 78-year-old female in no acute distress VS: reviewed HEENT: Head is atraumatic, normocephalic. Pupils equal, round. Sclerae is anicteric. LUNGS: Clear to auscultation. No wheezes or rhonchi. No intercostal retractions. HEART: Regular rate and rhythm. Systolic murmur at the apex. EXTREMITIES: No pedal edema. No calf tenderness. NEUROLOGICAL: Patient is awake, alert and oriented x3. Assessment: Precordial chest pain, acute coronary syndrome ruled out with negative troponins History of coronary artery disease with prior CABG Paroxysmal atrial fibrillation Hyperlipidemia Plan: Continue patient's home cardiac medications Continue increased dose of Imdur 60 mg daily and continue Ranexa 500 mg twice daily Patient is cleared for discharge from cardiology and patient will follow-up with Dr. Jae Santiago in the office in 2 weeks Nurse practitioner note has been reviewed, I agree with documented findings and plan of care. Patient was seen and examined. Objective - Vital Signs Vital signs: Vital Signs Temp 98.3 F 06/22/23 02:36 Pulse 64 06/22/23 02:36 Resp 15 06/22/23 02:36 BP 111/63 06/22/23 02:36 Pulse Ox 96 06/22/23 02:36 FiO2 100 06/18/23 10:22 Intake & Output 06/21/23 06/22/23 06/22/23 18:59 06:59 18:59 Intake Total 118 Balance 118 Intake: Oral 118 Other: Voiding Method Toilet # Voids 2 2 - Labs CBC & Chem 7: 06/21/23 07:40 06/21/23 07:40 Labs: Abnormal Lab Results - Last 24 Hours (Table) 06/21/23 06/21/23 06/21/23 Range/Units 07:40 07:40 20:38 MPV 9.3 L (9.5-12.2) FL POC Glucose (mg/dL) 130 H (70-110) mg/dL Unconjugated Bilirubin >0.10 L (0.20-1.00) mg/dL
--- NOTE | 2023-06-22 13:45 | P.PN ---
Progress Note - Text Progress Note Date: 06/22/23 Patient will require a 4 wheeled walker on discharge in order to perform ADLs as patient has generalized weakness and shortness of breath secondary to congestive heart failure. Patient is able to walk with steady gait with a walker.
[2023-06-22 14:35] VITALS: BP 112/68; PULSE 42; TEMP 98.7
--- NOTE | 2023-06-23 06:18 | P.DS ---
Providers Date of admission: 06/20/23 14:48 Attending physician: Radha Perdue MD Consults: 06/18/23 11:07 Consult Physician Urgent Consulting Provider: Brayan Santiago Consult Reason/Comments: cp Do you want consulting provider notified?: Yes Primary care physician: Junaid Truong Hospital Course: Diagnoses: Coronary artery disease with chest pain on admission , most likely secondary to his fixed angina with abnormal stress test showing reversible ischemia, consistent with his previous coronary artery disease of left circumflex coronary artery disease Diabetes mellitus type 2 Hypertension Hyperlipidemia Chronic congestive heart failure diastolic dysfunction Hospital course: 78-year-old patient with past medical history significant for coronary artery disease history of CABG, hyperlipidemia, chronic congestive heart failure, hypothyroid, history of CVA, TIA, COPD, history of sleep apnea, diabetes mellitus type 2 gastroesophageal reflux disease history of syncope, hypothyroid presented to the emergency department with complaints of chest pain that started few hours prior to presentation. initial troponin obtained within normal limits x3 Patient evaluated by specialist physicians and she had abnormal stress test. However as per specialist physicians Dr. Garg it could be related to her known disease of left circumflex artery therefore no need for cardiac cath for now per specialist physicians patient was placed on higher dose of Imdur 60 mg instead of 30 mg and she was started on Ranexa and monitored for 24 hours, she remains clinically stable with no chest pain no dyspnea no other new complaint Patient agreed to go home today Patient also cleared for discharge by specialist physicians Also during her hospital course she had some period of forgetfulness which lasted for few hours, CT of the brain was obtained was negative. Her symptoms improved and patient remains with no recurrence of her symptoms for more than 24 hours. Patient fully awake and oriented and denies any headache dizziness wea kness or numbness upon discharge. Patient confirms to me she has aspirin and Eliquis at home and no need for new prescription. Benefits and risks were explained for her extensively and she verbalized understanding and acceptance. Problems and management plan were discussed with the patient and he verbalized understanding and acceptance Patient was found stable and can be discharged home in guarded prognosis however he needs follow-up as an outpatient. Patient was instructed to follow up with PCP Dr. Truong within one week and patient agrees Patient was instructed to follow-up with her specialist physicians Dr. Gimenez in 1 to 2 weeks after discharge and she agrees Physical exam Gen: patient is a AAOx3, no distress CVS: S1-S2, RRR, no murmur Lungs: B/L CTA, no wheezing Abdomen: soft, no distention, no tenderness, positive bowel sounds Extremity: no leg edema or induration Time spent more than 35 minutes Patient Condition at Discharge: Fair Plan - Discharge Summary New Discharge Prescriptions: New Simethicone Chew [Mylicon Chew] 40 mg PO QID 7 Days #28 tab Pantoprazole [Protonix] 40 mg PO BID 30 Days #60 tab Isosorbide Mononitrate ER [Imdur] 60 mg PO DAILY #30 tab Ranolazine [Ranexa] 500 mg PO Q12HR 30 Days #60 tab Continue Nitroglycerin Sl Tabs [Nitrostat] 0.4 mg SUBLINGUAL Q5M PRN PRN Reason: Chest Pain Levothyroxine Sodium [Synthroid] 50 mcg PO DAILY Cyanocobalamin [Vitamin B-12] 1,000 mcg PO DAILY Furosemide [Lasix] 20 mg PO BID Aspirin EC [Ecotrin Low Dose] 81 mg PO DAILY QUEtiapine FUMARATE [SEROquel] 50 mg PO HS Calcium Carbonate/Vitamin D3 [Calcium 600-Vit D3 12.5 Mcg (500 Iu)] 2 cap PO DAILY Sucralfate [Carafate] 1 gm PO BID Potassium Chloride ER [K-Dur 20] 20 meq PO DAILY Ascorbic Acid [Vitamin C] 1,000 mg PO DAILY metFORMIN HCL [Glucophage] 500 mg PO DAILY Albuterol Inhaler [Ventolin Hfa Inhaler] 2 puff INHALATION RT-Q4H PRN PRN Reason: Shortness Of Breath Atorvastatin [Lipitor] 40 mg PO HS QUEtiapine [SEROquel] 25 mg PO DAILY Citalopram Hydrobromide [CeleXA] 40 mg PO DAILY Apixaban [Eliquis] 5 mg PO BID Fluticasone Nasal [place] [Flonase Nasal [place]] 1 spray EA NOSTRIL DAILY PRN PRN Reason: Allergy Symptoms Meclizine [Antivert] 12.5 mg PO TID PRN PRN Reason: Vertigo Midodrine [ProAmatine] 5 mg PO TID Acetaminophen-Codeine 300-30mg [Tylenol w/codeine #3] 1 - 2 tab PO Q6H PRN PRN Reason: Pain Multivitamins, Thera [Multivitamin (formulary)] 1 tab PO DAILY Aspirin/Sod Bicarb/Citric Acid [[place] Original Tab Eff] 2 tab PO DAILY PRN PRN Reason: Gi Upset Discontinued Omeprazole 20 mg PO BID Isosorbide Mononitrate ER [Imdur] 30 mg PO DAILY #30 tab Ibuprofen [Motrin Ib] 600 mg PO Q8H PRN PRN Reason: Fever And/ Or Pain Discharge Medication List Aspirin EC [Ecotrin Low Dose] 81 mg PO DAILY 10/15/14 [History] Cyanocobalamin [Vitamin B-12] 1,000 mcg PO DAILY 10/15/14 [History] Furosemide [Lasix] 20 mg PO BID 10/15/14 [History] Levothyroxine Sodium [Synthroid] 50 mcg PO DAILY 10/15/14 [History] Nitroglycerin Sl Tabs [Nitrostat] 0.4 mg SUBLINGUAL Q5M PRN 10/15/14 [History] QUEtiapine FUMARATE [SEROquel] 50 mg PO HS 04/23/16 [History] Calcium Carbonate/Vitamin D3 [Calcium 600-Vit D3 12.5 Mcg (500 Iu)] 2 cap PO DAILY 01/25/18 [History] Apixaban [Eliquis] 5 mg PO BID 11/14/22 [History] Ascorbic Acid [Vitamin C] 1,000 mg PO DAILY 11/14/22 [History] Atorvastatin [Lipitor] 40 mg PO HS 11/14/22 [History] Citalopram Hydrobromide [CeleXA] 40 mg PO DAILY 11/14/22 [History] Fluticasone Nasal [place] [Flonase Nasal [place]] 1 spray EA NOSTRIL DAILY PRN 11/14/22 [History] Meclizine [Antivert] 12.5 mg PO TID PRN 11/14/22 [History] Potassium Chloride ER [K-Dur 20] 20 meq PO DAILY 11/14/22 [History] QUEtiapine [SEROquel] 25 mg PO DAILY 11/14/22 [History] Sucralfate [Carafate] 1 gm PO BID 11/14/22 [History] Midodrine [ProAmatine] 5 mg PO TID 01/02/23 [History] metFORMIN HCL [Glucophage] 500 mg PO DAILY 01/09/23 [History] Acetaminophen-Codeine 300-30mg [Tylenol w/codeine #3] 1 - 2 tab PO Q6H PRN 06/18/23 [History] Albuterol Inhaler [Ventolin Hfa Inhaler] 2 puff INHALATION RT-Q4H PRN 06/18/23 [History] Aspirin/Sod Bicarb/Citric Acid [[place] Original Tab Eff] 2 tab PO DAILY PRN 06/18/23 [History] Multivitamins, Thera [Multivitamin (formulary)] 1 tab PO DAILY 06/18/23 [History] Pantoprazole [Protonix] 40 mg PO BID 30 Days #60 tab 06/19/23 [Rx] Simethicone Chew [Mylicon Chew] 40 mg PO QID 7 Days #28 tab 06/19/23 [Rx] Isosorbide Mononitrate ER [Imdur] 60 mg PO DAILY #30 tab 06/22/23 [Rx] Ranolazine [Ranexa] 500 mg PO Q12HR 30 Days #60 tab 06/22/23 [Rx] Follow up Appointment(s)/Referral(s): [facility] [NON-STAFF] - As Needed Junaid Truong [Primary Care Provider] - 1-2 days Brayan Santiago MD [STAFF PHYSICIAN] - 07/03/23 10:15 am Patient Instructions/Handouts: Chest Pain (DC) Activity/Diet/Wound Care/Special Instructions: heart healthy diet activity is restricted till you see your doctor Discharge Disposition: HOME SELF-CARE
== END 2023-06-22 15:31 | disposition home or self-care (01) | DRG 303 ==
LOC: EC 09:15 → 6NMEDSUR 11:07 → OBSVTOIN 06-20 14:48
PROVIDERS: ADMIT Internal Medicine; ATTEND Internal Medicine
DX: I25.119 Atherosclerotic heart disease of native coronary artery with unspecified angina pectoris (principal); I50.32 Chronic diastolic (congestive) heart failure; I11.0 Hypertensive heart disease with heart failure; I27.20 Pulmonary hypertension, unspecified; I48.0 Paroxysmal atrial fibrillation; K21.9 Gastro-esophageal reflux disease without esophagitis; E03.9 Hypothyroidism, unspecified; Z79.890 Hormone replacement therapy; Z86.73 Personal history of transient ischemic attack (TIA), and cerebral infarction without residual deficits; J44.9 Chronic obstructive pulmonary disease, unspecified; E78.5 Hyperlipidemia, unspecified; Z95.1 Presence of aortocoronary bypass graft; F32.A Depression, unspecified; I25.2 Old myocardial infarction; Z79.01 Long term (current) use of anticoagulants; Z79.82 Long term (current) use of aspirin; Z79.84 Long term (current) use of oral hypoglycemic drugs; Z79.899 Other long term (current) drug therapy; Z82.49 Family history of ischemic heart disease and other diseases of the circulatory system; D64.9 Anemia, unspecified; Z87.442 Personal history of urinary calculi; Z95.5 Presence of coronary angioplasty implant and graft; Z96.611 Presence of right artificial shoulder joint; Z96.612 Presence of left artificial shoulder joint; Z87.828 Personal history of other (healed) physical injury and trauma; Z90.710 Acquired absence of both cervix and uterus; Z96.653 Presence of artificial knee joint, bilateral; Z98.42 Cataract extraction status, left eye; Z98.41 Cataract extraction status, right eye; Z91.040 Latex allergy status; Z91.030 Bee allergy status; Z88.8 Allergy status to other drugs, medicaments and biological substances; Z87.01 Personal history of pneumonia (recurrent); Z86.14 Personal history of Methicillin resistant Staphylococcus aureus infection
CPT/HCPCS: 36415; 70450; 71046; 78452; 80048; 80053; 80061; 80076; 82803; 83036; 83735; 84484; 85025; 85379; 85610; 85730; 93005; 93017; 93306; 96374; 99285

== ENCOUNTER 2023-07-10 16:40 | Emergency (ER) | payer MEDICARE ==
--- NOTE | 2023-07-10 16:50 | ED ---
Syncope HPI - General Source: patient Mode of arrival: wheelchair Limitations: no limitations <Livia Glass - Last Filed: 07/10/23 16:49> - General Source: RN notes reviewed, old records reviewed Mode of arrival: wheelchair Limitations: no limitations - History of Present Illness MD Complaint: loss of consciousness, felt faint, collapsed -: hour(s) Prodromal Symptoms: lightheaded Witnessed: yes - by bystander Injuries Sustained Associated with Event: None Current Symptoms: back to baseline History: previous syncopal episode Context: at rest <Sarbjit Syed - Last Filed: 07/18/23 16:26> - General Stated Complaint: Syncope,Vomiting-sent by Dr Time Seen by Provider: 07/10/23 16:49 - History of Present Illness Initial Comments: Quick note: 78-year-old female presented to the ER with a chief complaint of syncope. She reports she had 2 syncopal episodes earlier today. She denies any head injury. She does take Eliquis daily. She is reporting nausea/vomiting, diaphoresis and abdominal pain. Admits to chest pain denies shortness of breath. (Livia Glass) This is a 78-year-old female for syncope 2 syncopal events with nausea vomiting some abdominal pain. No chest pain no shortness of breath (Sarbjit Syed) - Related Data Home Medications Medication Instructions Recorded Confirmed Aspirin EC [Ecotrin Low Dose] 81 mg PO DAILY 10/15/14 06/18/23 Cyanocobalamin [Vitamin B-12] 1,000 mcg PO DAILY 10/15/14 06/18/23 Furosemide [Lasix] 20 mg PO BID 10/15/14 06/18/23 Levothyroxine Sodium [Synthroid] 50 mcg PO DAILY 10/15/14 06/18/23 Nitroglycerin Sl Tabs [Nitrostat] 0.4 mg SUBLINGUAL Q5M PRN 10/15/14 06/18/23 QUEtiapine FUMARATE [SEROquel] 50 mg PO HS 04/23/16 06/18/23 Calcium Carbonate/Vitamin D3 2 cap PO DAILY 01/25/18 06/18/23 [Calcium 600-Vit D3 12.5 Mcg (500 Iu)] Apixaban [Eliquis] 5 mg PO BID 11/14/22 06/18/23 Ascorbic Acid [Vitamin C] 1,000 mg PO DAILY 11/14/22 06/18/23 Atorvastatin [Lipitor] 40 mg PO HS 11/14/22 06/18/23 Citalopram Hydrobromide [CeleXA] 40 mg PO DAILY 11/14/22 06/18/23 Fluticasone Nasal [place] [Flonase 1 spray EA NOSTRIL DAILY PRN 11/14/22 06/18/23 Nasal [place]] Meclizine [Antivert] 12.5 mg PO TID PRN 11/14/22 06/18/23 Potassium Chloride ER [K-Dur 20] 20 meq PO DAILY 11/14/22 06/18/23 QUEtiapine [SEROquel] 25 mg PO DAILY 11/14/22 06/18/23 Sucralfate [Carafate] 1 gm PO BID 11/14/22 06/18/23 Midodrine [ProAmatine] 5 mg PO TID 01/02/23 06/18/23 metFORMIN HCL [Glucophage] 500 mg PO DAILY 01/09/23 06/18/23 Acetaminophen-Codeine 300-30mg 1 - 2 tab PO Q6H PRN 06/18/23 06/18/23 [Tylenol w/codeine #3] Albuterol Inhaler [Ventolin Hfa 2 puff INHALATION RT-Q4H PRN 06/18/23 06/18/23 Inhaler] Aspirin/Sod Bicarb/Citric Acid 2 tab PO DAILY PRN 06/18/23 06/18/23 [Yuridia-Warren Original Tab Eff] Multivitamins, Thera [Multivitamin 1 tab PO DAILY 06/18/23 06/18/23 (formulary)] Previous Rx's Medication Instructions Recorded Pantoprazole [Protonix] 40 mg PO BID 30 Days #60 tab 06/19/23 Simethicone Chew [Mylicon Chew] 40 mg PO QID 7 Days #28 tab 06/19/23 Isosorbide Mononitrate ER [Imdur] 60 mg PO DAILY #30 tab 06/22/23 Ranolazine [Ranexa] 500 mg PO Q12HR 30 Days #60 tab 06/22/23 Allergies Allergy/AdvReac Type Severity Reaction Status Date / Time latex Allergy Rash/Hives Verified 07/10/23 17:19 venom-honey bee Allergy Swelling Verified 07/10/23 17:19 [bee venom (honey bee)] zolpidem tartrate AdvReac Altered Verified 07/10/23 17:19 [From Ambien] Mental Status Review of Systems ROS Other: All systems not noted in ROS Statement are negative. <Livia Glass - Last Filed: 07/10/23 16:49> ROS Other: All systems not noted in ROS Statement are negative. <Sarbjit Syed - Last Filed: 07/18/23 16:26> ROS Statement: Those systems with pertinent positive or pertinent negative responses have been documented in the HPI. Past Medical History Past Medical History: Asthma, Coronary Artery Disease (CAD), Chest Pain / Angina, Heart Failure, COPD, CVA/TIA, Diabetes Mellitus, GERD/Reflux, Hyperlipidemia, Hypertension, Myocardial Infarction ([place]), Osteoarthritis (OA), Pneumonia, Sleep Apnea/CPAP/BIPAP, Syncope, Thyroid Disorder Additional Past Medical History / Comment(s): Pt recently admitted 04/23/16 with left lower lobe peumonia/bronchospasm/ unstable angina. Other hX: NIDDM type II, CVA, VERTIGO, syncope, bilateral tinnitis, anemia, murmur, hypothyroid, UTIs, nephrolithiasis, CHAVEZ with CPap, migraines, head injury as a teen, back pain. 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 Source:: ESBL URINE MRSA BACK Past Surgical History: Bladder Surgery, Coronary Bypass/CABG, Heart Catheterization, Heart Catheterization With Stent, Hysterectomy, Joint R eplacement, Orthopedic Surgery, Tonsillectomy Additional Past Surgical History / Comment(s): 1997 3 vessel CABG in [facility], 2004 PCI with 2 stents, 2010 and 2012 cardiac caths, jessi total knee replacements with right side done twice; R total shoulder replacement; L rotator cuff repair, bilateral cataract surgery, bladder suspension, R foot bone fusion, colonoscopy/polypectomy, bilateral hands trigger fingers/thumbs released, benign lymph node bx L4,L5 S1 spinal surgery 04/2017 Past Anesthesia/Blood Transfusion Reactions: No Reported Reaction Additional Past Anesthesia/Blood Transfusion Reaction / Comment(s): Pt received blood in the 1959's without reaction. Date of Last Stent Placement:: 2004 Past Psychological History: Depression Additional Psychological History / Comment(s): Pt lives with her spouse. She has [facility] twice a week. Smoking Status: Never smoker Past Alcohol Use History: Rare Past Drug Use History: None Reported - Past Family History Mother Family Medical History: Chest Pain / Angina, Coronary Artery Disease (CAD), CVA/TIA, Hypertension, Musculoskeletal Disorder Father Family Medical History: Coronary Artery Disease (CAD) Additional Family Medical History / Comment(s): cabg Brother(s) Family Medical History: Coronary Artery Disease (CAD) Sister(s) Family Medical History: Coronary Artery Disease (CAD) Additional Family Medical History / Comment(s): pulmonary hypertension Daughter(s) Family Medical History: No Reported History <Livia Glass - Last Filed: 07/10/23 16:49> General Exam <Livia Glass - Last Filed: 07/10/23 16:49> General appearance: alert, in no apparent distress, anxious Head exam: Present: atraumatic, normocephalic, normal inspection Eye exam: Present: normal appearance, PERRL, EOMI. Absent: scleral icterus, conjunctival injection, periorbital swelling ENT exam: Present: normal exam, mucous membranes moist Neck exam: Present: normal inspection. Absent: tenderness, meningismus, lymph adenopathy Respiratory exam: Present: normal lung sounds bilaterally. Absent: respiratory distress, wheezes, rales, rhonchi, stridor Cardiovascular Exam: Present: regular rate, normal rhythm, normal heart sounds. Absent: systolic murmur, diastolic murmur, rubs, gallop, clicks GI/Abdominal exam: Present: soft, normal bowel sounds. Absent: distended, tenderness, guarding, rebound, rigid Extremities exam: Present: normal inspection, full ROM, normal capillary refill. Absent: tenderness, pedal edema, joint swelling, calf tenderness Back exam: Present: normal inspection Neurological exam: Present: alert, oriented X3, CN II-XII intact Psychiatric exam: Present: normal affect, normal mood Skin exam: Present: warm, dry, intact, normal color. Absent: rash <Sarbjit Syed - Last Filed: 07/18/23 16:26> - General Exam Comments Initial Comments: Visual Physical Exam General: Well-appearing, nontoxic, no acute distress. Head: Normocephalic, atraumatic Eyes: PERRLA, EOMI ENT: Airway patent Chest: Nonlabored breathing Skin: No visual rash, normal skin tone Neuro: Alert and oriented 3 Musculoskeletal: No gross abnormalities (Livia Glass) Course <Sarbjit Syed - Last Filed: 07/18/23 16:26> Vital Signs 07/10/23 07/10/23 07/10/23 17:15 20:13 21:01 Temperature 97.5 F L 97.9 F Pulse Rate 60 65 85 Respiratory 18 18 16 Rate Blood Pressure 125/76 137/71 139/85 O2 Sat by Pulse 99 99 98 Oximetry - Reevaluation(s) Reevaluation #1: Medical records reviewed (Sarbjit Syed) Reevaluation #2: Symptoms improved no syncope here in the ER (Sarbjit Syed) Reevaluation #3: Patient informed of results and questions answered (Sarbjit Syed) Reevaluation #4: Was pt. sent in by a medical professional or institution (, PA, SENSOR OPERATOR, urgent care, hospital, or residential...) When possible be specific @ -no Did you speak to anyone other than the patient for history (EMS, parent, family, police, friend...)? What history was obtained from this source @ -no Did you review nursing and triage notes (agree or disagree)? Why? @ -agree Are old charts reviewed (outside hosp., previous admission, EMS record, old EKG, old radiological studies, urgent care reports/EKG's, residential records)? Report findings @ -yes Differential Diagnosis (chest pain, altered mental status, abdominal pain women, abdominal pain men, vaginal bleeding, weakness, fever, dyspnea, syncope, headache, dizziness, GI bleed, back pain, seizure, CVA, palpatations, mental health, musculoskeletal)? @ -prior EKG interpreted by me (3pts min.). @ -no X-rays interpreted by me (1pt min.). @ -yes negative for acute disease CT interpreted by me (1pt min.). @ -no U/S interpreted by me (1pt. min.). @ -no What testing was considered but not performed or refused? (CT, X-rays, U/S, labs)? Why? @ -none What meds were considered but not given or refused? Why? @ -none Did you discuss the management of the patient with other professionals (professionals i.e. , PA, SENSOR OPERATOR, lab, RT, psych nurse, neonatal social worker, animal taxonomist, teacher, job placement officer, behavioral health case manager)? Give summary @ -no Was smoking cessation discussed for >3mins.? @ -no Was critical care preformed (if so, how long)? @ -no Were there social determinants of health that impacted care today? How? (H omelessness, low income, unemployed, alcoholism, drug addiction, transportation, low edu. Level, literacy, decrease access to med. care, alf, rehab)? @ -none Was there de-escalation of care discussed even if they declined (Discuss DNR or withdrawal of care, Hospice)? DNR status @ -no What co-morbidities impacted this encounter? (DM, HTN, Smoking, COPD, CAD, Cancer, CVA, ARF, Chemo, Hep., AIDS, mental health diagnosis, sleep apnea, morbid obesity)? @ -none Was patient admitted / discharged? Hospital course, mention meds given and route, prescriptions, significant lab abnormalities, going to OR and other pertinent info. @ - 78 female for abdominal pain chest pain syncopal event with no acute cause found here in the ER patient feels well can be discharged home Discharge Undiagnosed new problem with uncertain prognosis? @ -no Drug Therapy requiring intensive monitoring for toxicity (Heparin, Nitro, Insulin, Cardizem)? @ -no Were any procedures done? @ -no Diagnosis/symptom? @ -Abdominal pain syncope Acute, or Chronic, or Acute on Chronic? @ -Acute Uncomplicated (without systemic symptoms) or Complicated (systemic symptoms)? @ -Complicated Side effects of treatment? @ -no Exacerbation, Progression, or Severe Exacerbation? @ -exacerbation Poses a threat to life or bodily function? How? (Chest pain, [place], [place], pneumonia, PE, COPD, DKA, ARF, appy, cholecystitis, CVA, Diverticulitis, Homicidal, Suicidal, threat to staff... and all critical care pts) @ -yes with syncopal event (Sarbjit Syed) Reevaluation #5: Differential Syncope: Valvular disease, hypertrophic cardiomyopathy, pulmonary embolism, tamponade, tachycardia, bradycardia, [place], hypovolemia, hemorrhage, dissection, anemia, intracranial hemorrhage, seizure, hypoglycemia, carbon monoxide poisoning, this is not meant to be an all-inclusive list. (Sarbjit Syed) Medical Decision Making <Livia Glass - Last Filed: 07/10/23 16:49> - Lab Data Result diagrams: 07/10/23 17:53 - Radiology Data Radiology results: report reviewed (X-rays negative for acute disease), image reviewed <Sarbjit Syed - Last Filed: 07/18/23 16:26> - Medical Decision Making I performed the quick note portion of this chart. Electronically signed by Livia Glass PA-C (Livia Glass) 78 female for abdominal pain chest pain syncopal event with no acute cause found here in the ER patient feels well can be discharged home (Sarbjit Syed) - Lab Data Lab Results 07/10/23 07/10/23 07/10/23 Range/Units 17:53 17:53 18:56 WBC 10.2 (3.8-10.6) k/uL RBC 4.49 (3.80-5.40) m/uL Hgb 13.3 (11.4-16.0) gm/dL Hct 40.4 (34.0-46.0) % MCV 89.9 (80.0-100.0) fL MCH 29.7 (25.0-35.0) pg MCHC 33.0 (31.0-37.0) g/dL RDW 13.8 (11.5-15.5) % Plt Count 268 (150-450) k/uL MPV 7.3 Neutrophils % 76 % Lymphocytes % 16 % Monocytes % 6 % Eosinophils % 1 % Basophils % 0 % Neutrophils # 7.8 H (1.3-7.7) k/uL Lymphocytes # 1.6 (1.0-4.8) k/uL Monocytes # 0.6 (0-1.0) k/uL Eosinophils # 0.1 (0-0.7) k/uL Basophils # 0.0 (0-0.2) k/uL PT 11.2 (10.0-12.5) sec INR 1.0 (<1.2) APTT 24.3 (22.0-30.0) sec Urine Color Yellow Urine Appearance Clear (Clear) Urine pH 7.5 (5.0-8.0) Ur Specific [place] 1.018 (1.001-1.035) Urine Protein Negative (Negative) Urine Glucose (UA) Negative (Negative) Urine Ketones Negative (Negative) Urine Blood Negative (Negative) Urine Nitrite Negative (Negative) Urine Bilirubin Negative (Negative) Urine Urobilinogen <2.0 (<2.0) mg/dL Ur Leukocyte Esterase Negative (Negative) Disposition <Livia Glass - Last Filed: 07/10/23 16:49> Is patient prescribed a controlled substance at d/c from ED?: No Time of Disposition: 20:50 <Sarbjit Syed - Last Filed: 07/18/23 16:26> Clinical Impression: Abdominal pain, Chest pain, Syncope, Dizziness Disposition: HOME SELF-CARE Condition: Good Instructions (If sedation given, give patient instructions): Abdominal Pain (ED) Referrals: Junaid Truong [Primary Care Provider] - 1-2 days
[2023-07-10 18:13] LABS: Basophils % (A) 0 %; Eosinophils # (A) 0.1 k/uL (0-0.7); Eosinophils % (A) 1 %; HCT 40.4 % (34.0-46.0); HGB 13.3 gm/dL (11.4-16.0); Lymphocytes # (A) 1.6 k/uL (1.0-4.8); Lymphocytes % (A) 16 %; MCH 29.7 pg (25.0-35.0); MCV 89.9 fL (80.0-100.0); Mean Platelet Volume 7.3; Monocytes # (A) 0.6 k/uL (0-1.0); Monocytes % (A) 6 %; Neutrophils # (A) 7.8 k/uL (1.3-7.7); Neutrophils % (A) 76 %; Platelet Count 268 k/uL (150-450); RBC 4.49 m/uL (3.80-5.40); RDW 13.8 % (11.5-15.5); WBC 10.2 k/uL (3.8-10.6)
[2023-07-10 18:22] LABS: Partial Thromboplastin Time 24.3 sec (22.0-30.0); Prothrombin Time 11.2 sec (10.0-12.5)
--- NOTE | 2023-07-10 18:31 | XR ---
EXAMINATION TYPE: XR chest 2V DATE OF EXAM: 07/10/2023 COMPARISON: 06/18/2023 INDICATION: Syncope abdominal pain and dizziness TECHNIQUE: Frontal and lateral views of the chest are obtained. FINDINGS: The heart size is normal. The pulmonary vasculature is normal. Left lower lobe infiltrate is present. This is nonspecific. Correlate for atelectasis or pneumonia.. IMPRESSION: 1. Left lower lobe mild linear increased lung markings. Correlate for atelectasis or pneumonia.
[2023-07-10 19:10] LABS: Appearance,Urine Clear (Clear); Bilirubin,Urine Negative (Negative); Blood,Urine Negative (Negative); Color,Urine Yellow; Glucose,Urine (UA) Negative (Negative); Ketones,Urine Negative (Negative); Leukocyte Esterase,Urine Negative (Negative); Nitrite,Urine Negative (Negative); PH, Urine 7.5 (5.0-8.0); Protein,Urine Negative (Negative); Specific Gravity,Urine 1.018 (1.001-1.035); Urobilinogen,Urine <2.0 mg/dL (<2.0)
[2023-07-10 21:03] VITALS: BP 139/85; PULSE 85; RESP 16; TEMP 97.9
== END 2023-07-10 20:59 | disposition home or self-care (01) ==
LOC: EC 16:40
DX: R10.9 Unspecified abdominal pain (principal); R07.9 Chest pain, unspecified; R55 Syncope and collapse; Z86.73 Personal history of transient ischemic attack (TIA), and cerebral infarction without residual deficits; Z91.030 Bee allergy status; Z91.040 Latex allergy status; Z88.8 Allergy status to other drugs, medicaments and biological substances
CPT/HCPCS: 36415; 71046; 81003; 85025; 85610; 85730; 93005; 99284

== ENCOUNTER 2023-10-25 10:05 | Observation (INO) | payer MEDICARE ==
[2023-10-25 11:07] LABS: Basophils % (A) 0 %; Eosinophils # (A) 0.1 k/uL (0-0.7); Eosinophils % (A) 1 %; HCT 34.9 % (34.0-46.0); HGB 11.9 gm/dL (11.4-16.0); Lymphocytes % (A) 14 %; MCH 32.2 pg (25.0-35.0); MCHC 34.1 g/dL (31.0-37.0); MCV 94.6 fL (80.0-100.0); Mean Platelet Volume 6.5; Monocytes # (A) 0.5 k/uL (0-1.0); Monocytes % (A) 7 %; Neutrophils # (A) 5.7 k/uL (1.3-7.7); Neutrophils % (A) 77 %; Platelet Count 192 k/uL (150-450); RBC 3.69 m/uL (3.80-5.40); RDW 13.7 % (11.5-15.5); WBC 7.3 k/uL (3.8-10.6)
--- NOTE | 2023-10-25 11:09 | XR ---
EXAMINATION TYPE: XR chest 2V DATE OF EXAM: 10/25/2023 11:03 AM COMPARISON: Chest radiographs from 07/10/2023 TECHNIQUE: XR chest 2V Frontal and lateral views of the chest. CLINICAL INDICATION:Female, 78 years old with history of Chest Pain; FINDINGS: Lungs/Pleura: There is no evidence of pleural effusion, focal consolidation, or pneumothorax. Pulmonary vascularity: Unremarkable. Heart/mediastinum: Cardiomediastinal silhouette is enlarged and stable. Postoperative changes are pr esent in the mediastinum. Musculoskeletal: Multiple level degenerative disc disease changes seen throughout the spine. Midline sternotomy wires are noted and stable. Right shoulder arthroplasty changes. Advanced osteoarthritic c hanges of the left shoulder. IMPRESSION: 1. No acute cardiopulmonary disease/process. 2. Cardiomegaly with post-CABG changes.
[2023-10-25 11:19] LABS: Partial Thromboplastin Time 23.1 sec (22.0-30.0); Prothrombin Time 10.8 sec (10.0-12.5)
[2023-10-25 11:27] LABS: ALT 22 U/L (4-34); AST 29 U/L (14-36); African American GFR (CKD) >90 (>60 ml/min/1.73 sqM); Albumin 3.9 g/dL (3.5-5.0); Alkaline Phosphatase 56 U/L (38-126); Anion Gap 4 mmol/L; Blood Urea Nitrogen 13 mg/dL (7-17); Calcium 8.9 mg/dL (8.4-10.2); Carbon Dioxide 26 mmol/L (22-30); Chloride 107 mmol/L (98-107); Glucose 95 mg/dL (74-99); Magnesium 2.2 mg/dL (1.6-2.3); Non-African American GFR(CKD) 87 (>60 ml/min/1.73 sqM); Potassium 4.5 mmol/L (3.5-5.1); Sodium 137 mmol/L (137-145); Total Bilirubin 0.7 mg/dL (0.2-1.3); Total Protein 6.2 g/dL (6.3-8.2)
--- NOTE | 2023-10-25 11:50 | ED ---
General Adult HPI - General Chief complaint: Chest Pain Stated complaint: Chest Pain Time Seen by Provider: 10/25/23 10:17 Source: patient, EMS, RN notes reviewed, old records reviewed Mode of arrival: EMS Limitations: no limitations - History of Present Illness Initial comments: 78-year-old female presents for evaluation of intermittent chest pain over the past several hours. Pain was severe at onset but currently resolved. patient had upper chest pain radiating into her neck and right arm with associated palpitations. She has prior history of CAD status post bypass in the remote past. No diaphoresis. No vomiting. Symptoms resolved at the time my evaluation. - Related Data Home Medications Medication Instructions Recorded Confirmed Furosemide [Lasix] 40 mg PO DAILY 10/15/14 10/25/23 Levothyroxine Sodium [Synthroid] 50 mcg PO DAILY 10/15/14 10/25/23 Nitroglycerin Sl Tabs [Nitrostat] 0.4 mg SUBLINGUAL Q5M PRN 10/15/14 10/25/23 Apixaban [Eliquis] 5 mg PO BID 11/14/22 10/25/23 Atorvastatin [Lipitor] 40 mg PO HS 11/14/22 10/25/23 Citalopram Hydrobromide [CeleXA] 40 mg PO DAILY 11/14/22 10/25/23 Sucralfate [Carafate] 1 gm PO BID 11/14/22 10/25/23 metFORMIN HCL [Glucophage] 500 mg PO DAILY 01/09/23 10/25/23 Omeprazole 20 mg PO BID 10/25/23 10/25/23 Previous Rx's Medication Instructions Recorded Isosorbide Mononitrate ER [Imdur] 60 mg PO DAILY #30 tab 06/22/23 Allergies Allergy/AdvReac Type Severity Reaction Status Date / Time Iodinated Contrast Media Allergy Rash/Hives Verified 10/25/23 11:09 latex Allergy Rash/Hives Verified 10/25/23 11:09 venom-honey bee Allergy Swelling Verified 10/25/23 11:09 [bee venom (honey bee)] zolpidem tartrate Allergy Rash/Altered Verified 10/25/23 11:09 [From Ambien] Mental Status Review of Systems ROS Statement: Those systems with pertinent positive or pertinent negative responses have been documented in the HPI. ROS Other: All systems not noted in ROS Statement are negative. Past Medical History Past Medical History: Asthma, Coronary Artery Disease (CAD), Chest Pain / Angina, Heart Failure, COPD, CVA/TIA, Diabetes Mellitus, GERD/Reflux, Hyperlipidemia, Hypertension, Myocardial Infarction (SD), Osteoarthritis (OA), Pneumonia, Sleep Apnea/CPAP/BIPAP, Syncope, Thyroid Disorder Additional Past Medical History / Comment(s): Pt recently admitted 04/23/16 with left lower lobe peumonia/bronchospasm/ unstable angina. Other hX: NIDDM type II, CVA, VERTIGO, syncope, bilateral tinnitis, anemia, murmur, hypothyroid, UTIs, nephrolithiasis, CHAVEZ with CPap, migraines, head injury as a teen, back pain. 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, 2004 PCI with 2 stents, 2010 and 2012 cardiac caths, jessi total knee replacements with right side done twice; R total shoulder replacement; L rotator cuff repair, bilateral cataract surgery, bladder suspension, R foot bone fusion, colonoscopy/polypectomy, bilateral hands trigger fingers/thumbs released, benign lymph node bx L4,L5 S1 spinal surgery 04/2017 Past Anesthesia/Blood Transfusion Reactions: No Reported Reaction Additional Past Anesthesia/Blood Transfusion Reaction / Comment(s): Pt received blood in the s without reaction. Date of Last Stent Placement:: 2004 Past Psychological History: Depression Smoking Status: Never smoker Past Alcohol Use History: Rare Past Drug Use History: None Reported - Past Family History Mother Family Medical History: Chest Pain / Angina, Coronary Artery Disease (CAD), CVA/TIA, Hypertension, Musculoskeletal Disorder Father Family Medical History: Coronary Artery Disease (CAD) Additional Family Medical History / Comment(s): cabg Brother(s) Family Medical History: Coronary Artery Disease (CAD) Sister(s) Family Medical History: Coronary Artery Disease (CAD) Additional Family Medical History / Comment(s): pulmonary hypertension Daughter(s) Family Medical History: No Reported History General Exam Limitations: no limitations General appearance: alert, in no apparent distress Head exam: Present: atraumatic, normocephalic Eye exam: Present: normal appearance, PERRL ENT exam: Present: normal exam Neck exam: Present: normal inspection. Absent: tenderness, meningismus Respiratory exam: Present: normal lung sounds bilaterally. Absent: respiratory distress, wheezes Cardiovascular Exam: Present: normal rhythm, bradycardia GI/Abdominal exam: Present: soft. Absent: distended, tenderness, guarding Extremities exam: Present: normal inspection, normal capillary refill. Absent: pedal edema Neurological exam: Present: alert, oriented X3, CN II-XII intact. Absent: motor sensory deficit Psychiatric exam: Present: normal affect, normal mood Skin exam: Present: warm, dry, intact, normal color. Absent: cyanosis, diaphoretic Course Vital Signs 10/25/23 10:06 Temperature 98.4 F Pulse Rate 56 L Respiratory 18 Rate Blood Pressure 163/80 O2 Sat by Pulse 98 Oximetry Medical Decision Making - Medical Decision Making Was pt. sent in by a medical professional or institution (Dr. PA, BIOCHEMISTRY TECHNOLOGIST, urgent care, hospital, or senior care...) When possible be specific @ -No Did you speak to anyone other than the patient for history (EMS, parent, family, police, friend...)? What history was obtained from this source @ -No Did you review nursing and triage notes (agree or disagree)? Why? @ -I reviewed and agree with nursing and triage notes Were old charts reviewed (outside hosp., previous admission, EMS record, old EKG, old radiological studies, urgent care reports/EKG's, senior care records)? Report findings @ -No old charts were reviewed Differential Chest Pain: Stable Angina, Unstable Angina, STEMI, NSTEMI Aortic Dissection, Pneumothorax, Musculoskeletal, Esophageal Spasm GERD, Cholecystitis, Pancreatitis, Zoster, this is not meant to be an all-inclusive list. EKG interpreted by me (3pts min.). @Narrow complex rhythm rate of 53, ME interval 161, QRS duration 92, QTc [address] segment elevation, T wave inversion in V2 X-rays interpreted by me (1pt min.). @Chest x-ray negative for acute cardiopulmonary findings CT interpreted by me (1pt min.). @ -None done U/S interpreted by me (1pt. min.). @ -None done What testing was considered but not performed or refused? (CT, X-rays, U/S, labs)? Why? @ -None What meds were considered but not given or refused? Why? @ -None Did you discuss the management of the patient with other professionals (professionals i.e. , PA, BIOCHEMISTRY TECHNOLOGIST, lab, RT, psych nurse, social welfare administrator, bulldozer operator, teacher, chief knowledge officer, shoe caser)? Give summary @ Dr. Davenport Was smoking cessation discussed for >3mins.? @ -No Was critical care preformed (if so, how long)? @ -No Were there social determinants of health that impacted care today? How? (Homelessness, low income, unemployed, alcoholism, drug addiction, transportation, low edu. Level, literacy, decrease access to med. care, skilled nursing, rehab)? @ -No Was there de-escalation of care discussed even if they declined (Discuss DNR or withdrawal of care, Hospice)? DNR status @ -No What co-morbidities impacted this encounter? (DM, HTN, Smoking, COPD, CAD, Cancer, CVA, ARF, Chemo, Hep., AIDS, mental health diagnosis, sleep apnea, morbid obesity)? @Coronary artery disease status post CABG Was patient admitted / discharged? Hospital course, mention meds given and route, prescriptions, significant lab abnormalities, going to OR and other pertinent info. @ 78-year-old female with central chest pain rating to the jaw and right arm. Pain resolved prior to arrival. Patient does have history of coronary artery disease status post bypass in the remote past. Her pain remains resolved while in the emergency department. Her EKG is sinus without ST segment elevation. Chest x-ray is clear. Normal CBC, normal CMP, negative initial troponin. Patient will be observed overnight with serial cardiac enzymes, telemetry, cardiology consultation. Case discussed with Dr. Davenport who will admit Undiagnosed new problem with uncertain prognosis? @ -No Drug Therapy requiring intensive monitoring for toxicity (Heparin, Nitro, Insulin, Cardizem)? @ -No Were any procedures done? @ -No Diagnosis/symptom? @ -Chest pain rule out Acute, or Chronic, or Acute on Chronic? @ -Acute Uncomplicated (without systemic symptoms) or Complicated (systemic symptoms)? @ -Default Side effects of treatment? @ -No Exacerbation, Progression, or Severe Exacerbation? @ -No Poses a threat to life or bodily function? How? (Chest pain, USA, SD, pneumonia, PE, COPD, DKA, ARF, appy, cholecystitis, CVA, Diverticulitis, Homicidal, Suicidal, threat to staff... and all critical care pts) @Yes, ACS - Lab Data Result diagrams: 10/25/23 10:58 10/25/23 10:58 Lab Results 10/25/23 10/25/23 10/25/23 Range/Units 10:58 10:58 10:58 WBC 7.3 (3.8-10.6) k/uL RBC 3.69 L (3.80-5.40) m/uL Hgb 11.9 (11.4-16.0) gm/dL Hct 34.9 (34.0-46.0) % MCV 94.6 (80.0-100.0) fL MCH 32.2 (25.0-35.0) pg MCHC 34.1 (31.0-37.0) g/dL RDW 13.7 (11.5-15.5) % Plt Count 192 (150-450) k/uL MPV 6.5 Neutrophils % 77 % Lymphocytes % 14 % Monocytes % 7 % Eosinophils % 1 % Basophils % 0 % Neutrophils # 5.7 (1.3-7.7) k/uL Lymphocytes # 1.0 (1.0-4.8) k/uL Monocytes # 0.5 (0-1.0) k/uL Eosinophils # 0.1 (0-0.7) k/uL Basophils # 0.0 (0-0.2) k/uL PT 10.8 (10.0-12.5) sec INR 1.0 (<1.2) APTT 23.1 (22.0-30.0) sec Sodium 137 (137-145) mmol/L Potassium 4.5 (3.5-5.1) mmol/L Chloride 107 (98-107) mmol/L Carbon Dioxide 26 (22-30) mmol/L Anion Gap 4 mmol/L BUN 13 (7-17) mg/dL Creatinine 0.65 (0.52-1.04) mg/dL Est GFR (CKD-EPI)AfAm >90 (>60 ml/min/1.73 sqM) Est GFR (CKD-EPI)NonAf 87 (>60 ml/min/1.73 sqM) Glucose 95 (74-99) mg/dL Calcium 8.9 (8.4-10.2) mg/dL Magnesium 2.2 (1.6-2.3) mg/dL Total Bilirubin 0.7 (0.2-1.3) mg/dL AST 29 (14-36) U/L ALT 22 (4-34) U/L Alkaline Phosphatase 56 (38-126) U/L Troponin I (0.000-0.034) ng/mL Total Protein 6.2 L (6.3-8.2) g/dL Albumin 3.9 (3.5-5.0) g/dL 10/25/23 Range/Units 10:58 WBC (3.8-10.6) k/uL RBC (3.80-5.40) m/uL Hgb (11.4-16.0) gm/dL Hct (34.0-46.0) % MCV (80.0-100.0) fL MCH (25.0-35.0) pg MCHC (31.0-37.0) g/dL RDW (11.5-15.5) % Plt Count (150-450) k/uL MPV Neutrophils % % Lymphocytes % % Monocytes % % Eosinophils % % Basophils % % Neutrophils # (1.3-7.7) k/uL Lymphocytes # (1.0-4.8) k/uL Monocytes # (0-1.0) k/uL Eosinophils # (0-0.7) k/uL Basophils # (0-0.2) k/uL PT (10.0-12.5) sec INR (<1.2) APTT (22.0-30.0) sec Sodium (137-145) mmol/L Potassium (3.5-5.1) mmol/L Chloride (98-107) mmol/L Carbon Dioxide (22-30) mmol/L Anion Gap mmol/L BUN (7-17) mg/dL Creatinine (0.52-1.04) mg/dL Est GFR (CKD-EPI)AfAm (>60 ml/min/1.73 sqM) Est GFR (CKD-EPI)NonAf (>60 ml/min/1.73 sqM) Glucose (74-99) mg/dL Calcium (8.4-10.2) mg/dL Magnesium (1.6-2.3) mg/dL Total Bilirubin (0.2-1.3) mg/dL AST (14-36) U/L ALT (4-34) U/L Alkaline Phosphatase (38-126) U/L Troponin I <0.012 (0.000-0.034) ng/mL Total Protein (6.3-8.2) g/dL Albumin (3.5-5.0) g/dL Disposition Clinical Impression: Chest pain Disposition: ADMITTED IP TO THIS HOSP Condition: Stable Is patient prescribed a controlled substance at d/c from ED?: No Referrals: Ashanti Davenport MD [Primary Care Provider] - 1-2 days Time of Disposition: 12:33
[2023-10-25] MEDS ORDERED: NALOXONE 0.4 MG/ML 1 ML VIAL IV PRN (12:26)
[2023-10-25] MEDS ORDERED: NITROGLYCERIN SL TABS 0.4 MG TAB SUBLINGUAL PRN (15:17)
[2023-10-25] MEDS ORDERED: DEXTROSE 50% SYRINGE 50 ML IVP PRN ×2 (15:19)
[2023-10-25] MEDS: ISOSORBIDE MONONITRATE ER 60 MG TAB.ER.24H PO SCH (15:55)
[2023-10-25] MEDS: ASPIRIN 325 MG TAB PO STA (15:55)
[2023-10-25] MEDS: INSULIN ASPART (NovoLOG) 100 UNIT/ML VIAL SQ SCH (16:57)
[2023-10-25 20:41] LABS: Glucose,Whole Blood 117 mg/dL (70-110)
[2023-10-25] MEDS: APIXABAN 5 MG TAB PO SCH (20:59)
[2023-10-25] MEDS: SUCRALFATE 1 GM TAB PO SCH (20:59)
[2023-10-25] MEDS: ATORVASTATIN 40 MG TAB PO SCH (20:59)
[2023-10-25] MEDS: ACETAMINOPHEN TAB 325 MG TAB PO PRN (21:09)
[2023-10-25] MEDS: ALPRAZolam 0.25 MG TAB PO PRN (21:25)
[2023-10-26 05:35] LABS: Glucose,Whole Blood 104 mg/dL (70-110)
[2023-10-26] MEDS: PANTOPRAZOLE 40 MG TABLET PO SCH (06:17)
[2023-10-26] MEDS: LEVOTHYROXINE 50 MCG TAB PO SCH (06:17)
[2023-10-26] MEDS: FUROSEMIDE 40 MG TAB PO SCH (08:29)
[2023-10-26] MEDS: CITALOPRAM HYDROBROMIDE 20 MG TAB PO SCH (08:29)
[2023-10-26] MEDS: RANOLAZINE 500 MG TAB.ER.12H PO SCH (10:45)
[2023-10-26 11:03] VITALS: RESP 18; TEMP 97.9
--- NOTE | 2023-10-26 11:55 | P.CRDCN ---
History of Present Illness Consult date: 10/26/23 History of present illness: - . HPI: This is a 78-year-old lady with a known history of CAD prior bypass surgery 1997. She also has paroxysmal atrial fibrillation hypertension hyperlipidemia and type 2 diabetes mellitus. She underwent a cardiac cath in December 2022 and came into the hospital last night with complaints of intermittent chest pain on and off of varying severity and also quality. Pain is sometimes sharp goes to the right side of the neck and right arm. Quality of pain is very atypical troponins are negative she is resting comfortably at the time of my evaluation. She had a Lexiscan stress test sometime in May of this year which was reported as being abnormal with a lateral wall reversible defect. I have reviewed the scan images myself. There is no reversible defect in the lateral wall if any there is a fixed defect and actually better perfusion on stress than rest images. There is probably some artifact and if any this is a fixed defect not a reversible defect. I also reviewed the cath images from December as well. Patient's symptoms are atypical. Her circumflex is a totally occluded. Graft to the circumflex marginal is widely patent with decent flow. The right coronary is free of significant disease. LAD has diffuse disease and MORENO is patent there is some complicating flow between creek LAD flow and MORENO flow. In fact distal branches of LAD are collateralized by distal branches of RCA. However given the entire picture I believe no intervention other than aggressive medical therapy is advised. I discussed my thoughts in detail with the patient she can be discharged later on today. RELEVANT PAST MEDICAL HISTORY: CAD with prior bypass surgery in 1997 patent MORENO to LAD with a complicated flow from creek vessel and patent with free radial artery graft to the obtuse marginal branch of circumflex. RCA is free of significant disease left main has 20% narrowing, patient also has type 2 diabetes hypertension and hyperlipidemia. She has a history of syncope in the past. She is currently on Eliquis 5 mg twice daily for paroxysmal atrial fibrillation EKG revealed sinus mechanism today. MEDICATIONS: Lasix levothyroxine apixaban Lipitor metformin omeprazole Imdur ALLERGIES: Contrast allergy and latex allergy. REVIEW OF SYSTEMS: Atypical chest pain no hematemesis melena genitourinary symptoms fever with chills cough with expectoration or syncope. PHYSICIAL EXAM: Signs are stable there is no JVD or carotid bruit S1-S2 heard normally short systolic murmur noted at the base lungs reveal decent air entry abdomen is soft nontender lower extremities reveal diminished pulses Central nervous system grossly within normal limits. IMPRESSION: 1. Atypical chest pain in a patient with known CAD. 2. CAD with prior bypass surgery. 3. Hypertension. 4. Paroxysmal atrial fibrillation. 5. Type 2 diabetes. RECOMMENDATIONS: Continued medical therapy with risk factor modification. Increase activity ambulate as tolerated if she has no symptoms she can be discharged and follow-up with Dr. Gimenez in a couple of weeks. Past Medical History Past Medical History: Asthma, Coronary Artery Disease (CAD), Chest Pain / Angina, Heart Failure, COPD, CVA/TIA, Diabetes Mellitus, GERD/Reflux, Hyperlipidemia, Hypertension, Myocardial Infarction (HI), Osteoarthritis (OA), Pneumonia, Sleep Apnea/CPAP/BIPAP, Syncope, Thyroid Disorder Additional Past Medical History / Comment(s): Pt recently admitted 04/23/16 with left lower lobe peumonia/bronchospasm/ unstable angina. Other hX: NIDDM type II, CVA, VERTIGO, syncope, bilateral tinnitis, anemia, murmur, hypothyroid, UTIs, nephrolithiasis, CHAVEZ with CPap, migraines, head injury as a teen, back pain. 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 Source:: ESBL URINE MRSA BACK Past Surgical History: Bladder Surgery, Coronary Bypass/CABG, Heart Catheterization, Heart Catheterization With Stent, Hysterectomy, Joint Replacement, Orthopedic Surgery, Tonsillectomy Additional Past Surgical History / Comment(s): 1997 3 vessel CABG in [facility], 2004 PCI with 2 stents, 2010 and 2012 cardiac caths, jessi total knee re placements with right side done twice; R total shoulder replacement; L rotator cuff repair, bilateral cataract surgery, bladder suspension, R foot bone fusion, colonoscopy/polypectomy, bilateral hands trigger fingers/thumbs released, benign lymph node bx L4,L5 S1 spinal surgery 04/2017 Past Anesthesia/Blood Transfusion Reactions: No Reported Reaction Additional Past Anesthesia/Blood Transfusion Reaction / Comment(s): Pt received blood in the 1959's without reaction. Date of Last Stent Placement:: 2004 Past Psychological History: Depression Additional Psychological History / Comment(s): Pt lives with her spouse. She has [facility] twice a week. Smoking Status: Never smoker Past Alcohol Use History: Rare Past Drug Use History: None Reported - Past Family History Mother Family Medical History: Chest Pain / Angina, Coronary Artery Disease (CAD), CVA/TIA, Hypertension, Musculoskeletal Disorder Father Family Medical History: Coronary Artery Disease (CAD) Additional Family Medical History / Comment(s): cabg Brother(s) Family Medical History: Coronary Artery Disease (CAD) Sister(s) Family Medical History: Coronary Artery Disease (CAD) Additional Family Medical History / Comment(s): pulmonary hypertension Daughter(s) Family Medical History: No Reported History Medications and Allergies Home Medications Medication Instructions Recorded Confirmed Type Furosemide [Lasix] 40 mg PO DAILY 10/15/14 10/25/23 History Levothyroxine Sodium [Synthroid] 50 mcg PO DAILY 10/15/14 10/25/23 History Nitroglycerin Sl Tabs [Nitrostat] 0.4 mg SUBLINGUAL Q5M PRN 10/15/14 10/25/23 History Apixaban [Eliquis] 5 mg PO BID 11/14/22 10/25/23 History Atorvastatin [Lipitor] 40 mg PO HS 11/14/22 10/25/23 History Citalopram Hydrobromide [CeleXA] 40 mg PO DAILY 11/14/22 10/25/23 History Sucralfate [Carafate] 1 gm PO BID 11/14/22 10/25/23 History metFORMIN HCL [Glucophage] 500 mg PO DAILY 01/09/23 10/25/23 History Isosorbide Mononitrate ER [Imdur] 60 mg PO DAILY #30 tab 06/22/23 10/25/23 Rx Omeprazole 20 mg PO BID 10/25/23 10/25/23 History Ranolazine [Ranexa] 500 mg PO Q12HR #60 tab 10/26/23 Rx Allergies Allergy/AdvReac Type Severity Reaction Status Date / Time Iodinated Contrast Media Allergy Rash/Hives Verified 10/25/23 11:09 latex Allergy Rash/Hives Verified 10/25/23 11:09 venom-honey bee Allergy Swelling Verified 10/25/23 11:09 [bee venom (honey bee)] zolpidem tartrate Allergy Rash/Altered Verified 10/25/23 11:09 [From Ambien] Mental Status Physical Exam Vitals: Vital Signs Temp Pulse Pulse Resp BP BP BP 10/26/23 10:38 97.9 F 61 18 120/78 10/26/23 07:51 10/26/23 07:20 97.7 F 57 L 16 135/81 10/26/23 03:48 98.0 F 57 L 17 125/75 10/25/23 20:00 97.5 F L 53 L 18 133/79 10/25/23 18:05 98.7 F 65 17 145/80 10/25/23 17:00 59 L 20 116/72 10/25/23 12:00 59 L 18 163/80 Pulse Ox 10/26/23 10:38 100 10/26/23 07:51 96 10/26/23 07:20 98 10/26/23 03:48 100 10/25/23 20:00 99 10/25/23 18:05 98 10/25/23 17:00 100 10/25/23 12:00 96 Intake and Output 10/25/23 10/26/23 10/26/23 22:59 06:59 14:59 Intake Total 0 Balance 0 Intake: Oral 0 Other: Voiding Method Toilet # Voids 2 1 Weight 72.575 kg Results 10/25/23 10:58 10/25/23 10:58 Cardiac Enzymes 10/25/23 10/25/23 Range/Units 14:34 18:12 Troponin I <0.012 <0.012 (0.000-0.034) ng/mL Current Medications Generic Name Dose Route Start Last Admin Trade Name Jeremy PRN Reason Stop Dose Admin Acetaminophen 650 mg 10/25/23 12:26 10/25/23 21:09 Acetaminophen Tab 325 Mg Tab PO 650 mg Q6HR PRN Administration Mild Pain or Fever > 100.5 Alprazolam 0.25 mg 10/25/23 21:19 10/26/23 10:45 Alprazolam 0.25 Mg Tab PO 0.25 mg BID PRN Administration Anxiety Apixaban 5 mg 10/25/23 21:00 10/26/23 08:29 Apixaban 5 Mg Tab PO 5 mg BID NIRAJ Administration Protocol Atorvastatin Calcium 40 mg 10/25/23 21:00 10/25/23 20:59 Atorvastatin 40 Mg Tab PO 40 mg HS NIRAJ Administration Citalopram Hydrobromide 40 mg 10/26/23 09:00 10/26/23 08:29 Citalopram Hydrobromide 20 Mg Tab PO 40 mg DAILY NIRAJ Administration Dextrose/Water 50 ml 10/25/23 15:19 Dextrose 50% Syringe 50 Ml IVP PER PROTOCOL PRN Hypoglycemia Protocol Dextrose/Water 25 ml 10/25/23 15:19 Dextrose 50% Syringe 50 Ml IVP PER PROTOCOL PRN Hypoglycemia Protocol Furosemide 40 mg 10/26/23 09:00 10/26/23 08:29 Furosemide 40 Mg Tab PO 40 mg DAILY NIRAJ Administration Insulin Aspart 0 unit 10/25/23 17:30 10/26/23 05:58 Insulin Aspart (Novolog) 100 Unit/Ml Vial SQ Not Given ACHS [facility] Protocol Isosorbide Mononitrate 60 mg 10/25/23 15:30 10/26/23 09:19 Isosorbide Mononitrate Er 60 Mg Tab.Er.24h PO 60 mg DAILY NIRAJ Administration Levothyroxine Sodium 50 mcg 10/26/23 06:30 10/26/23 06:17 Levothyroxine 50 Mcg Tab PO 50 mcg DAILY@0630 NIRAJ Administration Naloxone HCl 0.2 mg 10/25/23 12:26 Naloxone 0.4 Mg/Ml 1 Ml Vial IV Q2M PRN Opioid Reversal Nitroglycerin 0.4 mg 10/25/23 15:17 Nitroglycerin Sl Tabs 0.4 Mg Tab SUBLINGUAL Q5M PRN Chest Pain Pantoprazole Sodium 40 mg 10/26/23 07:30 10/26/23 06:17 Pantoprazole 40 Mg Tablet PO 40 mg [id number] NIRAJ Administration Ranolazine 500 mg 10/26/23 09:15 10/26/23 10:45 Ranolazine 500 Mg Tab.Er.12h PO 500 mg Q12HR NIRAJ Administration Sucralfate 1 gm 10/25/23 21:00 10/26/23 08:29 Sucralfate 1 Gm Tab PO 1 gm BID NIRAJ Administration Intake and Output 10/25/23 10/26/23 10/26/23 22:59 06:59 14:59 Intake Total 0 Balance 0 Intake: Oral 0 Other: Voiding Method Toilet # Voids 2 1 Weight 72.575 kg 10/25/23 10:58 10/25/23 10:58
--- NOTE | 2023-10-26 11:56 | CA ---
Transthoracic Echo Report Name: Florence Mason Age: 78 Gender: F : 1945 Exam Date: 10/26/2023 09:02 Exam Location: [facility] Ht (in): 64 Wt (lb): 160 Ordering Physician: Ashanti Davenport MD Attending/Referring Phys: Air Route Controller Kelin Villeda RDCS Procedure CPT: Indications: LVF Cardiac Hx: Technical Quality: Fair Contrast 1: Total Dose (mL): Contrast 2: Total Dose (mL): MEASUREMENTS (Male / Female) Normal Values 2D ECHO LV Diastolic Diameter PLAX 3.8 cm 4.2 - 5.9 / 3.9 - 5.3 cm LV Systolic Diameter PLAX 2.9 cm IVS Diastolic Thickness 1.1 cm 0.6 - 1.0 / 0.6 - 0.9 cm LVPW Diastolic Thickness 1.3 cm 0.6 - 1.0 / 0.6 - 0.9 cm LV Relative Wall Thickness 0.6 RV Internal Dim ED PLAX 3.5 cm LA Volume 57.2 cm??? 18 - 58 / 22 - 52 cm??? LA Volume Index 31.3 cm???/m??? 16 - 28 cm???/m??? M-MODE Aortic Root Diameter MM 2.8 cm LA Systolic Diameter MM 4.7 cm LA Ao Ratio MM 1.7 AV Cusp Separation MM 2.0 cm DOPPLER AV Peak Velocity 179.1 cm/s AV Peak Gradient 12.8 mmHg AV Mean Velocity 106.3 cm/s AV Mean Gradient 5.3 mmHg AV Velocity Time Integral 37.2 cm LVOT Peak Velocity 95.6 cm/s LVOT Peak Gradient 3.7 mmHg LVOT Velocity Time Integral 23.0 cm MV Area PHT 4.1 cm??? Mitral E Point Velocity 78.6 cm/s Mitral A Point Velocity 92.1 cm/s Mitral E to A Ratio 0.9 MV Deceleration Time 184.4 ms MV E' Velocity 3.8 cm/s Mitral E to MV E' Ratio 20.7 TR Peak Velocity 219.4 cm/s TR Peak Gradient 19.2 mmHg Right Ventricular Systolic Press 23.4 mmHg FINDINGS Left Ventricle Mildly increased left ventricular wall thickness. Left ventricular cavity size normal. Normal left ventricular systolic function with no obvious regional wall motion abnormalities. Abnormal (paradoxical) septal motion consistent with postoperative state. Left ventricular ejection fraction is estimated at 50-55 %. Grade 1 diastolic dysfunction. Right Ventricle Normal right ventricular size and function. Right ventricular systolic pressure within normal limits. Right Atrium Normal right atrial size. Left Atrium Mildly increased left atrial volume. Mitral Valve Structurally normal mitral valve. Mitral valve thickened. Mild mitral annular calcification. Mild mitral regurgitation. Aortic Valve Trileaflet aortic valve. No aortic valve stenosis and trace regurgitation. Tricuspid Valve Structurally normal tricuspid valve. Mild tricuspid regurgitation. Pulmonic Valve Structurally normal pulmonic valve. Trace pulmonic regurgitation. Pericardium No pericardial effusion. Aorta Normal size aortic root and proximal ascending aorta. CONCLUSIONS Normal LV size. Fairly well-preserved systolic function. Mild hypokinesia involving apical lateral wall. Mild mitral annular calcification. Mild mitral and tricuspid regurgitation. No pericardial effusion Previewed by: Dr. Kylee Alonzo MD (Electronically Signed) Final Date: 26 October 2023 11:55
[2023-10-26 12:09] LABS: Glucose,Whole Blood 107 mg/dL (70-110)
[2023-10-26] MEDS: DAPAGLIFLOZIN PROPANEDIOL 10 MG TABLET PO SCH (12:34)
[2023-10-26 15:41] VITALS: BP 113/68; PULSE 68
--- NOTE | 2023-11-25 14:27 | P.HPIM ---
History of Present Illness H&P Date: 10/25/23 Chief Complaint: Chest pain HISTORY OF PRESENT ILLNESS: This is a 78-year-old female with a previous medical history significant for coronary artery disease status postcoronary artery bypass graft x 3 vessel 2003 history of hypertension and hypertensive cardiovascular disease, hyperlipidemia, diabetes mellitus type 2, paroxysmal atrial fibrillation, patient presented to the emergency department at [facility] because of chest pain, initial evaluation did not reveal any acute abnormalities, but because of the presentation and because of her prior history she was admitted to the hospital for further evaluation by cardiology. REVIEW OF SYSTEMS: Constitutional: No documented fever, no chills, no night sweats. No weight change. No weakness, fatigue or lethargy. No daytime sleepiness. EENT: No headac percutaneous coronary intervention and stent placement in 2022 hypertension and hypertensive cardiovascular diseasehe. No blurred vision or double vision, no loss of vision. No loss of Hearing, no ringing in the ears, no dizziness. No nasal drainage or congestion. No epistaxis. No sore throat. Lungs: No shortness of breath, no cough, no sputum production. No wheezing. Reports dyspnea with activity. Cardiovascular: positive for chest pain, no lower extremity edema. No palpitations. No paroxysmal nocturnal dyspnea. No orthopnea. No lightheadedness or dizziness. No syncopal episodes. Abdominal: Reports abdominal pain. No nausea, vomiting. No diarrhea. No constipation. No bloody or tarry stools reports loss of appetite. Genitourinary: No dysuria, increased frequency, urgency. No urinary retention. Musculoskeletal: No myalgias. positive for muscle weakness, no gait dysfunction, no frequent falls. positive for back pain. No neck pain. Integumentary: No wounds, no lesions. No rash or pruritus. No unusual bruising . No change in hair or nails. Neurologic: No aphasia. No facial droop. No change in mentation. No head injury. No headache. No paralysis. No paresthesia. Psychiatric: No depression. positive for anxiety. No mood swings. Endocrine: No abnormal blood sugars. No weight change. PAST MEDICAL HISTORY: Coronary artery disease status post coronary artery bypass graft x 3 in 2003 Hypertension and hypertensive cardiovascular disease. Mixed hyperlipidemia. Diabetes mellitus type 2. Paroxysmal atrial fibrillation. GERD with esophagitis. Osteoarthritis. Osteopenia. PAST SURGICAL HISTORY: CABG times 04/2003 PCI with a stent placement 2022. Tonsillectomy. Cataract surgery. Complete hysterectomy due to endometriosis. Left total knee arthroplasty. Right total knee arthroplasty. Left shoulder replacement. Right shoulder reverse arthroplasty. Colonoscopy. Posterior lumbar discectomy with fusion L5-S1. SOCIAL HISTORY: Patient is a lifelong non-smoker, she denies any history of drinking, she denies any history of drug use or abuse. FAMILY HISTORY: Father at age of 52 from [place], mother at age of 82 from old age, patient has 1 brother alive and well, patient has 2 sisters 1 with COPD and she has a chronic history of tobacco use and dependence, patient has 1 daughter 55-year-old healthy. PHYSICAL EXAMINATION: General: 78-year-old female laying down in bed in no apparent distress. HEENT: Head is atraumatic, normocephalic, pupils were equal round reactive to light and recommendation, extraocular muscle movement were intact, sclera nonicteric, conjunctivae were pale, mucous membranes of the mouth are somewhat dry. Neck: Supple, no JVP, normal carotid upstroke bilaterally, no lymphadenopathy. Chest: Decreased breath sounds at the bases, few rhonchi, no expiratory wheezes, no chest wall tenderness, no intercostal retractions. Heart: First heart sound is normal, second heart sounds normal there is systolic ejection murmur 2/6 located in the left sternal border. Abdomen: Soft, nontender, nondistended, positive bowel sounds. Extremities: There is no edema no calf tenderness DP +2 bilaterally. Neurologic examination: Patient is awake alert and oriented x3, cranial nerves II-12 appear grossly intact, muscle power were 5 out of 5 in upper extremities and 5 out of 5 in bilateral lower extremities, deep tendon reflexes normal bilaterally. ASSESSMENT AND PLAN: 1. Chest pain in a patient with a prior history of CAD post CABG as well as PCI in 2022. Admit the patient to the hospital, cardiology evaluation, continue patient on aspirin 81 mg once every day, continue isosorbide mononitrate 10 mg orally twice every day, atorvastatin 40 mg once every day, cardiology to evaluate the patient for further recommendation. 2. Hypertension and hypertensive cardiovascular disease. Continue patient on current treatment plan, monitor the patient blood pressure very closely. 3. Mixed hyperlipidemia. Continue low-cholesterol diet, continue atorvastatin 40 mg once every day, monitor the patient lipid panel, keep LDL 55-70. 4. Diabetes mellitus type 2. Continue consistent carbohydrate diet, continue metformin 500 mg orally twice every day, start the patient on sliding scale insulin. 5. Paroxysmal atrial fibrillation. Continue patient on Eliquis 2.5 mg orally twice every day, monitor the patient's symptoms very closely. 6. GERD with esophagitis. Continue patient on Protonix 40 mg once every day, 7. Osteopenia. Continue calcium and vitamin D supplement. 8. Osteoarthritis. Continue Tylenol for pain control. 9. Anxiety disorder. Continue patient on Xanax 0.25 mg as needed. 10. DVT prophylaxis. Continue patient on Eliquis 5 mg orally twice every day. 11. GI prophylaxis. Continue patient on PPI. 12. Observation. 13. Full code. Past Medical History Past Medical History: Asthma, Coronary Artery Disease (CAD), Chest Pain / Angina, Heart Failure, COPD, CVA/TIA, Diabetes Mellitus, GERD/Reflux, Hyperlipidemia, Hypertension, Myocardial Infarction ([place]), Osteoarthritis (OA), Pneumonia, Sleep Apnea/CPAP/BIPAP, Syncope, Thyroid Disorder Additional Past Medical History / Comment(s): Pt recently admitted 04/23/16 with left lower lobe peumonia/bronchospasm/ unstable angina. Other hX: NIDDM type II, CVA, VERTIGO, syncope, bilateral tinnitis, anemia, murmur, hypothyroid, UTIs, nephrolithiasis, CHAVEZ with CPap, migraines, head injury as a teen, back pain. 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 Source:: ESBL URINE MRSA BACK Past Surgical History: Bladder Surgery, Coronary Bypass/CABG, Heart Catheterizat ion, Heart Catheterization With Stent, Hysterectomy, Joint Replacement, Orthopedic Surgery, Tonsillectomy Additional Past Surgical History / Comment(s): 1997 3 vessel CABG in [facility], 2004 PCI with 2 stents, 2010 and 2012 cardiac caths, jessi total knee replacements with right side done twice; R total shoulder replacement; L rotator cuff repair, bilateral cataract surgery, bladder suspension, R foot bone fusion, colonoscopy/polypectomy, bilateral hands trigger fingers/thumbs released, benign lymph node bx L4,L5 S1 spinal surgery 04/2017 Past Anesthesia/Blood Transfusion Reactions: No Reported Reaction Additional Past Anesthesia/Blood Transfusion Reaction / Comment(s): Pt received blood in the 1959's without reaction. Date of Last Stent Placement:: 2004 Past Psychological History: Depression Smoking Status: Never smoker Past Alcohol Use History: Rare Past Drug Use History: None Reported - Past Family History Mother Family Medical History: Chest Pain / Angina, Coronary Artery Disease (CAD), CVA/TIA, Hypertension, Musculoskeletal Disorder Father Family Medical History: Coronary Artery Disease (CAD) Additional Family Medical History / Comment(s): cabg Brother(s) Family Medical History: Coronary Artery Disease (CAD) Sister(s) Family Medical History: Coronary Artery Disease (CAD) Additional Family Medical History / Comment(s): pulmonary hypertension Daughter(s) Family Medical History: No Reported History Medications and Allergies Home Medications Medication Instructions Recorded Confirmed Type Furosemide [Lasix] 40 mg PO DAILY 10/15/14 10/25/23 History Levothyroxine Sodium [Synthroid] 50 mcg PO DAILY 10/15/14 10/25/23 History Nitroglycerin Sl Tabs [Nitrostat] 0.4 mg SUBLINGUAL Q5M PRN 10/15/14 10/25/23 History Apixaban [Eliquis] 5 mg PO BID 11/14/22 10/25/23 History Atorvastatin [Lipitor] 40 mg PO HS 11/14/22 10/25/23 History Citalopram Hydrobromide [CeleXA] 40 mg PO DAILY 11/14/22 10/25/23 History Sucralfate [Carafate] 1 gm PO BID 11/14/22 10/25/23 History metFORMIN HCL [Glucophage] 500 mg PO DAILY 01/09/23 10/25/23 History Isosorbide Mononitrate ER [Imdur] 60 mg PO DAILY #30 tab 06/22/23 10/25/23 Rx Omeprazole 20 mg PO BID 10/25/23 10/25/23 History Empagliflozin [Jardiance] 10 mg PO DAILY #30 tablet 10/26/23 Rx Ranolazine [Ranexa] 500 mg PO Q12HR #60 tab 10/26/23 Rx Allergies Allergy/AdvReac Type Severity Reaction Status Date / Time Iodinated Contrast Media Allergy Rash/Hives Verified 10/25/23 11:09 latex Allergy Rash/Hives Verified 10/25/23 11:09 venom-honey bee Allergy Swelling Verified 10/25/23 11:09 [bee venom (honey bee)] zolpidem tartrate Allergy Rash/Altered Verified 10/25/23 11:09 [From Ambien] Mental Status Physical Exam Vitals: Vital Signs Temp Pulse Resp BP Pulse Ox 10/25/23 12:00 59 L 18 163/80 96 10/25/23 10:06 98.4 F 56 L 18 163/80 98 Intake and Output 10/24/23 10/25/23 10/25/23 22:59 06:59 14:59 Other: Weight 72.575 kg Results CBC & Chem 7: 10/25/23 10:58 10/25/23 10:58 Labs: Abnormal Lab Results - Last 24 Hours (Table) 10/25/23 10/25/23 Range/Units 10:58 10:58 RBC 3.69 L (3.80-5.40) m/uL Total Protein 6.2 L (6.3-8.2) g/dL
--- NOTE | 2023-11-25 14:33 | P.DS ---
Providers Date of admission: 10/25/23 12:29 Expected date of discharge: 10/26/23 Attending physician: Ashanti Davenport Consults: 10/25/23 12:26 Consult Physician Routine Consulting Provider: Wilfrid Cheema Consult Reason/Comments: CP Do you want consulting provider notified?: Yes Primary care physician: Ashanti Davenport Hospital Course: This is a 78-year-old female with a previous medical history significant for coronary artery disease status postcoronary artery bypass graft x 3 vessel 2003 history of hypertension and hypertensive cardiovascular disease, hyperlipidemia, diabetes mellitus type 2, paroxysmal atrial fibrillation, patient presented to the emergency department at [facility] because of chest pain, initial evaluation did not reveal any acute abnormalities, but because of the presentation and because of her prior history she was admitted to the hospital for further evaluation by cardiology. 10/25: Patient was seen and evaluated by cardiology, apparently her stress test was reviewed by Dr. Alonzo and it was recommended for the patient to be discharged home and follow-up with them as an outpatient, there is no need for any left heart catheterization at this point in time. Patient underwent echocardiogram this time and that showed preserved ejection fraction with minimal hypokinesia in the apical lateral wall, with mild tricuspid regurgitation and mitral regurgitation, and patient was started on Jardiance 10 mg once every day as well as Ranexa 500 mg orally twice every day, after Dr. Alonzo reviewed the myocardial perfusion imaging from May 2023 he recommended to the patient that the defect was a fixed defect not a reversible defect at this point in time and she should continue the same treatment plan and follow-up with him as an outpatient. Discharge diagnoses: 1. Atypical chest pain in the patient with history of CAD. 2. Coronary artery disease status post coronary artery bypass grafting with PCI 3. Hypertension and hypertensive cardiovascular disease. 4. Mixed hyperlipidemia. 5. Diabetes mellitus type 2. 6. Hypothyroidism. 7. Obstructive sleep apnea. 8. Osteoarthritis. 9. Osteopenia. 10. Paroxysmal atrial fibrillation. 11. GERD with esophagitis. 12. Anxiety disorder. Patient Condition at Discharge: Stable Plan - Discharge Summary Discharge Rx Participant: No New Discharge Prescriptions: New Ranolazine [Ranexa] 500 mg PO Q12HR #60 tab Empagliflozin [Jardiance] 10 mg PO DAILY #30 tablet Continue Nitroglycerin Sl Tabs [Nitrostat] 0.4 mg SUBLINGUAL Q5M PRN PRN Reason: Chest Pain Levothyroxine Sodium [Synthroid] 50 mcg PO DAILY Furosemide [Lasix] 40 mg PO DAILY Sucralfate [Carafate] 1 gm PO BID metFORMIN HCL [Glucophage] 500 mg PO DAILY Isosorbide Mononitrate ER [Imdur] 60 mg PO DAILY #30 tab Atorvastatin [Lipitor] 40 mg PO HS Citalopram Hydrobromide [CeleXA] 40 mg PO DAILY Apixaban [Eliquis] 5 mg PO BID Omeprazole 20 mg PO BID Discharge Medication List Furosemide [Lasix] 40 mg PO DAILY 10/15/14 [History] Levothyroxine Sodium [Synthroid] 50 mcg PO DAILY 10/15/14 [History] Nitroglycerin Sl Tabs [Nitrostat] 0.4 mg SUBLINGUAL Q5M PRN 10/15/14 [History] Apixaban [Eliquis] 5 mg PO BID 11/14/22 [History] Atorvastatin [Lipitor] 40 mg PO HS 11/14/22 [History] Citalopram Hydrobromide [CeleXA] 40 mg PO DAILY 11/14/22 [History] Sucralfate [Carafate] 1 gm PO BID 11/14/22 [History] metFORMIN HCL [Glucophage] 500 mg PO DAILY 01/09/23 [History] Isosorbide Mononitrate ER [Imdur] 60 mg PO DAILY #30 tab 06/22/23 [Rx] Omeprazole 20 mg PO BID 10/25/23 [History] Empagliflozin [Jardiance] 10 mg PO DAILY #30 tablet 10/26/23 [Rx] Ranolazine [Ranexa] 500 mg PO Q12HR #60 tab 10/26/23 [Rx] Follow up Appointment(s)/Referral(s): Ashanti Davenport MD [Primary Care Provider] - 1 Week Brayan Santiago MD [STAFF PHYSICIAN] - 10/31/23 1:00 pm Activity/Diet/Wound Care/Special Instructions: . Discharge Disposition: HOME SELF-CARE
== END 2023-10-26 16:11 | disposition home or self-care (01) ==
LOC: EC 10:05 → 6NMEDSUR 12:29
PROVIDERS: ADMIT Internal Medicine; ATTEND Internal Medicine
DX: R07.89 Other chest pain (principal); I25.10 Atherosclerotic heart disease of native coronary artery without angina pectoris; E11.9 Type 2 diabetes mellitus without complications; I48.0 Paroxysmal atrial fibrillation; I25.82 Chronic total occlusion of coronary artery; I11.0 Hypertensive heart disease with heart failure; I50.9 Heart failure, unspecified; E78.5 Hyperlipidemia, unspecified; M79.601 Pain in right arm; M54.2 Cervicalgia; R68.84 Jaw pain; Z95.1 Presence of aortocoronary bypass graft; Z79.890 Hormone replacement therapy; Z79.01 Long term (current) use of anticoagulants; Z79.84 Long term (current) use of oral hypoglycemic drugs; Z79.899 Other long term (current) drug therapy; Z88.8 Allergy status to other drugs, medicaments and biological substances; Z91.030 Bee allergy status; Z91.041 Radiographic dye allergy status; Z91.040 Latex allergy status
CPT/HCPCS: 36415; 71046; 80053; 83036; 83735; 84484; 85025; 85610; 85730; 93005; 93306; 94760; 99285

== ENCOUNTER 2023-11-28 16:21 | Observation (INO) | payer MEDICARE ==
--- NOTE | 2023-11-28 16:56 | ED ---
General Adult HPI - General Chief complaint: Chest Pain Stated complaint: chest pain Time Seen by Provider: 11/28/23 16:31 Source: patient, RN notes reviewed, old records reviewed Mode of arrival: ambulatory Limitations: no limitations - History of Present Illness Initial comments: 78-year-old female presenting for lower chest and epigastric pain which has been present throughout the day today. Patient also reports pain in the right upper quadrant radiating to the right shoulder. No fever. No dyspnea. Patient states she has history of coronary artery disease status post bypass in the remote past. She is on Eliquis. - Related Data Home Medications Medication Instructions Recorded Confirmed Furosemide [Lasix] 20 mg PO BID 10/15/14 11/28/23 Levothyroxine Sodium [Synthroid] 50 mcg PO DAILY 10/15/14 11/28/23 Nitroglycerin Sl Tabs [Nitrostat] 0.4 mg SUBLINGUAL Q5M PRN 10/15/14 11/28/23 Apixaban [Eliquis] 5 mg PO BID 11/14/22 11/28/23 Atorvastatin [Lipitor] 40 mg PO HS 11/14/22 11/28/23 Citalopram Hydrobromide [CeleXA] 40 mg PO DAILY 11/14/22 11/28/23 Sucralfate [Carafate] 1 gm PO BID 11/14/22 11/28/23 metFORMIN HCL [Glucophage] 500 mg PO DAILY 01/09/23 11/28/23 Omeprazole 20 mg PO BID 10/25/23 11/28/23 ALPRAZolam [Xanax] 0.25 mg PO DAILY 11/28/23 11/28/23 Previous Rx's Medication Instructions Recorded Isosorbide Mononitrate ER [Imdur] 60 mg PO DAILY #30 tab 06/22/23 Empagliflozin [Jardiance] 10 mg PO DAILY #30 tablet 10/26/23 Ranolazine [Ranexa] 500 mg PO Q12HR #60 tab 10/26/23 Allergies Allergy/AdvReac Type Severity Reaction Status Date / Time Iodinated Contrast Media Allergy Rash/Hives Verified 11/28/23 18:03 latex Allergy Rash/Hives Verified 11/28/23 18:03 venom-honey bee Allergy Swelling Verified 11/28/23 18:03 [bee venom (honey bee)] zolpidem tartrate Allergy Rash/Altered Verified 11/28/23 18:03 [From Jamila] Mental Status Review of Systems ROS Statement: Those systems with pertinent positive or pertinent negative responses have been documented in the HPI. ROS Other: All systems not noted in ROS Statement are negative. Past Medical History Past Medical History: Asthma, Coronary Artery Disease (CAD), Chest Pain / Angina, Heart Failure, COPD, CVA/TIA, Diabetes Mellitus, GERD/Reflux, Hyperlipidemia, Hypertension, Myocardial Infarction (LA), Osteoarthritis (OA), Pneumonia, Sleep Apnea/CPAP/BIPAP, Syncope, Thyroid Disorder Additional Past Medical History / Comment(s): Pt recently admitted 04/23/16 with left lower lobe peumonia/bronchospasm/ unstable angina. Other hX: NIDDM type II, CVA, VERTIGO, syncope, bilateral tinnitis, anemia, murmur, hypothyroid, UTIs, nephrolithiasis, CHAVEZ with CPap, migraines, head injury as a teen, back pain. 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 Source:: ESBL URINE MRSA BACK Past Surgical History: Bladder Surgery, Coronary Bypass/CABG, Heart Catheterization, Heart Catheterization With Stent, Hysterectomy, Joint Replacement, Orthopedic Surgery, Tonsillectomy Additional Past Surgical History / Comment(s): 1997 3 vessel CABG in [facility], 2004 PCI with 2 stents, 2010 and 2012 cardiac caths, jessi total knee replacements with right side done twice; R total shoulder replacement; L rotator cuff repair, bilateral cataract surgery, bladder suspension, R foot bone fusion, colonoscopy/polypectomy, bilateral hands trigger fingers/thumbs released, benign lymph node bx L4,L5 S1 spinal surgery 04/2017 Past Anesthesia/Blood Transfusion Reactions: No Reported Reaction Additional Past Anesthesia/Blood Transfusion Reaction / Comment(s): Pt received blood in the 1959's without reaction. Date of Last Stent Placement:: 2004 Past Psychological History: Depression Smoking Status: Never smoker Past Alcohol Use History: Rare Past Drug Use History: None Reported - Past Family History Mother Family Medical History: Chest Pain / Angina, Coronary Artery Disease (CAD), CVA/TIA, Hypertension, Musculoskeletal Disorder Father Family Medical History: Coronary Artery Disease (CAD) Additional Family Medical History / Comment(s): cabg Brother(s) Family Medical History: Coronary Artery Disease (CAD) Sister(s) Family Medical History: Coronary Artery Disease (CAD) Additional Family Medical History / Comment(s): pulmonary hypertension Daughter(s) Family Medical History: No Reported History General Exam Limitations: no limitations General appearance: alert, in no apparent distress Head exam: Present: atraumatic, normocephalic Eye exam: Present: normal appearance, PERRL ENT exam: Present: normal exam Neck exam: Present: normal inspection. Absent: tenderness Respiratory exam: Present: normal lung sounds bilaterally. Absent: respiratory distress, wheezes Cardiovascular Exam: Present: regular rate, normal rhythm GI/Abdominal exam: Present: soft, tenderness (Epigastric). Absent: distended Extremities exam: Present: normal inspection, normal capillary refill. Absent: calf tenderness Back exam: Present: normal inspection Neurological exam: Present: alert, oriented X3 Psychiatric exam: Present: normal affect, normal mood Course Vital Signs 11/28/23 11/28/23 16:22 17:29 Temperature 97.6 F 98.0 F Pulse Rate 73 63 Respiratory 18 18 Rate Blood Pressure 133/73 133/76 O2 Sat by Pulse 95 97 Oximetry Medical Decision Making - Medical Decision Making Was pt. sent in by a medical professional or institution (, PA, [employer], urgent care, hospital, or half-way...) When possible be specific @ -No Did you speak to anyone other than the patient for history (EMS, parent, family, police, friend...)? What history was obtained from this source @ -No Did you review nursing and triage notes (agree or disagree)? Why? @ -I reviewed and agree with nursing and triage notes Were old charts reviewed (outside hosp., previous admission, EMS record, old EKG, old radiological studies, urgent care reports/EKG's, half-way records)? Report findings @ -No old charts were reviewed Differential Chest Pain: Stable Angina, Unstable Angina, STEMI, NSTEMI Aortic Dissection, Pneumothorax, Musculoskeletal, Esophageal Spasm GERD, Cholecystitis, Pancreatitis, Zoster, this is not meant to be an all-inclusive list. EKG interpreted by me (3pts min.). @ -[Sinus rhythm fracture rate of 76, CO interval 157, QRS duration 89, QTc [address] segment elevation artifact in V6 limiting assessment X-rays interpreted by me (1pt min.). @Chest x-ray is negative for acute cardiopulmonary findings. CT interpreted by me (1pt min.). @ -None done U/S interpreted by me (1pt. min.). @ -Sound does not visualize the gallbladder well, gallbladder may be filled with stones. What testing was considered but not performed or refused? (CT, X-rays, U/S, labs)? Why? @ -None What meds were considered but not given or refused? Why? @ -None Did you discuss the management of the patient with other professionals (professionals i.e. , PA, [employer], lab, RT, psych nurse, social sciences chair, senior credit analyst, teacher, front desk officer, complex case manager)? Give summary @ -No Was smoking cessation discussed for >3mins.? @ -No Was critical care preformed (if so, how long)? @ -No Were there social determinants of health that impacted care today? How? (Homelessness, low income, unemployed, alcoholism, drug addiction, transportation, low edu. Level, literacy, decrease access to med. care, fpc, rehab)? @ -No Was there de-escalation of care discussed even if they declined (Discuss DNR or withdrawal of care, Hospice)? DNR status @ -No What co-morbidities impacted this encounter? (DM, HTN, Smoking, COPD, CAD, Cancer, CVA, ARF, Chemo, Hep., AIDS, mental health diagnosis, sleep apnea, morbid obesity)? @ -None Was patient admitted / discharged? Hospital course, mention meds given and route, prescriptions, significant lab abnormalities, going to OR and other pertinent info. @ -78-year-old female with known coronary artery disease presenting with chest pain, epigastric pain and radiation to the right upper quadrant and right shoulder. Pain is atypical of ACS. EKG is sinus without ST segment elevation. Patient has a negative initial troponin. Workup is ordered for both cardiac and gallbladder pathology. Gallbladder ultrasound shows nondistended gallbladder but the assessment of the gallbladder is limited. She has normal bilirubin, normal AST and ALT, negative lipase. Patient will be observed overnight for serial cardiac enzymes, consultation with cardiology for atypical chest pain and consultation with general surgery for right upper quadrant pain. Discussed with Dr. Davenport who will admit Undiagnosed new problem with uncertain prognosis? @ -No Drug Therapy requiring intensive monitoring for toxicity (Heparin, Nitro, Insulin, Cardizem)? @ -No Were any procedures done? @ -No Diagnosis/symptom? @ -[Chest pain, epigastric pain Acute, or Chronic, or Acute on Chronic? @Acute on chronic Uncomplicated (without systemic symptoms) or Complicated (systemic symptoms)? @ -Default Side effects of treatment? @ -No Exacerbation, Progression, or Severe Exacerbation? @ -No Poses a threat to life or bodily function? How? (Chest pain, USA, LA, pneumonia, PE, COPD, DKA, ARF, appy, cholecystitis, CVA, Diverticulitis, Homicidal, Suicidal, threat to staff... and all critical care pts) @ -yes, ACS, cholecystitis, sepsis - Lab Data Result diagrams: 11/28/23 17:19 11/28/23 17:19 Lab Results 11/28/23 11/28/23 11/28/23 Range/Units 17:19 17:19 17:19 WBC 6.6 (3.8-10.6) k/uL RBC 4.10 (3.80-5.40) m/uL Hgb 13.2 (11.4-16.0) gm/dL Hct 38.7 (34.0-46.0) % MCV 94.3 (80.0-100.0) fL MCH 32.1 (25.0-35.0) pg MCHC 34.1 (31.0-37.0) g/dL RDW 13.5 (11.5-15.5) % Plt Count 199 (150-450) k/uL MPV 7.5 Neutrophils % 62 % Lymphocytes % 25 % Monocytes % 10 % Eosinophils % 2 % Basophils % 1 % Neutrophils # 4.1 (1.3-7.7) k/uL Lymphocytes # 1.6 (1.0-4.8) k/uL Monocytes # 0.6 (0-1.0) k/uL Eosinophils # 0.1 (0-0.7) k/uL Basophils # 0.0 (0-0.2) k/uL PT 10.4 (10.0-12.5) sec INR 0.9 (<1.2) APTT 22.1 (22.0-30.0) sec Sodium 138 (137-145) mmol/L Potassium 4.0 (3.5-5.1) mmol/L Chloride 104 (98-107) mmol/L Carbon Dioxide 27 (22-30) mmol/L Anion Gap 7 mmol/L BUN 15 (7-17) mg/dL Creatinine 0.71 (0.52-1.04) mg/dL Est GFR (CKD-EPI)AfAm >90 (>60 ml/min/1.73 sqM) Est GFR (CKD-EPI)NonAf 83 (>60 ml/min/1.73 sqM) Glucose 88 (74-99) mg/dL Calcium 9.0 (8.4-10.2) mg/dL Magnesium 2.0 (1.6-2.3) mg/dL Total Bilirubin 0.4 (0.2-1.3) mg/dL AST 47 H (14-36) U/L ALT 34 (4-34) U/L Alkaline Phosphatase 57 (38-126) U/L Troponin I (0.000-0.034) ng/mL Total Protein 6.8 (6.3-8.2) g/dL Albumin 4.2 (3.5-5.0) g/dL Lipase 91 (23-300) U/L 11/28/23 Range/Units 17:19 WBC (3.8-10.6) k/uL RBC (3.80-5.40) m/uL Hgb (11.4-16.0) gm/dL Hct (34.0-46.0) % MCV (80.0-100.0) fL MCH (25.0-35.0) pg MCHC (31.0-37.0) g/dL RDW (11.5-15.5) % Plt Count (150-450) k/uL MPV Neutrophils % % Lymphocytes % % Monocytes % % Eosinophils % % Basophils % % Neutrophils # (1.3-7.7) k/uL Lymphocytes # (1.0-4.8) k/uL Monocytes # (0-1.0) k/uL Eosinophils # (0-0.7) k/uL Basophils # (0-0.2) k/uL PT (10.0-12.5) sec INR (<1.2) APTT (22.0-30.0) sec Sodium (137-145) mmol/L Potassium (3.5-5.1) mmol/L Chloride (98-107) mmol/L Carbon Dioxide (22-30) mmol/L Anion Gap mmol/L BUN (7-17) mg/dL Creatinine (0.52-1.04) mg/dL Est GFR (CKD-EPI)AfAm (>60 ml/min/1.73 sqM) Est GFR (CKD-EPI)NonAf (>60 ml/min/1.73 sqM) Glucose (74-99) mg/dL Calcium (8.4-10.2) mg/dL Magnesium (1.6-2.3) mg/dL Total Bilirubin (0.2-1.3) mg/dL AST (14-36) U/L ALT (4-34) U/L Alkaline Phosphatase (38-126) U/L Troponin I <0.012 (0.000-0.034) ng/mL Total Protein (6.3-8.2) g/dL Albumin (3.5-5.0) g/dL Lipase (23-300) U/L Disposition Clinical Impression: Chest pain, Gallstones Disposition: ADMITTED IP TO THIS [facility] Condition: Stable Is patient prescribed a controlled substance at d/c from ED?: No Referrals: Ashanti Davenport MD [Primary Care Provider] - 1-2 days Time of Disposition: 18:59
[2023-11-28] MEDS: PANTOPRAZOLE 40 MG/10 ML VIAL IVP STA (17:21)
[2023-11-28] MEDS: HYDROmorphone 0.5 MG/0.5 ML SYRINGE IVP STA (17:21)
[2023-11-28 17:38] LABS: Basophils % (A) 1 %; Eosinophils # (A) 0.1 k/uL (0-0.7); Eosinophils % (A) 2 %; HCT 38.7 % (34.0-46.0); HGB 13.2 gm/dL (11.4-16.0); Lymphocytes # (A) 1.6 k/uL (1.0-4.8); Lymphocytes % (A) 25 %; MCH 32.1 pg (25.0-35.0); MCHC 34.1 g/dL (31.0-37.0); MCV 94.3 fL (80.0-100.0); Mean Platelet Volume 7.5; Monocytes # (A) 0.6 k/uL (0-1.0); Monocytes % (A) 10 %; Neutrophils # (A) 4.1 k/uL (1.3-7.7); Neutrophils % (A) 62 %; Platelet Count 199 k/uL (150-450); RDW 13.5 % (11.5-15.5); WBC 6.6 k/uL (3.8-10.6)
[2023-11-28 17:39] LABS: INR 0.9 (<1.2); Partial Thromboplastin Time 22.1 sec (22.0-30.0); Prothrombin Time 10.4 sec (10.0-12.5)
--- NOTE | 2023-11-28 17:53 | XR ---
EXAMINATION TYPE: XR chest 2V DATE OF EXAM: 11/28/2023 COMPARISON: 10/25/2023 HISTORY: 78-year-old female with chest pain TECHNIQUE: AP and lateral views FINDINGS: Partially visualized reverse right shoulder arthroplasty. Median sternotomy wires and post-CABG clips . Heart borderline enlarged. Some strandy atelectasis at the left base with some limitation due to th e degree of penetration. Remainder of the lungs and pleural spaces appear clear. IMPRESSION: Post-CABG changes. Some limitation in assessment at the left base due to underpenetration. No definit e acute process. [facility], , 11/28/2023 5:50 PM
[2023-11-28 18:09] LABS: ALT 34 U/L (4-34); AST 47 U/L (14-36); African American GFR (CKD) >90 (>60 ml/min/1.73 sqM); Albumin 4.2 g/dL (3.5-5.0); Alkaline Phosphatase 57 U/L (38-126); Anion Gap 7 mmol/L; Blood Urea Nitrogen 15 mg/dL (7-17); Carbon Dioxide 27 mmol/L (22-30); Chloride 104 mmol/L (98-107); Glucose 88 mg/dL (74-99); Lipase 91 U/L (23-300); Non-African American GFR(CKD) 83 (>60 ml/min/1.73 sqM); Sodium 138 mmol/L (137-145); Total Bilirubin 0.4 mg/dL (0.2-1.3); Total Protein 6.8 g/dL (6.3-8.2)
--- NOTE | 2023-11-28 18:24 | US ---
EXAMINATION TYPE: US gallbladder DATE OF EXAM: 11/28/2023 COMPARISON: 10/26/2010 CLINICAL INDICATION: Female, 78 years old with history of epigastric pain; Patient states epigastric pain. Patient states she ate at 1 TECHNIQUE: Grayscale and color Doppler imaging of the right upper quadrant was performed. 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 Liver: Punctate 4 mm calcification right liver lobe. Otherwise, no focal lesion identified. Gallbladder: Gallbladder difficult to definitively visualize. Possibly obscured by underlying stones . Evidence for sonographic Hedrick's sign: No CBD: upper limits of normal, acceptable for the patient's age. Right Kidney: wnl as best seen IMPRESSION: 1. Unable to clearly delineate the gallbladder. It may be obscured by underlying gallstones. 2. Bile duct upper limits of normal in caliber at 6 mm, acceptable given patient's age. 3. Borderline caliber to the main pancreatic duct may also be chronic for the patient. Correlate with amylase and lipase and CA-19-9 levels to exclude pancreatic pathology. 2-3 month follow-up ultrasoun d can reassess. [facility], , 11/28/2023 6:22 PM
[2023-11-28] MEDS ORDERED: NALOXONE 0.4 MG/ML 1 ML VIAL IV PRN (18:55)
[2023-11-28] MEDS: HYDROmorphone 0.5 MG/0.5 ML SYRINGE IVP PRN (19:33)
[2023-11-28] MEDS ORDERED: NITROGLYCERIN SL TABS 0.4 MG TAB SUBLINGUAL PRN (19:49)
[2023-11-28] MEDS: SODIUM CHLORIDE 0.9% 1,000 ML IV SCH (20:00)
[2023-11-28] MEDS: ATORVASTATIN 40 MG TAB PO SCH (20:40)
[2023-11-28] MEDS: RANOLAZINE 500 MG TAB.ER.12H PO SCH (20:40)
[2023-11-28] MEDS: FUROSEMIDE 20 MG TAB PO SCH (20:40)
[2023-11-28] MEDS: PANTOPRAZOLE 40 MG TABLET PO SCH (20:41)
[2023-11-28] MEDS: APIXABAN 5 MG TAB PO SCH (20:41)
[2023-11-28] MEDS: SUCRALFATE 1 GM TAB PO SCH (20:46)
[2023-11-28] MEDS: CALCIUM CARBONATE 500 MG CHEWABLE PO PRN (21:18)
[2023-11-28] MEDS: ACETAMINOPHEN TAB 325 MG TAB PO PRN (21:55)
[2023-11-28] MEDS: MELATONIN 3 MG TABLET PO SCH (22:47)
[2023-11-29] MEDS: LEVOTHYROXINE 50 MCG TAB PO SCH (06:36)
[2023-11-29] MEDS ORDERED: PANTOPRAZOLE 40 MG/10 ML VIAL IV SCH (09:00)
--- NOTE | 2023-11-29 09:24 | P.CRDCN ---
History of Present Illness History of present illness: HISTORY OF PRESENT ILLNESS: This is a 78-year-old female with a past medical history significant for paroxysmal atrial fibrillation, coronary artery disease with previous CABG, hypertension, hyperlipidemia, diabetes, COPD, and CVA. Patient follows in the office with Dr. Santiago. We have been asked to see the patient in consultation for chest pain. Patient examined at the bedside. Patient states yesterday she began to have abdominal discomfort. She states the pain was in her right upper quadrant. She states she was not doing anything exertional when it started. She reports shortness of breath at baseline but states she was not having any worsening shortness of breath yesterday. She also reports having nausea without episodes of vomiting. She denies having any chest pain or pressure. DIAGNOSTICS: - EKG reveals sinus mechanism with no signs of acute ischemia - Chest xray post CABG changes. No definite acute process. - Gallbladder ultrasound unable to clearly delineate the gallbladder. May be obscured by underlying gallstones. Bile ducts upper limits of normal in caliber at 6 mm. Borderline caliber to main pancreatic duct may also be chronic for patient. - Laboratory data: WBC 6.6. Hemoglobin 13.2. Platelet count 199. Sodium 138. Potassium 4.0. BUN 15. Creatinine 0.71. Magnesium 2.0. Troponin negative x 3. - Current home cardiac medications include Eliquis 5 mg twice a day, atorvastatin 40 mg at night, Jardiance 10 mg daily, Lasix 20 mg twice a day, Imdur 60 mg daily, Ranexa 500 mg twice a day - Most recent echocardiogram obtained in October 2023 reveals ejection fraction 55 to 60%, mild mitral regurgitation, mild tricuspid regurgitation - Cardiac catheterization history: December 2022 revealing right dominant system. Normal filling pressures. No gradient. Right coronary artery free of significant disease. Distal branches provide collaterals to the distal LAD. Left main has less than 20% narrowing. LAD has diffuse disease and distal one fourth is diffusely diseased but no focal stenosis. Circumflex is totally occluded. MORENO to LAD is patent but because of the competitive flow the MORENO is not very functional. Most of the flow is coming antegrade from the agdaagux LAD. The free radial artery graft to the PDA branch/obtuse marginal branch of circumflex is widely patent with good flow but there is mild diffuse disease. Medical management was recommended. REVIEW OF SYSTEMS: At the time of my exam: CONSTITUTIONAL: Denies fever or chills. HEENT: Denies blurred vision, vision changes, or eye pain. Denies hemoptysis CARDIOVASCULAR: Denies chest pain. Denies orthopnea. Denies PND. Denies palpitations RESPIRATORY: Denies shortness of breath. GASTROINTESTINAL: Denies abdominal pain. Denies nausea or vomiting. HEMATOLOGIC: Denies bleeding disorders. GENITOURINARY: Denies any blood in urine. SKIN: Denies pruitis. Denies rash. PHYSICAL EXAM: VITAL SIGNS: Reviewed. GENERAL: Well-developed in no acute distress. HEENT: Head is normocephalic. Pupils are equal, round. Sclerae anicteric. Mucous membranes of the mouth are moist. Neck supple. No JVD or thyromegaly LUNGS: Respirations even and unlabored. Lungs essentially clear to auscultation bilaterally. HEART: Regular rate and rhythm. S1 and S2 heard. Systolic murmur noted. ABDOMEN: Soft. Nondistended. Right upper quadrant tenderness EXTREMITIES: Normal range of motion. No clubbing or cyanosis. Peripheral pulses intact. No lower extremity edema NEUROLOGIC: Awake and alert. Oriented x 3. ASSESSMENT: Abdominal pain Cholelithiasis Chest pain, ruled out, patient reporting right upper quadrant abdominal pain and not chest pain Paroxysmal atrial fibrillation, on Eliquis outpatient Coronary artery disease with previous two-vessel CABG, MORENO to LAD and radial to [id number] Hypertension Hyperlipidemia Diabetes History of COPD and asthma; patient life time non-smoker History of CVA PLAN: No need to repeat echocardiogram as this was performed in October 2023 Continue home cardiac medications Hold [facility] pending general surgery consult If surgical intervention is deemed necessary, there are no absolute contraindications from a cardiac standpoint for patient to proceed Further recommendations pending patient course Nurse practitioner note has been reviewed by physician. Signing provider agrees with the documented findings, assessment, and plan of care documented by [employer] as a scribe. Past Medical History Past Medical History: Asthma, Coronary Artery Disease (CAD), Chest Pain / Angina, Heart Failure, COPD, CVA/TIA, Diabetes Mellitus, GERD/Reflux, Hyperlipidemia, Hypertension, Myocardial Infarction ([place]), Osteoarthritis (OA), Pneumonia, Sleep Apnea/CPAP/BIPAP, Syncope, Thyroid Disorder Additional Past Medical History / Comment(s): Pt recently admitted 04/23/16 with left lower lobe peumonia/bronchospasm/ unstable angina. Other hX: NIDDM type II, CVA, VERTIGO, syncope, bilateral tinnitis, anemia, murmur, hypothyroid, UTIs, nephrolithiasis, CHAVEZ with CPap, migraines, head injury as a teen, back pain. 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 Source:: ESBL URINE MRSA BACK Past Surgical History: Bladder Surgery, Coronary Bypass/CABG, Heart Catheterization, Heart Catheterization With Stent, Hysterectomy, Joint Repl acement, Orthopedic Surgery, Tonsillectomy Additional Past Surgical History / Comment(s): 1997 3 vessel CABG in [facility], 2004 PCI with 2 stents, 2010 and 2012 cardiac caths, jessi total knee replacements with right side done twice; R total shoulder replacement; L rotator cuff repair, bilateral cataract surgery, bladder suspension, R foot bone fusion, colonoscopy/polypectomy, bilateral hands trigger fingers/thumbs released, benign lymph node bx L4,L5 S1 spinal surgery 04/2017 Past Anesthesia/Blood Transfusion Reactions: No Reported Reaction Additional Past Anesthesia/Blood Transfusion Reaction / Comment(s): Pt received blood in the 1959's without reaction. Date of Last Stent Placement:: 2004 Past Psychological History: Depression Smoking Status: Never smoker Past Alcohol Use History: Rare Past Drug Use History: None Reported - Past Family History Mother Family Medical History: Chest Pain / Angina, Coronary Artery Disease (CAD), CVA/TIA, Hypertension, Musculoskeletal Disorder Father Family Medical History: Coronary Artery Disease (CAD) Additional Family Medical History / Comment(s): cabg Brother(s) Family Medical History: Coronary Artery Disease (CAD) Sister(s) Family Medical History: Coronary Artery Disease (CAD) Additional Family Medical History / Comment(s): pulmonary hypertension Daughter(s) Family Medical History: No Reported History Medications and Allergies Home Medications Medication Instructions Recorded Confirmed Type Furosemide [Lasix] 20 mg PO BID 10/15/14 11/28/23 History Levothyroxine Sodium [Synthroid] 50 mcg PO DAILY 10/15/14 11/28/23 History Nitroglycerin Sl Tabs [Nitrostat] 0.4 mg SUBLINGUAL Q5M PRN 10/15/14 11/28/23 History Apixaban [Eliquis] 5 mg PO BID 11/14/22 11/28/23 History Atorvastatin [Lipitor] 40 mg PO HS 11/14/22 11/28/23 History Citalopram Hydrobromide [CeleXA] 40 mg PO DAILY 11/14/22 11/28/23 History Sucralfate [Carafate] 1 gm PO BID 11/14/22 11/28/23 History metFORMIN HCL [Glucophage] 500 mg PO DAILY 01/09/23 11/28/23 History Isosorbide Mononitrate ER [Imdur] 60 mg PO DAILY #30 tab 06/22/23 11/28/23 Rx Omeprazole 20 mg PO BID 10/25/23 11/28/23 History Empagliflozin [Jardiance] 10 mg PO DAILY #30 tablet 10/26/23 11/28/23 Rx Ranolazine [Ranexa] 500 mg PO Q12HR #60 tab 10/26/23 11/28/23 Rx ALPRAZolam [Xanax] 0.25 mg PO DAILY 11/28/23 11/28/23 History Allergies Allergy/AdvReac Type Severity Reaction Status Date / Time Iodinated Contrast Media Allergy Rash/Hives Verified 11/28/23 18:03 latex Allergy Rash/Hives Verified 11/28/23 18:03 venom-honey bee Allergy Swelling Verified 11/28/23 18:03 [bee venom (honey bee)] zolpidem tartrate Allergy Rash/Altered Verified 11/28/23 18:03 [From Ambien] Mental Status Physical Exam Vitals: Vital Signs Temp Pulse Resp BP Pulse Ox 11/29/23 06:21 97.5 F L 57 L 18 121/64 98 11/29/23 04:18 55 L 17 102/61 95 11/29/23 02:05 55 L 17 133/69 96 11/29/23 00:23 55 L 18 135/66 98 11/28/23 22:55 55 L 18 144/75 96 11/28/23 21:55 55 L 20 152/69 99 11/28/23 19:34 55 L 18 140/71 99 11/28/23 17:29 98.0 F 63 18 133/76 97 11/28/23 16:22 97.6 F 73 18 133/73 95 Intake and Output 11/28/23 11/29/23 11/29/23 22:59 06:59 14:59 Other: Weight 65.771 kg Results 11/28/23 17:19 11/28/23 17:19 Cardiac Enzymes 11/28/23 11/28/23 11/28/23 Range/Units 17:19 17:19 20:59 AST 47 H (14-36) U/L Troponin I <0.012 <0.012 (0.000-0.034) ng/mL 11/29/23 Range/Units 01:16 AST (14-36) U/L Troponin I <0.012 (0.000-0.034) ng/mL Coagulation 11/28/23 Range/Units 17:19 PT 10.4 (10.0-12.5) sec APTT 22.1 (22.0-30.0) sec CBC 11/28/23 Range/Units 17:19 WBC 6.6 (3.8-10.6) k/uL RBC 4.10 (3.80-5.40) m/uL Hgb 13.2 (11.4-16.0) gm/dL Hct 38.7 (34.0-46.0) % Plt Count 199 (150-450) k/uL Comprehensive Metabolic Panel 11/28/23 Range/Units 17:19 Sodium 138 (137-145) mmol/L Potassium 4.0 (3.5-5.1) mmol/L Chloride 104 (98-107) mmol/L Carbon Dioxide 27 (22-30) mmol/L BUN 15 (7-17) mg/dL Creatinine 0.71 (0.52-1.04) mg/dL Glucose 88 (74-99) mg/dL Calcium 9.0 (8.4-10.2) mg/dL AST 47 H (14-36) U/L ALT 34 (4-34) U/L Alkaline Phosphatase 57 (38-126) U/L Total Protein 6.8 (6.3-8.2) g/dL Albumin 4.2 (3.5-5.0) g/dL Current Medications Generic Name Dose Route Start Last Admin Trade Name Freq PRN Reason Stop Dose Admin Acetaminophen 650 mg 11/28/23 18:55 11/28/23 21:55 Acetaminophen Tab 325 Mg Tab PO 650 mg Q6HR PRN Administration Mild Pain or Fever > 100.5 Alprazolam 0.25 mg 11/29/23 09:00 Alprazolam 0.25 Mg Tab PO DAILY NIRAJ Apixaban 5 mg 11/28/23 21:00 11/28/23 20:41 Apixaban 5 Mg Tab PO 5 mg BID NIRAJ Administration Protocol Atorvastatin Calcium 40 mg 11/28/23 21:00 11/28/23 20:40 Atorvastatin 40 Mg Tab PO 40 mg HS NIRAJ Administration Calcium Carbonate/Glycine 500 mg 11/28/23 20:53 11/28/23 21:18 Calcium Carbonate 500 Mg Chewable PO 500 mg TID PRN Administration Heartburn Citalopram Hydrobromide 40 mg 11/29/23 09:00 Citalopram Hydrobromide 20 Mg Tab PO DAILY NIRAJ Dapagliflozin 5 mg 11/29/23 09:00 Dapagliflozin Propanediol 5 Mg Tablet PO DAILY NIRAJ Furosemide 20 mg 11/28/23 21:00 11/28/23 20:40 Furosemide 20 Mg Tab PO 20 mg BID NIRAJ Administration Hydromorphone HCl 0.5 mg 11/28/23 18:55 11/28/23 22:50 Hydromorphone 0.5 Mg/0.5 Ml Syringe IVP 0.5 mg Q3HR PRN Administration Moderate Pain (Scale 4 to 6) Sodium Chloride 1,000 mls @ 75 mls/hr 11/28/23 19:00 11/28/23 20:00 Saline 0.9% IV 75 mls/hr .[id number] NIRAJ Administration Isosorbide Mononitrate 60 mg 11/29/23 09:00 Isosorbide Mononitrate Er 60 Mg Tab.Er.24h PO DAILY NIRAJ Levothyroxine Sodium 50 mcg 11/29/23 06:30 11/29/23 06:36 Levothyroxine 50 Mcg Tab PO 50 mcg DAILY@0630 NIRAJ Administration Melatonin 3 mg 11/28/23 22:15 11/28/23 22:47 Melatonin 3 Mg Tablet PO 3 mg HS NIRAJ Administration Metformin HCl 500 mg 11/29/23 07:30 Metformin 500 Mg Tab PO AC-BRKFST NIRAJ Naloxone HCl 0.2 mg 11/28/23 18:55 Naloxone 0.4 Mg/Ml 1 Ml Vial IV Q2M PRN Opioid Reversal Nitroglycerin 0.4 mg 11/28/23 19:49 Nitroglycerin Sl Tabs 0.4 Mg Tab SUBLINGUAL Q5M PRN Chest Pain Ondansetron HCl 4 mg 11/28/23 18:55 Ondansetron 4 Mg/2 Ml Vial IVP Q8HR PRN Nausea And Vomiting Pantoprazole Sodium 40 mg 11/28/23 21:00 11/28/23 20:41 Pantoprazole 40 Mg Tablet PO 40 mg AC-BID NIRAJ Administration Ranolazine 500 mg 11/28/23 21:00 11/28/23 20:40 Ranolazine 500 Mg Tab.Er.12h PO 500 mg Q12HR NIRAJ Administration Sucralfate 1 gm 11/28/23 21:00 11/28/23 21:18 Sucralfate 1 Gm Tab PO 1 gm AC-BID NIRAJ Administration Intake and Output 11/28/23 11/29/23 11/29/23 22:59 06:59 14:59 Other: Weight 65.771 kg 11/28/23 17:19 11/28/23 17:19
[2023-11-29 10:44] LABS: Basophils # (A) 0.04 X 10*3/uL (0.00-0.10); Basophils % (A) 0.7 %; Eosinophils # (A) 0.17 X 10*3/uL (0.04-0.35); Eosinophils % (A) 2.9 %; HCT 36.6 % (37.2-46.3); HGB 11.9 g/dL (12.0-15.0); Lymphocytes # (A) 1.45 X 10*3/uL (0.90-5.00); Lymphocytes % (A) 24.6 %; MCH 31.4 pg (27.0-32.0); MCHC 32.5 g/dL (32.0-37.0); MCV 96.6 FL (80.0-97.0); Mean Platelet Volume 9.3 FL (9.5-12.2); Monocytes # (A) 0.73 X 10*3/uL (0.20-1.00); Monocytes % (A) 12.4 %; NRBC Per 100 WBC 0 X 10*3/uL (0.00-0.01); Neutrophils # (A) 3.48 X 10*3/uL (1.80-7.70); Neutrophils % (A) 59.1 %; Platelet Count 168 X 10*3/uL (140-440); RBC 3.79 X 10*6/uL (4.10-5.20); RDW 12.9 % (11.5-14.5); WBC 5.89 X 10*3/uL (4.50-10.00)
[2023-11-29 11:19] LABS: ALT 28 U/L (8-44); AST 28 U/L (13-35); Albumin 3.8 g/dL (3.8-4.9); Albumin/Globulin Ratio 1.81 Ratio (1.60-3.17); Alkaline Phosphatase 71 U/L (41-126); BUN/Creat Ratio 12.56 Ratio (12.00-20.00); Blood Urea Nitrogen 11.3 mg/dL (9.0-27.0); Calcium 8.6 mg/dL (8.7-10.3); Chloride 104 mmol/L (96-109); Globulin 2.1 g/dL (1.6-3.3); Glucose 93 mg/dL (70-110); Potassium 4.2 mmol/L (3.5-5.5); Sodium 138 mmol/L (135-145); Total Bilirubin 0.4 mg/dL (0.3-1.2); Total Protein 5.9 g/dL (6.2-8.2)
[2023-11-29 13:01] LABS: Glucose,Whole Blood 99 mg/dL (70-110)
--- NOTE | 2023-11-29 13:24 | P.HPIM ---
History of Present Illness H&P Date: 11/28/23 Chief Complaint: chest pain/ Gallstones HISTORY OF PRESENT ILLNESS: This is a 78-year-old female with a previous medical history significant for coronary artery disease status postcoronary artery bypass graft x 3 vessel 2004 history of hypertension and hypertensive cardiovascular disease, hyperlipidemia, diabetes mellitus type 2, paroxysmal atrial fibrillation, patient presented to the emergency department at [facility] because of chest pain, possible epigastric pain that radiates to the right upper quadrant area no radiation to the back, associated with nausea but no vomiting, patient stated that this is different than her chest pain that she usually experiences from her cardiac issues, initial evaluation did not reveal any acute abnormalities, but because of the presentation and because of her prior history she was admitted to the hospital for further evaluation by cardiology, patient also underwent ultrasound of the abdomen that showed evidence of possible gallstones, general surgery consultation was obtained from Dr. Haji REVIEW OF SYSTEMS: Constitutional: No documented fever, no chills, no night sweats. No weight change. No weakness, fatigue or lethargy. No daytime sleepiness. EENT: No headac percutaneous coronary intervention and stent placement in 2022 hypertension and hypertensive cardiovascular diseasehe. No blurred vision or double vision, no loss of vision. No loss of Hearing, no ringing in the ears, no dizziness. No nasal drainage or congestion. No epistaxis. No sore throat. Lungs: No shortness of breath, no cough, no sputum production. No wheezing. Reports dyspnea with activity. Cardiovascular: positive for chest pain/epigastric, no lower extremity edema. No palpitations. No paroxysmal nocturnal dyspnea. No orthopnea. No lightheadedness or dizziness. No syncopal episodes. Abdominal: Reports abdominal pain. Positive for nausea, vomiting. No diarrhea. No constipation. No bloody or tarry stools reports loss of appetite. Genitourinary: No dysuria, increased frequency, urgency. No urinary retention. Musculoskeletal: No myalgias. positive for muscle weakness, no gait dysfunction, no frequent falls. positive for back pain. No neck pain. Integumentary: No wounds, no lesions. No rash or pruritus. No unusual bruising. No change in hair or nails. Neurologic: No aphasia. No facial droop. No change in mentation. No head injury. No headache. No paralysis. No paresthesia. Psychiatric: No depression. positive for anxiety. No mood swings. Endocrine: No abnormal blood sugars. No weight change. PAST MEDICAL HISTORY: Coronary artery disease status post coronary artery bypass graft x 3 in 2003 Hypertension and hypertensive cardiovascular disease. Mixed hyperlipidemia. Diabetes mellitus type 2. Paroxysmal atrial fibrillation. GERD with esophagitis. Osteoarthritis. Osteopenia. PAST SURGICAL HISTORY: CABG times 04/2003 PCI with a stent placement 2022. Tonsillectomy. Cataract surgery. Complete hysterectomy due to endometriosis. Left total knee arthroplasty. Right total knee arthroplasty. Left shoulder replacement. Right shoulder reverse arthroplasty. Colonoscopy. Posterior lumbar discectomy with fusion L5-S1. SOCIAL HISTORY: Patient is a lifelong non-smoker, she denies any history of drinking, she denies any history of drug use or abuse. FAMILY HISTORY: Father at age of 52 from [place], mother at age of 82 from old age, patient has 1 brother alive and well, patient has 2 sisters 1 with COPD and she has a chronic history of tobacco use and dependence, patient has 1 daughter 55-year-old healthy. PHYSICAL EXAMINATION: General: 78-year-old female laying down in bed in no apparent distress. HEENT: Head is atraumatic, normocephalic, pupils were equal round reactive to light and recommendation, extraocular muscle movement were intact, sclera nonicteric, conjunctivae were pale, mucous membranes of the mouth are somewhat dry. Neck: Supple, no JVP, normal carotid upstroke bilaterally, no lymphadenopathy. Chest: Decreased breath sounds at the bases, few rhonchi, no expiratory wheezes, no chest wall tenderness, no intercostal retractions. Heart: First heart sound is normal, second heart sounds normal there is systolic ejection murmur 2/6 located in the left sternal border. Abdomen: Soft, nontender, nondistended, positive bowel sounds. Extremities: There is no edema no calf tenderness DP +2 bilaterally. Neurologic examination: Patient is awake alert and oriented x3, cranial nerves II-12 appear grossly intact, muscle power were 5 out of 5 in upper extremities and 5 out of 5 in bilateral lower extremities, deep tendon reflexes normal bilaterally. ASSESSMENT AND PLAN: 1. Chest pain in a patient with a prior history of CAD post CABG as well as PCI in 2022. Admit the patient to the hospital, cardiology evaluation, continue patient on aspirin 81 mg once every day, continue isosorbide mononitrate 60 mg orally once every day, continue Ranexa 500 mg orally twice every day, mg orally twice every day, atorvastatin 40 mg once every day, cardiology to evaluate the patient for further recommendation. 2. Possible biliary dyskinesia rule out gallstones ultrasound of the gallbladder was difficult to interpret the common bile duct was at the upper limit of normal, we will keep the patient in the hospital check HIDA scan tomorrow morning consult general surgery 3. Hypertension and hypertensive cardiovascular disease. Continue patient on current treatment plan, monitor the patient blood pressure very closely. 4. Mixed hyperlipidemia. Continue low-cholesterol diet, continue atorvastatin 40 mg once every day, monitor the patient lipid panel, keep LDL 55-70. 5. Diabetes mellitus type 2. Continue consistent carbohydrate diet, continue metformin 500 mg orally twice every day, start the patient on sliding scale insulin. 6. Paroxysmal atrial fibrillation. Continue patient on Eliquis 2.5 mg orally twice every day, monitor the patient's symptoms very closely. 7. GERD with esophagitis. Continue patient on Protonix 40 mg once every day, 8. Osteopenia. Continue calcium and vitamin D supplement. 9. Osteoarthritis. Continue Tylenol for pain control. 10. Anxiety disorder. Continue patient on Xanax 0.25 mg as needed. 11. DVT prophylaxis. Continue patient on Eliquis 5 mg orally twice every day. 12. GI prophylaxis. Continue patient on PPI. 13. Observation. 14. Full code. Past Medical History Past Medical History: Asthma, Coronary Artery Disease (CAD), Chest Pain / Angina, Heart Failure, COPD, CVA/TIA, Diabetes Mellitus, GERD/Reflux, Hyperlipid emia, Hypertension, Myocardial Infarction ([place]), Osteoarthritis (OA), Pneumonia, Sleep Apnea/CPAP/BIPAP, Syncope, Thyroid Disorder Additional Past Medical History / Comment(s): Pt recently admitted 04/23/16 with left lower lobe peumonia/bronchospasm/ unstable angina. Other hX: NIDDM type II, CVA, VERTIGO, syncope, bilateral tinnitis, anemia, murmur, hypothyroid, UTIs, nephrolithiasis, CHAVEZ with CPap, migraines, head injury as a teen, back pain. 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 Source:: ESBL URINE MRSA BACK Past Surgical History: Bladder Surgery, Coronary Bypass/CABG, Heart Catheterization, Heart Catheterization With Stent, Hysterectomy, Joint Replacement, Orthopedic Surgery, Tonsillectomy Additional Past Surgical History / Comment(s): 1997 3 vessel CABG in [facility], 2004 PCI with 2 stents, 2010 and 2012 cardiac caths, jessi total knee replacements with right side done twice; R total shoulder replacement; L rotator cuff repair, bilateral cataract surgery, bladder suspension, R foot bone fusion, colonoscopy/polypectomy, bilateral hands trigger fingers/thumbs released, benign lymph node bx L4,L5 S1 spinal surgery 04/2017 Past Anesthesia/Blood Transfusion Reactions: No Reported Reaction Additional Past Anesthesia/Blood Transfusion Reaction / Comment(s): Pt received blood in the s without reaction. Date of Last Stent Placement:: 2004 Past Psychological History: Depression Smoking Status: Never smoker Past Alcohol Use History: Rare Past Drug Use History: None Reported - Past Family History Mother Family Medical History: Chest Pain / Angina, Coronary Artery Disease (CAD), CVA/TIA, Hypertension, Musculoskeletal Disorder Father Family Medical History: Coronary Artery Disease (CAD) Additional Family Medical History / Comment(s): cabg Brother(s) Family Medical History: Coronary Artery Disease (CAD) Sister(s) Family Medical History: Coronary Artery Disease (CAD) Additional Family Medical History / Comment(s): pulmonary hypertension Daughter(s) Family Medical History: No Reported History Medications and Allergies Home Medications Medication Instructions Recorded Confirmed Type Furosemide [Lasix] 20 mg PO BID 10/15/14 11/28/23 History Levothyroxine Sodium [Synthroid] 50 mcg PO DAILY 10/15/14 11/28/23 History Nitroglycerin Sl Tabs [Nitrostat] 0.4 mg SUBLINGUAL Q5M PRN 10/15/14 11/28/23 History Apixaban [Eliquis] 5 mg PO BID 11/14/22 11/28/23 History Atorvastatin [Lipitor] 40 mg PO HS 11/14/22 11/28/23 History Citalopram Hydrobromide [CeleXA] 40 mg PO DAILY 11/14/22 11/28/23 History Sucralfate [Carafate] 1 gm PO BID 11/14/22 11/28/23 History metFORMIN HCL [Glucophage] 500 mg PO DAILY 01/09/23 11/28/23 History Isosorbide Mononitrate ER [Imdur] 60 mg PO DAILY #30 tab 06/22/23 11/28/23 Rx Omeprazole 20 mg PO BID 10/25/23 11/28/23 History Empagliflozin [Jardiance] 10 mg PO DAILY #30 tablet 10/26/23 11/28/23 Rx Ranolazine [Ranexa] 500 mg PO Q12HR #60 tab 10/26/23 11/28/23 Rx ALPRAZolam [Xanax] 0.25 mg PO DAILY 11/28/23 11/28/23 History Allergies Allergy/AdvReac Type Severity Reaction Status Date / Time Iodinated Contrast Media Allergy Rash/Hives Verified 11/28/23 18:03 latex Allergy Rash/Hives Verified 11/28/23 18:03 venom-honey bee Allergy Swelling Verified 11/28/23 18:03 [bee venom (honey bee)] zolpidem tartrate Allergy Rash/Altered Verified 11/28/23 18:03 [From Ambien] Mental Status Physical Exam Vitals: Vital Signs Temp Pulse Resp BP Pulse Ox 11/28/23 17:29 98.0 F 63 18 133/76 97 11/28/23 16:22 97.6 F 73 18 133/73 95 Intake and Output 11/28/23 11/28/23 11/28/23 06:59 14:59 22:59 Other: Weight 65.771 kg Results CBC & Chem 7: 11/29/23 03:42 11/29/23 03:42 Labs: Abnormal Lab Results - Last 24 Hours (Table) 11/28/23 Range/Units 17:19 AST 47 H (14-36) U/L
--- NOTE | 2023-11-29 13:58 | P.GSCN ---
History of Present Illness Consult date: 11/29/23 History of present illness: CHIEF COMPLAINT: Abdominal pain HISTORY OF PRESENT ILLNESS: 78-year-old female presents the hospital with right upper quadrant and epigastric abdominal pain that started yesterday. She denies any nausea or vomiting. She reports that she was having diarrhea and this has now resolved. Patient currently denies any chest pain. She is on Eliquis for atrial fibrillation. Last dose was yesterday morning. She also has a history of CABG that was about 30 years ago. Patient had a gallbladder ultrasound completed that reported unable to clearly delineate the gallbladder. It may be obscured by underlying gallstones. Patient's abdominal surgical history does include a hysterectomy. Patient was seen evaluated by cardiology. PAST MEDICAL HISTORY: Asthma, Coronary Artery Disease (CAD), Chest Pain / Angina, Heart Failure, COPD, CVA/TIA, Diabetes Mellitus, GERD/Reflux, Hyperlipidemia, Hypertension, Myocardial Infarction ([place]), Osteoarthritis (OA), Pneumonia, Sleep Apnea/CPAP/BIPAP, Syncope, Thyroid Disorder PAST SURGICAL HISTORY: Bladder Surgery, Coronary Bypass/CABG, Heart Catheterization, Heart Catheterization With Stent, Hysterectomy, Joint Replacement, Orthopedic Surgery, Tonsillectomy MEDICATIONS: See below ALLERGIES: See below SOCIAL HISTORY: No illicit drug use. REVIEW OF SYSTEMS: CONSTITUTIONAL: Denies fever or chills. HEENT: Denies blurred vision, vision changes, or eye pain. Denies hemoptysis CARDIOVASCULAR: Denies chest pain or pressure. RESPIRATORY: No shortness of breath. GASTROINTESTINAL: See HPI for pertinent findings HEMATOLOGIC: Denies bleeding disorders. GENITOURINARY: Denies any blood in urine or increased urinary frequency. SKIN: Denies pruitis. Denies rash. PHYSICAL EXAM: VITAL SIGNS: Reviewed GENERAL: Well-developed in no acute distress. ABDOMEN: Soft. Nondistended. Very tender in the right upper quadrant with palpation. NEUROLOGIC: Alert and oriented. Cranial nerves II through XII grossly intact. LABORATORY DATA: WBC 5.89 Hgb 11.9 platelets 168 Sodium 138 potassium 4.2 creatinine 0.9 Total bilirubin 0.4 AST 47 down to 28 ALT 28 alk phos 71 lipase 91 troponins negative x 3 sets IMAGING: Gallbladder ultrasound reports unable to clearly delineate the gallbladder and may be obscured to underlying gallstones. Bile duct upper limits of normal helpful given patient's age ASSESSMENT: 1. Right upper quadrant abdominal pain with possible cholecystitis. Ultrasound reports that they were unable to clearly delineate the gallbladder PLAN: -HIDA scan ordered to further investigate right upper quadrant abdominal pain and rule out acute cholecystitis -Okay for clear liquid diet -Continue pain management -Patient seen by cardiology service and report no absolute contraindication to proceed with surgery -Patient is tentatively boarded for Robotic cholecystectomy tomorrow depending on HIDA scan results Physician Diesel Inspector note has been reviewed by physician. Signing provider agrees with the documented findings, assessment, and plan of care. Attestation Patient presents with right upper quadrant abdominal pain. Concern is for sapphire cystitis. No leukocytosis, transaminases are normal. Gallbladder ultrasound performed and unable to clearly delineate the gallbladder. HIDA scan to be performed for further evaluation for cholecystitis. Possibility of cholecystectomy depending on HIDA results. Vickie Haji DO Past Medical History Past Medical History: Asthma, Coronary Artery Disease (CAD), Chest Pain / Angina, Heart Failure, COPD, CVA/TIA, Diabetes Mellitus, GERD/Reflux, Hyperlipidemia, Hypertension, Myocardial Infarction ([place]), Osteoarthritis (OA), Pneumonia, Sleep Apnea/CPAP/BIPAP, Syncope, Thyroid Disorder Additional Past Medical History / Comment(s): Pt recently admitted 04/23/16 with left lower lobe peumonia/bronchospasm/ unstable angina. Other hX: NIDDM type II, CVA, VERTIGO, syncope, bilateral tinnitis, anemia, murmur, hypothyroid, UTIs, nephrolithiasis, CHAVEZ with CPap, migraines, head injury as a teen, back pain. 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 Source:: ESBL URINE MRSA BACK Past Surgical History: Bladder Surgery, Coronary Bypass/CABG, Heart Catheterization, Heart Catheterization With Stent, Hysterectomy, Joint Replacement, Orthopedic Surgery, Tonsillectomy Additional Past Surgical History / Comment(s): 1997 3 vessel CABG in [facility], 2004 PCI with 2 stents, 2010 and 2012 cardiac caths, jessi total knee replacements with right side done twice; R total shoulder replacement; L rotator cuff repair, bilateral cataract surgery, bladder suspension, R foot bone fusion, colonoscopy/polypectomy, bilateral hands trigger fingers/thumbs released, benign lymph node bx L4,L5 S1 spinal surgery 04/2017 Past Anesthesia/Blood Transfusion Reactions: No Reported Reaction Additional Past Anesthesia/Blood Transfusion Reaction / Comm: Pt received blood in the 1959's without reaction. Date of Last Stent Placement:: 2004 Smoking Status: Never smoker - Past Family History Mother Family Medical History: Chest Pain / Angina, Coronary Artery Disease (CAD), CVA/TIA, Hypertension, Musculoskeletal Disorder Father Family Medical History: Coronary Artery Disease (CAD) Additional Family Medical History / Comment(s): cabg Brother(s) Family Medical History: Coronary Artery Disease (CAD) Sister(s) Family Medical History: Coronary Artery Disease (CAD) Additional Family Medical History / Comment(s): pulmonary hypertension Daughter(s) Family Medical History: No Reported History Medications and Allergies Home Medications Medication Instructions Recorded Confirmed Type Furosemide [Lasix] 20 mg PO BID 10/15/14 11/28/23 History Levothyroxine Sodium [Synthroid] 50 mcg PO DAILY 10/15/14 11/28/23 History Nitroglycerin Sl Tabs [Nitrostat] 0.4 mg SUBLINGUAL Q5M PRN 10/15/14 11/28/23 History Apixaban [Eliquis] 5 mg PO BID 11/14/22 11/28/23 History Atorvastatin [Lipitor] 40 mg PO HS 11/14/22 11/28/23 History Citalopram Hydrobromide [CeleXA] 40 mg PO DAILY 11/14/22 11/28/23 History Sucralfate [Carafate] 1 gm PO BID 11/14/22 11/28/23 History metFORMIN HCL [Glucophage] 500 mg PO DAILY 01/09/23 11/28/23 History Isosorbide Mononitrate ER [Imdur] 60 mg PO DAILY #30 tab 06/22/23 11/28/23 Rx Omeprazole 20 mg PO BID 10/25/23 11/28/23 History Empagliflozin [Jardiance] 10 mg PO DAILY #30 tablet 10/26/23 11/28/23 Rx Ranolazine [Ranexa] 500 mg PO Q12HR #60 tab 10/26/23 11/28/23 Rx ALPRAZolam [Xanax] 0.25 mg PO DAILY 11/28/23 11/28/23 History Allergies Allergy/AdvReac Type Severity Reaction Status Date / Time Iodinated Contrast Media Allergy Rash/Hives Verified 11/28/23 18:03 latex Allergy Rash/Hives Verified 11/28/23 18:03 venom-honey bee Allergy Swelling Verified 11/28/23 18:03 [bee venom (honey bee)] zolpidem tartrate Allergy Rash/Altered Verified 11/28/23 18:03 [From Ambien] Mental Status Surgical - Exam Osteopathic Statement: *. No significant issues noted on an osteopathic structural exam other than those noted in the History and Physical/Consult. Vital Signs Temp Pulse Resp BP Pulse Ox 97.6 F 73 18 133/73 95 11/28/23 16:22 11/28/23 16:22 11/28/23 16:22 11/28/23 16:22 11/28/23 16:22 Results - Labs 11/29/23 03:42 11/29/23 03:42 Abnormal Lab Results - Last 24 Hours (Table) 11/28/23 11/29/23 Range/Units 17:19 03:42 RBC 3.79 L (4.10-5.20) X 10*6/uL Hgb 11.9 L (12.0-15.0) g/dL Hct 36.6 L (37.2-46.3) % MPV 9.3 L (9.5-12.2) FL AST 47 H (14-36) U/L Diabetes panel 11/28/23 Range/Units 17:19 Sodium 138 (137-145) mmol/L Potassium 4.0 (3.5-5.1) mmol/L Chloride 104 (98-107) mmol/L Carbon Dioxide 27 (22-30) mmol/L BUN 15 (7-17) mg/dL Creatinine 0.71 (0.52-1.04) mg/dL Glucose 88 (74-99) mg/dL Calcium 9.0 (8.4-10.2) mg/dL AST 47 H (14-36) U/L ALT 34 (4-34) U/L Alkaline Phosphatase 57 (38-126) U/L Total Protein 6.8 (6.3-8.2) g/dL Albumin 4.2 (3.5-5.0) g/dL Calcium panel 11/28/23 Range/Units 17:19 Calcium 9.0 (8.4-10.2) mg/dL Albumin 4.2 (3.5-5.0) g/dL Pituitary panel 11/28/23 Range/Units 17:19 Sodium 138 (137-145) mmol/L Potassium 4.0 (3.5-5.1) mmol/L Chloride 104 (98-107) mmol/L Carbon Dioxide 27 (22-30) mmol/L BUN 15 (7-17) mg/dL Creatinine 0.71 (0.52-1.04) mg/dL Glucose 88 (74-99) mg/dL Calcium 9.0 (8.4-10.2) mg/dL Adrenal panel 11/28/23 Range/Units 17:19 Sodium 138 (137-145) mmol/L Potassium 4.0 (3.5-5.1) mmol/L Chloride 104 (98-107) mmol/L Carbon Dioxide 27 (22-30) mmol/L BUN 15 (7-17) mg/dL Creatinine 0.71 (0.52-1.04) mg/dL Glucose 88 (74-99) mg/dL Calcium 9.0 (8.4-10.2) mg/dL Total Bilirubin 0.4 (0.2-1.3) mg/dL AST 47 H (14-36) U/L ALT 34 (4-34) U/L Alkaline Phosphatase 57 (38-126) U/L Total Protein 6.8 (6.3-8.2) g/dL Albumin 4.2 (3.5-5.0) g/dL
--- NOTE | 2023-11-29 15:23 | NM ---
EXAMINATION TYPE: NM hepatobiliary wo EF DATE OF EXAM: 11/29/2023 COMPARISON: Gallbladder ultrasound 11/28/2023, CT abdomen pelvis 02/19/2018 CLINICAL INDICATION: Female, 78 years old with history of RUQ pain, r/o cholecystitis; TECHNIQUE: After the intravenous administration of 4.74 mCi Tc 99m Mebrofenin hepatobiliary scintigra phy is performed. Immediate images post injection. FINDINGS: Normal uptake of radiotracer is identified within the liver within 5 minutes with excretion into the hepatic and common biliary ducts within 10 minutes. There was normal progression washout of the liver or the course of the study. Radiotracer uptake was identified within the small bowel at 16 minutes. No definitive radiotracer uptake identified within the gallbladder during the course of the exam at 2 hours. IMPRESSION: Findings concerning for acute cholecystitis with nonvisualization of radiotracer uptake within the ga llbladder after 2 hours. No evidence for common bile duct obstruction. [facility] Syed Leggett, , 11/29/2023 3:21 PM
[2023-11-29] MEDS: metFORMIN 500 MG TAB PO SCH (15:28)
[2023-11-29] MEDS: DAPAGLIFLOZIN PROPANEDIOL 5 MG TABLET PO SCH (15:33)
[2023-11-29] MEDS: ALPRAZolam 0.25 MG TAB PO SCH (15:33)
[2023-11-29] MEDS: CITALOPRAM HYDROBROMIDE 20 MG TAB PO SCH (15:33)
[2023-11-29] MEDS: ISOSORBIDE MONONITRATE ER 60 MG TAB.ER.24H PO SCH (15:33)
[2023-11-29] MEDS: PIPERACILLIN-TAZOBACTAM 3.375 GM in SODIUM CHLORIDE 0.9% 100 ML IVPB SCH (16:42)
[2023-11-29 17:08] LABS: Glucose,Whole Blood 154 mg/dL (70-110)
--- NOTE | 2023-11-29 17:25 | P.PN ---
Subjective Progress Note Date: 11/29/23 HISTORY OF PRESENT ILLNESS: This is a 78-year-old female with a previous medical history signif icant for coronary artery disease status postcoronary artery bypass graft x 3 vessel 2003 history of hypertension and hypertensive cardiovascular disease, hyperlipidemia, diabetes mellitus type 2, paroxysmal atrial fibrillation, patient presented to the emergency department at [facility] because of chest pain, possible epigastric pain that radiates to the right upper quadrant area no radiation to the back, associated with nausea but no vomiting, patient stated that this is different than her chest pain that she usually experiences from her cardiac issues, initial evaluation did not reveal any acute abnormalities, but because of the presentation and because of her prior history she was admitted to the hospital for further evaluation by cardiology, patient also underwent ultrasound of the abdomen that showed evidence of possible gallstones, general surgery consultation was obtained from Dr. Haji 11/28: Patient is laying down in bed in no apparent distress, she underwent HIDA scan today that could not delineate the gallbladder after 2 hours, raising the possibility of acute cholecystitis, patient does not appear to have any acute pain at this point in time, patient was started on Zosyn 3.375 g piggyback every 8 hours by general surgery, was seen in consultation by general surgery who was recommended for the patient to go for robotic laparoscopic cholecystectomy tomorrow morning due to her condition, patient was seen earlier by cardiology and there was no absolute indication for surgical intervention at this time, will continue to follow-up with the patient very closely, I have obtained to have the midline since the patient does not have any IV access at this point in time. REVIEW OF SYSTEMS: Constitutional: No documented fever, no chills, no night sweats. No weight change. No weakness, fatigue or lethargy. No daytime sleepiness. EENT: No headac percutaneous coronary intervention and stent placement in 2022 hypertension and hypertensive cardiovascular diseasehe. No blurred vision or double vision, no loss of vision. No loss of Hearing, no ringing in the ears, no dizziness. No nasal drainage or congestion. No epistaxis. No sore throat. Lungs: No shortness of breath, no cough, no sputum production. No wheezing. Reports dyspnea with activity. Cardiovascular: positive for chest pain/epigastric, no lower extremity edema. No palpitations. No paroxysmal nocturnal dyspnea. No orthopnea. No lightheadedness or dizziness. No syncopal episodes. Abdominal: Reports abdominal pain. Positive for nausea, vomiting. No diarrhea. No constipation. No bloody or tarry stools reports loss of appetite. Genitourinary: No dysuria, increased frequency, urgency. No urinary retention. Musculoskeletal: No myalgias. positive for muscle weakness, no gait dysfunction, no frequent falls. positive for back pain. No neck pain. Integumentary: No wounds, no lesions. No rash or pruritus. No unusual bruising. No change in hair or nails. Neurologic: No aphasia. No facial droop. No change in mentation. No head injury. No headache. No paralysis. No paresthesia. Psychiatric: No depression. positive for anxiety. No mood swings. Endocrine: No abnormal blood sugars. No weight change. PHYSICAL EXAMINATION: General: 78-year-old female laying down in bed in no apparent distress. HEENT: Head is atraumatic, normocephalic, pupils were equal round reactive to light and recommendation, extraocular muscle movement were intact, sclera kate cteric, conjunctivae were pale, mucous membranes of the mouth are somewhat dry. Neck: Supple, no JVP, normal carotid upstroke bilaterally, no lymphadenopathy. Chest: Decreased breath sounds at the bases, few rhonchi, no expiratory wheezes, no chest wall tenderness, no intercostal retractions. Heart: First heart sound is normal, second heart sounds normal there is systolic ejection murmur 2/6 located in the left sternal border. Abdomen: Soft, nontender, nondistended, positive bowel sounds. Extremities: There is no edema no calf tenderness DP +2 bilaterally. Neurologic examination: Patient is awake alert and oriented x3, cranial nerves II-12 appear grossly intact, muscle power were 5 out of 5 in upper extremities and 5 out of 5 in bilateral lower extremities, deep tendon reflexes normal bila terally. ASSESSMENT AND PLAN: 1. Chest pain in a patient with a prior history of CAD post CABG as well as PCI in 2022. Admit the patient to the hospital, cardiology evaluation, continue patient on aspirin 81 mg once every day, continue isosorbide mononitrate 60 mg orally once every day, continue Ranexa 500 mg orally twice every day, mg orally twice every day, atorvastatin 40 mg once every day, cardiology evaluation appreciated. 2. Possible biliary dyskinesia versus acute cholecystitis. Continue Zosyn 3.375 g piggyback every 8 hours, patient is scheduled to go for laparoscopic cholecystectomy tomorrow morning robotic assisted, with meanwhile monitor the patient very closely. 3. Hypertension and hypertensive cardiovascular disease. Continue patient on current treatment plan, monitor the patient blood pressure very closely. 4. Mixed hyperlipidemia. Continue low-cholesterol diet, continue atorvastatin 40 mg once every day, monitor the patient lipid panel, keep LDL 55-70. 5. Diabetes mellitus type 2. Continue consistent carbohydrate diet, continue metformin 500 mg orally twice every day, start the patient on sliding scale insulin. 6. Paroxysmal atrial fibrillation. Continue patient on Eliquis 2.5 mg orally twice every day, monitor the patient's symptoms very closely. Hold the patient Eliquis tonight. 7. GERD with esophagitis. Continue patient on Protonix 40 mg once every day, 8. Osteopenia. Continue calcium and vitamin D supplement. 9. Osteoarthritis. Continue Tylenol for pain control. 10. Anxiety disorder. Continue patient on Xanax 0.25 mg as needed. 11. DVT prophylaxis. Hold the patient Eliquis tonight. 12. GI prophylaxis. Continue patient on PPI. 13. We will discuss with general surgery. Objective - Vital Signs Vital signs: Vital Signs Temp 97.9 F 11/29/23 14:46 Pulse 54 L 11/29/23 14:46 Resp 16 11/29/23 14:46 BP 149/75 11/29/23 14:46 Pulse Ox 100 11/29/23 14:46 FiO2 Intake & Output 11/28/23 11/29/23 11/29/23 18:59 06:59 18:59 Weight 65.771 kg 65.771 kg Other: # Voids 1 - Labs CBC & Chem 7: 11/29/23 03:42 11/29/23 03:42 Labs: Abnormal Lab Results - Last 24 Hours (Table) 11/28/23 11/29/23 11/29/23 Range/Units 17:19 03:42 03:42 RBC 3.79 L (4.10-5.20) X 10*6/uL Hgb 11.9 L (12.0-15.0) g/dL Hct 36.6 L (37.2-46.3) % MPV 9.3 L (9.5-12.2) FL POC Glucose (mg/dL) (70-110) mg/dL Calcium 8.6 L (8.7-10.3) mg/dL AST 47 H (14-36) U/L Total Protein 5.9 L (6.2-8.2) g/dL 11/29/23 Range/Units 17:06 RBC (4.10-5.20) X 10*6/uL Hgb (12.0-15.0) g/dL Hct (37.2-46.3) % MPV (9.5-12.2) FL POC Glucose (mg/dL) 154 H (70-110) mg/dL Calcium (8.7-10.3) mg/dL AST (14-36) U/L Total Protein (6.2-8.2) g/dL
[2023-11-29 20:00] LABS: Glucose,Whole Blood 104 mg/dL (70-110)
[2023-11-29] MEDS: SODIUM CHLORIDE 0.9% 1,000 ML IV SCH (20:32)
[2023-11-30 06:11] LABS: Glucose,Whole Blood 102 mg/dL (70-110)
[2023-11-30 08:56] LABS: Basophils # (A) 0.04 X 10*3/uL (0.00-0.10); Basophils % (A) 0.7 %; Eosinophils # (A) 0.16 X 10*3/uL (0.04-0.35); Eosinophils % (A) 2.9 %; HCT 34.8 % (37.2-46.3); HGB 11.6 g/dL (12.0-15.0); Lymphocytes # (A) 1.23 X 10*3/uL (0.90-5.00); Lymphocytes % (A) 22.6 %; MCHC 33.3 g/dL (32.0-37.0); MCV 96.1 FL (80.0-97.0); Mean Platelet Volume 9.3 FL (9.5-12.2); Monocytes # (A) 0.68 X 10*3/uL (0.20-1.00); Monocytes % (A) 12.5 %; NRBC Per 100 WBC 0 X 10*3/uL (0.00-0.01); Neutrophils # (A) 3.32 X 10*3/uL (1.80-7.70); Neutrophils % (A) 60.9 %; Platelet Count 177 X 10*3/uL (140-440); RBC 3.62 X 10*6/uL (4.10-5.20); RDW 12.9 % (11.5-14.5); WBC 5.45 X 10*3/uL (4.50-10.00)
[2023-11-30 09:54] LABS: ALT 24 U/L (8-44); AST 24 U/L (13-35); Albumin 3.7 g/dL (3.8-4.9); Albumin/Globulin Ratio 1.95 Ratio (1.60-3.17); Alkaline Phosphatase 70 U/L (41-126); BUN/Creat Ratio 7.89 Ratio (12.00-20.00); Blood Urea Nitrogen 7.1 mg/dL (9.0-27.0); Calcium 8.6 mg/dL (8.7-10.3); Carbon Dioxide 26.3 mmol/L (21.6-31.8); Chloride 105 mmol/L (96-109); Globulin 1.9 g/dL (1.6-3.3); Glucose 100 mg/dL (70-110); Potassium 4.5 mmol/L (3.5-5.5); Sodium 139 mmol/L (135-145); Total Bilirubin 0.6 mg/dL (0.3-1.2); Total Protein 5.6 g/dL (6.2-8.2)
--- NOTE | 2023-11-30 10:30 | P.PN ---
Subjective HISTORY OF PRESENT ILLNESS: This is a 78-year-old female with a past medical history significant for paroxysmal atrial fibrillation, coronary artery disease with previous CABG, hypertension, hyperlipidemia, diabetes, COPD, and CVA. Patient follows in the office with Dr. Santiago. We have been asked to see the patient in consultation for chest pain. Patient examined at the bedside. Patient states yesterday she began to have abdominal discomfort. She states the pain was in her right upper quadrant. She states she was not doing anything exertional when it started. She reports shortness of breath at baseline but states she was not having any worsening shortness of breath yesterday. She also reports having nausea without episodes of vomiting. She denies having any chest pain or pressure. DIAGNOSTICS: - EKG reveals sinus mechanism with no signs of acute ischemia - Chest xray post CABG changes. No definite acute process. - Gallbladder ultrasound unable to clearly delineate the gallbladder. May be obscured by underlying gallstones. Bile ducts upper limits of normal in caliber at 6 mm. Borderline caliber to main pancreatic duct may also be chronic for patient. - Laboratory data: WBC 6.6. Hemoglobin 13.2. Platelet count 199. Sodium 138. Potassium 4.0. BUN 15. Creatinine 0.71. Magnesium 2.0. Troponin negative x 3. - Current home cardiac medications include Eliquis 5 mg twice a day, atorvastatin 40 mg at night, Jardiance 10 mg daily, Lasix 20 mg twice a day, Imdur 60 mg daily, Ranexa 500 mg twice a day - Most recent echocardiogram obtained in October 2023 reveals ejection fraction 55 to 60%, mild mitral regurgitation, mild tricuspid regurgitation - Cardiac catheterization history: December 2022 revealing right dominant system. Normal filling pressures. No gradient. Right coronary artery free of significant disease. Distal branches provide collaterals to the distal LAD. Left main has less than 20% narrowing. LAD has diffuse disease and distal one fourth is diffusely diseased but no focal stenosis. Circumflex is totally occluded. MORENO to LAD is patent but because of the competitive flow the MORENO is not very functional. Most of the flow is coming antegrade from the three affiliated LAD. The free radial artery graft to the PDA branch/obtuse marginal branch of circumflex is widely patent with good flow but there is mild diffuse disease. Medical management was recommended. 11/30/2023 Patient examined this morning at the bedside. Patient currently denies chest pain or pressure. She denies shortness of breath. She continues to report mild abdominal pain with nausea this morning. HIDA scan reveals findings concerning for acute cholecystitis with nonvisualization of radiotracer uptake within the gallbladder after 2 hours. PHYSICAL EXAM: VITAL SIGNS: Reviewed. GENERAL: Well-developed in no acute distress. HEENT: Head is normocephalic. Pupils are equal, round. Sclerae anicteric. Mucous membranes of the mouth are moist. Neck supple. No JVD or thyromegaly LUNGS: Respirations even and unlabored. Lungs essentially clear to auscultation bilaterally. HEART: Regular rate and rhythm. S1 and S2 heard. Systolic murmur noted. ABDOMEN: Soft. Nondistended. EXTREMITIES: Normal range of motion. No clubbing or cyanosis. Peripheral pulses intact. No lower extremity edema NEUROLOGIC: Awake and alert. Oriented x 3. ASSESSMENT: Abdominal pain Cholelithiasis with possible acute cholecystitis Chest pain, ruled out, patient reporting right upper quadrant abdominal pain and not chest pain Paroxysmal atrial fibrillation, on [facility] outpatient Coronary artery disease with previous two-vessel CABG, MORENO to LAD and radial to OM1, 1997 Hypertension Hyperlipidemia Diabetes History of COPD and asthma; patient life time non-smoker History of CVA PLAN: No need to repeat echocardiogram as this was performed in October 2023 Continue home cardiac medications Resume [facility] post operatively Patient is at intermediate risk to undergo surgical intervention from a cardiac standpoint We will sign off. Please reconsult if needed. Nurse practitioner note has been reviewed by physician. Signing provider agrees with the documented findings, assessment, and plan of care documented by BIOINFORMATICS ENGINEER as a scribe. Objective - Vital Signs Vital signs: Vital Signs Temp 98.0 F 11/30/23 07:00 Pulse 53 L 11/30/23 07:00 Resp 14 11/30/23 07:00 BP 150/64 11/30/23 07:00 Pulse Ox 98 11/30/23 07:00 FiO2 Intake & Output 11/29/23 11/30/23 11/30/23 18:59 06:59 18:59 Intake Total 221 0 Balance 221 0 Weight 65.771 kg Intake: Oral 221 0 Other: Voiding Method Toilet # Voids 3 1 # Bowel Movements 2 - Labs CBC & Chem 7: 11/30/23 04:43 11/30/23 04:43 Labs: Abnormal Lab Results - Last 24 Hours (Table) 11/29/23 11/29/23 11/29/23 Range/Units 03:42 03:42 17:06 RBC 3.79 L (4.10-5.20) X 10*6/uL Hgb 11.9 L (12.0-15.0) g/dL Hct 36.6 L (37.2-46.3) % MPV 9.3 L (9.5-12.2) FL BUN (9.0-27.0) mg/dL BUN/Creatinine Ratio (12.00-20.00) Ratio POC Glucose (mg/dL) 154 H (70-110) mg/dL Calcium 8.6 L (8.7-10.3) mg/dL Total Protein 5.9 L (6.2-8.2) g/dL Albumin (3.8-4.9) g/dL 11/30/23 11/30/23 Range/Units 04:43 04:43 RBC 3.62 L (4.10-5.20) X 10*6/uL Hgb 11.6 L (12.0-15.0) g/dL Hct 34.8 L (37.2-46.3) % MPV 9.3 L (9.5-12.2) FL BUN 7.1 L (9.0-27.0) mg/dL BUN/Creatinine Ratio 7.89 L (12.00-20.00) Ratio POC Glucose (mg/dL) (70-110) mg/dL Calcium 8.6 L (8.7-10.3) mg/dL Total Protein 5.6 L (6.2-8.2) g/dL Albumin 3.7 L (3.8-4.9) g/dL
[2023-11-30 11:55] LABS: Glucose,Whole Blood 96 mg/dL (70-110)
[2023-11-30] MEDS: IV FLUID CONTINUATION 1,000 ML IV ONE (13:32)
[2023-11-30] MEDS: ONDANSETRON 4 MG/2 ML VIAL IVP PRN (13:41)
[2023-11-30] MEDS ORDERED: HYDROmorphone 1 MG/ML 1 ML SYRINGE IVP PRN (14:00)
[2023-11-30] MEDS ORDERED: ROCURONIUM 10 MG/ML (5 ML VIAL) IV ONE (14:29)
[2023-11-30] MEDS ORDERED: LIDOCAINE 1% INJ 10MG/ML (20 ML MDV) ONE (14:29)
[2023-11-30] MEDS ORDERED: fentaNYL (PF) 50 MCG/ML 2 ML AMP ONE (14:29)
[2023-11-30] MEDS ORDERED: SUCCINYLCHOLINE CHLORIDE 200 MG/10 ML VIAL IV ONE (14:29)
[2023-11-30] MEDS ORDERED: ePHEDrine 50 MG/ML 1 ML VIAL ONE (14:29)
[2023-11-30] MEDS ORDERED: SUGAMMADEX SODIUM 200 MG/2 ML SDV IV ONE (14:29)
[2023-11-30] MEDS ORDERED: GLYCOPYRROLATE 0.2 MG/ML 2 ML VIAL ONE (14:29)
[2023-11-30] MEDS ORDERED: PROPOFOL 10 MG/ML 20 ML VIAL IV ONE (14:29)
[2023-11-30] MEDS ORDERED: MIDAZOLAM 2 MG/2 ML VIAL ONE (14:29)
[2023-11-30] MEDS: BUPIVACAINE (PF) 0.25% 30 ML VIAL SQ ONE ×2 (15:01→15:15)
--- NOTE | 2023-11-30 15:19 | P.OP ---
Date of Procedure: 11/30/23 Preoperative Diagnosis: Acute Cholecystitis Postoperative Diagnosis: Adhesive Disease Procedure(s) Performed: Diagnostic Laparoscopy with Robotic Assist Anesthesia: MAC Surgeon: Vick Willett Pathology: none sent Condition: stable Disposition: PACU Description of Procedure: The patient was brought to the operating suite in placed in the supine position. Anesthesia was given and the patient was intubated. The patient was then prepped and draped in usual sterile fashion. A timeout was performed before the procedure began. An #11 blade was used to make an incision at Mckenna's point and a 5 mm optiview was used to gain access to the peritoneal cavity. The cavity was insufflated and the patient was positioned. Three additional working 8 mm ports were placed on the right side of the patients abdomen and the 5 mm port used to access the abdomen was replaced with a 12 mm robotic port. The robot was then docked and the instruments were inserted into the abdomen. I then sat at the robotic console and began my dissection. There were adhesions were the gallbladder should be which were taken down with hook cautery. Upon inspection there was no gallbladder visible. There was adhesive tissue from apparent previous cholecystectomy which were taken. The robot was then undocked and the ports were removed. Incisions were closed with #4-0 monocryl suture. Skin glue was applied. This concluded the procedure. The patient tolerated the procedure well and was sent to PACU in stable condition.
[2023-11-30 17:28] LABS: Glucose,Whole Blood 89 mg/dL (70-110)
--- NOTE | 2023-11-30 18:21 | P.PN ---
Subjective Progress Note Date: 11/30/23 HISTORY OF PRESENT ILLNESS: This is a 78-year-old female with a previous medical history signif icant for coronary artery disease status postcoronary artery bypass graft x 3 vessel 2003 history of hypertension and hypertensive cardiovascular disease, hyperlipidemia, diabetes mellitus type 2, paroxysmal atrial fibrillation, patient presented to the emergency department at [facility] because of chest pain, possible epigastric pain that radiates to the right upper quadrant area no radiation to the back, associated with nausea but no vomiting, patient stated that this is different than her chest pain that she usually experiences from her cardiac issues, initial evaluation did not reveal any acute abnormalities, but because of the presentation and because of her prior history she was admitted to the hospital for further evaluation by cardiology, patient also underwent ultrasound of the abdomen that showed evidence of possible gallstones, general surgery consultation was obtained from Dr. Haji 11/28: Patient is laying down in bed in no apparent distress, she underwent HIDA scan today that could not delineate the gallbladder after 2 hours, raising the possibility of acute cholecystitis, patient does not appear to have any acute pain at this point in time, patient was started on Zosyn 3.375 g piggyback every 8 hours by general surgery, was seen in consultation by general surgery who was recommended for the patient to go for robotic laparoscopic cholecystectomy tomorrow morning due to her condition, patient was seen earlier by cardiology and there was no absolute indication for surgical intervention at this time, will continue to follow-up with the patient very closely, I have obtained to have the midline since the patient does not have any IV access at this point in time. 11/29: Patient is sitting up in bed in no apparent distress, she denies any chest pain, shortness of breath, she has no abdominal pain, nausea vomiting or diarrhea, patient is scheduled to go for robotic assisted laparoscopic cholecystectomy, apparently the patient went to the OR, and the procedure was started, but there was no gallbladder it was a lot of adhesions from prior cholecystectomy, therefore the procedure was aborted, and the patient was brought back to the room, patient will be staying overnight, she will be discharged home in the next 24 hours. REVIEW OF SYSTEMS: Constitutional: No documented fever, no chills, no night sweats. No weight change. No weakness, fatigue or lethargy. No daytime sleepiness. EENT: No headac percutaneous coronary intervention and stent placement in 2022 hypertension and hypertensive cardiovascular diseasehe. No blurred vision or double vision, no loss of vision. No loss of Hearing, no ringing in the ears, no dizziness. No nasal drainage or congestion. No epistaxis. No sore throat. Lungs: No shortness of breath, no cough, no sputum production. No wheezing. Reports dyspnea with activity. Cardiovascular: positive for chest pain/epigastric, no lower extremity edema. No palpitations. No paroxysmal nocturnal dyspnea. No orthopnea. No lightheadedness or dizziness. No syncopal episodes. Abdominal: Reports abdominal pain. Positive for nausea, vomiting. No diarrhea. No constipation. No bloody or tarry stools reports loss of appetite. Genitourinary: No dysuria, increased frequency, urgency. No urinary retention. Musculoskeletal: No myalgias. positive for muscle weakness, no gait dysfunction, no frequent falls. positive for back pain. No neck pain. Integumentary: No wounds, no lesions. No rash or pruritus. No unusual bruising. No change in hair or nails. Neurologic: No aphasia. No facial droop. No change in mentation. No head injury. No headache. No paralysis. No paresthesia. Psychiatric: No depression. positive for anxiety. No mood swings. Endocrine: No abnormal blood sugars. No weight change. PHYSICAL EXAMINATION: General: 78-year-old female laying down in bed in no apparent d istress. HEENT: Head is atraumatic, normocephalic, pupils were equal round reactive to light and recommendation, extraocular muscle movement were intact, sclera nonicteric, conjunctivae were pale, mucous membranes of the mouth are somewhat dry. Neck: Supple, no JVP, normal carotid upstroke bilaterally, no lymphadenopathy. Chest: Decreased breath sounds at the bases, few rhonchi, no expiratory wheezes, no chest wall tenderness, no intercostal retractions. Heart: First heart sound is normal, second heart sounds normal there is systolic ejection murmur 2/6 located in the left sternal border. Abdomen: Soft, nontender, nondistended, positive bowel sounds. Extremities: There is no edema no calf tenderness DP +2 bilaterally. Neurologic examination: Patient is awake alert and oriented x3, cranial nerves II-12 appear grossly intact, muscle power were 5 out of 5 in upper extremities and 5 out of 5 in bilateral lower extremities, deep tendon reflexes normal bilaterally. ASSESSMENT AND PLAN: 1. Chest pain in a patient with a prior history of CAD post CABG as well as PCI in 2022. Admit the patient to the hospital, cardiology evaluation, continue patient on aspirin 81 mg once every day, continue isosorbide mononitrate 60 mg orally once every day, continue Ranexa 500 mg orally twice every day, mg orally twice every day, atorvastatin 40 mg once every day, cardiology evaluation appreciated. 2. Attempted robotic assisted laparoscopic cholecystectomy. Apparently the patient did have a cholecystectomy in the past that nobody knows about and she does not even remember that she has had that, therefore the procedure was aborted, and the patient was brought back to the room. 3. Hypertension and hypertensive cardiovascular disease. Continue patient on current treatment plan, monitor the patient blood pressure very closely. 4. Mixed hyperlipidemia. Continue low-cholesterol diet, continue atorvastatin 40 mg once every day, monitor the patient lipid panel, keep LDL 55-70. 5. Diabetes mellitus type 2. Continue consistent carbohydrate diet, continue metformin 500 mg orally twice every day, start the patient on sliding scale insulin. 6. Paroxysmal atrial fibrillation. Continue patient on Eliquis 2.5 mg orally twice every day, monitor the patient's symptoms very closely. Hold the patient Eliquis tonight. 7. GERD with esophagitis. Continue patient on Protonix 40 mg once every day, 8. Osteopenia. Continue calcium and vitamin D supplement. 9. Osteoarthritis. Continue Tylenol for pain control. 10. Anxiety disorder. Continue patient on Xanax 0.25 mg as needed. 11. DVT prophylaxis. Hold the patient Eliquis tonight. 12. GI prophylaxis. Continue patient on PPI. 13. Patient will be discharged home tomorrow morning. Objective - Vital Signs Vital signs: Vital Signs Temp 98.0 F 11/30/23 17:35 Pulse 60 11/30/23 17:35 Resp 15 11/30/23 17:35 BP 165/78 11/30/23 17:35 Pulse Ox 100 11/30/23 17:35 FiO2 Intake & Output 11/29/23 11/30/23 11/30/23 18:59 06:59 18:59 Intake Total 221 775 Output Total 25 Balance 221 750 Weight 65.771 kg 65.771 kg Intake: IV 775 Oral 221 0 Output: Estimated Blood Loss 25 Other: Voiding Method Toilet Toilet # Voids 3 1 # Bowel Movements 2 - Labs CBC & Chem 7: 11/30/23 04:43 11/30/23 04:43 Labs: Abnormal Lab Results - Last 24 Hours (Table) 11/30/23 11/30/23 Range/Units 04:43 04:43 RBC 3.62 L (4.10-5.20) X 10*6/uL Hgb 11.6 L (12.0-15.0) g/dL Hct 34.8 L (37.2-46.3) % MPV 9.3 L (9.5-12.2) FL BUN 7.1 L (9.0-27.0) mg/dL BUN/Creatinine Ratio 7.89 L (12.00-20.00) Ratio Calcium 8.6 L (8.7-10.3) mg/dL Total Protein 5.6 L (6.2-8.2) g/dL Albumin 3.7 L (3.8-4.9) g/dL
[2023-11-30 20:54] LABS: Glucose,Whole Blood 94 mg/dL (70-110)
[2023-12-01] MEDS: HYDROcodone/APAP 10-325MG 1 EACH TAB PO PRN (00:19)
[2023-12-01 04:15] VITALS: TEMP 98.3
[2023-12-01 05:51] LABS: Glucose,Whole Blood 125 mg/dL (70-110)
[2023-12-01 08:04] VITALS: BP 148/68; PULSE 52; RESP 16
[2023-12-01 08:46] LABS: Basophils # (A) 0.02 X 10*3/uL (0.00-0.10); Basophils % (A) 0.3 %; Eosinophils # (A) 0.13 X 10*3/uL (0.04-0.35); HCT 32.1 % (37.2-46.3); HGB 10.6 g/dL (12.0-15.0); Lymphocytes # (A) 0.85 X 10*3/uL (0.90-5.00); Lymphocytes % (A) 12.8 %; MCH 31.7 pg (27.0-32.0); MCV 96.1 FL (80.0-97.0); Mean Platelet Volume 9.6 FL (9.5-12.2); Monocytes # (A) 0.68 X 10*3/uL (0.20-1.00); Monocytes % (A) 10.3 %; NRBC Per 100 WBC 0 X 10*3/uL (0.00-0.01); Neutrophils # (A) 4.92 X 10*3/uL (1.80-7.70); Neutrophils % (A) 74.3 %; Platelet Count 151 X 10*3/uL (140-440); RBC 3.34 X 10*6/uL (4.10-5.20); RDW 12.7 % (11.5-14.5); WBC 6.62 X 10*3/uL (4.50-10.00)
[2023-12-01 09:11] LABS: ALT 47 U/L (8-44); AST 49 U/L (13-35); Albumin 3.5 g/dL (3.8-4.9); Albumin/Globulin Ratio 1.94 Ratio (1.60-3.17); Alkaline Phosphatase 66 U/L (41-126); Bilirubin, Conjugated <0.20 mg/dL (0.20-0.40); Bilirubin,Unconjugated >0.30 mg/dL (0.20-1.00); Calcium 8.1 mg/dL (8.7-10.3); Chloride 108 mmol/L (96-109); Globulin 1.8 g/dL (1.6-3.3); Glucose 101 mg/dL (70-110); Potassium 3.6 mmol/L (3.5-5.5); Sodium 140 mmol/L (135-145); Total Bilirubin 0.5 mg/dL (0.3-1.2); Total Protein 5.3 g/dL (6.2-8.2)
[2023-12-01] MEDS: APIXABAN 5 MG TAB PO SCH (10:15)
--- NOTE | 2023-12-01 11:17 | P.PN ---
Subjective Progress Note Date: 12/01/23 CHIEF COMPLAINT: Right upper quadrant abdominal pain HISTORY OF PRESENT ILLNESS: Patient status post diagnostic laparoscopy with Robotic assistance and lysis of adhesions. Patient reports improvement in her right upper quadrant abdominal pain. She is tolerating diet. Her pain is controlled. She is having flatus. She is afebrile. WBC 6.62 PHYSICAL EXAM: VITAL SIGNS: Reviewed. GENERAL: Well-developed in no acute distress. ABDOMEN: Soft. Nondistended. Incision sites clean dry and intact NEUROLOGIC: Alert and oriented. Cranial nerves II through XII grossly intact. ASSESSMENT: 1. Right upper quadrant abdominal pain likely due to adhesions. Pain improved PLAN: -Patient is stable from surgical standpoint for discharge -Advance diet to regular -ok to resume [employer] Physician Geological Technician note has been reviewed by physician. Signing provider agrees with the documented findings, assessment, and plan of care. Attestation Patient seen and examined at bedside. Attempt was made yesterday for cholecystectomy, however patient had lysis of adhesions with absent gallbladder. Patient states she does not remember having cholecystectomy in the past. She does state that her right upper quadrant pain is improved after lysis of adhesions. Tolerating diet. Surgically stable for discharge. Vickie Haji DO Objective - Vital Signs Vital signs: Vital Signs Temp 98.3 F 12/01/23 07:00 Pulse 52 L 12/01/23 07:00 Resp 16 12/01/23 07:00 BP 148/68 12/01/23 07:00 Pulse Ox 99 12/01/23 07:00 FiO2 Intake & Output 11/30/23 12/01/23 12/01/23 18:59 06:59 18:59 Intake Total 793 975 118 Output Total 25 Balance 768 975 118 Weight 65.771 kg Intake: IV 775 Intake, IV Titration 825 Amount Sodium Chloride 0.9% 1, 825 000 ml @ 75 mls/hr IV . [id number] [facility] Rx#:[id number] Oral 18 150 118 Output: Estimated Blood Loss 25 Other: Voiding Method Toilet Toilet # Voids 3 # Bowel Movements 0 - Labs CBC & Chem 7: 12/01/23 05:23 12/01/23 05:23 Labs: Abnormal Lab Results - Last 24 Hours (Table) 10/11/24 10/11/24 10/11/24 Range/Units 05:23 05:23 05:50 RBC 3.34 L (4.10-5.20) X 10*6/uL Hgb 10.6 L (12.0-15.0) g/dL Hct 32.1 L (37.2-46.3) % Lymphocytes # 0.85 L (0.90-5.00) X 10*3/uL BUN 7.0 L (9.0-27.0) mg/dL BUN/Creatinine Ratio 10.00 L (12.00-20.00) Ratio POC Glucose (mg/dL) 125 H (70-110) mg/dL Calcium 8.1 L (8.7-10.3) mg/dL AST 49 H (13-35) U/L ALT 47 H (8-44) U/L Total Protein 5.3 L (6.2-8.2) g/dL Albumin 3.5 L (3.8-4.9) g/dL
[2023-12-01 12:17] LABS: Glucose,Whole Blood 105 mg/dL (70-110)
== END 2023-12-01 14:43 | disposition home or self-care (01) ==
LOC: EC 16:21 → 6NMEDSUR 18:57
PROVIDERS: ADMIT Internal Medicine; ATTEND Internal Medicine
DX: R07.89 Other chest pain (principal); K80.00 Calculus of gallbladder with acute cholecystitis without obstruction; E03.9 Hypothyroidism, unspecified; E11.9 Type 2 diabetes mellitus without complications; E78.2 Mixed hyperlipidemia; F32.A Depression, unspecified; F41.9 Anxiety disorder, unspecified; I11.0 Hypertensive heart disease with heart failure; I25.10 Atherosclerotic heart disease of native coronary artery without angina pectoris; I25.2 Old myocardial infarction; I48.0 Paroxysmal atrial fibrillation; I50.9 Heart failure, unspecified; J44.89 Other specified chronic obstructive pulmonary disease; K21.00 Gastro-esophageal reflux disease with esophagitis, without bleeding; M19.90 Unspecified osteoarthritis, unspecified site; Z79.84 Long term (current) use of oral hypoglycemic drugs; Z79.890 Hormone replacement therapy; Z79.899 Other long term (current) drug therapy; Z82.49 Family history of ischemic heart disease and other diseases of the circulatory system; Z82.5 Family history of asthma and other chronic lower respiratory diseases; Z86.73 Personal history of transient ischemic attack (TIA), and cerebral infarction without residual deficits; Z87.442 Personal history of urinary calculi; Z87.828 Personal history of other (healed) physical injury and trauma; Z90.49 Acquired absence of other specified parts of digestive tract; Z95.1 Presence of aortocoronary bypass graft; Z95.5 Presence of coronary angioplasty implant and graft; Z96.611 Presence of right artificial shoulder joint; Z79.01 Long term (current) use of anticoagulants; M85.80 Other specified disorders of bone density and structure, unspecified site
CPT/HCPCS: 96376 ×2; 96374; 96375; 99285; 36415; 94760; 93005; 36410; 76937; 80053 ×3; 80048; 80076; 83690; 83735; 84484 ×2; 85025 ×4; 85610; 85730; 71046; 76705; 78226; 49320; G0378 ×4; A9537; J2543 ×3; J2250; J0330; J2405; J2003; J3010; J2704; J1171 ×2; J0665; J1596; J2470

== ENCOUNTER 2023-12-25 10:17 | Emergency (ER) | payer MEDICARE ==
[2023-12-25 10:25] VITALS: TEMP 97.8
[2023-12-25 10:59] LABS: Basophils % (A) 0 %; Eosinophils # (A) 0.2 k/uL (0-0.7); Eosinophils % (A) 4 %; HCT 36.7 % (34.0-46.0); HGB 12.1 gm/dL (11.4-16.0); Lymphocytes # (A) 1.2 k/uL (1.0-4.8); Lymphocytes % (A) 24 %; MCH 30.9 pg (25.0-35.0); MCHC 32.9 g/dL (31.0-37.0); Mean Platelet Volume 6.8; Monocytes # (A) 0.4 k/uL (0-1.0); Monocytes % (A) 8 %; Neutrophils % (A) 62 %; Platelet Count 177 k/uL (150-450); RBC 3.91 m/uL (3.80-5.40); RDW 13.4 % (11.5-15.5); WBC 4.9 k/uL (3.8-10.6)
[2023-12-25 11:10] LABS: Partial Thromboplastin Time 25.3 sec (22.0-30.0); Prothrombin Time 10.9 sec (10.0-12.5)
--- NOTE | 2023-12-25 11:16 | XR ---
EXAMINATION TYPE: XR chest 2V DATE OF EXAM: 12/25/2023 11:04 AM COMPARISON: Chest radiographs from 11/28/2023 TECHNIQUE: XR chest 2V Frontal and lateral views of the chest. CLINICAL INDICATION:Female, 78 years old with history of Chest Pain; FINDINGS: Lungs/Pleura: There is no evidence of pleural effusion, focal consolidation, or pneumothorax. Pulmonary vascularity: Unremarkable. Heart/mediastinum: Cardiomediastinal silhouette is enlarged and stable. Atherosclerotic calcificatio ns are seen in the aorta. Post-CABG changes. Musculoskeletal: Multiple level degenerative disc disease changes seen throughout the spine. Right sh oulder arthroplasty changes. Median sternotomy wires. Left shoulder arthropathy. IMPRESSION: 1. No acute cardiopulmonary disease/process. 2. Post-CABG changes. [facility], , 12/25/2023 11:13 AM
[2023-12-25 11:30] LABS: ALT 18 U/L (4-34); AST 27 U/L (14-36); African American GFR (CKD) >90 (>60 ml/min/1.73 sqM); Albumin 3.9 g/dL (3.5-5.0); Alkaline Phosphatase 74 U/L (38-126); Anion Gap 5 mmol/L; Blood Urea Nitrogen 10 mg/dL (7-17); Calcium 8.6 mg/dL (8.4-10.2); Carbon Dioxide 24 mmol/L (22-30); Chloride 109 mmol/L (98-107); Glucose 96 mg/dL (74-99); Lipase 79 U/L (23-300); Magnesium 1.8 mg/dL (1.6-2.3); Non-African American GFR(CKD) 88 (>60 ml/min/1.73 sqM); Potassium 3.7 mmol/L (3.5-5.1); Sodium 138 mmol/L (137-145); Total Bilirubin 0.6 mg/dL (0.2-1.3); Total Protein 6.4 g/dL (6.3-8.2)
--- NOTE | 2023-12-25 12:33 | ED ---
General Adult HPI - General Chief complaint: Chest Pain Stated complaint: chest pain Time Seen by Provider: 12/25/23 10:29 Source: patient, RN notes reviewed, old records reviewed Mode of arrival: ambulatory Limitations: no limitations - History of Present Illness Initial comments: 78-year-old female presenting for evaluation of central chest pain. Pain began today. Patient does have cardiac history including bypass and stenting. No radiation to this pain. No vomiting. No dyspnea. No diaphoresis. Patient states that her chest is tender to the touch. - Related Data Home Medications Medication Instructions Recorded Confirmed Furosemide [Lasix] 20 mg PO BID 10/15/14 12/25/23 Levothyroxine Sodium [Synthroid] 50 mcg PO DAILY 10/15/14 12/25/23 Nitroglycerin Sl Tabs [Nitrostat] 0.4 mg SUBLINGUAL Q5M PRN 10/15/14 12/25/23 Apixaban [Eliquis] 5 mg PO BID 11/14/22 12/25/23 Atorvastatin [Lipitor] 40 mg PO HS 11/14/22 12/25/23 Citalopram Hydrobromide [CeleXA] 40 mg PO DAILY 11/14/22 12/25/23 Sucralfate [Carafate] 1 gm PO BID 11/14/22 12/25/23 metFORMIN HCL [Glucophage] 500 mg PO DAILY 01/09/23 12/25/23 Omeprazole 20 mg PO BID 10/25/23 12/25/23 ALPRAZolam [Xanax] 0.25 mg PO DAILY 11/28/23 12/25/23 Memantine [Namenda] 5 mg PO DAILY 12/25/23 12/25/23 Previous Rx's Medication Instructions Recorded Isosorbide Mononitrate ER [Imdur] 60 mg PO DAILY #30 tab 06/22/23 Empagliflozin [Jardiance] 10 mg PO DAILY #30 tablet 10/26/23 Ranolazine [Ranexa] 500 mg PO Q12HR #60 tab 10/26/23 HYDROcodone/APAP 5-325MG [Cougar 1 tab PO Q6HR PRN 3 Days #12 tab 12/01/23 5-325] Allergies Allergy/AdvReac Type Severity Reaction Status Date / Time Iodinated Contrast Media Allergy Rash/Hives Verified 12/25/23 11:04 latex Allergy Rash/Hives Verified 12/25/23 11:04 venom-honey bee Allergy Swelling Verified 12/25/23 11:04 [bee venom (honey bee)] zolpidem tartrate Allergy Rash/Altered Verified 12/25/23 11:04 [From Ambien] Mental Status Review of Systems ROS Statement: Those systems with pertinent positive or pertinent negative responses have been documented in the HPI. ROS Other: All systems not noted in ROS Statement are negative. Past Medical History Past Medical History: Asthma, Coronary Artery Disease (CAD), Chest Pain / Angina, Heart Failure, COPD, CVA/TIA, Diabetes Mellitus, GERD/Reflux, Hyperlipidemia, Hypertension, Myocardial Infarction ([place]), Osteoarthritis (OA), Pneumonia, Sleep Apnea/CPAP/BIPAP, Syncope, Thyroid Disorder Additional Past Medical History / Comment(s): Pt recently admitted 04/23/16 with left lower lobe peumonia/bronchospasm/ unstable angina. Other hX: NIDDM type II, CVA, VERTIGO, syncope, bilateral tinnitis, anemia, murmur, hypothyroid, UTIs, nephrolithiasis, CHAVEZ with CPap, migraines, head injury as a teen, back pain. 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 Source:: ESBL URINE MRSA BACK Past Surgical History: Bladder Surgery, Coronary Bypass/CABG, Heart Catheterization, Heart Catheterization With Stent, Hysterectomy, Joint Replacement, Orthopedic Surgery, Tonsillectomy Additional Past Surgical History / Comment(s): 1997 3 vessel CABG in [facility], 2004 PCI with 2 stents, 2010 and 2012 cardiac caths, jessi total knee replacements with right side done twice; R total shoulder replacement; L rotator cuff repair, bilateral cataract surgery, bladder suspension, R foot bone fusion, colonoscopy/polypectomy, bilateral hands trigger fingers/thumbs released, benign lymph node bx L4,L5 S1 spinal surgery 04/2017 Past Anesthesia/Blood Transfusion Reactions: No Reported Reaction Additional Past Anesthesia/Blood Transfusion Reaction / Comment(s): Pt received blood in the 1959's without reaction. Date of Last Stent Placement:: 2004 Past Psychological History: Depression Smoking Status: Never smoker Past Alcohol Use History: Occasional Past Drug Use History: None Reported - Past Family History Mother Family Medical History: Chest Pain / Angina, Coronary Artery Disease (CAD), CVA/TIA, Hypertension, Musculoskeletal Disorder Father Family Medical History: Coronary Artery Disease (CAD) Additional Family Medical History / Comment(s): cabg Brother(s) Family Medical History: Coronary Artery Disease (CAD) Sister(s) Family Medical History: Coronary Artery Disease (CAD) Additional Family Medical History / Comment(s): pulmonary hypertension Daughter(s) Family Medical History: No Reported History General Exam Limitations: no limitations General appearance: alert, in no apparent distress Head exam: Present: atraumatic, normocephalic Eye exam: Present: normal appearance, PERRL ENT exam: Present: normal exam Neck exam: Present: normal inspection. Absent: tenderness, meningismus Respiratory exam: Present: normal lung sounds bilaterally, chest wall tenderness (Tenderness over the sternum). Absent: respiratory distress, wheezes Cardiovascular Exam: Present: regular rate, normal rhythm GI/Abdominal exam: Present: soft. Absent: distended, tenderness Extremities exam: Present: normal inspection, normal capillary refill Neurological exam: Present: alert, oriented X3 Psychiatric exam: Present: normal affect, normal mood Skin exam: Present: warm, dry, intact. Absent: cyanosis, diaphoretic Course Vital Signs 12/25/23 10:21 Temperature 97.8 F Pulse Rate 58 L Respiratory 18 Rate Blood Pressure 135/79 O2 Sat by Pulse 97 Oximetry Medical Decision Making - Medical Decision Making Was pt. sent in by a medical professional or institution (TALISHA Pham, METAPHYSICIST, urgent care, hospital, or snf...) When possible be specific @ -No Did you speak to anyone other than the patient for history (EMS, parent, family, police, friend...)? What history was obtained from this source @ -No Did you review nursing and triage notes (agree or disagree)? Why? @ -I reviewed and agree with nursing and triage notes Were old charts reviewed (outside hosp., previous admission, EMS record, old EKG, old radiological studies, urgent care reports/EKG's, snf records)? Report findings @ -No old charts were reviewed Differential Chest Pain: Stable Angina, Unstable Angina, STEMI, NSTEMI Aortic Dissection, Pneumothorax, Musculoskeletal, Esophageal Spasm GERD, Cholecystitis, Pancreatitis, Zoster, this is not meant to be an all-inclusive list. EKG interpreted by me (3pts min.). @ -EKG: Sinus bradycardia LVH, rate of 56, CA interval 165, QRS duration 101, QTc [address] segment elevation X-rays interpreted by me (1pt min.). @ -Chest x-ray negative for acute cardiopulmonary findings CT interpreted by me (1pt min.). @ -None done U/S interpreted by me (1pt. min.). @ -None done What testing was considered but not performed or refused? (CT, X-rays, U/S, labs)? Why? @ -None What meds were considered but not given or refused? Why? @ -None Did you discuss the management of the patient with other professionals (professionals i.e. , PA, METAPHYSICIST, lab, RT, psych nurse, social work coordinator, telephone advice nurse, teacher, learning and development officer, employment case manager)? Give summary @ -No Was smoking cessation discussed for >3mins.? @ -No Was critical care preformed (if so, how long)? @ -No Were there social determinants of health that impacted care today? How? (Homelessness, low income, unemployed, alcoholism, drug addiction, transportation, low edu. Level, literacy, decrease access to med. care, senior living, rehab)? @ -No Was there de-escalation of care discussed even if they declined (Discuss DNR or withdrawal of care, Hospice)? DNR status @ -No What co-morbidities impacted this encounter? (DM, HTN, Smoking, COPD, CAD, Cancer, CVA, ARF, Chemo, Hep., AIDS, mental health diagnosis, sleep apnea, mo rbid obesity)? @ -Coronary artery disease. Was patient admitted / discharged? Hospital course, mention meds given and route, prescriptions, significant lab abnormalities, going to OR and other pertinent info. @ -[78-year-old female with reproducible chest pain. Pain is atypical without typical features. EKG sinus without ST segment elevation. Chest x-ray is clear. Patient has a normal CBC, normal CMP, troponin is negative x 2. Patient will follow closely with her primary care provider and return if her symptoms should change or worsen. Undiagnosed new problem with uncertain prognosis? @ -No Drug Therapy requiring intensive monitoring for toxicity (Heparin, Nitro, Insulin, Cardizem)? @ -No Were any procedures done? @ -No Diagnosis/symptom? @ -Atypical chest pain Acute, or Chronic, or Acute on Chronic? @ -Acute Uncomplicated (without systemic symptoms) or Complicated (systemic symptoms)? @ -Default Side effects of treatment? @ -No Exacerbation, Progression, or Severe Exacerbation? @ -No Poses a threat to life or bodily function? How? (Chest pain, [place], [place], pneumonia, PE, COPD, DKA, ARF, appy, cholecystitis, CVA, Diverticulitis, Homicidal, Suicidal, threat to staff... and all critical care pts) @ -Low risk - Lab Data Result diagrams: 12/25/23 10:49 12/25/23 10:49 Lab Results 12/25/23 12/25/23 12/25/23 Range/Units 10:49 10:49 10:49 WBC 4.9 (3.8-10.6) k/uL RBC 3.91 (3.80-5.40) m/uL Hgb 12.1 (11.4-16.0) gm/dL Hct 36.7 (34.0-46.0) % MCV 94.0 (80.0-100.0) fL MCH 30.9 (25.0-35.0) pg MCHC 32.9 (31.0-37.0) g/dL RDW 13.4 (11.5-15.5) % Plt Count 177 (150-450) k/uL MPV 6.8 Neutrophils % 62 % Lymphocytes % 24 % Monocytes % 8 % Eosinophils % 4 % Basophils % 0 % Neutrophils # 3.0 (1.3-7.7) k/uL Lymphocytes # 1.2 (1.0-4.8) k/uL Monocytes # 0.4 (0-1.0) k/uL Eosinophils # 0.2 (0-0.7) k/uL Basophils # 0.0 (0-0.2) k/uL PT 10.9 (10.0-12.5) sec INR 1.0 (<1.2) APTT 25.3 (22.0-30.0) sec Sodium 138 (137-145) mmol/L Potassium 3.7 (3.5-5.1) mmol/L Chloride 109 H (98-107) mmol/L Carbon Dioxide 24 (22-30) mmol/L Anion Gap 5 mmol/L BUN 10 (7-17) mg/dL Creatinine 0.61 (0.52-1.04) mg/dL Est GFR (CKD-EPI)AfAm >90 (>60 ml/min/1.73 sqM) Est GFR (CKD-EPI)NonAf 88 (>60 ml/min/1.73 sqM) Glucose 96 (74-99) mg/dL Calcium 8.6 (8.4-10.2) mg/dL Magnesium 1.8 (1.6-2.3) mg/dL Total Bilirubin 0.6 (0.2-1.3) mg/dL AST 27 (14-36) U/L ALT 18 (4-34) U/L Alkaline Phosphatase 74 (38-126) U/L Troponin I (0.000-0.034) ng/mL Total Protein 6.4 (6.3-8.2) g/dL Albumin 3.9 (3.5-5.0) g/dL Lipase 79 (23-300) U/L 12/25/23 12/25/23 Range/Units 10:49 12:44 WBC (3.8-10.6) k/uL RBC (3.80-5.40) m/uL Hgb (11.4-16.0) gm/dL Hct (34.0-46.0) % MCV (80.0-100.0) fL MCH (25.0-35.0) pg MCHC (31.0-37.0) g/dL RDW (11.5-15.5) % Plt Count (150-450) k/uL MPV Neutrophils % % Lymphocytes % % Monocytes % % Eosinophils % % Basophils % % Neutrophils # (1.3-7.7) k/uL Lymphocytes # (1.0-4.8) k/uL Monocytes # (0-1.0) k/uL Eosinophils # (0-0.7) k/uL Basophils # (0-0.2) k/uL PT (10.0-12.5) sec INR (<1.2) APTT (22.0-30.0) sec Sodium (137-145) mmol/L Potassium (3.5-5.1) mmol/L Chloride (98-107) mmol/L Carbon Dioxide (22-30) mmol/L Anion Gap mmol/L BUN (7-17) mg/dL Creatinine (0.52-1.04) mg/dL Est GFR (CKD-EPI)AfAm (>60 ml/min/1.73 sqM) Est GFR (CKD-EPI)NonAf (>60 ml/min/1.73 sqM) Glucose (74-99) mg/dL Calcium (8.4-10.2) mg/dL Magnesium (1.6-2.3) mg/dL Total Bilirubin (0.2-1.3) mg/dL AST (14-36) U/L ALT (4-34) U/L Alkaline Phosphatase (38-126) U/L Troponin I <0.012 <0.012 (0.000-0.034) ng/mL Total Protein (6.3-8.2) g/dL Albumin (3.5-5.0) g/dL Lipase (23-300) U/L Disposition Clinical Impression: Chest pain Disposition: HOME SELF-CARE Condition: Fair Instructions (If sedation given, give patient instructions): Chest Pain (ED) Is patient prescribed a controlled substance at d/c from ED?: No Referrals: Ashanti Davenport MD [Primary Care Provider] - 1-2 days Time of Disposition: 13:40
[2023-12-25] MEDS: KETOROLAC 15 MG/ML 1 ML VIAL IVP STA (13:36)
[2023-12-25 14:06] VITALS: BP 139/74; PULSE 55; RESP 16
== END 2023-12-25 14:06 | disposition home or self-care (01) ==
LOC: EC 10:17
DX: R07.89 Other chest pain (principal); Z91.041 Radiographic dye allergy status; Z91.030 Bee allergy status; Z88.8 Allergy status to other drugs, medicaments and biological substances
CPT/HCPCS: 36415; 93005; 80053; 83690; 83735; 84484; 85025; 85610; 85730; 71046; 99285; 96374; J1885

== ENCOUNTER 2024-01-08 14:28 | Emergency (ER) | payer MEDICARE ==
[2024-01-08 14:35] VITALS: TEMP 98.1
--- NOTE | 2024-01-08 14:36 | ED ---
General Adult HPI - General Stated complaint: Fall Time Seen by Provider: 01/08/24 14:29 Source: patient, RN notes reviewed Mode of arrival: EMS Limitations: no limitations - History of Present Illness Initial comments: Patient is a 78-year-old female presenting to the emergency department with concern for fall. Patient was at the store and stepped down a curb however it was higher than she expected. Patient fell and struck the left side of her face. Patient does have discomfort left side of the face. No loss of consciousness. No confusion or weakness. Patient is ambulatory. Unclear last tetanus immunization. No neck or back pain. No chest pain or dyspnea. - Related Data Home Medications Medication Instructions Recorded Confirmed Furosemide [Lasix] 20 mg PO BID 10/15/14 12/25/23 Levothyroxine Sodium [Synthroid] 50 mcg PO DAILY 10/15/14 12/25/23 Nitroglycerin Sl Tabs [Nitrostat] 0.4 mg SUBLINGUAL Q5M PRN 10/15/14 12/25/23 Apixaban [Eliquis] 5 mg PO BID 11/14/22 12/25/23 Atorvastatin [Lipitor] 40 mg PO HS 11/14/22 12/25/23 Citalopram Hydrobromide [CeleXA] 40 mg PO DAILY 11/14/22 12/25/23 Sucralfate [Carafate] 1 gm PO BID 11/14/22 12/25/23 metFORMIN HCL [Glucophage] 500 mg PO DAILY 01/09/23 12/25/23 Omeprazole 20 mg PO BID 10/25/23 12/25/23 ALPRAZolam [Xanax] 0.25 mg PO DAILY 11/28/23 12/25/23 Memantine [Namenda] 5 mg PO DAILY 12/25/23 12/25/23 Previous Rx's Medication Instructions Recorded Isosorbide Mononitrate ER [Imdur] 60 mg PO DAILY #30 tab 06/22/23 Empagliflozin [Jardiance] 10 mg PO DAILY #30 tablet 10/26/23 Ranolazine [Ranexa] 500 mg PO Q12HR #60 tab 10/26/23 HYDROcodone/APAP 5-325MG [[place] 1 tab PO Q6HR PRN 3 Days #12 tab 12/01/23 5-325] Allergies Allergy/AdvReac Type Severity Reaction Status Date / Time Iodinated Contrast Media Allergy Rash/Hives Verified 12/25/23 11:04 latex Allergy Rash/Hives Verified 12/25/23 11:04 venom-honey bee Allergy Swelling Verified 12/25/23 11:04 [bee venom (honey bee)] zolpidem tartrate Allergy Rash/Altered Verified 12/25/23 11:04 [From Ambien] Mental Status Review of Systems ROS Statement: Those systems with pertinent positive or pertinent negative responses have been documented in the HPI. ROS Other: All systems not noted in ROS Statement are negative. Constitutional: Denies: fever Eyes: Denies: eye pain ENT: Reports: as per HPI. Denies: ear pain Respiratory: Denies: cough, dyspnea Cardiovascular: Denies: chest pain Endocrine: Denies: fatigue Gastrointestinal: Denies: abdominal pain Musculoskeletal: Denies: back pain Neurological: Denies: headache, weakness, confusion Past Medical History Past Medical History: Asthma, Coronary Artery Disease (CAD), Chest Pain / Angina, Heart Failure, COPD, CVA/TIA, Diabetes Mellitus, GERD/Reflux, Hyperlipidemia, Hypertension, Myocardial Infarction ([place]), Osteoarthritis (OA), Pneumonia, Sleep Apnea/CPAP/BIPAP, Syncope, Thyroid Disorder Additional Past Medical History / Comment(s): Pt recently admitted 04/23/16 with left lower lobe peumonia/bronchospasm/ unstable angina. Other hX: NIDDM type II, CVA, VERTIGO, syncope, bilateral tinnitis, anemia, murmur, hypothyroid, UTIs, nephrolithiasis, CHAVEZ with CPap, migraines, head injury as a teen, back pain. 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 Source:: ESBL URINE MRSA BACK Past Surgical History: Bladder Surgery, Coronary Bypass/CABG, Heart Catheterization, Heart Catheterization With Stent, Hysterectomy, Joint Replacem ent, Orthopedic Surgery, Tonsillectomy Additional Past Surgical History / Comment(s): 1997 3 vessel CABG in [facility], 2004 PCI with 2 stents, 2010 and 2012 cardiac caths, jessi total knee replacements with right side done twice; R total shoulder replacement; L rotator cuff repair, bilateral cataract surgery, bladder suspension, R foot bone fusion, colonoscopy/polypectomy, bilateral hands trigger fingers/thumbs released, benign lymph node bx L4,L5 S1 spinal surgery 04/2017 Past Anesthesia/Blood Transfusion Reactions: No Reported Reaction Additional Past Anesthesia/Blood Transfusion Reaction / Comment(s): Pt received blood in the s without reaction. Date of Last Stent Placement:: 2004 Past Psychological History: Depression Smoking Status: Never smoker Past Alcohol Use History: Occasional Past Drug Use History: None Reported - Past Family History Mother Family Medical History: Chest Pain / Angina, Coronary Artery Disease (CAD), CVA/TIA, Hypertension, Musculoskeletal Disorder Father Family Medical History: Coronary Artery Disease (CAD) Additional Family Medical History / Comment(s): cabg Brother(s) Family Medical History: Coronary Artery Disease (CAD) Sister(s) Family Medical History: Coronary Artery Disease (CAD) Additional Family Medical History / Comment(s): pulmonary hypertension Daughter(s) Family Medical History: No Reported History General Exam Limitations: no limitations General appearance: alert, in no apparent distress Head exam: Present: other (Left zygomatic soft tissue swelling and ecchymosis somewhat left orbital) Eye exam: Present: normal appearance, PERRL, EOMI ENT exam: Present: normal oropharynx, other (Left zygomatic swelling and ecchymosis. Tenderness. Mild nasal tenderness) Neck exam: Present: normal inspection. Absent: tenderness Respiratory exam: Present: normal lung sounds bilaterally Cardiovascular Exam: Present: regular rate, normal rhythm GI/Abdominal exam: Present: soft. Absent: tenderness Extremities exam: Present: normal inspection, full ROM. Absent: tenderness Neurological exam: Present: alert, oriented X3, CN II-XII intact. Absent: motor sensory deficit Expanded Neurological exam: Present: protecting the airway Speech: Present: fluid speech Cranial nerves: EOM's Intact: Normal, Facial Sensation: Normal Motor strength exam: RUE: 5, LUE: 5, RLE: 5, LLE: 5 Eye Response: (4) open spontaneously Motor Response: (6) obeys commands Verbal Response: (5) oriented Psychiatric exam: Present: normal affect, normal mood Skin exam: Present: abrasion (Bilateral knees and left face) Course Vital Signs 01/08/24 14:29 Temperature 98.1 F Pulse Rate 61 Respiratory 17 Rate Blood Pressure 146/89 O2 Sat by Pulse 96 Oximetry EKG Findings - EKG Results: EKG: interpreted by ERMD (Left axis.), sinus rhythm, normal QRS, normal ST/T Medical Decision Making - Medical Decision Making Was pt. sent in by a medical professional or institution (TALISHA Pham, [employer], urgent care, hospital, or snf...) When possible be specific @ -No Did you speak to anyone other than the patient for history (EMS, parent, family, police, friend...)? What history was obtained from this source @ -No Did you review nursing and triage notes (agree or disagree)? Why? @ -I reviewed and agree with nursing and triage notes Were old charts reviewed (outside hosp., previous admission, EMS record, old EKG, old radiological studies, urgent care reports/EKG's, snf records)? Report findings @ -No old charts were reviewed Differential Diagnosis (chest pain, altered mental status, abdominal pain women, abdominal pain men, vaginal bleeding, weakness, fever, dyspnea, syncope, headache, dizziness, GI bleed, back pain, seizure, CVA, palpatations, mental health, musculoskeletal)? @ -Differential Musculoskeletal Muscular strain, contusion, ligament sprain, fracture, arthritis, septic arthritis, bursitis, cellulitis, muscle spasm, nerve compression, DVT, arterial occlusion, herpes zoster, electrolyte abnormality, tumor.... This is not meant to be in all inclusive list EKG interpreted by me (3pts min.). @ -As above X-rays interpreted by me (1pt min.). @ -None done CT interpreted by me (1pt min.). @ -CT scan of brain and cervical spine without acute traumatic injury U/S interpreted by me (1pt. min.). @ -None done What testing was considered but not performed or refused? (CT, X-rays, U/S, labs)? Why? @ -None What meds were considered but not given or refused? Why? @ -None Did you discuss the management of the patient with other professionals (professionals i.e. TALISHA Pham, [employer]PERVISOR, lab, RT, psych nurse, social scientist, welder production line combination, teacher, vice squad police officer, protective services case worker)? Give summary @ -No Was smoking cessation discussed for >3mins.? @ -No Was critical care preformed (if so, how long)? @ -No Were there social determinants of health that impacted care today? How? (Homelessness, low income, unemployed, alcoholism, drug addiction, transportation, low edu. Level, literacy, decrease access to med. care, group home, rehab)? @ -No Was there de-escalation of care discussed even if they declined (Discuss DNR or withdrawal of care, Hospice)? DNR status @ -No What co-morbidities impacted this encounter? (DM, HTN, Smoking, COPD, CAD, Cancer, CVA, ARF, Chemo, Hep., AIDS, mental health diagnosis, sleep apnea, morbid obesity)? @ -Patient is on Eliquis Was patient admitted / discharged? Hospital course, mention meds given and route, prescriptions, significant lab abnormalities, going to OR and other pert inent info. @ -Patient presents with fall and head injury on Eliquis. CT scans unremarkable. Patient updated and will be discharged. Patient in agreement with plan. Patient recommended hold Eliquis for 1 day Undiagnosed new problem with uncertain prognosis? @ -No Drug Therapy requiring intensive monitoring for toxicity (Heparin, Nitro, Insulin, Cardizem)? @ -No Were any procedures done? @ -No Diagnosis/symptom? @ -, Facial contusion, fall Acute, or Chronic, or Acute on Chronic? @ -Acute, acute Uncomplicated (without systemic symptoms) or Complicated (systemic symptoms)? @ -Default Side effects of treatment? @ -No Exacerbation, Progression, or Severe Exacerbation? @ -No Poses a threat to life or bodily function? How? (Chest pain, [place], [place], pneumonia, PE, COPD, DKA, ARF, appy, cholecystitis, CVA, Diverticulitis, Homicidal, Suicidal, threat to staff... and all critical care pts) @ -No Disposition Clinical Impression: Fall, Facial contusion Disposition: HOME SELF-CARE Condition: Stable Instructions (If sedation given, give patient instructions): Fall Prevention (ED), Head Injury (ED) Additional Instructions: Hold Eliquis for 24 hours. Ice to affected area. [id number] Tylenol as needed. Please do follow-up with your primary care physician in the next couple of days for recheck. Return for confusion, weakness, increased pain, difficulty walking, worsening symptoms or any other concerns. Is patient prescribed a controlled substance at d/c from ED?: No Referrals: Ashanti Davenport MD [Primary Care Provider] - 1-2 days Time of Disposition: 15:35
[2024-01-08] MEDS: MORPHINE SULFATE 4 MG/ML SYRINGE IM STA (14:58)
[2024-01-08] MEDS: DIPH,PERTUS(ACELL)TETVAC-LF 0.5 ML VIAL IM ONE (15:00)
--- NOTE | 2024-01-08 15:11 | CT ---
EXAMINATION TYPE: CT brain leticia wo con DATE OF EXAM: 01/08/2024 COMPARISON: 02/19/2018 CLINICAL INDICATION: Female, 78 years old with history of fall; [facility], fell off a curb/ on thinners TECHNIQUE: CT scan of the head and cervical spine are performed without contrast. CT DLP: combined dlp 999.[address] CTDI: mGy Automated exposure control for dose reduction was used. Findings: Head CT: Ventricles, basal cisterns and sulci over convexities are moderately enlarged consistent with moderat e cortical atrophy. There is moderate to marked frontal lobe atrophy. No abnormal density is seen thr oughout the brain parenchyma and there is no acute intra or extra-axial hemorrhage. Posterior fossa including the brainstem, fourth ventricle and cerebellar pontine angles are grossly n ormal. The intraorbital contents appear normal and symmetric. Visualized paranasal sinuses are well aerated. There is moderate soft tissue swelling over the left maxillary bone but no underlying fracture. CT cervical spine: Craniovertebral junction relationships and prevertebral soft tissues are normal. The cervical vertebral segments are normal in height and alignment and there is no fracture subluxati on. There is marked disc space narrowing and spondylosis at C4-5, C5-6 and C6-7 levels. There is mild to moderate narrowing with vacuum phenomena and spondylosis at the C2-3 level. There is advanced facet and uncovertebral joint arthropathy in the mid lower cervical spine. The bony cervical canal is widely patent and there is no significant bony encroachment of the neural foramina. The paraspinal soft tissues unremarkable. IMPRESSION: 1. Head CT: No acute bleed or mass effect. Cortical atrophy greatest over the frontal lobes. 2. CT cervical spine: No acute trauma. Marked degenerative disc disease and osteoarthritis as describ ed above. [facility], , 01/08/2024 3:09 PM
--- NOTE | 2024-01-08 15:15 | CT ---
EXAMINATION TYPE: CT facial bones wo con DATE OF EXAM: 01/08/2024 COMPARISON: 01/25/2018 CLINICAL INDICATION: Female, 78 years old with history of fall; [facility], fell off a curb/ on thinners TECHNIQUE: CT scan of the sinuses is performed without contrast, axial images are obtained, coronal reformatted images are also reviewed. CT DLP: combined 999.[address] CTDI: mGy Automated exposure control for dose reduction was used. FINDINGS: The paranasal sinuses including the frontal, ethmoid, sphenoid, and maxillary sinuses bila terally are well-aerated without abnormal opacification. The ostiomeatal complex is patent bilateral ly on the coronal images. Visualized portion of mastoid air cells show no abnormal opacification. The globes are intact bilate rally. . There is badz-dt-qgeeygro soft tissue swelling over the left maxillary bone. There are no facial bone fractures. IMPRESSION: 1. No evidence of facial bone trauma. 2. Lnik-xi-gauwytgq soft tissue swelling over the left maxilla. 3. Paranasal sinuses well aerated. [facility], , 01/08/2024 3:12 PM
[2024-01-08 15:46] VITALS: BP 127/82; PULSE 57; RESP 16
== END 2024-01-08 15:46 | disposition home or self-care (01) ==
LOC: EC 14:28
DX: S00.83XA Contusion of other part of head, initial encounter (principal); Z88.8 Allergy status to other drugs, medicaments and biological substances; Z91.041 Radiographic dye allergy status; Z91.030 Bee allergy status; Z91.040 Latex allergy status; Z95.1 Presence of aortocoronary bypass graft; Z95.5 Presence of coronary angioplasty implant and graft; Z86.73 Personal history of transient ischemic attack (TIA), and cerebral infarction without residual deficits; Z23 Encounter for immunization; W01.0XXA Fall on same level from slipping, tripping and stumbling without subsequent striking against object, initial encounter
CPT/HCPCS: 93005; 72125; 70486; 70450; 90715; 99284; 90471; 96372; J2270

== ENCOUNTER → 2024-01-26 | Outpatient (CLI) | payer MEDICARE ==
--- NOTE | 2024-01-26 15:45 | MR ---
INDICATION: Patient age:Female; 78 years old; Reason for study: H53.40, R29.6, R41.3,R26.89; [facility]. COMPARISON: CT brain C-spine facial bones 01/08/2024, 02/19/2018, CT brain 06/20/2023. TECHNIQUE: Multi planar, multi sequence imaging was performed through the brain. The patient was then given 6.5 cc of Gadobutrol intravenously and multi planar, T1 fat-saturation images were obtained. FINDINGS: The garcia-white junctions, ventricular system, basal cisterns appear unremarkable. Cerebral atrophy re demonstrated involving the bilateral frontal lobes. Diffusion-weighted imaging shows no evidence of r estricted diffusion to suggest acute/subacute infarct. Intracranial arterial flow voids are maintaine d. Midline structures show no abnormality. Patchy areas of high T2/FLAIR signal intensity are seen wi thin the periventricular and subcortical white matter. Largest is within the left lobe subcortical wh ite matter measuring up to 7 mm (series 601, image 20). Additional high T2/FLAIR signal identified wi thin the inderjit symmetrically. The susceptibility weighted images a few of foci of blooming artifact wi thin the bilateral parietal lobes, left frontal lobe, and right cerebellum related to prior microhemo rrhage. After administration of gadolinium, no abnormal enhancement is seen. The bone marrow signal is within normal limits. The paranasal sinuses. Bilateral aphakia. IMPRESSION: 1. No evidence of intracranial mass, acute/subacute infarct, or abnormal enhancement. 2. Nonspecific white matter changes, likely related to small vessel ischemic disease. 3. Redemonstration of cortical atrophy involving the bilateral frontal lobes. [facility], , 01/26/2024 3:42 PM
== END | disposition home or self-care (01) ==
LOC: RADMRIMAIN 14:13
PROVIDERS: ATTEND Internal Medicine
DX: G31.9 Degenerative disease of nervous system, unspecified (principal); H53.40 Unspecified visual field defects; R29.6 Repeated falls; R41.3 Other amnesia; R26.89 Other abnormalities of gait and mobility; R90.82 White matter disease, unspecified
CPT/HCPCS: 70553; A9585

== ENCOUNTER → 2024-05-16 | Outpatient (CLI) | payer MEDICARE ==
--- NOTE | 2024-05-16 09:55 | XR ---
EXAMINATION TYPE: XR lumbar spine 2 or 3V DATE OF EXAM: 05/16/2024 CLINICAL INDICATION: Female, 79 years old with history of M54.50 Lumbar back pain, pain TECHNIQUE: Frontal and lateral images of the lumbar spine are obtained. COMPARISON: None FINDINGS: There are 5 lumbar type vertebral bodies identified. Osseous structures are demineralized. There are bilateral posterior intrapedicular rods and screws along with artificial disc material L4- S1 levels. There is grade 1 retrolisthesis L2 on L3. Vertebral body heights are preserved. There is m oderate to severe disc space narrowing and anterior spurring at L1-L2 level. There is height loss martha ng superior endplate with some lucency. Cannot exclude acute mild/moderate compression type fracture. There is mild disc space narrowing at L2-L3 level. Overlying cholecystectomy clips are present. IMPRESSION: As above. Possible acute compression type fracture at L1 level. Clinical correlation and follow-up advised. [facility], , 05/16/2024 9:53 AM
== END | disposition home or self-care (01) ==
LOC: RADXRMAIN 09:07
PROVIDERS: ATTEND Internal Medicine
DX: M43.16 Spondylolisthesis, lumbar region (principal); M51.360 Other intervertebral disc degeneration, lumbar region with discogenic back pain only; Z90.49 Acquired absence of other specified parts of digestive tract
CPT/HCPCS: 72100

== ENCOUNTER 2024-08-01 01:53 | Emergency (ER) | payer MEDICARE ==
[2024-08-01 01:58] VITALS: TEMP 98.2
--- NOTE | 2024-08-01 02:15 | ED ---
General Adult HPI - General Chief complaint: Chest Pain Stated complaint: chest pain Time Seen by Provider: 08/01/24 01:55 Source: patient, RN notes reviewed, old records reviewed Mode of arrival: wheelchair Limitations: no limitations - History of Present Illness Initial comments: 79-year-old female history of CAD presenting for evaluation of chest pain with radiation to the left arm. Patient states she had some associated nausea no vomiting. No diaphoresis. Patient states she is under a great deal of stress with recent arguments with her daughter. Patient denies abdominal pain. Denies lower extremity pain or swelling. Denies dyspnea. - Related Data Home Medications Medication Instructions Recorded Confirmed Furosemide [Lasix] 20 mg PO BID 10/15/14 12/25/23 Levothyroxine Sodium [Synthroid] 50 mcg PO DAILY 10/15/14 12/25/23 Nitroglycerin Sl Tabs [Nitrostat] 0.4 mg SUBLINGUAL Q5M PRN 10/15/14 12/25/23 Apixaban [Eliquis] 5 mg PO BID 11/14/22 12/25/23 Atorvastatin [Lipitor] 40 mg PO HS 11/14/22 12/25/23 Citalopram Hydrobromide [CeleXA] 40 mg PO DAILY 11/14/22 12/25/23 Sucralfate [Carafate] 1 gm PO BID 11/14/22 12/25/23 metFORMIN HCL [Glucophage] 500 mg PO DAILY 01/09/23 12/25/23 Omeprazole 20 mg PO BID 10/25/23 12/25/23 ALPRAZolam [Xanax] 0.25 mg PO DAILY 11/28/23 12/25/23 Memantine [Namenda] 5 mg PO DAILY 12/25/23 12/25/23 Previous Rx's Medication Instructions Recorded Isosorbide Mononitrate ER [Imdur] 60 mg PO DAILY #30 tab 06/22/23 Empagliflozin [Jardiance] 10 mg PO DAILY #30 tablet 10/26/23 Ranolazine [Ranexa] 500 mg PO Q12HR #60 tab 10/26/23 HYDROcodone/APAP 5-325MG [[place] 1 tab PO Q6HR PRN 3 Days #12 tab 12/01/23 5-325] Allergies Allergy/AdvReac Type Severity Reaction Status Date / Time Iodinated Contrast Media Allergy Rash/Hives Verified 08/01/24 01:55 latex Allergy Rash/Hives Verified 08/01/24 01:55 venom-honey bee Allergy Swelling Verified 08/01/24 01:55 [bee venom (honey bee)] zolpidem tartrate Allergy Rash/Altered Verified 08/01/24 01:55 [From Shaien] Mental Status Review of Systems ROS Statement: Those systems with pertinent positive or pertinent negative responses have been documented in the HPI. ROS Other: All systems not noted in ROS Statement are negative. Past Medical History Past Medical History: Asthma, Coronary Artery Disease (CAD), Chest Pain / Angina, Heart Failure, COPD, CVA/TIA, Diabetes Mellitus, GERD/Reflux, Hy perlipidemia, Hypertension, Myocardial Infarction ([place]), Osteoarthritis (OA), Pneumonia, Sleep Apnea/CPAP/BIPAP, Syncope, Thyroid Disorder Additional Past Medical History / Comment(s): Pt recently admitted 04/23/16 with left lower lobe peumonia/bronchospasm/ unstable angina. Other hX: NIDDM type II, CVA, VERTIGO, syncope, bilateral tinnitis, anemia, murmur, hypothyroid, U TIs, nephrolithiasis, CHAVEZ with CPap, migraines, head injury as a teen, back pain. 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, 2004 PCI with 2 stents, 2010 and 2012 cardiac caths, jessi total knee replacements with right side done twice; R total shoulder replacement; L rotator cuff repair, bilateral cataract surgery, bladder suspension, R foot bone fusion, colonoscopy/polypectomy, bilateral hands trigger fingers/thumbs released, benign lymph node bx L4,L5 S1 spinal surgery 04/2017 Past Anesthesia/Blood Transfusion Reactions: No Reported Reaction Additional Past Anesthesia/Blood Transfusion Reaction / Comment(s): Pt received blood in the 1959's without reaction. Date of Last Stent Placement:: 2004 Past Psychological History: Depression Smoking Status: Never smoker Past Alcohol Use History: Occasional Past Drug Use History: None Reported - Past Family History Mother Family Medical History: Chest Pain / Angina, Coronary Artery Disease (CAD), CVA/TIA, Hypertension, Musculoskeletal Disorder Father Family Medical History: Coronary Artery Disease (CAD) Additional Family Medical History / Comment(s): cabg Brother(s) Family Medical History: Coronary Artery Disease (CAD) Sister(s) Family Medical History: Coronary Artery Disease (CAD) Additional Family Medical History / Comment(s): pulmonary hypertension Daughter(s) Family Medical History: No Reported History General Exam Limitations: no limitations General appearance: alert, in no apparent distress Head exam: Present: atraumatic, normocephalic Eye exam: Present: normal appearance, PERRL ENT exam: Present: normal exam Neck exam: Present: normal inspection. Absent: tenderness, meningismus Respiratory exam: Present: normal lung sounds bilaterally, chest wall ten derness. Absent: respiratory distress, wheezes Cardiovascular Exam: Present: regular rate, normal rhythm GI/Abdominal exam: Present: soft. Absent: distended, tenderness, guarding Extremities exam: Present: normal inspection, normal capillary refill Neurological exam: Present: alert, oriented X3, CN II-XII intact. Absent: motor sensory deficit Psychiatric exam: Present: normal affect, normal mood Skin exam: Present: warm, dry, intact Course Vital Signs 08/01/24 08/01/24 08/01/24 01:55 02:40 04:00 Temperature 98.2 F Pulse Rate 76 58 L 58 L Respiratory 19 18 16 Rate Blood Pressure 142/75 112/92 103/58 O2 Sat by Pulse 95 99 98 Oximetry Medical Decision Making - Medical Decision Making Was pt. sent in by a medical professional or institution (, PA, BOILER SHOP SUPERVISOR, urgent care, hospital, or jail...) When possible be specific @ -No Did you speak to anyone other than the patient for history (EMS, parent, family, police, friend...)? What history was obtained from this source @ -No Did you review nursing and triage notes (agree or disagree)? Why? @ -I reviewed and agree with nursing and triage notes Were old charts reviewed (outside hosp., previous admission, EMS record, old EKG, old radiological studies, urgent care reports/EKG's, jail records)? Report findings @ -No old charts were reviewed Differential Chest Pain: Stable Angina, Unstable Angina, STEMI, NSTEMI Aortic Dissection, Pneumothorax, Musculoskeletal, Esophageal Spasm GERD, Cholecystitis, Pancreatitis, Zoster, this is not meant to be an all-inclusive list. EKG interpreted by me (3pts min.). @Sinus rhythm rate of 70 NC interval 159, QRS duration 92, QTc [address] segment depression in lead V2 X-rays interpreted by me (1pt min.). @ -Chest x-ray does show a left midlung opacity. Patient does not report any cough, dyspnea, fever and has a normal white blood cell count. Doubt pneumonia at this time CT interpreted by me (1pt min.). @ -None done U/S interpreted by me (1pt. min.). @ -None done What testing was considered but not performed or refused? (CT, X-rays, U/S, labs)? Why? @ -None What meds were considered but not given or refused? Why? @ -None Did you discuss the management of the patient with other professionals (professionals i.e. , PA, BOILER SHOP SUPERVISOR, lab, RT, psych nurse, pediatric social worker, merchandise flow team member, teacher, senior grants officer, business case analyst)? Give summary @ -No Was smoking cessation discussed for >3mins.? @ -No Was critical care preformed (if so, how long)? @ -No Were there social determinants of health that impacted care today? How? (Homelessness, low income, unemployed, alcoholism, drug addiction, transportation, low edu. Level, literacy, decrease access to med. care, assisted, rehab)? @ -No Was there de-escalation of care discussed even if they declined (Discuss DNR or withdrawal of care, Hospice)? DNR status @ -No What co-morbidities impacted this encounter? (DM, HTN, Smoking, COPD, CAD, Cancer, CVA, ARF, Chemo, Hep., AIDS, mental health diagnosis, sleep apnea, morbid obesity)? @CAD Was patient admitted / discharged? Hospital course, mention meds given and route, prescriptions, significant lab abnormalities, going to OR and other pertinent info. @ -[79-year-old female presenting with substernal chest pain. Patient admits to anxiety over recent stress relationship between her and her daughter. This has been over the past 24 to 48 hours. After initial evaluation the patient does state that this is likely the cause of her symptoms. EKG is sinus and similar appearance to previous EKG. Patient has negative initial troponin. I did offer observation for further cardiac testing and the patient declined wishing to be discharged. Patient's family member is at bedside during the decision making. Patient will return with worsening or changing symptoms and follow-up closely with her primary care provider. @ - Drug Therapy requiring intensive monitoring for toxicity (Heparin, Nitro, Insulin, Cardizem)? @ -No Were any procedures done? @ -No Diagnosis/symptom? @ -Chest pain, anxiety Acute, or Chronic, or Acute on Chronic? @Acute Uncomplicated (without systemic symptoms) or Complicated (systemic symptoms)? @ -Default Side effects of treatment? @ -No Exacerbation, Progression, or Severe Exacerbation? @ -No Poses a threat to life or bodily function? How? (Chest pain, [place], [place], pneumonia, PE, COPD, DKA, ARF, appy, cholecystitis, CVA, Diverticulitis, Homicidal, S uicidal, threat to staff... and all critical care pts) @Low risk - Lab Data Result diagrams: 08/01/24 02:08 08/01/24 02:08 Lab Results 08/01/24 08/01/24 08/01/24 Range/Units 02:08 02:08 02:08 WBC 7.67 (4.50-10.00) 10*3/uL RBC 3.84 L (4.10-5.20) 10*6/uL Hgb 12.0 (12.0-15.0) g/dL Hct 35.0 L (37.2-46.3) % MCV 91.1 (80.0-97.0) fL MCH 31.3 (27.0-32.0) pg MCHC 34.3 (32.0-37.0) g/dL Plt Count 185 (140-440) 10*3/uL MPV 9.2 L (9.5-12.2) fL Immature Gran % (Auto) 0.1 % Neutrophils % 62.8 % Lymphocytes % 22.0 % Monocytes % 12.1 % Eosinophils % 2.2 % Basophils % 0.8 % Immature Gran # 0.01 (0.00-0.04) 10*3/uL Neutrophils # 4.81 (1.80-7.70) 10*3/uL Lymphocytes # 1.69 (0.90-5.00) 10*3/uL Monocytes # 0.93 (0.20-1.00) 10*3/uL Eosinophils # 0.17 (0.04-0.35) 10*3/uL Basophils # 0.06 (0.00-0.10) 10*3/uL PT 11.5 (10.0-12.5) sec INR 1.0 (<1.2) APTT 24.6 (22.0-30.0) sec Sodium 138 (137-145) mmol/L Potassium 3.3 L (3.5-5.1) mmol/L Chloride 100 (98-107) mmol/L Carbon Dioxide 25 (22-30) mmol/L Anion Gap 13 mmol/L BUN 13 (7-17) mg/dL Creatinine 0.71 (0.52-1.04) mg/dL Est GFR (CKD-EPI)AfAm >90 (>60 ml/min/1.73 sqM) Est GFR (CKD-EPI)NonAf 83 (>60 ml/min/1.73 sqM) Glucose 101 H (74-99) mg/dL Calcium 9.6 (8.4-10.2) mg/dL Magnesium 1.5 L (1.6-2.3) mg/dL Total Bilirubin 0.5 (0.2-1.3) mg/dL AST 33 (14-36) U/L ALT 17 (4-34) U/L Alkaline Phosphatase 57 (38-126) U/L Troponin I (0.000-0.034) ng/mL Total Protein 6.8 (6.3-8.2) g/dL Albumin 4.3 (3.5-5.0) g/dL 08/01/24 Range/Units 02:08 WBC (4.50-10.00) 10*3/uL RBC (4.10-5.20) 10*6/uL Hgb (12.0-15.0) g/dL Hct (37.2-46.3) % MCV (80.0-97.0) fL MCH (27.0-32.0) pg MCHC (32.0-37.0) g/dL Plt Count (140-440) 10*3/uL MPV (9.5-12.2) fL Immature Gran % (Auto) % Neutrophils % % Lymphocytes % % Monocytes % % Eosinophils % % Basophils % % Immature Gran # (0.00-0.04) 10*3/uL Neutrophils # (1.80-7.70) 10*3/uL Lymphocytes # (0.90-5.00) 10*3/uL Monocytes # (0.20-1.00) 10*3/uL Eosinophils # (0.04-0.35) 10*3/uL Basophils # (0.00-0.10) 10*3/uL PT (10.0-12.5) sec INR (<1.2) APTT (22.0-30.0) sec Sodium (137-145) mmol/L Potassium (3.5-5.1) mmol/L Chloride (98-107) mmol/L Carbon Dioxide (22-30) mmol/L Anion Gap mmol/L BUN (7-17) mg/dL Creatinine (0.52-1.04) mg/dL Est GFR (CKD-EPI)AfAm (>60 ml/min/1.73 sqM) Est GFR (CKD-EPI)NonAf (>60 ml/min/1.73 sqM) Glucose (74-99) mg/dL Calcium (8.4-10.2) mg/dL Magnesium (1.6-2.3) mg/dL Total Bilirubin (0.2-1.3) mg/dL AST (14-36) U/L ALT (4-34) U/L Alkaline Phosphatase (38-126) U/L Troponin I <0.012 (0.000-0.034) ng/mL Total Protein (6.3-8.2) g/dL Albumin (3.5-5.0) g/dL Disposition Clinical Impression: Chest pain Disposition: HOME SELF-CARE Condition: Fair Instructions (If sedation given, give patient instructions): Chest Pain (ED) Is patient prescribed a controlled substance at d/c from ED?: No Referrals: Ashanti Davenport MD [Primary Care Provider] - 1-2 days Time of Disposition: 04:05
[2024-08-01] MEDS: HYDROmorphone 0.5 MG/0.5 ML SYRINGE IVP STA (02:37)
[2024-08-01 02:39] LABS: Basophils # (A) 0.06 10*3/uL (0.00-0.10); Basophils % (A) 0.8 %; Eosinophils # (A) 0.17 10*3/uL (0.04-0.35); Eosinophils % (A) 2.2 %; Lymphocytes # (A) 1.69 10*3/uL (0.90-5.00); MCH 31.3 pg (27.0-32.0); MCHC 34.3 g/dL (32.0-37.0); MCV 91.1 fL (80.0-97.0); Mean Platelet Volume 9.2 fL (9.5-12.2); Monocytes # (A) 0.93 10*3/uL (0.20-1.00); Monocytes % (A) 12.1 %; Neutrophils # (A) 4.81 10*3/uL (1.80-7.70); Neutrophils % (A) 62.8 %; Platelet Count 185 10*3/uL (140-440); RBC 3.84 10*6/uL (4.10-5.20); RDW 13.1 % (11.5-14.5); WBC 7.67 10*3/uL (4.50-10.00)
[2024-08-01 02:43] VITALS: PULSE 58
[2024-08-01] MEDS: ONDANSETRON 4 MG/2 ML VIAL IVP STA (02:50)
[2024-08-01 02:57] LABS: Partial Thromboplastin Time 24.6 sec (22.0-30.0); Prothrombin Time 11.5 sec (10.0-12.5)
[2024-08-01 04:00] LABS: ALT 17 U/L (4-34); AST 33 U/L (14-36); African American GFR (CKD) >90 (>60 ml/min/1.73 sqM); Albumin 4.3 g/dL (3.5-5.0); Alkaline Phosphatase 57 U/L (38-126); Anion Gap 13 mmol/L; Blood Urea Nitrogen 13 mg/dL (7-17); Calcium 9.6 mg/dL (8.4-10.2); Carbon Dioxide 25 mmol/L (22-30); Chloride 100 mmol/L (98-107); Glucose 101 mg/dL (74-99); Magnesium 1.5 mg/dL (1.6-2.3); Non-African American GFR(CKD) 83 (>60 ml/min/1.73 sqM); Potassium 3.3 mmol/L (3.5-5.1); Sodium 138 mmol/L (137-145); Total Bilirubin 0.5 mg/dL (0.2-1.3); Total Protein 6.8 g/dL (6.3-8.2)
[2024-08-01 04:03] VITALS: BP 103/58; RESP 16
--- NOTE | 2024-08-01 04:53 | XR ---
EXAM: XR Chest, 2 Views CLINICAL HISTORY: ITS.REASON XR Reason: Chest Pain TECHNIQUE: Frontal and lateral views of the chest. COMPARISON: No relevant prior studies available. FINDINGS: Lungs: Mild left basilar opacity Pleural space: No effusion. Heart: cardiomegaly. Bones/joints: No acute findings. Right shoulder arthroplasty. IMPRESSION: Mild left basilar opacity
== END 2024-08-01 04:14 | disposition home or self-care (01) ==
LOC: EC 01:53
DX: R07.9 Chest pain, unspecified (principal); Z86.79 Personal history of other diseases of the circulatory system; Z91.030 Bee allergy status; Z91.040 Latex allergy status; Z91.041 Radiographic dye allergy status; Z88.8 Allergy status to other drugs, medicaments and biological substances
CPT/HCPCS: 36415; 93005; 80053; 83735; 84484; 85025; 85610; 85730; 71046; 99285; 96374; 96375; J2405; J1171